=== PATIENT | male | born 1950 | race African-American/Black ===

== ENCOUNTER 2017-06-28 12:10 | Inpatient (IN) | payer OTHER, MEDICARE ==
[2017-06-28] MEDS: DEXTROSE 50% 50 ML SYRINGE IV (13:56)
[2017-06-28] MEDS: D5W 1,000 ML IV (13:56)
[2017-06-28 13:57] LABS: BEDSIDE GLUCOSE 36 MG/DL (80-115)
[2017-06-28 14:03] LABS: ABG PARTIAL PRESSURE CO2 34.6 mmHg (35.0-45.0); ABG pH (ARTERIAL) 7.497 UNITS (7.350-7.450)
[2017-06-28 14:04] LABS: ABG BASE EXCESS 3.2 (-2.0-2.0); ABG HCO3 26.2 MEQ/L (22.0-26.0); ABG O2 SATURATION 98.2 % (95.0-99.0); ABG STANDARD HCO3 27.3 MEQ/L (22.0-26.0); ABG TOTAL CO2 27.3 MEQ/L (23.0-31.0)
[2017-06-28 14:21] LABS: OSMOLALITY SERUM 315 MOSM/KG (280-301)
[2017-06-28 14:21] LABS: AMMONIA 75 uMOL/L (<32)
[2017-06-28 14:24] LABS: ALBUMIN/GLOBULIN RATIO 0.65 (1.00-1.93); ALT/SGPT 60 U/L (12-78); ANION GAP 31 MEQ/L (8-16); AST/SGOT 152 U/L (7-37); BILIRUBIN,DIRECT 0.2 MG/DL (0.0-0.2); BILIRUBIN,TOTAL 0.8 MG/DL (0.2-1.0); BLOOD UREA NITROGEN 5 MG/DL (7-18); C REACTIVE PROTEIN QUANTITATIV < 0.30 MG/DL (0.00-0.30); CARBON DIOXIDE LEVEL 4 MEQ/L (21-32); CHLORIDE LEVEL 109 MEQ/L (98-107); CPK CREATINE PHOSPHOKINASE 499 U/L (39-308); CREATININE FOR GFR 0.72 MG/DL (0.70-1.30); GLOMERULAR FILTRATION RATE > 60.0 (>49); POTASSIUM SERUM 3.4 MEQ/L (3.5-5.1); SALICYLATE LEVEL < 1.7 MG/DL (5.0-30.0); SODIUM LEVEL 144 MEQ/L (136-145); TOTAL PROTEIN 7.6 GM/DL (6.4-8.2); TROPONIN I 0.03 NG/ML (< 0.10)
[2017-06-28 14:30] LABS: BASO % 0.5 % (0.0-1.0); EOS % 0.2 % (0.0-3.0); HEMATOCRIT 32.5 % (42.0-52.0); HEMOGLOBIN 10.9 g/dl (14.0-18.0); IMMATURE GRANULOCYTE % 0.3 % (0-3.0); LYMPH # 0.7 10^3/uL (1.5-4.5); LYMPH % 10.5 % (24.0-44.0); MEAN CORPUSCULAR HEMOGLOBIN 30.6 pg (27.0-33.0); MEAN CORPUSCULAR HGB CONC 33.5 g/dl (32.0-36.5); MEAN CORPUSCULAR VOLUME 91.3 fl (80.0-96.0); MONO # 0.7 10^3/uL (0.0-0.8); MONO % 11.3 % (0.0-5.0); NEUTROPHILS # 4.9 10^3/uL (1.8-7.7); NEUTROPHILS % 77.2 % (36.0-66.0); PLATELET COUNT, AUTOMATED 146 10^3/uL (150-450); RED BLOOD COUNT 3.56 10^6/uL (4.30-6.10); RED CELL DISTRIBUTION WIDTH 13.6 % (11.5-14.5); WHITE BLOOD COUNT 6.3 10^3/uL (4.0-10.0)
[2017-06-28 14:34] LABS: ALKALINE PHOSPHATASE 153 U/L (45-117); CALCIUM LEVEL 8.2 MG/DL (8.8-10.2); CK-MB VALUE MASS 2.1 NG/ML (0.0-3.6); KETONE, URINE AUTO RFX NEGATIVE (NEGATIVE); LEUKOCYTE ESTERASE UR AUTO RFX NEGATIVE (NEGATIVE); MB/CK RELATIVE INDEX 0.42 (< OR =4); NITRITE, URINE AUTO RFX NEGATIVE (NEGATIVE); NT-PRO BNP 59 PG/ML (<125); RBC, URINE AUTO RFX 1 /HPF (0-3); SPECIFIC GRAVITY UR AUTO RFX 1.015 (1.002-1.035); SQUAM EPITHELIAL CELL UR AURFX 0 /HPF (0-6); WBC, URINE AUTO RFX 0 /HPF (0-3)
[2017-06-28 14:39] LABS: ACETAMINOPHEN LEVEL < 2.0 UG/ML (10.0-30.0); ETHYL ALCOHOL (ETHANOL) < 0.003 % (0.000-0.010); GLUCOSE, FASTING 38 MG/DL (70-100)
[2017-06-28 14:40] LABS: LACTIC ACID SEPSIS PROTOCOL 2.5 MMOL/L (0.4-2.0)
[2017-06-28] MEDS ORDERED: ISOVUE-370 76% 100ML VIAL (Q9967) As Ordered (14:43)
[2017-06-28 14:53] LABS: ESTIMATED AVERAGE GLUCOSE 120 MG/DL (60-110); HEMOGLOBIN A1c 5.8 %
[2017-06-28 14:54] LABS: AMPHETAMINES LEVEL URINE NEGATIVE (NEGATIVE); BARBITURATES URINE NEGATIVE (NEGATIVE); BENZODIAZEPINES URINE NEGATIVE (NEGATIVE); CANNABINOIDS URINE NEGATIVE (NEGATIVE); COCAINE METABOLITE URINE NEGATIVE (NEGATIVE); METHADONE URINE NEGATIVE (NEGATIVE); OPIATES URINE NEGATIVE (NEGATIVE); PHENCYCLIDINE URINE NEGATIVE (NEGATIVE)
[2017-06-28 14:57] LABS: BEDSIDE GLUCOSE 110 MG/DL (80-115)
[2017-06-28] MEDS ORDERED: GLUCOSE 4 GM CHEW TABLET PO (15:30)
[2017-06-28] MEDS ORDERED: DEXTROSE 50% 50 ML SYRINGE IV (15:30)
[2017-06-28] MEDS ORDERED: GLUCAGON FOR INJ 1 MG VIAL (J1610) SC (15:30)
[2017-06-28] MEDS: POTASSIUM CHLORIDE 10 MEQ SR TABLET PO (16:00)
[2017-06-28 16:19] LABS: BEDSIDE GLUCOSE 79 MG/DL (80-115)
[2017-06-28] MEDS: D5W/0.45% SODIUM CHLORIDE 1,000 ML IV (16:26)
[2017-06-28 17:23] LABS: BEDSIDE GLUCOSE 65 MG/DL (80-115)
[2017-06-28] MEDS: ONDANSETRON 4MG/2ML VIAL (J2405) IV (17:24)
[2017-06-28 18:19] LABS: BEDSIDE GLUCOSE 88 MG/DL (80-115)
[2017-06-28 19:09] LABS: MAGNESIUM LEVEL 1.7 MG/DL (1.8-2.4)
[2017-06-28 19:44] LABS: BEDSIDE GLUCOSE 84 MG/DL (80-115)
[2017-06-28] MEDS: MAG SULF 1GM/100ML (MAG RUN) 1 GM in APPROPRIATE DILUENT 1 EA IV ×2 (20:13→21:42)
[2017-06-28] MEDS: KCL 10MEQ/100ML SWI *ED/ICU* 10 MEQ in APPROPRIATE DILUENT 1 EA IV ×3 (20:13→22:48)
[2017-06-28] MEDS: ACETAMINOPHEN TAB 650MG DOSE (2X325MG) PO (21:51)
[2017-06-28 22:08] LABS: BEDSIDE GLUCOSE 92 MG/DL (80-115)
[2017-06-29] MEDS: D5W/0.45% SODIUM CHLORIDE 1,500 ML IV ×2 (00:14→08:13)
[2017-06-29] MEDS: KCL 10MEQ/100ML SWI *ED/ICU* 10 MEQ in APPROPRIATE DILUENT 1 EA IV (00:15)
[2017-06-29 00:17] LABS: BEDSIDE GLUCOSE 83 MG/DL (80-115)
[2017-06-29 01:57] LABS: BEDSIDE GLUCOSE 79 MG/DL (80-115)
[2017-06-29 01:57] LABS: BEDSIDE GLUCOSE 74 MG/DL (80-115)
[2017-06-29 03:47] LABS: BEDSIDE GLUCOSE 81 MG/DL (80-115)
[2017-06-29 04:40] LABS: BEDSIDE GLUCOSE 77 MG/DL (80-115)
[2017-06-29 05:38] LABS: HEMATOCRIT 31.6 % (42.0-52.0); HEMOGLOBIN 10.5 g/dl (14.0-18.0); MEAN CORPUSCULAR HEMOGLOBIN 30.7 pg (27.0-33.0); MEAN CORPUSCULAR HGB CONC 33.2 g/dl (32.0-36.5); MEAN CORPUSCULAR VOLUME 92.4 fl (80.0-96.0); RED BLOOD COUNT 3.42 10^6/uL (4.30-6.10); RED CELL DISTRIBUTION WIDTH 13.7 % (11.5-14.5); WHITE BLOOD COUNT 6.3 10^3/uL (4.0-10.0)
[2017-06-29 05:57] LABS: ALBUMIN 2.5 GM/DL (3.2-5.2); ALBUMIN/GLOBULIN RATIO 0.66 (1.00-1.93); ALKALINE PHOSPHATASE 115 U/L (45-117); ALT/SGPT 52 U/L (12-78); ANION GAP 9 MEQ/L (8-16); AST/SGOT 127 U/L (7-37); BILIRUBIN,TOTAL 1.1 MG/DL (0.2-1.0); BLOOD UREA NITROGEN 4 MG/DL (7-18); CALCIUM LEVEL 7.2 MG/DL (8.8-10.2); CARBON DIOXIDE LEVEL 25 MEQ/L (21-32); CHLORIDE LEVEL 111 MEQ/L (98-107); CREATININE FOR GFR 0.94 MG/DL (0.70-1.30); GLOMERULAR FILTRATION RATE > 60.0 (>49); GLUCOSE, FASTING 78 MG/DL (70-100); MAGNESIUM LEVEL 2.1 MG/DL (1.8-2.4); POTASSIUM SERUM 3.3 MEQ/L (3.5-5.1); SODIUM LEVEL 145 MEQ/L (136-145); TOTAL PROTEIN 6.3 GM/DL (6.4-8.2)
[2017-06-29 06:23] LABS: PLATELET COUNT, AUTOMATED 95 10^3/uL (150-450)
[2017-06-29 06:25] LABS: IMMATURE PLATELET FRACTION % 2.5 % (0.0-10.9); PLATELET F 95
[2017-06-29 07:22] LABS: CPK CREATINE PHOSPHOKINASE 353 U/L (39-308)
[2017-06-29] MEDS ORDERED: ENOXAPARIN 40 MG/0.4 ML SYRINGE (J1650) SC (09:00)
[2017-06-29 09:15] LABS: BEDSIDE GLUCOSE 91 MG/DL (80-115)
[2017-06-29 09:15] LABS: BEDSIDE GLUCOSE 83 MG/DL (80-115)
[2017-06-29 11:11] LABS: INR 1.57; PROTHROMBIN TIME 19.2 SECONDS (12.4-14.5)
[2017-06-29 11:16] LABS: BEDSIDE GLUCOSE 102 MG/DL (80-115)
[2017-06-29 11:22] LABS: LACTIC ACID SEPSIS PROTOCOL 2.1 MMOL/L (0.4-2.0)
[2017-06-29] MEDS: levETIRAcetam 250MG TABLET (KEPPRA) PO ×2 (12:39→21:18)
[2017-06-29] MEDS: POTASSIUM CHLORIDE 10 MEQ SR TABLET PO (12:39)
[2017-06-29] MEDS ORDERED: KCL 10MEQ IN D5/0.45NS 1000ML 1,000 ML IV (13:15)
[2017-06-29 13:57] LABS: GAMMA GLUTAMYLTRANSPEPTIDASE 972 U/L (15-85)
[2017-06-29 14:29] LABS: BEDSIDE GLUCOSE 167 MG/DL (80-115)
[2017-06-29] MEDS: CYANOCOBALAMIN 250 MCG TABLET PO (15:13)
[2017-06-29] MEDS: ATORVASTATIN 20 MG TAB PO (15:15)
[2017-06-29] MEDS: MULTIVITAMINS/MINERALS THERAP 1 TAB PO (15:15)
[2017-06-29] MEDS: FOLIC ACID 1 MG TAB PO (15:16)
[2017-06-29] MEDS: LISINOPRIL 20 MG TAB PO (15:16)
[2017-06-29] MEDS: THIAMINE 100 MG TAB PO (15:16)
[2017-06-29] MEDS: OMEPRAZOLE 20 MG CAP PO (15:17)
[2017-06-29] MEDS: LORATADINE 10 MG TAB PO (15:17)
[2017-06-29] MEDS: KCL 10MEQ IN D5/0.45NS 1000ML 1,000 ML IV ×2 (15:18→23:35)
[2017-06-29] MEDS ORDERED: SLF 3 ML SYR IV (16:45)
[2017-06-29 17:18] LABS: BEDSIDE GLUCOSE 178 MG/DL (80-115)
[2017-06-29] MEDS: HumaLOG INSULIN (NovoLOG) PER UNIT SC ×2 (17:56→20:25)
[2017-06-29 20:26] LABS: BEDSIDE GLUCOSE 139 MG/DL (80-115)
[2017-06-29] MEDS ORDERED: LEVEMIR (INSULIN DETEMIR) 1 UNITS/0.01ML SC (21:00)
[2017-06-29] MEDS: LATANOPROST 0.005% OPHTH SOLN 2.5 ML OU (21:25)
[2017-06-29] MEDS: COSOPT OCUMETER PLUS 10ML (DORZOLAMIDE/TIMOLOL) OU (21:25)
[2017-06-29] MEDS: SLF 3 ML SYR IV (21:54)
[2017-06-30] MEDS: SLF 3 ML SYR IV ×3 (05:03→21:14)
[2017-06-30 05:58] LABS: RETIC HEMOGLOBIN EQUIVALENT 37.4 pg (24-36); RETICULOCYTE # 47.3 10^9/L (17-77); RETICULOCYTE % 1.3 % (0.5-1.5)
[2017-06-30 06:01] LABS: HEMATOCRIT 33.4 % (42.0-52.0); HEMOGLOBIN 10.8 g/dl (14.0-18.0); MEAN CORPUSCULAR HEMOGLOBIN 30.3 pg (27.0-33.0); MEAN CORPUSCULAR HGB CONC 32.3 g/dl (32.0-36.5); MEAN CORPUSCULAR VOLUME 93.8 fl (80.0-96.0); RED BLOOD COUNT 3.56 10^6/uL (4.30-6.10); RED CELL DISTRIBUTION WIDTH 13.3 % (11.5-14.5)
[2017-06-30 06:08] LABS: REASON FOR REVIEW OTHER; SLIDE REVIEW Report; SOURCE PERIPHERAL SMEAR
[2017-06-30 06:23] LABS: AMMONIA 81 uMOL/L (<32)
[2017-06-30 06:24] LABS: PLATELET COUNT, AUTOMATED 91 10^3/uL (150-450)
[2017-06-30 06:27] LABS: IMMATURE PLATELET FRACTION % 3.2 % (0.0-10.9)
[2017-06-30 06:35] LABS: ALBUMIN 2.5 GM/DL (3.2-5.2); ALBUMIN/GLOBULIN RATIO 0.69 (1.00-1.93); ALKALINE PHOSPHATASE 117 U/L (45-117); ALT/SGPT 48 U/L (12-78); ANION GAP 8 MEQ/L (8-16); AST/SGOT 104 U/L (7-37); BILIRUBIN,TOTAL 1.4 MG/DL (0.2-1.0); BLOOD UREA NITROGEN 3 MG/DL (7-18); CALCIUM LEVEL 7.2 MG/DL (8.8-10.2); CARBON DIOXIDE LEVEL 24 MEQ/L (21-32); CHLORIDE LEVEL 114 MEQ/L (98-107); CREATININE FOR GFR 0.89 MG/DL (0.70-1.30); GLOMERULAR FILTRATION RATE > 60.0 (>49); GLUCOSE, FASTING 162 MG/DL (70-100); MAGNESIUM LEVEL 1.9 MG/DL (1.8-2.4); POTASSIUM SERUM 3.6 MEQ/L (3.5-5.1); SODIUM LEVEL 146 MEQ/L (136-145); TOTAL PROTEIN 6.1 GM/DL (6.4-8.2)
[2017-06-30 06:37] LABS: FERRITIN 913 NG/ML (26-388); IRON (FE) 90 UG/DL (65-175); PERCENT SATURATION 64.7 % (19.7-50.0); TOTAL IRON BINDING CAPACITY 139 UG/DL (250-450)
[2017-06-30 07:40] LABS: CPK CREATINE PHOSPHOKINASE 329 U/L (39-308); MAGNESIUM LEVEL 1.9 MG/DL (1.8-2.4)
[2017-06-30 07:40] LABS: PHOSPHORUS LEVEL 2.3 MG/DL (2.5-4.9)
[2017-06-30] MEDS ORDERED: COSOPT OCUMETER PLUS 10ML (DORZOLAMIDE/TIMOLOL) OU (09:00)
[2017-06-30 09:26] LABS: PLTBLUE- EDTA FREE CALC 69 K/mm3 (172-450)
[2017-06-30] MEDS: LORATADINE 10 MG TAB PO (09:29)
[2017-06-30] MEDS: levETIRAcetam 250MG TABLET (KEPPRA) PO ×2 (09:29→21:14)
[2017-06-30] MEDS: OMEPRAZOLE 20 MG CAP PO (09:29)
[2017-06-30] MEDS: MULTIVITAMINS/MINERALS THERAP 1 TAB PO (09:29)
[2017-06-30] MEDS: CYANOCOBALAMIN 250 MCG TABLET PO (09:29)
[2017-06-30] MEDS: THIAMINE 100 MG TAB PO (09:29)
[2017-06-30] MEDS: FOLIC ACID 1 MG TAB PO (09:29)
[2017-06-30] MEDS: LISINOPRIL 20 MG TAB PO (09:30)
[2017-06-30] MEDS: ATORVASTATIN 20 MG TAB PO (09:30)
[2017-06-30] MEDS: COSOPT OCUMETER PLUS 10ML (DORZOLAMIDE/TIMOLOL) OU ×2 (09:31→21:51)
[2017-06-30] MEDS: HumaLOG INSULIN (NovoLOG) PER UNIT SC ×4 (09:34→20:54)
[2017-06-30 09:48] LABS: LACTIC ACID SEPSIS PROTOCOL 1.1 MMOL/L (0.4-2.0)
[2017-06-30 10:01] LABS: PLTBLUE- EDTA FREE MACHINE 63 10^3/uL (172-450)
[2017-06-30 10:03] LABS: VITAMIN B12 LEVEL 702 PG/ML (247-911)
[2017-06-30 11:20] LABS: C REACTIVE PROTEIN QUANTITATIV < 0.30 MG/DL (0.00-0.30)
[2017-06-30 11:44] LABS: BEDSIDE GLUCOSE 151 MG/DL (80-115)
[2017-06-30] MEDS: POTASSIUM CHLORIDE 10 MEQ SR TABLET PO (12:01)
[2017-06-30 17:23] LABS: ANION GAP 7 MEQ/L (8-16); BLOOD UREA NITROGEN 4 MG/DL (7-18); CALCIUM LEVEL 7.3 MG/DL (8.8-10.2); CARBON DIOXIDE LEVEL 23 MEQ/L (21-32); CHLORIDE LEVEL 115 MEQ/L (98-107); CREATININE FOR GFR 0.87 MG/DL (0.70-1.30); GLOMERULAR FILTRATION RATE > 60.0 (>49); GLUCOSE, FASTING 167 MG/DL (70-100); MAGNESIUM LEVEL 1.9 MG/DL (1.8-2.4); PHOSPHORUS LEVEL 2.3 MG/DL (2.5-4.9); POTASSIUM SERUM 4.1 MEQ/L (3.5-5.1); SODIUM LEVEL 145 MEQ/L (136-145)
[2017-06-30 17:36] LABS: BEDSIDE GLUCOSE 207 MG/DL (80-115)
[2017-06-30 20:26] LABS: BEDSIDE GLUCOSE 152 MG/DL (80-115)
[2017-06-30] MEDS ORDERED: LATANOPROST 0.005% OPHTH SOLN 2.5 ML OU (21:00)
[2017-06-30] MEDS: LATANOPROST 0.005% OPHTH SOLN 2.5 ML OU (21:51)
[2017-07-01] MEDS: SLF 3 ML SYR IV ×3 (05:19→21:44)
[2017-07-01 05:36] LABS: BEDSIDE GLUCOSE 86 MG/DL (80-115)
[2017-07-01] MEDS: HumaLOG INSULIN (NovoLOG) PER UNIT SC ×4 (07:13→21:00)
[2017-07-01 08:20] LABS: HEMATOCRIT 36.8 % (42.0-52.0); MEAN CORPUSCULAR HEMOGLOBIN 30.4 pg (27.0-33.0); MEAN CORPUSCULAR HGB CONC 32.6 g/dl (32.0-36.5); MEAN CORPUSCULAR VOLUME 93.2 fl (80.0-96.0); RED BLOOD COUNT 3.95 10^6/uL (4.30-6.10); RED CELL DISTRIBUTION WIDTH 13.3 % (11.5-14.5)
[2017-07-01 08:29] LABS: PLATELET COUNT, AUTOMATED 94 10^3/uL (150-450)
[2017-07-01 08:31] LABS: IMMATURE PLATELET FRACTION % 2.5 % (0.0-10.9)
[2017-07-01 08:50] LABS: ALT/SGPT 44 U/L (12-78); ANION GAP 5 MEQ/L (8-16); AST/SGOT 85 U/L (7-37); BLOOD UREA NITROGEN 7 MG/DL (7-18); CALCIUM LEVEL 7.5 MG/DL (8.8-10.2); CARBON DIOXIDE LEVEL 24 MEQ/L (21-32); CHLORIDE LEVEL 115 MEQ/L (98-107); CREATININE FOR GFR 0.85 MG/DL (0.70-1.30); GLOMERULAR FILTRATION RATE > 60.0 (>49); GLUCOSE, FASTING 88 MG/DL (70-100); POTASSIUM SERUM 3.8 MEQ/L (3.5-5.1); SODIUM LEVEL 144 MEQ/L (136-145)
[2017-07-01 08:51] LABS: ALBUMIN 2.6 GM/DL (3.2-5.2); ALBUMIN/GLOBULIN RATIO 0.65 (1.00-1.93); ALKALINE PHOSPHATASE 136 U/L (45-117); BILIRUBIN,TOTAL 1.3 MG/DL (0.2-1.0); C REACTIVE PROTEIN QUANTITATIV 0.57 MG/DL (0.00-0.30); CPK CREATINE PHOSPHOKINASE 215 U/L (39-308); GAMMA GLUTAMYLTRANSPEPTIDASE 937 U/L (15-85); LDH LACTATE DEHYDROGENASE 372 U/L (87-241); MAGNESIUM LEVEL 1.8 MG/DL (1.8-2.4); TOTAL PROTEIN 6.6 GM/DL (6.4-8.2)
[2017-07-01 09:01] LABS: ERYTHROCYTE SEDIMENTATION RATE 23 mm/hr (0-20)
[2017-07-01] MEDS: ATORVASTATIN 20 MG TAB PO (09:12)
[2017-07-01] MEDS: LORATADINE 10 MG TAB PO (09:12)
[2017-07-01] MEDS: CYANOCOBALAMIN 250 MCG TABLET PO (09:12)
[2017-07-01] MEDS: levETIRAcetam 250MG TABLET (KEPPRA) PO ×2 (09:12→21:43)
[2017-07-01] MEDS: MULTIVITAMINS/MINERALS THERAP 1 TAB PO (09:12)
[2017-07-01] MEDS: FOLIC ACID 1 MG TAB PO (09:12)
[2017-07-01] MEDS: OMEPRAZOLE 20 MG CAP PO (09:12)
[2017-07-01] MEDS: THIAMINE 100 MG TAB PO (09:13)
[2017-07-01] MEDS: LISINOPRIL 20 MG TAB PO (09:13)
[2017-07-01] MEDS: COSOPT OCUMETER PLUS 10ML (DORZOLAMIDE/TIMOLOL) OU ×2 (09:20→21:43)
[2017-07-01 11:02] LABS: HEPATITIS B SURFACE ANTIGEN NEGATIVE (NEGATIVE)
[2017-07-01 11:26] LABS: HEPATITIS C VIRUS ABY INDEX 0.4 INDEX (<0.8)
[2017-07-01 11:27] LABS: HEPATITIS B CORE ANTIBODY IGM NEGATIVE (NEGATIVE)
[2017-07-01 11:29] LABS: HEPATITIS A ANTIBODY IGM NEGATIVE (NEGATIVE)
[2017-07-01 12:07] LABS: BEDSIDE GLUCOSE 130 MG/DL (80-115)
[2017-07-01 17:55] LABS: BEDSIDE GLUCOSE 144 MG/DL (80-115)
[2017-07-01 19:40] LABS: BEDSIDE GLUCOSE 172 MG/DL (80-115)
[2017-07-01] MEDS: LATANOPROST 0.005% OPHTH SOLN 2.5 ML OU (21:43)
[2017-07-02 04:48] LABS: BEDSIDE GLUCOSE 125 MG/DL (80-115)
[2017-07-02] MEDS: SLF 3 ML SYR IV (05:32)
[2017-07-02 06:58] LABS: HEMATOCRIT 34.2 % (42.0-52.0); HEMOGLOBIN 11.3 g/dl (14.0-18.0); RED BLOOD COUNT 3.64 10^6/uL (4.30-6.10); RED CELL DISTRIBUTION WIDTH 13.3 % (11.5-14.5); WHITE BLOOD COUNT 6.9 10^3/uL (4.0-10.0)
[2017-07-02 07:02] LABS: PLATELET COUNT, AUTOMATED 87 10^3/uL (150-450)
[2017-07-02 07:18] LABS: ALBUMIN 2.3 GM/DL (3.2-5.2); ALBUMIN/GLOBULIN RATIO 0.58 (1.00-1.93); ALKALINE PHOSPHATASE 113 U/L (45-117); ALT/SGPT 35 U/L (12-78); ANION GAP 9 MEQ/L (8-16); AST/SGOT 59 U/L (7-37); BILIRUBIN,TOTAL 1.2 MG/DL (0.2-1.0); BLOOD UREA NITROGEN 9 MG/DL (7-18); CALCIUM LEVEL 7.6 MG/DL (8.8-10.2); CARBON DIOXIDE LEVEL 23 MEQ/L (21-32); CHLORIDE LEVEL 112 MEQ/L (98-107); CREATININE FOR GFR 0.82 MG/DL (0.70-1.30); GLOMERULAR FILTRATION RATE > 60.0 (>49); GLUCOSE, FASTING 101 MG/DL (70-100); MAGNESIUM LEVEL 1.7 MG/DL (1.8-2.4); POTASSIUM SERUM 3.6 MEQ/L (3.5-5.1); SODIUM LEVEL 144 MEQ/L (136-145); TOTAL PROTEIN 6.3 GM/DL (6.4-8.2)
[2017-07-02] MEDS: HumaLOG INSULIN (NovoLOG) PER UNIT SC ×2 (07:30→12:00)
[2017-07-02] MEDS: OMEPRAZOLE 20 MG CAP PO (08:59)
[2017-07-02] MEDS: THIAMINE 100 MG TAB PO (08:59)
[2017-07-02] MEDS: FOLIC ACID 1 MG TAB PO (08:59)
[2017-07-02] MEDS: levETIRAcetam 250MG TABLET (KEPPRA) PO (08:59)
[2017-07-02] MEDS: CYANOCOBALAMIN 250 MCG TABLET PO (08:59)
[2017-07-02] MEDS: MULTIVITAMINS/MINERALS THERAP 1 TAB PO (08:59)
[2017-07-02] MEDS: LORATADINE 10 MG TAB PO (08:59)
[2017-07-02] MEDS: ATORVASTATIN 20 MG TAB PO (08:59)
[2017-07-02] MEDS: LISINOPRIL 20 MG TAB PO (08:59)
[2017-07-02] MEDS: COSOPT OCUMETER PLUS 10ML (DORZOLAMIDE/TIMOLOL) OU (09:00)
[2017-07-02] MEDS: MAG SULF 1GM/100ML (MAG RUN) 1 GM in APPROPRIATE DILUENT 1 EA IV ×2 (09:00→09:01)
[2017-07-02 09:30] LABS: PHOSPHORUS LEVEL 2.5 MG/DL (2.5-4.9)
[2017-07-02 10:02] LABS: BASO # 0.1 10^3/uL (0.0-0.2); BASO % 0.9 % (0.0-1.0); DIFF SLIDE NUMBER 28; EOS # 0.3 10^3/uL (0.0-0.50); EOS % 3.7 % (0.0-3.0); IMMATURE GRANULOCYTE % 0.4 % (0-3.0); LYMPH # 1.3 10^3/uL (1.5-4.5); LYMPH % 17.7 % (24.0-44.0); MONO # 0.8 10^3/uL (0.0-0.8); MONO % 11.9 % (0.0-5.0); NEUTROPHILS # 4.6 10^3/uL (1.8-7.7); NEUTROPHILS % 65.4 % (36.0-66.0)
[2017-07-02 10:03] LABS: PLATELET ESTIMATE DECREASED (NORMAL)
[2017-07-02 11:34] LABS: BEDSIDE GLUCOSE 141 MG/DL (80-115)
[2017-07-03 14:36] LABS: PHOSPHOLIPIDS LEVEL 131 mg/dL (150-250)
== END 2017-07-02 13:04 | disposition home or self-care (01) | DRG 638 ==
LOC: M MSPAV 06-30 14:10 → M MS4PR 06-30 20:00 → M ED 12:10 → M ED INP 15:20 → M PCU 17:00
DX: E11.649 Type 2 diabetes mellitus with hypoglycemia without coma (principal); E87.2 Acidosis; I47.2 Ventricular tachycardia; R50.9 Fever, unspecified; E87.6 Hypokalemia; F10.10 Alcohol abuse, uncomplicated; D63.8 Anemia in other chronic diseases classified elsewhere; G40.909 Epilepsy, unspecified, not intractable, without status epilepticus; D69.6 Thrombocytopenia, unspecified; E83.42 Hypomagnesemia; K70.9 Alcoholic liver disease, unspecified; Z86.73 Personal history of transient ischemic attack (TIA), and cerebral infarction without residual deficits; Z85.850 Personal history of malignant neoplasm of thyroid; Z85.819 Personal history of malignant neoplasm of unspecified site of lip, oral cavity, and pharynx; Z92.21 Personal history of antineoplastic chemotherapy; Z92.3 Personal history of irradiation; Z88.0 Allergy status to penicillin; Z79.4 Long term (current) use of insulin; Z87.891 Personal history of nicotine dependence; Z79.899 Other long term (current) drug therapy

== ENCOUNTER 2017-08-16 17:23 | Inpatient (IN) | payer OTHER, MEDICARE ==
[2017-08-16 18:12] LABS: BASO % 0.2 % (0.0-1.0); HEMOGLOBIN 12.2 g/dl (13.5-17.5); IMMATURE GRANULOCYTE % 0.6 % (0-3.0); LYMPH # 1.2 10^3/uL (1.5-4.5); LYMPH % 9.5 % (24.0-44.0); MEAN CORPUSCULAR HEMOGLOBIN 30.8 pg (27.0-33.0); MEAN CORPUSCULAR HGB CONC 33.9 g/dl (32.0-36.5); MEAN CORPUSCULAR VOLUME 90.9 fl (80.0-96.0); MONO # 1.2 10^3/uL (0.0-0.8); MONO % 9.8 % (0.0-5.0); NEUTROPHILS % 79.9 % (36.0-66.0); PLATELET COUNT, AUTOMATED 104 10^3/uL (150-450); RED BLOOD COUNT 3.96 10^6/uL (4.30-6.10); RED CELL DISTRIBUTION WIDTH 13.7 % (11.5-14.5); WHITE BLOOD COUNT 12.5 10^3/uL (4.0-10.0)
[2017-08-16] MEDS: ASPIRIN 81 MG CHEW TABLET PO (18:15)
[2017-08-16 18:23] LABS: INR 1.46; PROTHROMBIN TIME 18.1 SECONDS (12.4-14.5)
[2017-08-16] MEDS ORDERED: ISOVUE-370 76% 100ML VIAL (Q9967) As Ordered (18:27)
[2017-08-16 18:32] LABS: ALBUMIN 3.1 GM/DL (3.2-5.2); ALBUMIN/GLOBULIN RATIO 0.63 (1.00-1.93); ALKALINE PHOSPHATASE 121 U/L (45-117); ALT/SGPT 41 U/L (12-78); ANION GAP 9 MEQ/L (8-16); AST/SGOT 58 U/L (7-37); BILIRUBIN,DIRECT 0.3 MG/DL (0.0-0.2); BILIRUBIN,TOTAL 0.7 MG/DL (0.2-1.0); BLOOD UREA NITROGEN 6 MG/DL (7-18); CALCIUM LEVEL 7.7 MG/DL (8.8-10.2); CARBON DIOXIDE LEVEL 25 MEQ/L (21-32); CHLORIDE LEVEL 105 MEQ/L (98-107); CK-MB VALUE MASS 2.1 NG/ML (<3.6); CPK CREATINE PHOSPHOKINASE 321 U/L (39-308); CREATININE FOR GFR 1.36 MG/DL (0.70-1.30); GLOMERULAR FILTRATION RATE > 60.0 (>49); GLUCOSE, FASTING 199 MG/DL (70-100); LIPASE 325 U/L (73-393); MB/CK RELATIVE INDEX 0.65 (< OR =4); NT-PRO BNP 389 PG/ML (<125); POTASSIUM SERUM 3.4 MEQ/L (3.5-5.1); SODIUM LEVEL 139 MEQ/L (136-145); TROPONIN I 0.05 NG/ML (< 0.10)
[2017-08-16 18:34] LABS: LACTIC ACID SEPSIS PROTOCOL 4.1 MMOL/L (0.4-2.0)
[2017-08-16 18:53] LABS: INFLUENZA A AMPLIFICATION NEGATIVE (NEGATIVE); INFLUENZA B AMPLIFICATION NEGATIVE (NEGATIVE)
[2017-08-16 19:20] LABS: BEDSIDE GLUCOSE 173 MG/DL (80-115)
[2017-08-16] MEDS: NS 1,000 ML IV ×2 (19:27→23:15)
[2017-08-16] MEDS: LevoFLOXacin IV 750 MG in APPROPRIATE DILUENT 1 EA IV (19:27)
[2017-08-16] MEDS: KETOROLAC 30 MG/ML VIAL (J1885) IV (19:27)
[2017-08-16] MEDS: NS 2,730 ML in APPROPRIATE DILUENT 1 EA IV (20:15)
[2017-08-16] MEDS ORDERED: GLUCAGON FOR INJ 1 MG VIAL (J1610) SC (20:45)
[2017-08-16] MEDS ORDERED: DEXTROSE 50% 50 ML SYRINGE IV (20:45)
[2017-08-16] MEDS ORDERED: ONDANSETRON 4MG/2ML VIAL (J2405) IV (20:45)
[2017-08-16] MEDS ORDERED: GLUCOSE 4 GM CHEW TABLET PO (20:45)
[2017-08-16] MEDS: ACETAMINOPHEN TAB 650MG DOSE (2X325MG) PO (21:43)
[2017-08-16] MEDS: HEPARIN SOD (PORCINE) 5000 UNITS/ML VIAL SC (22:59)
[2017-08-16] MEDS: DOCUSATE SODIUM 100 MG CAP PO (22:59)
[2017-08-16] MEDS: HumaLOG INSULIN (NovoLOG) PER UNIT SC (22:59)
[2017-08-16] MEDS: LATANOPROST 0.005% OPHTH SOLN 2.5 ML OU (23:04)
[2017-08-16] MEDS: COSOPT OCUMETER PLUS 10ML (DORZOLAMIDE/TIMOLOL) OU (23:04)
[2017-08-16] MEDS: IPRATROPIUM 0.5MG/ALBUTEROL 2.5MG INH SOL UD 3ML (DUONEB)(J7620) NEB (23:50)
[2017-08-17] MEDS: ACETAMINOPHEN TAB 650MG DOSE (2X325MG) PO ×4 (01:58→18:34)
[2017-08-17] MEDS: IPRATROPIUM 0.5MG/ALBUTEROL 2.5MG INH SOL UD 3ML (DUONEB)(J7620) NEB ×3 (02:01→16:14)
[2017-08-17] MEDS: NS 1,000 ML IV ×2 (02:26→06:35)
[2017-08-17] MEDS: VERAPAMIL HCL 5 MG/2 ML VIAL IV (03:55)
[2017-08-17 04:05] LABS: HEMATOCRIT 34.8 % (42.0-52.0); HEMOGLOBIN 11.6 g/dl (13.5-17.5); MEAN CORPUSCULAR HEMOGLOBIN 30.2 pg (27.0-33.0); MEAN CORPUSCULAR HGB CONC 33.3 g/dl (32.0-36.5); MEAN CORPUSCULAR VOLUME 90.6 fl (80.0-96.0); RED BLOOD COUNT 3.84 10^6/uL (4.30-6.10); RED CELL DISTRIBUTION WIDTH 13.8 % (11.5-14.5); WHITE BLOOD COUNT 12.5 10^3/uL (4.0-10.0)
[2017-08-17 04:08] LABS: BEDSIDE GLUCOSE 190 MG/DL (80-115)
[2017-08-17 04:08] LABS: BEDSIDE GLUCOSE 149 MG/DL (80-115)
[2017-08-17 04:27] LABS: CK-MB VALUE MASS 1.8 NG/ML (<3.6); CPK CREATINE PHOSPHOKINASE 280 U/L (39-308); MB/CK RELATIVE INDEX 0.64 (< OR =4); TROPONIN I 0.05 NG/ML (< 0.10)
[2017-08-17 04:29] LABS: IMMATURE PLATELET FRACTION % 3.6 % (0.0-10.9); PLATELET COUNT, AUTOMATED 66 10^3/uL (150-450)
[2017-08-17 04:33] LABS: ANION GAP 11 MEQ/L (8-16); BLOOD UREA NITROGEN 6 MG/DL (7-18); CALCIUM LEVEL 6.9 MG/DL (8.8-10.2); CARBON DIOXIDE LEVEL 21 MEQ/L (21-32); CHLORIDE LEVEL 113 MEQ/L (98-107); CREATININE FOR GFR 1.19 MG/DL (0.70-1.30); GLOMERULAR FILTRATION RATE > 60.0 (>49); GLUCOSE, FASTING 160 MG/DL (70-100); POTASSIUM SERUM 3.5 MEQ/L (3.5-5.1); SODIUM LEVEL 145 MEQ/L (136-145)
[2017-08-17] MEDS: VERAPAMIL 40 MG TAB PO (05:11)
[2017-08-17] MEDS: METOPROLOL 5 MG/5 ML VIAL IV ×3 (05:40→05:50)
[2017-08-17] MEDS: HEPARIN SOD (PORCINE) 5000 UNITS/ML VIAL SC (06:00)
[2017-08-17 07:24] LABS: BEDSIDE GLUCOSE 171 MG/DL (80-115)
[2017-08-17] MEDS: HumaLOG INSULIN (NovoLOG) PER UNIT SC ×4 (08:14→19:58)
[2017-08-17] MEDS: DOCUSATE SODIUM 100 MG CAP PO ×2 (09:00→20:23)
[2017-08-17] MEDS: METOPROLOL TART 25 MG TABLET PO ×2 (09:00→20:23)
[2017-08-17] MEDS: MULTIVITAMINS/MINERALS THERAP 1 TAB PO (09:00)
[2017-08-17] MEDS: levETIRAcetam 250MG TABLET (KEPPRA) PO ×2 (10:19→20:23)
[2017-08-17] MEDS: FOLIC ACID 1 MG TAB PO (10:20)
[2017-08-17] MEDS: OMEPRAZOLE 20 MG CAP PO (10:20)
[2017-08-17] MEDS: THIAMINE 100 MG TAB PO (10:20)
[2017-08-17] MEDS: ATORVASTATIN 20 MG TAB PO (10:20)
[2017-08-17] MEDS: LORATADINE 10 MG TAB PO (10:20)
[2017-08-17] MEDS: COSOPT OCUMETER PLUS 10ML (DORZOLAMIDE/TIMOLOL) OU ×2 (10:21→20:23)
[2017-08-17] MEDS: AZITHROMYCIN INJ 500 MG, VIAL MATE ADAPTER 1 EACH in D5W 250 ML IV (11:39)
[2017-08-17 12:01] LABS: BEDSIDE GLUCOSE 138 MG/DL (80-115)
[2017-08-17] MEDS: MEROPENEM INJ 1 GM in APPROPRIATE DILUENT 1 EA IV ×2 (13:23→20:22)
[2017-08-17 13:53] LABS: HEMATOCRIT 34.6 % (42.0-52.0); HEMOGLOBIN 11.4 g/dl (13.5-17.5); MEAN CORPUSCULAR HEMOGLOBIN 30.7 pg (27.0-33.0); MEAN CORPUSCULAR HGB CONC 32.9 g/dl (32.0-36.5); MEAN CORPUSCULAR VOLUME 93.3 fl (80.0-96.0); RED BLOOD COUNT 3.71 10^6/uL (4.30-6.10); RED CELL DISTRIBUTION WIDTH 13.8 % (11.5-14.5); WHITE BLOOD COUNT 12.5 10^3/uL (4.0-10.0)
[2017-08-17 13:56] LABS: PLATELET COUNT, AUTOMATED 65 10^3/uL (150-450)
[2017-08-17 14:00] LABS: KETONE, URINE AUTO RFX NEGATIVE (NEGATIVE); LEUKOCYTE ESTERASE UR AUTO RFX NEGATIVE (NEGATIVE); NITRITE, URINE AUTO RFX NEGATIVE (NEGATIVE); RBC, URINE AUTO RFX 1 /HPF (0-3); SPECIFIC GRAVITY UR AUTO RFX 1.027 (1.002-1.035); SQUAM EPITHELIAL CELL UR AURFX 0 /HPF (0-6); WBC, URINE AUTO RFX 1 /HPF (0-3)
[2017-08-17 14:01] LABS: INR 1.76
[2017-08-17 14:02] LABS: PARTIAL THROMBOPLASTIN TIME 39.1 SECONDS (26.8-37.9)
[2017-08-17 14:35] LABS: LACTIC ACID SEPSIS PROTOCOL 3.2 MMOL/L (0.4-2.0)
[2017-08-17 14:57] LABS: ALBUMIN 2.3 GM/DL (3.2-5.2); ALBUMIN/GLOBULIN RATIO 0.56 (1.00-1.93); ALKALINE PHOSPHATASE 93 U/L (45-117); ALT/SGPT 31 U/L (12-78); ANION GAP 9 MEQ/L (8-16); AST/SGOT 47 U/L (7-37); BILIRUBIN,DIRECT 0.6 MG/DL (0.0-0.2); BLOOD UREA NITROGEN 7 MG/DL (7-18); CALCIUM LEVEL 6.6 MG/DL (8.8-10.2); CARBON DIOXIDE LEVEL 22 MEQ/L (21-32); CHLORIDE LEVEL 113 MEQ/L (98-107); CPK CREATINE PHOSPHOKINASE 244 U/L (39-308); CREATININE FOR GFR 1.13 MG/DL (0.70-1.30); GLOMERULAR FILTRATION RATE > 60.0 (>49); GLUCOSE, FASTING 165 MG/DL (70-100); POTASSIUM SERUM 3.5 MEQ/L (3.5-5.1); SODIUM LEVEL 144 MEQ/L (136-145); TOTAL PROTEIN 6.4 GM/DL (6.4-8.2); TROPONIN I 0.03 NG/ML (< 0.10)
[2017-08-17 14:59] LABS: CK-MB VALUE MASS 2.2 NG/ML (<3.6)
[2017-08-17 15:00] LABS: BILIRUBIN,TOTAL 1.1 MG/DL (0.2-1.0)
[2017-08-17 17:19] LABS: BEDSIDE GLUCOSE 100 MG/DL (80-115)
[2017-08-17] MEDS: VANCOMYCIN HCL 1,000 MG, VIAL MATE ADAPTER 1 EACH in D5W 250 ML IV (18:34)
[2017-08-17] MEDS ORDERED: LevoFLOXacin IV 500 MG in APPROPRIATE DILUENT 1 EA IV (20:00)
[2017-08-17] MEDS: LATANOPROST 0.005% OPHTH SOLN 2.5 ML OU (20:24)
[2017-08-18] MEDS: IPRATROPIUM 0.5MG/ALBUTEROL 2.5MG INH SOL UD 3ML (DUONEB)(J7620) NEB ×4 (00:11→23:30)
[2017-08-18 00:13] LABS: BEDSIDE GLUCOSE 143 MG/DL (80-115)
[2017-08-18] MEDS: VANCOMYCIN HCL 1,000 MG, VIAL MATE ADAPTER 1 EACH in D5W 250 ML IV ×3 (01:22→18:23)
[2017-08-18 05:07] LABS: HEMATOCRIT 37.6 % (42.0-52.0); HEMOGLOBIN 12.1 g/dl (13.5-17.5); MEAN CORPUSCULAR HGB CONC 32.2 g/dl (32.0-36.5); MEAN CORPUSCULAR VOLUME 93.3 fl (80.0-96.0); RED BLOOD COUNT 4.03 10^6/uL (4.30-6.10); RED CELL DISTRIBUTION WIDTH 13.9 % (11.5-14.5); WHITE BLOOD COUNT 10.2 10^3/uL (4.0-10.0)
[2017-08-18 05:09] LABS: PLATELET COUNT, AUTOMATED 67 10^3/uL (150-450)
[2017-08-18 05:10] LABS: IMMATURE PLATELET FRACTION % 3.6 % (0.0-10.9)
[2017-08-18 05:23] LABS: ANION GAP 7 MEQ/L (8-16); BLOOD UREA NITROGEN 10 MG/DL (7-18); CALCIUM LEVEL 6.7 MG/DL (8.8-10.2); CARBON DIOXIDE LEVEL 19 MEQ/L (21-32); CHLORIDE LEVEL 114 MEQ/L (98-107); CREATININE FOR GFR 0.93 MG/DL (0.70-1.30); GLOMERULAR FILTRATION RATE > 60.0 (>49); GLUCOSE, FASTING 111 MG/DL (70-100); POTASSIUM SERUM 3.3 MEQ/L (3.5-5.1); SODIUM LEVEL 140 MEQ/L (136-145)
[2017-08-18] MEDS: MEROPENEM INJ 1 GM in APPROPRIATE DILUENT 1 EA IV ×3 (05:26→20:49)
[2017-08-18 06:57] LABS: BEDSIDE GLUCOSE 138 MG/DL (80-115)
[2017-08-18] MEDS: HumaLOG INSULIN (NovoLOG) PER UNIT SC ×4 (07:24→20:59)
[2017-08-18] MEDS: DOCUSATE SODIUM 100 MG CAP PO ×2 (08:29→20:47)
[2017-08-18] MEDS: CALCIUM GLUCONATE 1,000 MG in D5W MINI-BAG PLUS 100 ML IV (08:42)
[2017-08-18] MEDS: COSOPT OCUMETER PLUS 10ML (DORZOLAMIDE/TIMOLOL) OU ×2 (08:42→20:49)
[2017-08-18] MEDS: levETIRAcetam 250MG TABLET (KEPPRA) PO ×2 (08:43→20:48)
[2017-08-18] MEDS: POTASSIUM CHLORIDE 10 MEQ SR TABLET PO (08:43)
[2017-08-18] MEDS: OMEPRAZOLE 20 MG CAP PO (08:43)
[2017-08-18] MEDS: LORATADINE 10 MG TAB PO (08:43)
[2017-08-18] MEDS: THIAMINE 100 MG TAB PO (08:43)
[2017-08-18] MEDS: MULTIVITAMINS/MINERALS THERAP 1 TAB PO (08:43)
[2017-08-18] MEDS: ATORVASTATIN 20 MG TAB PO (08:43)
[2017-08-18] MEDS: FOLIC ACID 1 MG TAB PO (08:43)
[2017-08-18] MEDS: METOPROLOL TART 25 MG TABLET PO ×2 (08:45→20:48)
[2017-08-18] MEDS: AZITHROMYCIN INJ 500 MG, VIAL MATE ADAPTER 1 EACH in D5W 250 ML IV (11:42)
[2017-08-18] MEDS: ACETAMINOPHEN TAB 650MG DOSE (2X325MG) PO ×2 (11:43→18:22)
[2017-08-18 11:55] LABS: BEDSIDE GLUCOSE 122 MG/DL (80-115)
[2017-08-18 12:27] LABS: MAGNESIUM LEVEL 1.4 MG/DL (1.8-2.4)
[2017-08-18] MEDS: MAG SULF 1GM/100ML (MAG RUN) 1 GM in APPROPRIATE DILUENT 1 EA IV ×2 (16:07→17:15)
[2017-08-18 16:44] LABS: BEDSIDE GLUCOSE 119 MG/DL (80-115)
[2017-08-18] MEDS: LATANOPROST 0.005% OPHTH SOLN 2.5 ML OU (20:49)
[2017-08-18 21:03] LABS: BEDSIDE GLUCOSE 160 MG/DL (80-115)
[2017-08-19 05:19] LABS: HEMATOCRIT 41.2 % (42.0-52.0); HEMOGLOBIN 13.7 g/dl (13.5-17.5); MEAN CORPUSCULAR HEMOGLOBIN 30.2 pg (27.0-33.0); MEAN CORPUSCULAR HGB CONC 33.3 g/dl (32.0-36.5); MEAN CORPUSCULAR VOLUME 90.9 fl (80.0-96.0); RED BLOOD COUNT 4.53 10^6/uL (4.30-6.10); RED CELL DISTRIBUTION WIDTH 13.2 % (11.5-14.5); WHITE BLOOD COUNT 9.9 10^3/uL (4.0-10.0)
[2017-08-19 05:21] LABS: PLATELET COUNT, AUTOMATED 85 10^3/uL (150-450)
[2017-08-19] MEDS: MEROPENEM INJ 1 GM in APPROPRIATE DILUENT 1 EA IV (05:21)
[2017-08-19 05:22] LABS: IMMATURE PLATELET FRACTION % 4.5 % (0.0-10.9)
[2017-08-19 05:44] LABS: ANION GAP 6 MEQ/L (8-16); BLOOD UREA NITROGEN 11 MG/DL (7-18); CALCIUM LEVEL 6.9 MG/DL (8.8-10.2); CARBON DIOXIDE LEVEL 24 MEQ/L (21-32); CHLORIDE LEVEL 110 MEQ/L (98-107); CREATININE FOR GFR 0.87 MG/DL (0.70-1.30); GLOMERULAR FILTRATION RATE > 60.0 (>49); GLUCOSE, FASTING 191 MG/DL (70-100); POTASSIUM SERUM 3.1 MEQ/L (3.5-5.1); SODIUM LEVEL 140 MEQ/L (136-145)
[2017-08-19] MEDS: VANCOMYCIN HCL 1,000 MG, VIAL MATE ADAPTER 1 EACH in D5W 250 ML IV (06:21)
[2017-08-19] MEDS: HumaLOG INSULIN (NovoLOG) PER UNIT SC ×4 (08:00→21:00)
[2017-08-19] MEDS: FOLIC ACID 1 MG TAB PO (08:01)
[2017-08-19] MEDS: ATORVASTATIN 20 MG TAB PO (08:01)
[2017-08-19] MEDS: ACETAMINOPHEN TAB 650MG DOSE (2X325MG) PO ×2 (08:01→15:05)
[2017-08-19] MEDS: levETIRAcetam 250MG TABLET (KEPPRA) PO ×2 (08:01→20:59)
[2017-08-19] MEDS: THIAMINE 100 MG TAB PO (08:02)
[2017-08-19] MEDS: OMEPRAZOLE 20 MG CAP PO (08:02)
[2017-08-19] MEDS: MULTIVITAMINS/MINERALS THERAP 1 TAB PO (08:03)
[2017-08-19] MEDS: DOCUSATE SODIUM 100 MG CAP PO ×2 (08:03→20:59)
[2017-08-19] MEDS: LORATADINE 10 MG TAB PO (08:03)
[2017-08-19] MEDS: METOPROLOL TART 25 MG TABLET PO ×2 (08:03→21:00)
[2017-08-19] MEDS: COSOPT OCUMETER PLUS 10ML (DORZOLAMIDE/TIMOLOL) OU ×2 (08:03→21:00)
[2017-08-19] MEDS: IPRATROPIUM 0.5MG/ALBUTEROL 2.5MG INH SOL UD 3ML (DUONEB)(J7620) NEB ×3 (08:25→23:27)
[2017-08-19 08:26] LABS: MAGNESIUM LEVEL 1.9 MG/DL (1.8-2.4)
[2017-08-19] MEDS: LevoFLOXacin IV 750 MG in APPROPRIATE DILUENT 1 EA IV (09:48)
[2017-08-19] MEDS: POTASSIUM CHLORIDE 10 MEQ SR TABLET PO ×2 (09:48→11:53)
[2017-08-19] MEDS: guaiFENesin ER 600 MG TAB PO ×2 (09:49→20:59)
[2017-08-19 11:51] LABS: BEDSIDE GLUCOSE 129 MG/DL (80-115)
[2017-08-19 17:30] LABS: BEDSIDE GLUCOSE 118 MG/DL (80-115)
[2017-08-19] MEDS ORDERED: PROHANCE 279.3MG/ML 15ML VIAL (A9576) As Ordered (20:21)
[2017-08-19] MEDS ORDERED: PROHANCE 279.3MG/ML 5ML VIAL (A9576) As Ordered (20:21)
[2017-08-19] MEDS: LATANOPROST 0.005% OPHTH SOLN 2.5 ML OU (21:00)
[2017-08-20] MEDS: ACETAMINOPHEN TAB 650MG DOSE (2X325MG) PO ×4 (00:05→15:45)
[2017-08-20 02:59] LABS: BEDSIDE GLUCOSE 109 MG/DL (80-115)
[2017-08-20 04:44] LABS: HEMATOCRIT 35.2 % (42.0-52.0); MEAN CORPUSCULAR HEMOGLOBIN 30.3 pg (27.0-33.0); MEAN CORPUSCULAR HGB CONC 33.2 g/dl (32.0-36.5); MEAN CORPUSCULAR VOLUME 91.2 fl (80.0-96.0); RED BLOOD COUNT 3.86 10^6/uL (4.30-6.10); RED CELL DISTRIBUTION WIDTH 13.2 % (11.5-14.5); WHITE BLOOD COUNT 9.3 10^3/uL (4.0-10.0)
[2017-08-20 04:46] LABS: HEMOGLOBIN 11.7 g/dl (13.5-17.5); PLATELET COUNT, AUTOMATED 91 10^3/uL (150-450)
[2017-08-20 04:59] LABS: ANION GAP 8 MEQ/L (8-16); BLOOD UREA NITROGEN 12 MG/DL (7-18); CALCIUM LEVEL 6.7 MG/DL (8.8-10.2); CARBON DIOXIDE LEVEL 22 MEQ/L (21-32); CHLORIDE LEVEL 112 MEQ/L (98-107); CREATININE FOR GFR 0.79 MG/DL (0.70-1.30); GLOMERULAR FILTRATION RATE > 60.0 (>49); GLUCOSE, FASTING 126 MG/DL (70-100); MAGNESIUM LEVEL 1.7 MG/DL (1.8-2.4); POTASSIUM SERUM 3.5 MEQ/L (3.5-5.1); SODIUM LEVEL 142 MEQ/L (136-145)
[2017-08-20] MEDS: IPRATROPIUM 0.5MG/ALBUTEROL 2.5MG INH SOL UD 3ML (DUONEB)(J7620) NEB ×3 (08:06→23:07)
[2017-08-20] MEDS: LevoFLOXacin IV 750 MG in APPROPRIATE DILUENT 1 EA IV (08:15)
[2017-08-20] MEDS: MAG SULF 1GM/100ML (MAG RUN) 1 GM in APPROPRIATE DILUENT 1 EA IV ×2 (08:16→11:01)
[2017-08-20] MEDS: POTASSIUM CHLORIDE 10 MEQ SR TABLET PO (08:16)
[2017-08-20 08:17] LABS: PARTIAL THROMBOPLASTIN TIME 30.7 SECONDS (26.8-37.9)
[2017-08-20] MEDS: FOLIC ACID 1 MG TAB PO (08:17)
[2017-08-20] MEDS: ATORVASTATIN 20 MG TAB PO (08:17)
[2017-08-20] MEDS: LORATADINE 10 MG TAB PO (08:17)
[2017-08-20] MEDS: THIAMINE 100 MG TAB PO (08:17)
[2017-08-20] MEDS: MULTIVITAMINS/MINERALS THERAP 1 TAB PO (08:17)
[2017-08-20] MEDS: OMEPRAZOLE 20 MG CAP PO (08:17)
[2017-08-20] MEDS: levETIRAcetam 250MG TABLET (KEPPRA) PO ×2 (08:17→20:04)
[2017-08-20] MEDS: guaiFENesin ER 600 MG TAB PO ×2 (08:18→20:03)
[2017-08-20] MEDS: HumaLOG INSULIN (NovoLOG) PER UNIT SC ×4 (08:18→20:04)
[2017-08-20] MEDS: METOPROLOL TART 25 MG TABLET PO ×2 (08:18→20:04)
[2017-08-20] MEDS: DOCUSATE SODIUM 100 MG CAP PO ×2 (08:18→20:03)
[2017-08-20] MEDS: COSOPT OCUMETER PLUS 10ML (DORZOLAMIDE/TIMOLOL) OU ×2 (08:19→20:03)
[2017-08-20] MEDS: traMADol 50 MG TAB PO ×2 (11:02→17:45)
[2017-08-20 12:17] LABS: BEDSIDE GLUCOSE 147 MG/DL (80-115)
[2017-08-20] MEDS: ENOXAPARIN 40 MG/0.4 ML SYRINGE (J1650) SC (14:54)
[2017-08-20 17:48] LABS: BEDSIDE GLUCOSE 138 MG/DL (80-115)
[2017-08-20] MEDS: LATANOPROST 0.005% OPHTH SOLN 2.5 ML OU (20:03)
[2017-08-20 20:06] LABS: BEDSIDE GLUCOSE 132 MG/DL (80-115)
[2017-08-21] MEDS: traMADol 50 MG TAB PO ×2 (01:15→09:00)
[2017-08-21] MEDS: ACETAMINOPHEN TAB 650MG DOSE (2X325MG) PO (01:15)
[2017-08-21 04:46] LABS: HEMATOCRIT 34.6 % (42.0-52.0); HEMOGLOBIN 11.4 g/dl (13.5-17.5); MEAN CORPUSCULAR HEMOGLOBIN 30.6 pg (27.0-33.0); MEAN CORPUSCULAR HGB CONC 32.9 g/dl (32.0-36.5); MEAN CORPUSCULAR VOLUME 92.8 fl (80.0-96.0); PLATELET COUNT, AUTOMATED 101 10^3/uL (150-450); RED BLOOD COUNT 3.73 10^6/uL (4.30-6.10); RED CELL DISTRIBUTION WIDTH 13.2 % (11.5-14.5); WHITE BLOOD COUNT 8.3 10^3/uL (4.0-10.0)
[2017-08-21 05:18] LABS: ANION GAP 6 MEQ/L (8-16); BLOOD UREA NITROGEN 15 MG/DL (7-18); CARBON DIOXIDE LEVEL 23 MEQ/L (21-32); CHLORIDE LEVEL 112 MEQ/L (98-107); CREATININE FOR GFR 0.78 MG/DL (0.70-1.30); GLOMERULAR FILTRATION RATE > 60.0 (>49); GLUCOSE, FASTING 111 MG/DL (70-100); POTASSIUM SERUM 3.8 MEQ/L (3.5-5.1); SODIUM LEVEL 141 MEQ/L (136-145)
[2017-08-21] MEDS: IPRATROPIUM 0.5MG/ALBUTEROL 2.5MG INH SOL UD 3ML (DUONEB)(J7620) NEB ×3 (07:58→23:21)
[2017-08-21] MEDS: HumaLOG INSULIN (NovoLOG) PER UNIT SC ×5 (08:57→20:51)
[2017-08-21] MEDS: guaiFENesin ER 600 MG TAB PO ×2 (08:58→20:48)
[2017-08-21] MEDS: POTASSIUM CHLORIDE 10 MEQ SR TABLET PO (08:58)
[2017-08-21] MEDS: levETIRAcetam 250MG TABLET (KEPPRA) PO ×2 (08:59→20:50)
[2017-08-21] MEDS: THIAMINE 100 MG TAB PO (08:59)
[2017-08-21] MEDS: LORATADINE 10 MG TAB PO (08:59)
[2017-08-21] MEDS: FOLIC ACID 1 MG TAB PO (08:59)
[2017-08-21] MEDS: ATORVASTATIN 20 MG TAB PO (08:59)
[2017-08-21] MEDS: MULTIVITAMINS/MINERALS THERAP 1 TAB PO (08:59)
[2017-08-21] MEDS: DOCUSATE SODIUM 100 MG CAP PO ×2 (09:00→20:48)
[2017-08-21] MEDS: LevoFLOXacin IV 750 MG in APPROPRIATE DILUENT 1 EA IV (09:01)
[2017-08-21] MEDS: OMEPRAZOLE 20 MG CAP PO (09:01)
[2017-08-21] MEDS: METOPROLOL TART 25 MG TABLET PO ×2 (09:01→20:49)
[2017-08-21] MEDS: ENOXAPARIN 40 MG/0.4 ML SYRINGE (J1650) SC (09:01)
[2017-08-21] MEDS: COSOPT OCUMETER PLUS 10ML (DORZOLAMIDE/TIMOLOL) OU ×2 (09:02→20:51)
[2017-08-21] MEDS: MORPHINE 4 MG/ML 1ML VIAL/SYRINGE (J2270) IV ×3 (10:40→23:28)
[2017-08-21 12:04] LABS: BEDSIDE GLUCOSE 121 MG/DL (80-115)
[2017-08-21] MEDS: PERCOCET 5MG/325MG TAB PO ×2 (14:00→20:50)
[2017-08-21 17:40] LABS: BEDSIDE GLUCOSE 119 MG/DL (80-115)
[2017-08-21] MEDS: LATANOPROST 0.005% OPHTH SOLN 2.5 ML OU (20:51)
[2017-08-21 21:22] LABS: BEDSIDE GLUCOSE 127 MG/DL (80-115)
[2017-08-22] MEDS: PERCOCET 5MG/325MG TAB PO ×2 (03:08→17:02)
[2017-08-22] MEDS: MORPHINE 4 MG/ML 1ML VIAL/SYRINGE (J2270) IV (05:45)
[2017-08-22 06:01] LABS: HEMATOCRIT 34.9 % (42.0-52.0); HEMOGLOBIN 11.5 g/dl (13.5-17.5); MEAN CORPUSCULAR HEMOGLOBIN 30.3 pg (27.0-33.0); MEAN CORPUSCULAR VOLUME 91.8 fl (80.0-96.0); PLATELET COUNT, AUTOMATED 149 10^3/uL (150-450); RED CELL DISTRIBUTION WIDTH 13.3 % (11.5-14.5); WHITE BLOOD COUNT 9.3 10^3/uL (4.0-10.0)
[2017-08-22 06:17] LABS: ANION GAP 5 MEQ/L (8-16); BLOOD UREA NITROGEN 16 MG/DL (7-18); CALCIUM LEVEL 7.6 MG/DL (8.8-10.2); CARBON DIOXIDE LEVEL 25 MEQ/L (21-32); CHLORIDE LEVEL 109 MEQ/L (98-107); GLOMERULAR FILTRATION RATE > 60.0 (>49); GLUCOSE, FASTING 113 MG/DL (70-100); SODIUM LEVEL 139 MEQ/L (136-145)
[2017-08-22] MEDS: IPRATROPIUM 0.5MG/ALBUTEROL 2.5MG INH SOL UD 3ML (DUONEB)(J7620) NEB ×3 (07:10→23:58)
[2017-08-22] MEDS: levETIRAcetam 250MG TABLET (KEPPRA) PO ×2 (09:04→21:59)
[2017-08-22] MEDS: LevoFLOXacin IV 750 MG in APPROPRIATE DILUENT 1 EA IV (09:04)
[2017-08-22] MEDS: LORATADINE 10 MG TAB PO (09:04)
[2017-08-22] MEDS: ENOXAPARIN 40 MG/0.4 ML SYRINGE (J1650) SC (09:04)
[2017-08-22] MEDS: OMEPRAZOLE 20 MG CAP PO (09:04)
[2017-08-22] MEDS: FOLIC ACID 1 MG TAB PO (09:04)
[2017-08-22] MEDS: MULTIVITAMINS/MINERALS THERAP 1 TAB PO (09:04)
[2017-08-22] MEDS: THIAMINE 100 MG TAB PO (09:05)
[2017-08-22] MEDS: ATORVASTATIN 20 MG TAB PO (09:05)
[2017-08-22] MEDS: METOPROLOL TART 25 MG TABLET PO ×2 (09:06→22:00)
[2017-08-22] MEDS: DOCUSATE SODIUM 100 MG CAP PO ×2 (09:06→21:59)
[2017-08-22] MEDS: guaiFENesin ER 600 MG TAB PO ×2 (09:06→21:59)
[2017-08-22] MEDS: COSOPT OCUMETER PLUS 10ML (DORZOLAMIDE/TIMOLOL) OU ×2 (09:06→22:00)
[2017-08-22] MEDS: oxyCODONE 10 MG CR TAB PO ×2 (11:11→22:00)
[2017-08-22] MEDS: HumaLOG INSULIN (NovoLOG) PER UNIT SC ×3 (13:00→21:00)
[2017-08-22 21:01] LABS: BEDSIDE GLUCOSE 121 MG/DL (80-115)
[2017-08-22] MEDS: LATANOPROST 0.005% OPHTH SOLN 2.5 ML OU (22:00)
[2017-08-23] MEDS: PERCOCET 5MG/325MG TAB PO ×3 (00:15→18:40)
[2017-08-23 06:21] LABS: HEMATOCRIT 34.1 % (42.0-52.0); HEMOGLOBIN 11.2 g/dl (13.5-17.5); MEAN CORPUSCULAR HEMOGLOBIN 30.4 pg (27.0-33.0); MEAN CORPUSCULAR HGB CONC 32.8 g/dl (32.0-36.5); MEAN CORPUSCULAR VOLUME 92.7 fl (80.0-96.0); PLATELET COUNT, AUTOMATED 140 10^3/uL (150-450); RED BLOOD COUNT 3.68 10^6/uL (4.30-6.10); WHITE BLOOD COUNT 7.3 10^3/uL (4.0-10.0)
[2017-08-23 06:49] LABS: ANION GAP 7 MEQ/L (8-16); BLOOD UREA NITROGEN 13 MG/DL (7-18); CALCIUM LEVEL 7.7 MG/DL (8.8-10.2); CARBON DIOXIDE LEVEL 23 MEQ/L (21-32); CHLORIDE LEVEL 110 MEQ/L (98-107); CREATININE FOR GFR 0.84 MG/DL (0.70-1.30); GLOMERULAR FILTRATION RATE > 60.0 (>49); GLUCOSE, FASTING 116 MG/DL (70-100); MAGNESIUM LEVEL 1.8 MG/DL (1.8-2.4); POTASSIUM SERUM 3.7 MEQ/L (3.5-5.1); SODIUM LEVEL 140 MEQ/L (136-145)
[2017-08-23] MEDS: IPRATROPIUM 0.5MG/ALBUTEROL 2.5MG INH SOL UD 3ML (DUONEB)(J7620) NEB ×3 (07:05→23:37)
[2017-08-23] MEDS: HumaLOG INSULIN (NovoLOG) PER UNIT SC ×4 (07:32→20:35)
[2017-08-23] MEDS: guaiFENesin ER 600 MG TAB PO ×2 (08:33→20:43)
[2017-08-23] MEDS: DOCUSATE SODIUM 100 MG CAP PO ×2 (08:33→20:43)
[2017-08-23] MEDS: OMEPRAZOLE 20 MG CAP PO (08:33)
[2017-08-23] MEDS: METOPROLOL TART 25 MG TABLET PO ×2 (08:33→20:45)
[2017-08-23] MEDS: levETIRAcetam 250MG TABLET (KEPPRA) PO ×2 (08:33→20:43)
[2017-08-23] MEDS: FOLIC ACID 1 MG TAB PO (08:33)
[2017-08-23] MEDS: THIAMINE 100 MG TAB PO (08:33)
[2017-08-23] MEDS: LORATADINE 10 MG TAB PO (08:33)
[2017-08-23] MEDS: MULTIVITAMINS/MINERALS THERAP 1 TAB PO (08:33)
[2017-08-23] MEDS: ATORVASTATIN 20 MG TAB PO (08:33)
[2017-08-23] MEDS: oxyCODONE 10 MG CR TAB PO ×3 (08:34→20:43)
[2017-08-23] MEDS: ENOXAPARIN 40 MG/0.4 ML SYRINGE (J1650) SC (08:34)
[2017-08-23] MEDS: COSOPT OCUMETER PLUS 10ML (DORZOLAMIDE/TIMOLOL) OU ×2 (08:34→20:43)
[2017-08-23 09:45] LABS: C REACTIVE PROTEIN QUANTITATIV 3.97 MG/DL (0.00-0.30)
[2017-08-23] MEDS: LevoFLOXacin IV 750 MG in APPROPRIATE DILUENT 1 EA IV (10:46)
[2017-08-23 11:57] LABS: BEDSIDE GLUCOSE 134 MG/DL (80-115)
[2017-08-23 16:36] LABS: BEDSIDE GLUCOSE 141 MG/DL (80-115)
[2017-08-23 20:39] LABS: BEDSIDE GLUCOSE 138 MG/DL (80-115)
[2017-08-23] MEDS: LATANOPROST 0.005% OPHTH SOLN 2.5 ML OU (20:43)
[2017-08-24] MEDS: ACETAMINOPHEN TAB 650MG DOSE (2X325MG) PO (01:16)
[2017-08-24] MEDS: LevoFLOXacin 750 MG TABLET PO (05:34)
[2017-08-24 06:09] LABS: MAGNESIUM LEVEL 1.9 MG/DL (1.8-2.4)
[2017-08-24 06:25] LABS: BEDSIDE GLUCOSE 141 MG/DL (80-115)
[2017-08-24] MEDS: IPRATROPIUM 0.5MG/ALBUTEROL 2.5MG INH SOL UD 3ML (DUONEB)(J7620) NEB ×3 (07:51→23:30)
[2017-08-24] MEDS: PERCOCET 5MG/325MG TAB PO ×3 (08:05→23:16)
[2017-08-24] MEDS: HumaLOG INSULIN (NovoLOG) PER UNIT SC ×4 (08:15→20:21)
[2017-08-24] MEDS: levETIRAcetam 250MG TABLET (KEPPRA) PO ×2 (08:16→21:01)
[2017-08-24] MEDS: DOCUSATE SODIUM 100 MG CAP PO ×2 (08:16→21:01)
[2017-08-24] MEDS: ENOXAPARIN 40 MG/0.4 ML SYRINGE (J1650) SC (08:16)
[2017-08-24] MEDS: guaiFENesin ER 600 MG TAB PO ×2 (08:16→21:01)
[2017-08-24] MEDS: FOLIC ACID 1 MG TAB PO (08:16)
[2017-08-24] MEDS: OMEPRAZOLE 20 MG CAP PO (08:16)
[2017-08-24] MEDS: METOPROLOL TART 25 MG TABLET PO ×2 (08:16→21:00)
[2017-08-24] MEDS: MULTIVITAMINS/MINERALS THERAP 1 TAB PO (08:16)
[2017-08-24] MEDS: ATORVASTATIN 20 MG TAB PO (08:16)
[2017-08-24] MEDS: LORATADINE 10 MG TAB PO (08:17)
[2017-08-24] MEDS: COSOPT OCUMETER PLUS 10ML (DORZOLAMIDE/TIMOLOL) OU ×2 (08:17→21:01)
[2017-08-24] MEDS: THIAMINE 100 MG TAB PO (08:17)
[2017-08-24] MEDS: oxyCODONE 10 MG CR TAB PO ×2 (09:18→21:01)
[2017-08-24 12:03] LABS: BEDSIDE GLUCOSE 119 MG/DL (80-115)
[2017-08-24 17:02] LABS: BEDSIDE GLUCOSE 131 MG/DL (80-115)
[2017-08-24 20:27] LABS: BEDSIDE GLUCOSE 113 MG/DL (80-115)
[2017-08-24] MEDS: LATANOPROST 0.005% OPHTH SOLN 2.5 ML OU (21:01)
[2017-08-25] MEDS: LevoFLOXacin 750 MG TABLET PO (05:18)
[2017-08-25] MEDS: PERCOCET 5MG/325MG TAB PO ×3 (05:18→22:36)
[2017-08-25 06:34] LABS: ANION GAP 5 MEQ/L (8-16); BLOOD UREA NITROGEN 11 MG/DL (7-18); CALCIUM LEVEL 8.1 MG/DL (8.8-10.2); CARBON DIOXIDE LEVEL 27 MEQ/L (21-32); CHLORIDE LEVEL 109 MEQ/L (98-107); CREATININE FOR GFR 0.84 MG/DL (0.70-1.30); GLOMERULAR FILTRATION RATE > 60.0 (>49); GLUCOSE, FASTING 106 MG/DL (70-100); MAGNESIUM LEVEL 1.8 MG/DL (1.8-2.4); POTASSIUM SERUM 3.9 MEQ/L (3.5-5.1); SODIUM LEVEL 141 MEQ/L (136-145)
[2017-08-25 06:59] LABS: HEMOGLOBIN 10.9 g/dl (13.5-17.5); MEAN CORPUSCULAR HEMOGLOBIN 29.9 pg (27.0-33.0); MEAN CORPUSCULAR VOLUME 90.7 fl (80.0-96.0); PLATELET COUNT, AUTOMATED 198 10^3/uL (150-450); RED BLOOD COUNT 3.64 10^6/uL (4.30-6.10); RED CELL DISTRIBUTION WIDTH 12.7 % (11.5-14.5); WHITE BLOOD COUNT 10.2 10^3/uL (4.0-10.0)
[2017-08-25] MEDS: HumaLOG INSULIN (NovoLOG) PER UNIT SC ×4 (07:06→20:10)
[2017-08-25] MEDS: LORATADINE 10 MG TAB PO (07:57)
[2017-08-25] MEDS: levETIRAcetam 250MG TABLET (KEPPRA) PO ×2 (07:57→20:28)
[2017-08-25] MEDS: FOLIC ACID 1 MG TAB PO (07:57)
[2017-08-25] MEDS: DOCUSATE SODIUM 100 MG CAP PO ×2 (07:57→20:27)
[2017-08-25] MEDS: oxyCODONE 10 MG CR TAB PO ×2 (07:58→20:28)
[2017-08-25] MEDS: METOPROLOL TART 25 MG TABLET PO ×2 (07:58→20:27)
[2017-08-25] MEDS: THIAMINE 100 MG TAB PO (07:58)
[2017-08-25] MEDS: OMEPRAZOLE 20 MG CAP PO (07:58)
[2017-08-25] MEDS: guaiFENesin ER 600 MG TAB PO ×2 (07:58→20:27)
[2017-08-25] MEDS: MULTIVITAMINS/MINERALS THERAP 1 TAB PO (07:59)
[2017-08-25] MEDS: ENOXAPARIN 40 MG/0.4 ML SYRINGE (J1650) SC (07:59)
[2017-08-25] MEDS: ATORVASTATIN 20 MG TAB PO (07:59)
[2017-08-25] MEDS: COSOPT OCUMETER PLUS 10ML (DORZOLAMIDE/TIMOLOL) OU ×2 (07:59→20:28)
[2017-08-25] MEDS: IPRATROPIUM 0.5MG/ALBUTEROL 2.5MG INH SOL UD 3ML (DUONEB)(J7620) NEB ×2 (08:19→15:31)
[2017-08-25 11:43] LABS: BEDSIDE GLUCOSE 109 MG/DL (80-115)
[2017-08-25 17:07] LABS: BEDSIDE GLUCOSE 174 MG/DL (80-115)
[2017-08-25] MEDS: LATANOPROST 0.005% OPHTH SOLN 2.5 ML OU (20:28)
[2017-08-25 21:13] LABS: BEDSIDE GLUCOSE 122 MG/DL (80-115)
[2017-08-26] MEDS: LevoFLOXacin 750 MG TABLET PO (05:05)
[2017-08-26] MEDS: PERCOCET 5MG/325MG TAB PO ×2 (05:06→18:26)
[2017-08-26] MEDS: IPRATROPIUM 0.5MG/ALBUTEROL 2.5MG INH SOL UD 3ML (DUONEB)(J7620) NEB ×3 (07:12→15:03)
[2017-08-26] MEDS: HumaLOG INSULIN (NovoLOG) PER UNIT SC ×4 (07:30→21:00)
[2017-08-26 07:33] LABS: HEMATOCRIT 32.4 % (42.0-52.0); HEMOGLOBIN 10.7 g/dl (13.5-17.5); MEAN CORPUSCULAR HEMOGLOBIN 30.3 pg (27.0-33.0); MEAN CORPUSCULAR VOLUME 91.8 fl (80.0-96.0); PLATELET COUNT, AUTOMATED 210 10^3/uL (150-450); RED BLOOD COUNT 3.53 10^6/uL (4.30-6.10); WHITE BLOOD COUNT 11.3 10^3/uL (4.0-10.0)
[2017-08-26 07:58] LABS: ANION GAP 7 MEQ/L (8-16); BLOOD UREA NITROGEN 11 MG/DL (7-18); C REACTIVE PROTEIN QUANTITATIV 3.41 MG/DL (0.00-0.30); CALCIUM LEVEL 8.3 MG/DL (8.8-10.2); CARBON DIOXIDE LEVEL 24 MEQ/L (21-32); CHLORIDE LEVEL 109 MEQ/L (98-107); CREATININE FOR GFR 0.79 MG/DL (0.70-1.30); GLOMERULAR FILTRATION RATE > 60.0 (>49); GLUCOSE, FASTING 106 MG/DL (70-100); MAGNESIUM LEVEL 1.5 MG/DL (1.8-2.4); POTASSIUM SERUM 3.4 MEQ/L (3.5-5.1); SODIUM LEVEL 140 MEQ/L (136-145)
[2017-08-26] MEDS: levETIRAcetam 250MG TABLET (KEPPRA) PO ×2 (08:43→22:23)
[2017-08-26] MEDS: oxyCODONE 10 MG CR TAB PO ×2 (08:44→22:23)
[2017-08-26] MEDS: guaiFENesin ER 600 MG TAB PO ×2 (08:44→22:24)
[2017-08-26] MEDS: ATORVASTATIN 20 MG TAB PO (08:44)
[2017-08-26] MEDS: METOPROLOL TART 25 MG TABLET PO ×2 (08:44→22:24)
[2017-08-26] MEDS: THIAMINE 100 MG TAB PO (08:45)
[2017-08-26] MEDS: MULTIVITAMINS/MINERALS THERAP 1 TAB PO (08:45)
[2017-08-26] MEDS: OMEPRAZOLE 20 MG CAP PO (08:46)
[2017-08-26] MEDS: FOLIC ACID 1 MG TAB PO (08:46)
[2017-08-26] MEDS: ENOXAPARIN 40 MG/0.4 ML SYRINGE (J1650) SC (08:46)
[2017-08-26] MEDS: COSOPT OCUMETER PLUS 10ML (DORZOLAMIDE/TIMOLOL) OU ×2 (08:46→22:25)
[2017-08-26] MEDS: DOCUSATE SODIUM 100 MG CAP PO ×2 (08:46→22:24)
[2017-08-26] MEDS: LORATADINE 10 MG TAB PO (08:46)
[2017-08-26 09:36] LABS: BEDSIDE GLUCOSE 119 MG/DL (80-115)
[2017-08-26 09:37] LABS: BEDSIDE GLUCOSE 145 MG/DL (80-115)
[2017-08-26 11:59] LABS: BEDSIDE GLUCOSE 114 MG/DL (80-115)
[2017-08-26] MEDS: MAGNESIUM OXIDE 400 MG TAB (MAG-OX) PO ×2 (14:05→22:23)
[2017-08-26] MEDS: POTASSIUM CHLORIDE 10 MEQ SR TABLET PO (14:05)
[2017-08-26 17:22] LABS: BEDSIDE GLUCOSE 122 MG/DL (80-115)
[2017-08-26 21:49] LABS: BEDSIDE GLUCOSE 132 MG/DL (80-115)
[2017-08-26] MEDS: LATANOPROST 0.005% OPHTH SOLN 2.5 ML OU (22:25)
[2017-08-27] MEDS: PERCOCET 5MG/325MG TAB PO ×3 (04:24→22:56)
[2017-08-27] MEDS: LevoFLOXacin 750 MG TABLET PO (05:33)
[2017-08-27 06:21] LABS: HEMATOCRIT 31.1 % (42.0-52.0); HEMOGLOBIN 10.3 g/dl (13.5-17.5); MEAN CORPUSCULAR HEMOGLOBIN 29.9 pg (27.0-33.0); MEAN CORPUSCULAR HGB CONC 33.1 g/dl (32.0-36.5); MEAN CORPUSCULAR VOLUME 90.1 fl (80.0-96.0); PLATELET COUNT, AUTOMATED 237 10^3/uL (150-450); RED BLOOD COUNT 3.45 10^6/uL (4.30-6.10); RED CELL DISTRIBUTION WIDTH 12.9 % (11.5-14.5); WHITE BLOOD COUNT 10.9 10^3/uL (4.0-10.0)
[2017-08-27 06:44] LABS: ANION GAP 5 MEQ/L (8-16); BLOOD UREA NITROGEN 10 MG/DL (7-18); CALCIUM LEVEL 8.1 MG/DL (8.8-10.2); CARBON DIOXIDE LEVEL 26 MEQ/L (21-32); CHLORIDE LEVEL 111 MEQ/L (98-107); CREATININE FOR GFR 0.75 MG/DL (0.70-1.30); GLOMERULAR FILTRATION RATE > 60.0 (>49); GLUCOSE, FASTING 107 MG/DL (70-100); POTASSIUM SERUM 3.4 MEQ/L (3.5-5.1); SODIUM LEVEL 142 MEQ/L (136-145)
[2017-08-27] MEDS: IPRATROPIUM 0.5MG/ALBUTEROL 2.5MG INH SOL UD 3ML (DUONEB)(J7620) NEB ×4 (07:17→23:00)
[2017-08-27] MEDS: HumaLOG INSULIN (NovoLOG) PER UNIT SC ×4 (07:30→20:54)
[2017-08-27] MEDS: METOPROLOL TART 25 MG TABLET PO ×2 (07:44→20:53)
[2017-08-27 07:58] LABS: MAGNESIUM LEVEL 1.8 MG/DL (1.8-2.4)
[2017-08-27] MEDS: MULTIVITAMINS/MINERALS THERAP 1 TAB PO (08:04)
[2017-08-27] MEDS: ATORVASTATIN 20 MG TAB PO (08:04)
[2017-08-27] MEDS: DOCUSATE SODIUM 100 MG CAP PO ×2 (08:04→20:53)
[2017-08-27] MEDS: guaiFENesin ER 600 MG TAB PO ×2 (08:04→20:53)
[2017-08-27] MEDS: levETIRAcetam 250MG TABLET (KEPPRA) PO ×2 (08:05→20:52)
[2017-08-27] MEDS: FOLIC ACID 1 MG TAB PO (08:05)
[2017-08-27] MEDS: MAGNESIUM OXIDE 400 MG TAB (MAG-OX) PO ×2 (08:05→20:53)
[2017-08-27] MEDS: POTASSIUM CHLORIDE 10 MEQ SR TABLET PO (08:05)
[2017-08-27] MEDS: LORATADINE 10 MG TAB PO (08:05)
[2017-08-27] MEDS: ENOXAPARIN 40 MG/0.4 ML SYRINGE (J1650) SC (08:06)
[2017-08-27] MEDS: oxyCODONE 10 MG CR TAB PO ×2 (08:06→20:54)
[2017-08-27] MEDS: THIAMINE 100 MG TAB PO (08:06)
[2017-08-27] MEDS: OMEPRAZOLE 20 MG CAP PO (08:06)
[2017-08-27] MEDS: COSOPT OCUMETER PLUS 10ML (DORZOLAMIDE/TIMOLOL) OU ×2 (08:08→20:54)
[2017-08-27] MEDS ORDERED: POTASSIUM CHLORIDE 10 MEQ SR TABLET PO (09:00)
[2017-08-27 11:54] LABS: BEDSIDE GLUCOSE 130 MG/DL (80-115)
[2017-08-27 16:52] LABS: BEDSIDE GLUCOSE 132 MG/DL (80-115)
[2017-08-27] MEDS: LATANOPROST 0.005% OPHTH SOLN 2.5 ML OU (20:54)
[2017-08-28] MEDS: LevoFLOXacin 750 MG TABLET PO (05:49)
[2017-08-28 06:39] LABS: HEMATOCRIT 30.5 % (42.0-52.0); MEAN CORPUSCULAR HEMOGLOBIN 30.1 pg (27.0-33.0); MEAN CORPUSCULAR HGB CONC 32.8 g/dl (32.0-36.5); MEAN CORPUSCULAR VOLUME 91.9 fl (80.0-96.0); PLATELET COUNT, AUTOMATED 231 10^3/uL (150-450); RED BLOOD COUNT 3.32 10^6/uL (4.30-6.10); WHITE BLOOD COUNT 10.4 10^3/uL (4.0-10.0)
[2017-08-28 06:58] LABS: ANION GAP 6 MEQ/L (8-16); BLOOD UREA NITROGEN 8 MG/DL (7-18); CARBON DIOXIDE LEVEL 25 MEQ/L (21-32); CHLORIDE LEVEL 111 MEQ/L (98-107); CREATININE FOR GFR 0.74 MG/DL (0.70-1.30); GLOMERULAR FILTRATION RATE > 60.0 (>49); GLUCOSE, FASTING 117 MG/DL (70-100); MAGNESIUM LEVEL 1.9 MG/DL (1.8-2.4); POTASSIUM SERUM 3.2 MEQ/L (3.5-5.1); SODIUM LEVEL 142 MEQ/L (136-145)
[2017-08-28] MEDS: IPRATROPIUM 0.5MG/ALBUTEROL 2.5MG INH SOL UD 3ML (DUONEB)(J7620) NEB ×3 (07:16→23:53)
[2017-08-28] MEDS: ENOXAPARIN 40 MG/0.4 ML SYRINGE (J1650) SC (07:40)
[2017-08-28] MEDS: ATORVASTATIN 20 MG TAB PO (07:41)
[2017-08-28] MEDS: POTASSIUM CHLORIDE 10 MEQ SR TABLET PO ×2 (07:41→17:34)
[2017-08-28] MEDS: DOCUSATE SODIUM 100 MG CAP PO ×2 (07:41→20:15)
[2017-08-28] MEDS: levETIRAcetam 250MG TABLET (KEPPRA) PO ×2 (07:41→20:15)
[2017-08-28] MEDS: OMEPRAZOLE 20 MG CAP PO (07:41)
[2017-08-28] MEDS: guaiFENesin ER 600 MG TAB PO ×2 (07:41→20:14)
[2017-08-28] MEDS: MAGNESIUM OXIDE 400 MG TAB (MAG-OX) PO ×2 (07:42→20:16)
[2017-08-28] MEDS: FOLIC ACID 1 MG TAB PO (07:42)
[2017-08-28] MEDS: METOPROLOL TART 25 MG TABLET PO ×2 (07:42→20:15)
[2017-08-28] MEDS: LORATADINE 10 MG TAB PO (07:42)
[2017-08-28] MEDS: MULTIVITAMINS/MINERALS THERAP 1 TAB PO (07:42)
[2017-08-28] MEDS: THIAMINE 100 MG TAB PO (07:42)
[2017-08-28] MEDS: COSOPT OCUMETER PLUS 10ML (DORZOLAMIDE/TIMOLOL) OU ×2 (07:43→20:16)
[2017-08-28] MEDS: HumaLOG INSULIN (NovoLOG) PER UNIT SC ×4 (07:44→21:00)
[2017-08-28] MEDS: oxyCODONE 10 MG CR TAB PO (08:04)
[2017-08-28] MEDS ORDERED: KCL 10MEQ/100ML SWI (KRUN) 10 MEQ in APPROPRIATE DILUENT 1 EA IV (09:00)
[2017-08-28 11:45] LABS: BEDSIDE GLUCOSE 114 MG/DL (80-115)
[2017-08-28 11:53] LABS: C REACTIVE PROTEIN QUANTITATIV 2.71 MG/DL (0.00-0.30)
[2017-08-28] MEDS: ACETAMINOPH W/CODEINE #3 TAB UD PO ×2 (12:20→20:16)
[2017-08-28 15:02] LABS: BEDSIDE GLUCOSE 134 MG/DL (80-115)
[2017-08-28 15:19] LABS: BEDSIDE GLUCOSE 165 MG/DL (80-115)
[2017-08-28 16:45] LABS: BEDSIDE GLUCOSE 116 MG/DL (80-115)
[2017-08-28] MEDS: LATANOPROST 0.005% OPHTH SOLN 2.5 ML OU (20:16)
[2017-08-29] MEDS: LevoFLOXacin 750 MG TABLET PO (05:09)
[2017-08-29] MEDS: ACETAMINOPH W/CODEINE #3 TAB UD PO (05:10)
[2017-08-29 05:52] LABS: HEMATOCRIT 32.8 % (42.0-52.0); HEMOGLOBIN 10.8 g/dl (13.5-17.5); MEAN CORPUSCULAR HEMOGLOBIN 30.2 pg (27.0-33.0); MEAN CORPUSCULAR HGB CONC 32.9 g/dl (32.0-36.5); MEAN CORPUSCULAR VOLUME 91.6 fl (80.0-96.0); PLATELET COUNT, AUTOMATED 247 10^3/uL (150-450); RED BLOOD COUNT 3.58 10^6/uL (4.30-6.10); RED CELL DISTRIBUTION WIDTH 12.9 % (11.5-14.5); WHITE BLOOD COUNT 9.7 10^3/uL (4.0-10.0)
[2017-08-29 06:11] LABS: ANION GAP 6 MEQ/L (8-16); BLOOD UREA NITROGEN 7 MG/DL (7-18); CALCIUM LEVEL 8.1 MG/DL (8.8-10.2); CARBON DIOXIDE LEVEL 25 MEQ/L (21-32); CHLORIDE LEVEL 111 MEQ/L (98-107); CREATININE FOR GFR 0.72 MG/DL (0.70-1.30); GLOMERULAR FILTRATION RATE > 60.0 (>49); GLUCOSE, FASTING 105 MG/DL (70-100); MAGNESIUM LEVEL 1.8 MG/DL (1.8-2.4); POTASSIUM SERUM 3.5 MEQ/L (3.5-5.1); SODIUM LEVEL 142 MEQ/L (136-145)
[2017-08-29] MEDS: HumaLOG INSULIN (NovoLOG) PER UNIT SC ×2 (06:56→12:00)
[2017-08-29] MEDS: LORATADINE 10 MG TAB PO (08:03)
[2017-08-29] MEDS: DOCUSATE SODIUM 100 MG CAP PO (08:03)
[2017-08-29] MEDS: OMEPRAZOLE 20 MG CAP PO (08:04)
[2017-08-29] MEDS: MAGNESIUM OXIDE 400 MG TAB (MAG-OX) PO (08:04)
[2017-08-29] MEDS: POTASSIUM CHLORIDE 10 MEQ SR TABLET PO (08:04)
[2017-08-29] MEDS: METOPROLOL TART 25 MG TABLET PO (08:04)
[2017-08-29] MEDS: guaiFENesin ER 600 MG TAB PO (08:04)
[2017-08-29] MEDS: FOLIC ACID 1 MG TAB PO (08:04)
[2017-08-29] MEDS: MULTIVITAMINS/MINERALS THERAP 1 TAB PO (08:04)
[2017-08-29] MEDS: THIAMINE 100 MG TAB PO (08:04)
[2017-08-29] MEDS: ATORVASTATIN 20 MG TAB PO (08:05)
[2017-08-29] MEDS: ENOXAPARIN 40 MG/0.4 ML SYRINGE (J1650) SC (08:05)
[2017-08-29] MEDS: levETIRAcetam 250MG TABLET (KEPPRA) PO (08:05)
[2017-08-29] MEDS: COSOPT OCUMETER PLUS 10ML (DORZOLAMIDE/TIMOLOL) OU (08:05)
[2017-08-29] MEDS: IPRATROPIUM 0.5MG/ALBUTEROL 2.5MG INH SOL UD 3ML (DUONEB)(J7620) NEB (08:10)
[2017-08-29 11:58] LABS: BEDSIDE GLUCOSE 140 MG/DL (80-115)
[2017-09-01 08:26] LABS: BEDSIDE GLUCOSE 140 MG/DL (80-115)
== END 2017-08-29 12:34 | disposition home health service (06) | DRG 872 ==
LOC: M ICU 08-17 05:45 → M MSPAV 08-21 14:25 → M ED 17:23 → M ED INP 20:36 → M PCU 21:49
DX: A40.1 Sepsis due to streptococcus, group B (principal); E87.2 Acidosis; N17.9 Acute kidney failure, unspecified; I50.32 Chronic diastolic (congestive) heart failure; I47.2 Ventricular tachycardia; I82.611 Acute embolism and thrombosis of superficial veins of right upper extremity; I82.C21 Chronic embolism and thrombosis of right internal jugular vein; B97.4 Respiratory syncytial virus as the cause of diseases classified elsewhere; E11.9 Type 2 diabetes mellitus without complications; D69.6 Thrombocytopenia, unspecified; S46.011A Strain of muscle(s) and tendon(s) of the rotator cuff of right shoulder, initial encounter; W18.09XA Striking against other object with subsequent fall, initial encounter; Y92.9 Unspecified place or not applicable; E87.6 Hypokalemia; E83.42 Hypomagnesemia; G47.33 Obstructive sleep apnea (adult) (pediatric); Z85.850 Personal history of malignant neoplasm of thyroid; Z85.819 Personal history of malignant neoplasm of unspecified site of lip, oral cavity, and pharynx; Z87.891 Personal history of nicotine dependence; Z92.21 Personal history of antineoplastic chemotherapy; Z92.3 Personal history of irradiation; Z79.4 Long term (current) use of insulin; Z88.0 Allergy status to penicillin; Z79.899 Other long term (current) drug therapy

== ENCOUNTER 2017-09-07 13:20 | Observation (INO) | payer OTHER, MEDICARE ==
[2017-09-07 15:32] LABS: BASO % 0.5 % (0.0-1.0); EOS # 0.5 10^3/uL (0.0-0.50); EOS % 5.7 % (0.0-3.0); HEMATOCRIT 35.9 % (42.0-52.0); HEMOGLOBIN 11.4 g/dl (13.5-17.5); IMMATURE GRANULOCYTE % 0.2 % (0-3.0); LYMPH # 1.4 10^3/uL (1.5-4.5); LYMPH % 16.9 % (24.0-44.0); MEAN CORPUSCULAR HEMOGLOBIN 29.4 pg (27.0-33.0); MEAN CORPUSCULAR HGB CONC 31.8 g/dl (32.0-36.5); MEAN CORPUSCULAR VOLUME 92.5 fl (80.0-96.0); MONO # 0.9 10^3/uL (0.0-0.8); MONO % 10.8 % (0.0-5.0); NEUTROPHILS # 5.4 10^3/uL (1.8-7.7); NEUTROPHILS % 65.9 % (36.0-66.0); PLATELET COUNT, AUTOMATED 232 10^3/uL (150-450); RED BLOOD COUNT 3.88 10^6/uL (4.30-6.10); RED CELL DISTRIBUTION WIDTH 12.8 % (11.5-14.5); WHITE BLOOD COUNT 8.2 10^3/uL (4.0-10.0)
[2017-09-07 15:43] LABS: ALBUMIN 2.4 GM/DL (3.2-5.2); ALBUMIN/GLOBULIN RATIO 0.44 (1.00-1.93); ALKALINE PHOSPHATASE 145 U/L (45-117); ALT/SGPT 50 U/L (12-78); ANION GAP 5 MEQ/L (8-16); AST/SGOT 75 U/L (7-37); BILIRUBIN,DIRECT 0.1 MG/DL (0.0-0.2); BILIRUBIN,TOTAL 0.4 MG/DL (0.2-1.0); BLOOD UREA NITROGEN 10 MG/DL (7-18); CALCIUM LEVEL 8.2 MG/DL (8.8-10.2); CARBON DIOXIDE LEVEL 28 MEQ/L (21-32); CHLORIDE LEVEL 109 MEQ/L (98-107); CREATININE FOR GFR 0.82 MG/DL (0.70-1.30); GLOMERULAR FILTRATION RATE > 60.0 (>49); GLUCOSE, FASTING 165 MG/DL (70-100); POTASSIUM SERUM 3.9 MEQ/L (3.5-5.1); SODIUM LEVEL 142 MEQ/L (136-145); TOTAL PROTEIN 7.8 GM/DL (6.4-8.2)
[2017-09-07] MEDS ORDERED: ISOVUE-370 76% 100ML VIAL (Q9967) As Ordered (15:44)
[2017-09-07 15:48] LABS: LACTIC ACID SEPSIS PROTOCOL 1.7 MMOL/L (0.4-2.0)
[2017-09-07 18:33] LABS: NT-PRO BNP 204 PG/ML (<125)
[2017-09-07] MEDS ORDERED: ONDANSETRON 4MG/2ML VIAL (J2405) IV (20:15)
[2017-09-07] MEDS ORDERED: DEXTROSE 50% 50 ML SYRINGE IV (20:45)
[2017-09-07] MEDS ORDERED: GLUCAGON FOR INJ 1 MG VIAL (J1610) SC (20:45)
[2017-09-07] MEDS ORDERED: GLUCOSE 4 GM CHEW TABLET PO (20:45)
[2017-09-07] MEDS: HumaLOG INSULIN (NovoLOG) PER UNIT SC (21:00)
[2017-09-07 22:07] LABS: BEDSIDE GLUCOSE 141 MG/DL (80-115)
[2017-09-07] MEDS: BRIMONIDINE 0.15% OPHTH SOLN 5 ML OU (22:32)
[2017-09-07] MEDS: LATANOPROST 0.005% OPHTH SOLN 2.5 ML OU (22:33)
[2017-09-07] MEDS: COSOPT OCUMETER PLUS 10ML (DORZOLAMIDE/TIMOLOL) OU (22:33)
[2017-09-07] MEDS: levETIRAcetam 250MG TABLET (KEPPRA) PO (22:34)
[2017-09-07] MEDS: ACETAMINOPHEN TAB 650MG DOSE (2X325MG) PO (22:35)
[2017-09-07] MEDS: METOPROLOL TART 25 MG TABLET PO (22:35)
[2017-09-08 06:15] LABS: HEMOGLOBIN 11.1 g/dl (13.5-17.5); MEAN CORPUSCULAR HEMOGLOBIN 29.6 pg (27.0-33.0); MEAN CORPUSCULAR HGB CONC 32.6 g/dl (32.0-36.5); MEAN CORPUSCULAR VOLUME 90.7 fl (80.0-96.0); PLATELET COUNT, AUTOMATED 168 10^3/uL (150-450); RED BLOOD COUNT 3.75 10^6/uL (4.30-6.10); RED CELL DISTRIBUTION WIDTH 12.5 % (11.5-14.5)
[2017-09-08 06:41] LABS: ANION GAP 4 MEQ/L (8-16); BLOOD UREA NITROGEN 8 MG/DL (7-18); CALCIUM LEVEL 8.1 MG/DL (8.8-10.2); CARBON DIOXIDE LEVEL 28 MEQ/L (21-32); CHLORIDE LEVEL 110 MEQ/L (98-107); CREATININE FOR GFR 0.65 MG/DL (0.70-1.30); GLOMERULAR FILTRATION RATE > 60.0 (>49); GLUCOSE, FASTING 121 MG/DL (70-100); POTASSIUM SERUM 3.9 MEQ/L (3.5-5.1); SODIUM LEVEL 142 MEQ/L (136-145)
[2017-09-08 08:42] LABS: BEDSIDE GLUCOSE 119 MG/DL (80-115)
[2017-09-08] MEDS: HumaLOG INSULIN (NovoLOG) PER UNIT SC ×4 (09:16→21:00)
[2017-09-08] MEDS: MULTIVITAMINS/MINERALS THERAP 1 TAB PO (09:16)
[2017-09-08] MEDS: OMEPRAZOLE 20 MG CAP PO (09:17)
[2017-09-08] MEDS: levETIRAcetam 250MG TABLET (KEPPRA) PO ×2 (09:17→22:04)
[2017-09-08] MEDS: METOPROLOL TART 25 MG TABLET PO ×2 (09:17→22:04)
[2017-09-08] MEDS: FOLIC ACID 1 MG TAB PO (09:17)
[2017-09-08] MEDS: LORATADINE 10 MG TAB PO (09:17)
[2017-09-08] MEDS: ATORVASTATIN 20 MG TAB PO (09:17)
[2017-09-08] MEDS: THIAMINE 100 MG TAB PO (09:17)
[2017-09-08] MEDS: MAGNESIUM OXIDE 400 MG TAB (MAG-OX) PO (09:18)
[2017-09-08] MEDS: ENOXAPARIN 40 MG/0.4 ML SYRINGE (J1650) SC (10:50)
[2017-09-08] MEDS ORDERED: ACETAMINOPH W/CODEINE #3 TAB UD PO (11:15)
[2017-09-08 11:49] LABS: BEDSIDE GLUCOSE 126 MG/DL (80-115)
[2017-09-08] MEDS: BRIMONIDINE 0.15% OPHTH SOLN 5 ML OU ×3 (13:00→22:04)
[2017-09-08] MEDS: COSOPT OCUMETER PLUS 10ML (DORZOLAMIDE/TIMOLOL) OU ×2 (13:00→22:04)
[2017-09-08 16:34] LABS: BEDSIDE GLUCOSE 120 MG/DL (80-115)
[2017-09-08 21:02] LABS: BEDSIDE GLUCOSE 154 MG/DL (80-115)
[2017-09-08] MEDS: APIXABAN 2.5 MG TAB (ELIQUIS) PO (22:03)
[2017-09-08] MEDS: LATANOPROST 0.005% OPHTH SOLN 2.5 ML OU (22:04)
[2017-09-09 07:07] LABS: CHLORIDE LEVEL 110 MEQ/L (98-107); POTASSIUM SERUM 3.7 MEQ/L (3.5-5.1); SODIUM LEVEL 141 MEQ/L (136-145)
[2017-09-09 07:20] LABS: ANION GAP 6 MEQ/L (8-16); BLOOD UREA NITROGEN 8 MG/DL (7-18); CALCIUM LEVEL 8.3 MG/DL (8.8-10.2); CARBON DIOXIDE LEVEL 25 MEQ/L (21-32); CREATININE FOR GFR 0.69 MG/DL (0.70-1.30); GLOMERULAR FILTRATION RATE > 60.0 (>49); GLUCOSE, FASTING 104 MG/DL (70-100)
[2017-09-09] MEDS: HumaLOG INSULIN (NovoLOG) PER UNIT SC ×2 (07:22→12:00)
[2017-09-09 08:01] LABS: HEMOGLOBIN 11.3 g/dl (13.5-17.5); MEAN CORPUSCULAR HEMOGLOBIN 28.9 pg (27.0-33.0); MEAN CORPUSCULAR HGB CONC 32.3 g/dl (32.0-36.5); MEAN CORPUSCULAR VOLUME 89.5 fl (80.0-96.0); PLATELET COUNT, AUTOMATED 225 10^3/uL (150-450); RED BLOOD COUNT 3.91 10^6/uL (4.30-6.10); RED CELL DISTRIBUTION WIDTH 12.7 % (11.5-14.5); WHITE BLOOD COUNT 8.7 10^3/uL (4.0-10.0)
[2017-09-09] MEDS: ATORVASTATIN 20 MG TAB PO (08:17)
[2017-09-09] MEDS: OMEPRAZOLE 20 MG CAP PO (08:17)
[2017-09-09] MEDS: FOLIC ACID 1 MG TAB PO (08:17)
[2017-09-09] MEDS: MAGNESIUM OXIDE 400 MG TAB (MAG-OX) PO (08:17)
[2017-09-09] MEDS: METOPROLOL TART 25 MG TABLET PO (08:17)
[2017-09-09] MEDS: LORATADINE 10 MG TAB PO (08:18)
[2017-09-09] MEDS: APIXABAN 2.5 MG TAB (ELIQUIS) PO (08:18)
[2017-09-09] MEDS: levETIRAcetam 250MG TABLET (KEPPRA) PO (08:18)
[2017-09-09] MEDS: MULTIVITAMINS/MINERALS THERAP 1 TAB PO (08:18)
[2017-09-09] MEDS: THIAMINE 100 MG TAB PO (08:18)
[2017-09-09] MEDS: BRIMONIDINE 0.15% OPHTH SOLN 5 ML OU (08:21)
[2017-09-09] MEDS: COSOPT OCUMETER PLUS 10ML (DORZOLAMIDE/TIMOLOL) OU (08:22)
[2017-09-09 11:53] LABS: BEDSIDE GLUCOSE 129 MG/DL (80-115)
== END 2017-09-09 15:14 | disposition home health service (06) ==
LOC: M ED 13:20 → M MSPAV 21:37 → M ED 21:50 → M MSPAV 21:51
DX: M79.89 Other specified soft tissue disorders (principal); R22.1 Localized swelling, mass and lump, neck; Z86.718 Personal history of other venous thrombosis and embolism; S46.011D Strain of muscle(s) and tendon(s) of the rotator cuff of right shoulder, subsequent encounter; W19.XXXD Unspecified fall, subsequent encounter; Y92.89 Other specified places as the place of occurrence of the external cause; E11.9 Type 2 diabetes mellitus without complications; Z86.73 Personal history of transient ischemic attack (TIA), and cerebral infarction without residual deficits; I50.32 Chronic diastolic (congestive) heart failure; G47.33 Obstructive sleep apnea (adult) (pediatric); M79.601 Pain in right arm; G89.29 Other chronic pain; R26.81 Unsteadiness on feet; I11.0 Hypertensive heart disease with heart failure; Z86.2 Personal history of diseases of the blood and blood-forming organs and certain disorders involving the immune mechanism; Z79.899 Other long term (current) drug therapy; Z79.01 Long term (current) use of anticoagulants; Z79.4 Long term (current) use of insulin; Z85.850 Personal history of malignant neoplasm of thyroid; Z87.891 Personal history of nicotine dependence; Z92.3 Personal history of irradiation; Z92.21 Personal history of antineoplastic chemotherapy; Z88.0 Allergy status to penicillin
CPT/HCPCS: Q9967

== ENCOUNTER → 2018-01-13 | Outpatient (CLI) | payer OTHER, MEDICARE | LOC: M RAD 13:27 | DX: M79.662 Pain in left lower leg (principal); R60.0 Localized edema | CPT/HCPCS: 93971 ==

== ENCOUNTER 2018-03-05 21:31 | Inpatient (IN) | payer OTHER, MEDICARE ==
[2018-03-05] MEDS: ACETAMINOPHEN TAB 650MG DOSE (2X325MG) PO (22:15)
[2018-03-05 22:28] LABS: BASO # 0.1 10^3/uL (0.0-0.2); BASO % 0.7 % (0.0-1.0); EOS # 0.1 10^3/uL (0.0-0.50); HEMOGLOBIN 10.3 g/dl (13.5-17.5); IMMATURE GRANULOCYTE % 0.2 % (0-3.0); LYMPH # 2.3 10^3/uL (1.5-4.5); LYMPH % 21.6 % (24.0-44.0); MEAN CORPUSCULAR HEMOGLOBIN 29.9 pg (27.0-33.0); MEAN CORPUSCULAR HGB CONC 34.3 g/dl (32.0-36.5); MEAN CORPUSCULAR VOLUME 87.2 fl (80.0-96.0); MONO # 1.3 10^3/uL (0.0-0.8); MONO % 11.7 % (0.0-5.0); NEUTROPHILS % 64.8 % (36.0-66.0); PLATELET COUNT, AUTOMATED 188 10^3/uL (150-450); RED BLOOD COUNT 3.44 10^6/uL (4.30-6.10); RED CELL DISTRIBUTION WIDTH 21.5 % (11.5-14.5); WHITE BLOOD COUNT 10.7 10^3/uL (4.0-10.0)
[2018-03-05 22:56] LABS: ALBUMIN 2.3 GM/DL (3.2-5.2); ALBUMIN/GLOBULIN RATIO 0.51 (1.00-1.93); ALKALINE PHOSPHATASE 189 U/L (45-117); ALT/SGPT 240 U/L (12-78); ANION GAP 11 MEQ/L (8-16); AST/SGOT 276 U/L (7-37); BILIRUBIN,DIRECT 1.6 MG/DL (0.0-0.2); BILIRUBIN,TOTAL 1.8 MG/DL (0.2-1.0); BLOOD UREA NITROGEN 21 MG/DL (7-18); CALCIUM LEVEL 7.2 MG/DL (8.8-10.2); CARBON DIOXIDE LEVEL 21 MEQ/L (21-32); CHLORIDE LEVEL 103 MEQ/L (98-107); GLUCOSE, FASTING 109 MG/DL (70-100); MAGNESIUM LEVEL 1.9 MG/DL (1.8-2.4); PHOSPHORUS LEVEL 2.5 MG/DL (2.5-4.9); POTASSIUM SERUM 4.9 MEQ/L (3.5-5.1); SODIUM LEVEL 135 MEQ/L (136-145); TOTAL PROTEIN 6.8 GM/DL (6.4-8.2)
[2018-03-05] MEDS: NS 1,000 ML IV ×2 (23:08→23:24)
[2018-03-05] MEDS: CALCIUM GLUCONATE 1,000 MG in D5W MINI-BAG PLUS 100 ML IV (23:15)
[2018-03-05] MEDS ORDERED: ONDANSETRON 4MG/2ML VIAL (J2405) IV (23:30)
[2018-03-06 00:42] LABS: BEDSIDE GLUCOSE 60 MG/DL (80-115)
[2018-03-06 00:59] LABS: BEDSIDE GLUCOSE 92 MG/DL (80-115)
[2018-03-06] MEDS: CALCIUM CARBONATE 500 MG CHEW U/D PO (01:34)
[2018-03-06] MEDS: levETIRAcetam 250MG TABLET (KEPPRA) PO ×3 (01:34→20:01)
[2018-03-06] MEDS ORDERED: GLUCOSE 4 GM CHEW TABLET PO (03:15)
[2018-03-06] MEDS ORDERED: GLUCAGON FOR INJ 1 MG VIAL (J1610) SC (03:15)
[2018-03-06] MEDS ORDERED: DEXTROSE 50% 50 ML SYRINGE IV (03:15)
[2018-03-06 04:09] LABS: BEDSIDE GLUCOSE 134 MG/DL (80-115)
[2018-03-06 05:49] LABS: HEMATOCRIT 28.1 % (42.0-52.0); HEMOGLOBIN 9.8 g/dl (13.5-17.5); MEAN CORPUSCULAR HEMOGLOBIN 30.3 pg (27.0-33.0); MEAN CORPUSCULAR HGB CONC 34.9 g/dl (32.0-36.5); PLATELET COUNT, AUTOMATED 147 10^3/uL (150-450); RED BLOOD COUNT 3.23 10^6/uL (4.30-6.10); WHITE BLOOD COUNT 7.8 10^3/uL (4.0-10.0)
[2018-03-06] MEDS: HEPARIN SOD (PORCINE) 5000 UNITS/ML VIAL SC ×3 (05:49→21:45)
[2018-03-06 06:25] LABS: ANION GAP 8 MEQ/L (8-16); BLOOD UREA NITROGEN 19 MG/DL (7-18); CALCIUM LEVEL 7.3 MG/DL (8.8-10.2); CARBON DIOXIDE LEVEL 23 MEQ/L (21-32); CHLORIDE LEVEL 105 MEQ/L (98-107); CREATININE FOR GFR 1.41 MG/DL (0.70-1.30); GLOMERULAR FILTRATION RATE > 60.0 (>49); GLUCOSE, FASTING 110 MG/DL (70-100); MAGNESIUM LEVEL 1.8 MG/DL (1.8-2.4); POTASSIUM SERUM 4.1 MEQ/L (3.5-5.1); SODIUM LEVEL 136 MEQ/L (136-145)
[2018-03-06 08:35] LABS: ALBUMIN/GLOBULIN RATIO 0.51 (1.00-1.93); ALKALINE PHOSPHATASE 169 U/L (45-117); ALT/SGPT 191 U/L (12-78); AST/SGOT 211 U/L (7-37); BILIRUBIN,DIRECT 1.2 MG/DL (0.0-0.2); BILIRUBIN,TOTAL 1.5 MG/DL (0.2-1.0); TOTAL PROTEIN 5.9 GM/DL (6.4-8.2)
[2018-03-06 08:52] LABS: IONIZED CALCIUM 4.1 MG/DL (4.5-5.3)
[2018-03-06] MEDS: NS 1,000 ML IV (08:52)
[2018-03-06] MEDS: HumaLOG INSULIN (NovoLOG) PER UNIT SC ×4 (09:00→20:08)
[2018-03-06] MEDS: FOLIC ACID 1 MG TAB PO (09:01)
[2018-03-06] MEDS: ATORVASTATIN 20 MG TAB PO (09:01)
[2018-03-06] MEDS: MULTIVITAMINS/MINERALS THERAP 1 TAB PO (09:01)
[2018-03-06] MEDS: OMEPRAZOLE 20 MG CAP PO (09:01)
[2018-03-06] MEDS: CALCIUM CARB SUSP 1250MG/5ML UNIT DOSE CUP PO ×2 (10:57→20:01)
[2018-03-06] MEDS: FLUBLOK(EGG FREE)(QUAD)INFLUENZA VACC 0.5ML SYRINGE (90682)18YRS&OLDER IM (10:59)
[2018-03-06] MEDS: PREVNAR 13 VACCINE SYRINGE (CPT CODE:90670) IM (11:00)
[2018-03-06] MEDS ORDERED: SLF 3 ML SYR IV (11:15)
[2018-03-06 12:11] LABS: BEDSIDE GLUCOSE 209 MG/DL (80-115)
[2018-03-06] MEDS: ACETAMINOPHEN 325 MG TAB PO ×2 (13:02→20:02)
[2018-03-06] MEDS: SLF 3 ML SYR IV ×2 (14:40→21:45)
[2018-03-06 17:55] LABS: BEDSIDE GLUCOSE 127 MG/DL (80-115)
[2018-03-06] MEDS: TETRAHYDROZOLINE OPHTH 0.05% 15 ML BTL OU (20:02)
[2018-03-06 21:20] LABS: BEDSIDE GLUCOSE 217 MG/DL (80-115)
[2018-03-07] MEDS: SLF 3 ML SYR IV ×3 (05:39→21:01)
[2018-03-07] MEDS: HEPARIN SOD (PORCINE) 5000 UNITS/ML VIAL SC ×3 (05:39→21:00)
[2018-03-07 05:40] LABS: HEMOGLOBIN 10.2 g/dl (13.5-17.5); MEAN CORPUSCULAR HEMOGLOBIN 29.7 pg (27.0-33.0); MEAN CORPUSCULAR VOLUME 87.5 fl (80.0-96.0); PLATELET COUNT, AUTOMATED 121 10^3/uL (150-450); RED BLOOD COUNT 3.43 10^6/uL (4.30-6.10); RED CELL DISTRIBUTION WIDTH 21.2 % (11.5-14.5); WHITE BLOOD COUNT 6.5 10^3/uL (4.0-10.0)
[2018-03-07 06:10] LABS: ALBUMIN 1.9 GM/DL (3.2-5.2); ALBUMIN/GLOBULIN RATIO 0.45 (1.00-1.93); ALKALINE PHOSPHATASE 187 U/L (45-117); ALT/SGPT 156 U/L (12-78); ANION GAP 9 MEQ/L (8-16); AST/SGOT 150 U/L (7-37); BILIRUBIN,TOTAL 1.7 MG/DL (0.2-1.0); BLOOD UREA NITROGEN 15 MG/DL (7-18); CALCIUM LEVEL 7.3 MG/DL (8.8-10.2); CARBON DIOXIDE LEVEL 23 MEQ/L (21-32); CHLORIDE LEVEL 108 MEQ/L (98-107); CREATININE FOR GFR 1.33 MG/DL (0.70-1.30); GLOMERULAR FILTRATION RATE > 60.0 (>49); GLUCOSE, FASTING 160 MG/DL (70-100); MAGNESIUM LEVEL 1.8 MG/DL (1.8-2.4); POTASSIUM SERUM 3.8 MEQ/L (3.5-5.1); SODIUM LEVEL 140 MEQ/L (136-145); TOTAL PROTEIN 6.1 GM/DL (6.4-8.2)
[2018-03-07] MEDS: OMEPRAZOLE 20 MG CAP PO (09:51)
[2018-03-07] MEDS: ATORVASTATIN 20 MG TAB PO (09:51)
[2018-03-07] MEDS: MULTIVITAMINS/MINERALS THERAP 1 TAB PO (09:51)
[2018-03-07] MEDS: HumaLOG INSULIN (NovoLOG) PER UNIT SC ×4 (09:51→20:59)
[2018-03-07] MEDS: levETIRAcetam 250MG TABLET (KEPPRA) PO ×2 (09:51→21:00)
[2018-03-07] MEDS: FOLIC ACID 1 MG TAB PO (09:51)
[2018-03-07] MEDS: CALCIUM CARB SUSP 1250MG/5ML UNIT DOSE CUP PO (12:35)
[2018-03-07 17:18] LABS: BEDSIDE GLUCOSE 159 MG/DL (80-115)
[2018-03-07 17:18] LABS: BEDSIDE GLUCOSE 178 MG/DL (80-115)
[2018-03-07 17:18] LABS: BEDSIDE GLUCOSE 168 MG/DL (80-115)
[2018-03-07] MEDS: TETRAHYDROZOLINE OPHTH 0.05% 15 ML BTL OU (17:47)
[2018-03-07 20:43] LABS: BEDSIDE GLUCOSE 165 MG/DL (80-115)
[2018-03-07] MEDS: ACETAMINOPHEN 325 MG TAB PO (21:02)
[2018-03-08 05:43] LABS: HEMATOCRIT 31.9 % (42.0-52.0); HEMOGLOBIN 10.7 g/dl (13.5-17.5); MEAN CORPUSCULAR HEMOGLOBIN 29.6 pg (27.0-33.0); MEAN CORPUSCULAR HGB CONC 33.5 g/dl (32.0-36.5); MEAN CORPUSCULAR VOLUME 88.4 fl (80.0-96.0); PLATELET COUNT, AUTOMATED 104 10^3/uL (150-450); RED BLOOD COUNT 3.61 10^6/uL (4.30-6.10); RED CELL DISTRIBUTION WIDTH 21.4 % (11.5-14.5); WHITE BLOOD COUNT 7.3 10^3/uL (4.0-10.0)
[2018-03-08] MEDS: SLF 3 ML SYR IV (06:09)
[2018-03-08] MEDS: HEPARIN SOD (PORCINE) 5000 UNITS/ML VIAL SC (06:09)
[2018-03-08 06:24] LABS: ALBUMIN 1.7 GM/DL (3.2-5.2); ALBUMIN/GLOBULIN RATIO 0.37 (1.00-1.93); ALKALINE PHOSPHATASE 201 U/L (45-117); ALT/SGPT 124 U/L (12-78); ANION GAP 7 MEQ/L (8-16); AST/SGOT 98 U/L (7-37); BILIRUBIN,TOTAL 1.7 MG/DL (0.2-1.0); BLOOD UREA NITROGEN 12 MG/DL (7-18); CALCIUM LEVEL 7.6 MG/DL (8.8-10.2); CARBON DIOXIDE LEVEL 23 MEQ/L (21-32); CHLORIDE LEVEL 110 MEQ/L (98-107); CREATININE FOR GFR 1.14 MG/DL (0.70-1.30); GLOMERULAR FILTRATION RATE > 60.0 (>49); GLUCOSE, FASTING 113 MG/DL (70-100); MAGNESIUM LEVEL 1.8 MG/DL (1.8-2.4); POTASSIUM SERUM 3.7 MEQ/L (3.5-5.1); SODIUM LEVEL 140 MEQ/L (136-145); TOTAL PROTEIN 6.3 GM/DL (6.4-8.2)
[2018-03-08] MEDS: OMEPRAZOLE 20 MG CAP PO (09:55)
[2018-03-08] MEDS: MULTIVITAMINS/MINERALS THERAP 1 TAB PO (09:55)
[2018-03-08] MEDS: levETIRAcetam 250MG TABLET (KEPPRA) PO (09:55)
[2018-03-08] MEDS: ATORVASTATIN 20 MG TAB PO (09:55)
[2018-03-08] MEDS: HumaLOG INSULIN (NovoLOG) PER UNIT SC ×2 (09:55→12:00)
[2018-03-08] MEDS: FOLIC ACID 1 MG TAB PO (09:56)
[2018-03-08] MEDS: ACETAMINOPHEN 325 MG TAB PO (10:07)
[2018-03-08 11:16] LABS: HEPATITIS A ANTIBODY IGM NEGATIVE (NEGATIVE); HEPATITIS B CORE ANTIBODY IGM NEGATIVE (NEGATIVE); HEPATITIS B SURFACE ANTIGEN NEGATIVE (NEGATIVE); HEPATITIS C VIRUS ABY INDEX 0.5 INDEX (<0.8); PTH INTACT 71.1 PG/ML (18.5-88.0)
[2018-03-08 12:03] LABS: BEDSIDE GLUCOSE 162 MG/DL (80-115)
[2018-03-09 14:09] LABS: BEDSIDE GLUCOSE 116 MG/DL (80-115)
== END 2018-03-08 12:35 | disposition home or self-care (01) | DRG 683 ==
LOC: M MSPAV 03-07 08:25 → M PCU 03-06 01:20 → M MSPAV 03-07 15:38 → M ED 21:31 → M ED INP 23:24
PROVIDERS: Internal Medicine
DX: N17.9 Acute kidney failure, unspecified (principal); I50.30 Unspecified diastolic (congestive) heart failure; R19.7 Diarrhea, unspecified; G47.33 Obstructive sleep apnea (adult) (pediatric); E83.51 Hypocalcemia; M62.838 Other muscle spasm; E89.0 Postprocedural hypothyroidism; T46.4X5A Adverse effect of angiotensin-converting-enzyme inhibitors, initial encounter; R74.0 Nonspecific elevation of levels of transaminase and lactic acid dehydrogenase [LDH]; E11.9 Type 2 diabetes mellitus without complications; Z92.21 Personal history of antineoplastic chemotherapy; Z92.3 Personal history of irradiation; Z85.01 Personal history of malignant neoplasm of esophagus; Z86.73 Personal history of transient ischemic attack (TIA), and cerebral infarction without residual deficits; Z86.718 Personal history of other venous thrombosis and embolism; Z85.850 Personal history of malignant neoplasm of thyroid; Z87.891 Personal history of nicotine dependence; Z79.4 Long term (current) use of insulin; Z79.899 Other long term (current) drug therapy; Z88.0 Allergy status to penicillin; T50.2X5A Adverse effect of carbonic-anhydrase inhibitors, benzothiadiazides and other diuretics, initial encounter

== ENCOUNTER → 2018-05-18 | Outpatient (REF) ==
[~2018-05-18] MED LIST: ACET30TAB PO; ATOR80TA59 PO; BRIM0.2S13 OU; DENTCRE3; DORZ2SOL5 OU; DRIS50003 PO; ELIQ2.5T PO; FOLI1TAB11 PO; GLUC1KIT IM; GLUC4CHW19 PO; HYDR25TAB PO; INSUH10VL SC; INSULADS SC; K-TA10TA PO; KLOR10TA76 PO; LATA5OPD OU; LEVE750T5 PO; LISI40TA PO; LORA-243 PO; MAG400TA PO; MAGN400C3 PO; METO1TAB87 PO; METO25TA4 PO; OMEP20CA3 PO; PATIENT COMMENT; THIA100TA PO; VITMTA PO; XALA0.007 OU; XARE10TA PO
--- NOTE | 2018-05-19 02:21 | REP ---
Clinical: Left lower extremity pain. Technique: AP and lateral views of the left tibia / fibula. Findings: Osseous structures, joint spaces, and surrounding soft tissues appear relatively normal. Evidence for peripheral vascular disease noted. No acute fracture dislocation. No significant soft tissue swelling. No subcutaneous emphysema. Impression: No significant abnormality by radiographic evaluation. Electronically Signed by Ronen Morales MD 05/19/2018 02:12 A
== END ==
LOC: M RAD 11:05
PROVIDERS: ATTEND Family Medicine
DX: Z00.00 Encounter for general adult medical examination without abnormal findings (principal)

== ENCOUNTER 2018-06-14 12:36 | Emergency (ER) | payer MEDICARE, OTHER ==
[~2018-06-14] VITALS: Ht 177.8 cm; Wt 90.9 kg
--- NOTE | 2018-06-14 15:42 | REP ---
Left lower extremity Duplex Doppler venous ultrasound: Real time compression and duplex Doppler interrogation of the left lower extremity deep venous system is performed. The left common femoral, superficial femoral and popliteal veins are fully compressible with transducer pressure and demonstrate normal spontaneous and phasic flow, without evidence of deep venous thrombosis. Impression: No evidence of deep venous thrombosis of the left lower extremity femoral popliteal venous system. Note is made of a superficial venous thrombus in the calf. There is a large prepatellar fluid collection. Electronically Signed by Kraig Kidd MD 06/14/2018 03:34 P
--- NOTE | 2018-06-14 16:32 | REP ---
Left knee five views: There is a suprapatellar effusion. There is no fracture or dislocation. Mineralization is normal. There are no calcifications or foreign bodies except for atheromatous calcification in the popliteal artery. Impression: Suprapatellar effusion, otherwise negative left knee. Electronically Signed by Kraig Talbert MD 06/14/2018 04:24 P
[2018-06-14 16:53] LABS: BASO # 0.1 10^3/uL (0.0-0.2); BASO % 0.7 % (0.0-1.0); EOS # 0.5 10^3/uL (0.0-0.50); EOS % 6.1 % (0.0-3.0); HEMATOCRIT 40.4 % (42.0-52.0); HEMOGLOBIN 13.1 g/dl (13.5-17.5); LYMPH # 2.2 10^3/uL (1.5-4.5); LYMPH % 24.9 % (24.0-44.0); MEAN CORPUSCULAR HEMOGLOBIN 28.4 pg (27.0-33.0); MEAN CORPUSCULAR HGB CONC 32.4 g/dl (32.0-36.5); MEAN CORPUSCULAR VOLUME 87.6 fl (80.0-96.0); MONO # 1.1 10^3/uL (0.0-0.8); MONO % 12.1 % (0.0-5.0); NEUTROPHILS # 4.9 10^3/uL (1.8-7.7); NEUTROPHILS % 55.9 % (36.0-66.0); PLATELET COUNT, AUTOMATED 153 10^3/uL (150-450); RED BLOOD COUNT 4.61 10^6/uL (4.30-6.10); WHITE BLOOD COUNT 8.8 10^3/uL (4.0-10.0)
[2018-06-14 17:18] LABS: ERYTHROCYTE SEDIMENTATION RATE 27 mm/hr (0-20)
[2018-06-14 17:28] LABS: ALBUMIN 3.1 GM/DL (3.2-5.2); ALT/SGPT 21 U/L (12-78); BILIRUBIN,DIRECT 0.2 MG/DL (0.0-0.2); BILIRUBIN,TOTAL 0.8 MG/DL (0.2-1.0); BLOOD UREA NITROGEN 15 MG/DL (7-18); C REACTIVE PROTEIN QUANTITATIV 0.53 MG/DL (0.00-0.30); CALCIUM LEVEL 8.3 MG/DL (8.8-10.2); CARBON DIOXIDE LEVEL 28 MEQ/L (21-32); CHLORIDE LEVEL 104 MEQ/L (98-107); CREATININE FOR GFR 1.01 MG/DL (0.70-1.30); GLOMERULAR FILTRATION RATE > 60.0 (>49); GLUCOSE, FASTING 153 MG/DL (70-100); POTASSIUM SERUM 4.9 MEQ/L (3.5-5.1); SODIUM LEVEL 139 MEQ/L (136-145); TOTAL PROTEIN 7.5 GM/DL (6.4-8.2)
[2018-06-14 17:53] VITALS: BP 159/75
[2018-06-14] MEDS ORDERED: NAPR-50 PO (18:08)
--- NOTE | 2018-06-15 11:39 | ED PDOC ---
Post-Departure Follow-Up dr healy faxed formal report of us leg and left knee film for fu Aaron Rawls MD Jun 15, 2018 11:39
== END 2018-06-14 18:32 | disposition home or self-care (01) ==
LOC: M ED 12:36
DX: I82.812 Embolism and thrombosis of superficial veins of left lower extremity (principal); M25.462 Effusion, left knee; E11.9 Type 2 diabetes mellitus without complications; I10 Essential (primary) hypertension; E78.5 Hyperlipidemia, unspecified; R56.9 Unspecified convulsions; G47.33 Obstructive sleep apnea (adult) (pediatric); K74.60 Unspecified cirrhosis of liver; Z85.818 Personal history of malignant neoplasm of other sites of lip, oral cavity, and pharynx; Z86.79 Personal history of other diseases of the circulatory system; Z87.891 Personal history of nicotine dependence; Z88.0 Allergy status to penicillin; Z79.899 Other long term (current) drug therapy; Z79.4 Long term (current) use of insulin

== ENCOUNTER 2018-10-14 07:37 | Day surgery (SDC) | payer MEDICARE, OTHER ==
[~2018-10-14] VITALS: Ht 175.3 cm; Wt 91.1 kg
[~2018-10-14 07:37] MED LIST changes: +ACET-716 PO; -ACET30TAB PO; +LATA0.0013 OU; -LATA5OPD OU; +NAPR-837 PO; +NS 1,000 ML IV ONE; +POTA10TA67 PO
[2018-10-14] MEDS ORDERED: PROPOFOL 200 MG/20 ML VIAL As Ordered ONE (08:27)
[2018-10-14] MEDS ORDERED: LIDOCAINE 2% INJ 100 MG/5 ML SDV (FOR ANES.) As Ordered ONE (08:27)
--- NOTE | 2018-10-14 09:05 | ROOR ---
Patient Name: Jarad Bill Procedure Date: 10/14/2018 8:50 AM Date of : 1950 Age: 68 Room: [facility] Gender: Male Note Status: Finalized Procedure: Colonoscopy Indications: High risk colon cancer surveillance: Personal history of colonic polyps Providers: Patrice Briseno Jr, MD Referring MD: Yuniel Kuo Requesting Provider: Medicines: Propofol per Anesthesia Complications: No immediate complications. Procedure: Pre-Anesthesia Assessment: - Prior to the procedure, a History and Physical was performed, and patient medications and allergies were reviewed. The patient is competent. The risks and benefits of the procedure and the sedation options and risks were discussed with the patient. All questions were answered and informed consent was obtained. Patient identification and proposed procedure were verified by the physician and the nurse in the pre-procedure area and in the procedure room. Mental Status Examination: alert and oriented. Airway Examination: normal oropharyngeal airway and neck mobility. Respiratory Examination: clear to auscultation. CV Examination: normal. ASA Grade Assessment: II - A patient with mild systemic disease. After reviewing the risks and benefits, the patient was deemed in satisfactory condition to undergo the procedure. The anesthesia plan was to use moderate sedation / analgesia (conscious sedation). Immediately prior to administration of medications, the patient was re-assessed for adequacy to receive sedatives. The heart rate, respiratory rate, oxygen saturations, blood pressure, adequacy of pulmonary ventilation, and response to care were monitored throughout the procedure. The physical status of the patient was re-assessed after the procedure. The Colonoscope was introduced through the anus and advanced to the cecum, identified by appendiceal orifice and ileocecal valve. The colonoscopy was performed without difficulty. The patient tolerated the procedure well. The quality of the bowel preparation was adequate. Findings: The rectum, recto-sigmoid colon, sigmoid colon, descending colon, transverse colon, ascending colon, cecum, appendiceal orifice and ileocecal valve appeared normal. Impression: - The rectum, recto-sigmoid colon, sigmoid colon, descending colon, transverse colon, ascending colon, cecum, appendiceal orifice and ileocecal valve are normal. - No specimens collected. Recommendation: - Discharge patient to home (ambulatory). - Repeat colonoscopy in 10 years for screening purposes. Patrice Briseno MD Patrice Briseno Jr, MD 10/14/2018 9:05:17 AM Electronically signed by Patrice Briseno Jr, MD Number of Addenda: 0 Note Initiated On: 10/14/2018 8:50 AM Estimated Blood Loss: Estimated blood loss: none.
[2018-10-14 09:31] VITALS: BP 132/60
== END 2018-10-14 09:33 | disposition home or self-care (01) ==
LOC: M OPP 07:37
PROVIDERS: ATTEND Surgery
DX: Z86.010 Personal history of colon polyps (principal)

== ENCOUNTER 2019-03-21 14:08 | Inpatient (IN) | payer OTHER, MEDICARE ==
[~2019-03-21] VITALS: Ht 175.3 cm; Wt 85.9 kg
[~2019-03-21 14:08] MED LIST changes: -NS 1,000 ML IV ONE; -OMEP20CA3 PO; +OMEP20CA4 PO
[2019-03-21] MEDS ORDERED: ALBUTEROL SULFATE 2.5 MG/0.5 ML INH NEB SOLN INH ONE (15:15)
[2019-03-21] MEDS ORDERED: IPRATROPIUM 0.5MG/ALBUTEROL 2.5MG INH SOL UD 3ML (DUONEB)(J7620) NEB ONE (15:15)
[2019-03-21] MEDS ORDERED: methylPREDNISolone INJ 125 MG/2 ML VIAL (J2930) IV ONE (15:15)
[2019-03-21] MEDS ORDERED: NS 500 ML IV ONE (15:15)
--- NOTE | 2019-03-21 15:25 | REP ---
Two-view chest: 03/21/2019. Indication: Dyspnea. Cough. Comparison: 09/07/2017. Findings: Right lower lobe air space consolidation is noted. There is no pleural effusion or pneumothorax. The cardiac silhouette is borderline enlarged. Impression: Right lower lobe air space consolidation concerning for pneumonia. Please correlate. Electronically Signed by Valdez Gardner DO 03/21/2019 03:16 P
[2019-03-21] MEDS ORDERED: DRIS50003 PO (15:32)
[2019-03-21] MEDS ORDERED: GLUC4CHW PO (15:32)
[2019-03-21] MEDS ORDERED: MELO15TA28 PO (15:32)
[2019-03-21] MEDS ORDERED: HYDR-3713 PO (15:32)
[2019-03-21] MEDS ORDERED: GABA-843 PO (15:32)
[2019-03-21] MEDS ORDERED: LISI40TA PO (15:32)
[2019-03-21] MEDS ORDERED: GLUCLIQ37 PO (15:32)
[2019-03-21] MEDS ORDERED: LevoFLOXacin 750 MG TABLET PO ONE (15:45)
[2019-03-21] MEDS ORDERED: TOBRAMYCIN SULF 160 MG in D5W 50 ML IV ONE ×5 (15:45→16:30)
[2019-03-21] MEDS ORDERED: TOBRAMYCIN SULF 100 MG in D5W 50 ML IV ONE (15:45)
[2019-03-21 16:54] LABS: BASO # 0.1 10^3/uL (0.0-0.2); BASO % 0.8 % (0.0-1.0); EOS # 0.3 10^3/uL (0.0-0.5); EOS % 4.2 % (0.0-3.0); HEMATOCRIT 40.8 % (42.0-52.0); HEMOGLOBIN 12.9 g/dl (13.5-17.5); LYMPH # 2.5 10^3/uL (1.5-5.0); MEAN CORPUSCULAR HEMOGLOBIN 30.6 pg (27.0-33.0); MEAN CORPUSCULAR HGB CONC 31.6 g/dl (32.0-36.5); MEAN CORPUSCULAR VOLUME 96.7 fl (80.0-96.0); MONO # 0.8 10^3/uL (0.0-0.8); MONO % 10.7 % (0.0-5.0); NEUTROPHILS # 4.1 10^3/uL (1.5-8.5); PLATELET COUNT, AUTOMATED 121 10^3/uL (150-450); RED BLOOD COUNT 4.22 10^6/uL (4.30-6.10); WHITE BLOOD COUNT 7.9 10^3/uL (4.0-10.0)
[2019-03-21 17:22] LABS: ALBUMIN 2.3 GM/DL (3.2-5.2); ALT/SGPT 41 U/L (12-78); BILIRUBIN,DIRECT 0.5 MG/DL (0.0-0.2); BILIRUBIN,TOTAL 0.9 MG/DL (0.2-1.0); BLOOD UREA NITROGEN 18 MG/DL (7-18); CALCIUM LEVEL 8.4 MG/DL (8.8-10.2); CARBON DIOXIDE LEVEL 23 MEQ/L (21-32); CHLORIDE LEVEL 111 MEQ/L (98-107); CREATININE FOR GFR 1.07 MG/DL (0.70-1.30); GLOMERULAR FILTRATION RATE > 60.0 (>49); GLUCOSE, FASTING 134 MG/DL (70-100); POTASSIUM SERUM 4.2 MEQ/L (3.5-5.1); SODIUM LEVEL 141 MEQ/L (136-145); TOTAL PROTEIN 7.3 GM/DL (6.4-8.2)
[2019-03-21] MEDS ORDERED: MAALOX 30 ML SUSP *UDC PO PRN (17:45)
[2019-03-21] MEDS ORDERED: DEXTROSE 50% 50 ML SYRINGE IV PRN (17:45)
[2019-03-21] MEDS ORDERED: GLUCAGON FOR INJ 1 MG VIAL (J1610) SC PRN (17:45)
[2019-03-21] MEDS ORDERED: GLUCOSE 4 GM CHEW TABLET PO PRN (17:45)
[2019-03-21] MEDS ORDERED: MOM 30ML SUSPENSION UDC PO PRN (17:45)
--- NOTE | 2019-03-21 17:45 | HPEPDOC ---
[facility] Medical History & Physical Date of Admission Mar 21, 2019 Date of Service: Mar 21, 2019 History and Physical Chief complaints: Progressive shortness of breath with sputum production HPI: 68yo male presents to ED with progressive shortness of breath with cough. The patient states that he has been having progressively decline in her functional status and has been coughing a lot. In the ER, he was found to be in low 80s of saturation and after duonebs the patient got better and currently saturating 98 on 4 L. The patient also is found to have a pneumonia and was given Levaquin and tobramycin in the ER as he is allergic to penicillins. Also complains of yellow-green productive sputum. Denies, n/v/d, CP, PND, edema, change in appetite or significant weight loss. Work up showed elevated WBC, and chest x-ray showed right lower lobe pneumonia. PAST MEDICAL HISTORY: DM h/o Hemorrhagic CVA requiring craniotomy h/o Thyroid cancer status post thyroidectomy in 2004 h/o Throat cancer status post chemotherapy and radiation in 2014 PAST SURGICAL HISTORY: Thyroidectomy SOCIAL HISTORY: Quit smoking several years ago Denies EtOH use or illicit drug use Denies recent travel or sick contacts. FAMILY HISTORY: Noncontributory REVIEW OF SYSTEMS: Pertinent positive findings as per HPI. Rest negative ALLERGIES: see list below HOME MEDICATIONS: see list below PHYSICAL EXAMINATION: VITAL SIGNS: Please see below. GENERAL: NAD, A&OX3, Pleasant HEENT: PERRLA, throat clear, neck supple, no JVD CARDIOVASCULAR: RRR RESPIRATORY: prolonged expiratory wheeze in bilateral lower lung zarate, few bibasilar. Rales heard ABDOMINAL: soft, NT/ND normoactive bowel sounds EXTREMITIES: no edema/no calf tenderness NEUROLOGICAL: CN'S II-XII grossly intact PSYCHOLOGICAL: negative LABORATORY DATA: see below Radiology reviewed Assessment and plan: 66 yo with elevated wbc, with a right lower lobe pneumonia and shortness of breath, hypoxic respiratory failure. 1 . Hypoxic respiratory failure likely 2/2 pneumonia: The patient was saturating in low 80s on room air and currently on 4 L has been saturating around 98. We will continue dual nebs as well as IV Levaquin. Atypical workup initiated. Sputum cultures ordered. Procal has been ordered. Continue supplemental oxygen Maintain saturation above 92. 40 IV Solu-Medrol daily. Blood cultures, sputum culture to be followed 2. Leukocytosis: Management as per 1 3. Rt lower lobe pneumonia: Diminished and as per 1 4. DM 2: Will continue sliding scale insulin as well as local checks before meals and at bedtime. A1c ordered 5. h/o Hemorrhagic CVA requiring craniotomy: Continue to monitor 6: h/o Thyroid cancer status post thyroidectomy in 2004: Will continue to monitor and order TSH 7: h/o Throat cancer status post chemotherapy and radiation in 2014 : Continue to monitor IV fluids with 75 mL of normal saline. DVT PROPHYLAXIS: SQ Heparin DISPOSITION: Likely greater than two midnights. CODE STATUS: Full Code Vital Signs Vital Signs Date Time Temp Pulse Resp B/P (MAP) Pulse Ox O2 Delivery O2 Flow Rate FiO2 03/21/19 15:00 80 18 104/57 (73) 100 Nasal Cannula 2.0 03/21/19 14:09 98.8 Laboratory Data Labs 24H Laboratory Tests 2 03/21/19 16:01: Anion Gap 7L, Glomerular Filtration Rate > 60.0, Calcium Level 8.4L, Total Bilirubin 0.9, Direct Bilirubin 0.5H, Aspartate Amino Transf (AST/SGOT) 60H, Alanine Aminotransferase (ALT/SGPT) 41, Alkaline Phosphatase 153H, Total Protein 7.3, Albumin 2.3L, Albumin/Globulin Ratio 0.46L 03/21/19 16:37: Immature Granulocyte % (Auto) 0.3, Neutrophils (%) (Auto) 52.0, Lymphocytes (%) (Auto) 32.0, Monocytes (%) (Auto) 10.7H, Eosinophils (%) (Auto) 4.2H, Basophils (%) (Auto) 0.8, Neutrophils # (Auto) 4.1, Lymphocytes # (Auto) 2.5, Monocytes # (Auto) 0.8, Eosinophils # (Auto) 0.3, Basophils # (Auto) 0.1, Nucleated Red Blood Cells % (auto) 0.0, Lactic Acid Level 1.8 03/21/19 17:00: Bedside Glucose (Misc Panel) 127H CBC/BMP Laboratory Tests 03/21/19 16:01 03/21/19 16:37 Microbiology Microbiology 03/21/19 Blood Culture, Received Pending Home Medications Scheduled Atorvastatin Calcium (Atorvastatin Calcium) 80 Mg Tab, 40 MG PO DAILY Brimonidine Tartrate (Brimonidine Tartrate) 0.2 % Margarita, 1 DROP OU TID Dorzolamide HCl/Timolol Maleat (Dorzolamide-Timolol Eye Drops) 1 Margarita Margarita, 1 DROP OU BID USES MORNING AND NOON Ergocalciferol (Vitamin D2) (Drisdol) 50,000 Unit Capsule, 50,000 UNIT PO Q2WK 1ST AND 15TH OF EACH MONTH Folic Acid (Folic Acid) 1 Mg Tab, 1 MG PO DAILY Gabapentin (Gabapentin) 300 Mg Capsule, 300 MG PO QHS Hydrochlorothiazide (Hydrochlorothiazide) 25 Mg Tab, 25 MG PO DAILY Insulin Human Lispro (Novolog) 100 U/Ml Inj, 1 DOSE SC AC PER SLIDING SCALE Latanoprost (Xalatan) 0.005 % Margarita, 1 DROP OU QHS Levetiracetam (Levetiracetam) 750 Mg Tab, 750 MG PO BID Lisinopril (Lisinopril) 40 Mg Tablet, 20 MG PO DAILY Loratadine (Loratadine) 10 Mg Tab, 10 MG PO DAILY Meloxicam (Meloxicam) 15 Mg Tablet, 15 MG PO DAILY Multivitamins (Thera M Plus Tablet) 1 Tab Tab, 1 TAB PO DAILY Nut.tx.gluc.intoler,Lac-Fr,Soy (Glucerna) 237 Ml Liquid, 237 ML PO BID Omeprazole (Omeprazole) 20 Mg Cap, 20 MG PO DAILY Potassium Chloride (Potassium Chloride) 10 Meq Tab.er.prt, 20 MEQ PO BID Scheduled PRN Dextrose (Glucose) 4 Gm Tab.chew, 4 GM PO for LOW BLOOD SUGAR Hydrocodone/Acetaminophen (Hydrocodone-Acetamin 5-325 mg) 1 Each Tablet, 1 TAB PO Q4H PRN for PAIN MDD 4 Allergies Coded Allergies: Penicillins (Verified Allergy, Severe, anaphyaxsis, 10/06/18) A-FIB/CHADSVASC A-FIB History Current/History of A-Fib/PAF?: No GME ATTESTATION GME ATTESTATION My faculty preceptor for this patient encounter was physically present during the encounter and was fully available. All aspects of the patient interview, examination, medical decision making process, and medical care plan development were reviewed and approved by the faculty preceptor. The faculty preceptor is aware and concurs with the plan as stated in the body of this note and will attest to such by his/her cosignature. ATTENDING NOTE Patient was seen and examined by me this morning with the residents. Agree with the above assessment and plan NAVID BRYANT MD Mar 21, 2019 17:30
--- NOTE | 2019-03-21 18:46 | ECGEPIP ---
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
--- NOTE | 2019-03-21 19:26 | REP ---
REASON: Assess recent central line placement. COMPARISON: 03/21/2019. Since the last examination left sided internal jugular central venous catheter has been placed. The tip is in the left brachial cephalic vein. Cardiomediastinal silhouette is unchanged. The heart is magnified by technique. The technique utilized in obtaining the radiograph has magnified the cardiac silhouette and accentuated the interstitial markings. There is no significant change in the appearance of the lung zarate. The pleural angles remain sharp. The osseous structures are stable and intact. IMPRESSION: Status post left sided central venous catheter placement as described above. Electronically Signed by Terrance Lopez DO 03/21/2019 07:30 P
[2019-03-21 19:30] LABS: CPK CREATINE PHOSPHOKINASE 72 U/L (39-308); MB/CK RELATIVE INDEX 1.39 (< OR =4); NT-PRO BNP 135 PG/ML (<125); TROPONIN I < 0.02 NG/ML (< 0.10)
[2019-03-21] MEDS: NS 1,000 ML IV SCH (19:30)
[2019-03-21 20:23] LABS: HEMOGLOBIN A1c 7.3 %
[2019-03-21] MEDS: IPRATROPIUM 0.5MG/ALBUTEROL 2.5MG INH SOL UD 3ML (DUONEB)(J7620) NEB SCH (21:13)
[2019-03-21 21:58] VITALS: BP 138/89
[2019-03-21] MEDS: GABAPENTIN 300 MG CAP PO SCH (22:18)
[2019-03-21] MEDS: levETIRAcetam 250MG TABLET (KEPPRA) PO SCH (22:18)
[2019-03-21] MEDS: HEPARIN SOD (PORCINE) 5000 UNITS/ML VIAL SC SCH (22:19)
[2019-03-21] MEDS: DOCUSATE SODIUM 100 MG CAP PO SCH (22:19)
--- NOTE | 2019-03-22 00:35 | REPVR ---
PROCEDURE INFORMATION: Exam: CT Chest Without Contrast Exam date and time: 03/21/2019 8:23 PM Clinical history: 68 years old, male; Chest pain; Additional info: Pneumonia TECHNIQUE: Imaging protocol: Computed tomography of the chest without contrast. 3D rendering: MIP reconstructed images were created and reviewed. Radiation optimization: All CT scans at this facility use at least one of these dose optimization techniques: automated exposure control; mA and/or kV adjustment per patient size (includes targeted exams where dose is matched to clinical indication); or iterative reconstruction. COMPARISON: CR - PORTABLE CHEST X-RAY 03/21/2019 6:42:[address] ANGIO CHEST 09/07/2017 3:55 PM FINDINGS: Limitations: Respiratory motion artifact degrades the image quality. Tubes, catheters and devices: There is a left internal jugular central venous line terminating in the distal portion of the left brachiocephalic vein. The convention that distal is closest to the heart and proximal is furthest away from the heart is used for this study in describing proximal and distal in the venous system. Thyroid: Unremarkable. Lungs: There is subpleural reticulation in both lungs, which has progressed compared to the prior CTA on 09/07/2017, and may indicate a nonspecific interstitial pneumonia or usual interstitial pneumonia pattern. No honeycombing is noted. No lung consolidation is noted. There are mild secretions in the trachea. Pleural space: Unremarkable. No pneumothorax. No pleural effusion. Heart: No cardiomegaly. No pericardial effusion. There are coronary artery calcifications. Mediastinum: No mediastinal mass, fluid collection, or pneumomediastinum. Aorta: There is no thoracic aortic aneurysm or intramural hematoma. There are moderate atherosclerotic calcifications. Lymph nodes: Normal. No enlarged lymph nodes. Bones/joints: The imaged bony structures are intact. There is no suspicious osteolytic or osteoblastic lesion. Soft tissues: There is moderate bilateral gynecomastia, which is similar in appearance compared to the prior CTA on 09/07/2017. There is a 17 mm oval shaped water density lesion in the subcutaneous tissues in the left axilla, which is stable compared to the prior CTA on 09/07/2017 and may represent a sebaceous cyst. IMPRESSION: Subpleural reticulation in both lungs, which has progressed compared to the prior CTA on 09/07/2017, and may indicate a nonspecific interstitial pneumonia or usual interstitial pneumonia pattern. Electronically signed by: Theron Wagner On 03/22/2019 00:34:33 AM
[2019-03-22] MEDS: LATANOPROST 0.005% OPHTH SOLN 2.5 ML OU SCH ×2 (00:37→21:16)
[2019-03-22] MEDS: COSOPT OCUMETER PLUS 10ML (DORZOLAMIDE/TIMOLOL) OU SCH ×3 (00:37→21:15)
[2019-03-22] MEDS: IPRATROPIUM 0.5MG/ALBUTEROL 2.5MG INH SOL UD 3ML (DUONEB)(J7620) NEB SCH ×5 (01:47→23:54)
[2019-03-22] MEDS: HEPARIN SOD (PORCINE) 5000 UNITS/ML VIAL SC SCH ×3 (05:58→21:15)
[2019-03-22] MEDS: SODIUM CHLORIDE 0.9% INJ 10 ML SYR IV SCH ×3 (05:59→21:15)
[2019-03-22 06:00] VITALS: BP 121/67
[2019-03-22 06:59] LABS: HEMATOCRIT 40.6 % (42.0-52.0); HEMOGLOBIN 12.8 g/dl (13.5-17.5); MEAN CORPUSCULAR HEMOGLOBIN 30.4 pg (27.0-33.0); MEAN CORPUSCULAR HGB CONC 31.5 g/dl (32.0-36.5); MEAN CORPUSCULAR VOLUME 96.4 fl (80.0-96.0); PLATELET COUNT, AUTOMATED 103 10^3/uL (150-450); RED BLOOD COUNT 4.21 10^6/uL (4.30-6.10); WHITE BLOOD COUNT 5.9 10^3/uL (4.0-10.0)
[2019-03-22] MEDS ORDERED: SODIUM CHLORIDE 0.9% INJ 10 ML SYR IV PRN (07:15)
[2019-03-22 07:18] LABS: ALBUMIN 1.9 GM/DL (3.2-5.2); ALT/SGPT 37 U/L (12-78); BILIRUBIN,TOTAL 0.8 MG/DL (0.2-1.0); BLOOD UREA NITROGEN 17 MG/DL (7-18); CALCIUM LEVEL 8.4 MG/DL (8.8-10.2); CARBON DIOXIDE LEVEL 21 MEQ/L (21-32); CHLORIDE LEVEL 112 MEQ/L (98-107); CREATININE FOR GFR 1.06 MG/DL (0.70-1.30); GLOMERULAR FILTRATION RATE > 60.0 (>49); GLUCOSE, FASTING 259 MG/DL (70-100); POTASSIUM SERUM 4.7 MEQ/L (3.5-5.1); SODIUM LEVEL 138 MEQ/L (136-145); TOTAL PROTEIN 7.6 GM/DL (6.4-8.2)
[2019-03-22] MEDS: HumaLOG INSULIN (NovoLOG) PER UNIT SC SCH ×3 (08:06→17:38)
[2019-03-22] MEDS: NS 1,000 ML IV SCH ×2 (08:07→21:14)
[2019-03-22 09:32] VITALS: BP 124/71
[2019-03-22] MEDS: levETIRAcetam 250MG TABLET (KEPPRA) PO SCH ×2 (09:43→21:14)
[2019-03-22] MEDS: FOLIC ACID 1 MG TAB PO SCH (09:43)
[2019-03-22] MEDS: ATORVASTATIN 20 MG TAB PO SCH (09:43)
[2019-03-22] MEDS: LISINOPRIL 20 MG TAB PO SCH (09:44)
[2019-03-22] MEDS: DOCUSATE SODIUM 100 MG CAP PO SCH ×2 (09:44→21:14)
[2019-03-22] MEDS: OMEPRAZOLE 20 MG CAP PO SCH (09:44)
[2019-03-22] MEDS: LORATADINE 10 MG TAB PO SCH (09:44)
[2019-03-22] MEDS: hydroCHLOROthiazide 25 MG TAB PO SCH (09:45)
[2019-03-22] MEDS: MULTIVITAMINS/MINERALS THERAP 1 TAB PO SCH (09:45)
--- NOTE | 2019-03-22 10:21 | RO ---
DATE OF PROCEDURE: 03/21/2019 PREPROCEDURE DIAGNOSIS: Pneumonia with lack of IV access. POSTPROCEDURE DIAGNOSIS: Pneumonia with lack of IV access. PROCEDURE: Left internal jugular vein central venous catheter placement. SURGEON: Dr. Fransisco Chao, PGY-2. ATTENDING PHYSICIAN: Dr. Dawood Slater Procedure was performed under the direct supervision of Dr. Dawood Slater with involvement in all arguello portions of the procedure ANESTHESIA: 1% lidocaine. CONSENT: Consent was obtained from the patient and his prior to the procedure. Indications, risks, and benefits all were explained in length. DESCRIPTION OF PROCEDURE: The patient was placed into supine position. Sterile procedure was used including a surgical cap, mask, eyewear, full gown, sterile gloves were used throughout the procedure. The site was prepped with Chlorhexidine scrub and a sterile drap was placed over the patient. The medial and lateral heads of the sternocleidomastoid muscle were identified as well as the carotid pulse. Internal jugular vein was identified using ultrasound with sterile ultrasound probe. Anesthesia was achieved using 1% lidocaine over the left internal jugular vein. The introducer needle was inserted into the left internal jugular vein (IJV) under direct ultrasound visualization. Venous blood was withdrawn. The syringe was removed and the guidewire was advanced over the introducer needle. The guidewire was visualized in the internal jugular vein by ultrasound. A small incision was made at the skin surface with a scalpel. Skin was tough from recent radiation. Introducer needle was exchanged for a dilator over the guidewire. After appropriate dilation was obtained, the dilator was exchanged over the wire with a central venous catheter. The wire was removed and the catheter was sutured at 15 cm. A sterile sheath was placed over the catheter site. The catheter was flushed appropriately. The patient tolerated the procedure well without any hemodynamic compromise. At the time of the procedure completion, all ports aspirated and flushed properly. A postprocedure x-ray was obtained which demonstrated central venous catheter placement in the internal jugular vein and with the tip at the atriocaval junction. Dawood Erickson, was present and performed critical portions of th e procedure. KAI
--- NOTE | 2019-03-22 13:35 | IPNPDOC ---
Text Note Date of Service The patient was seen on 03/22/19. NOTE Pt was seen and examined , Family at the bed side , on 2 l NC, no overnight events PHYSICAL EXAMINATION: VITAL SIGNS: Please see below. GENERAL: NAD, A&OX3, Pleasant HEENT: PERRLA, throat clear, neck supple, no JVD CARDIOVASCULAR: RRR RESPIRATORY: prolonged expiratory wheeze in bilateral lower lung zarate, few bibasilar. Rales heard ABDOMINAL: soft, NT/ND normoactive bowel sounds EXTREMITIES: no edema/no calf tenderness NEUROLOGICAL: CN'S II-XII grossly intact PSYCHOLOGICAL: negative LABORATORY DATA: see below Radiology reviewed Assessment and plan: 66 yo with elevated wbc, with a right lower lobe pneumonia and shortness of breath, hypoxic respiratory failure. 1 . Hypoxic respiratory failure likely 2/2 pneumonia: The patient was saturating in low 80s on room air and currently on 2 L has been saturating around 98. We will continue dual nebs as well as IV Levaquin. Atypical workup initiated. Sputum cultures ordered. Procal is pending . Continue supplemental oxygen . Maintain saturation above 92. 40 IV Solu-Medrol daily. Blood cultures, sputum culture to be followed Speech eval for possible aspiration pna. 2. Leukocytosis: Management as per 1 3. Rt lower lobe pneumonia: Diminished and as per 1. CT chest revieved. 4. DM 2: Will continue sliding scale insulin as well as local checks before meals and at bedtime. A1c 7.6 5. h/o Hemorrhagic CVA requiring craniotomy: Continue to monitor 6: h/o Thyroid cancer status post thyroidectomy in 2004: Will continue to monitor and order TSH 7: h/o Throat cancer status post chemotherapy and radiation in 2014 : Continue to monitor IV fluids with 75 mL of normal saline. DVT PROPHYLAXIS: SQ Heparin DISPOSITION: Likely home in 24 to 48 hours CODE STATUS: Full Code VS,Fishbone, I+O VS, Fishbone, I+O Laboratory Tests 03/21/19 16:01 03/21/19 16:37 03/22/19 06:45 Vital Signs Date Time Temp Pulse Resp B/P (MAP) Pulse Ox O2 Delivery O2 Flow Rate FiO2 03/22/19 09:44 124/71 03/22/19 09:32 97.7 84 96 Nasal Cannula 1.5 03/22/19 06:00 20 I&O- Last 24 Hours up to 6 AM 03/22/19 06:00 Intake Total 715 ml Output Total 1075 ml Balance -360 ml NAVID BRYANT MD Mar 22, 2019 13:35
[2019-03-22 14:00] VITALS: BP 123/63
[2019-03-22] MEDS ORDERED: SODIUM CHLORIDE 0.9% INJ 10 ML SYR IV SCH (14:00)
[2019-03-22] MEDS: LevoFLOXacin IV 750 MG in IV 1 EA IV SCH (18:57)
[2019-03-22 19:51] VITALS: O2SAT 97
[2019-03-22] MEDS: GABAPENTIN 300 MG CAP PO SCH (21:14)
[2019-03-22 22:00] VITALS: BP 115/64
[2019-03-23] MEDS: HEPARIN SOD (PORCINE) 5000 UNITS/ML VIAL SC SCH ×3 (05:46→22:37)
[2019-03-23] MEDS: SODIUM CHLORIDE 0.9% INJ 10 ML SYR IV SCH ×3 (05:47→22:37)
[2019-03-23 06:00] VITALS: BP 119/68
[2019-03-23] MEDS: IPRATROPIUM 0.5MG/ALBUTEROL 2.5MG INH SOL UD 3ML (DUONEB)(J7620) NEB SCH ×3 (08:20→20:57)
[2019-03-23] MEDS: HumaLOG INSULIN (NovoLOG) PER UNIT SC SCH ×3 (08:34→17:59)
--- NOTE | 2019-03-23 08:46 | IPNPDOC ---
Text Note Date of Service The patient was seen on 03/23/19. NOTE Pt was seen and examined , on 2 l NC, no overnight events PHYSICAL EXAMINATION: VITAL SIGNS: Please see below. GENERAL: NAD, A&OX3, Pleasant HEENT: PERRLA, throat clear, neck supple, no JVD CARDIOVASCULAR: RRR RESPIRATORY: prolonged expiratory wheeze in bilateral lower lung zarate, few bibasilar. Rales heard ABDOMINAL: soft, NT/ND normoactive bowel sounds EXTREMITIES: no edema/no calf tenderness NEUROLOGICAL: CN'S II-XII grossly intact PSYCHOLOGICAL: negative LABORATORY DATA: see below Radiology reviewed Assessment and plan: 66 yo with elevated wbc, with a right lower lobe pneumonia and shortness of breath, hypoxic respiratory failure. 1 . Hypoxic respiratory failure likely 2/2 pneumonia: The patient was saturating in low 80s on room air and currently on 2 L has been saturating around 98. We will continue dual nebs as well as IV Levaquin. Atypical workup initiated. Sputum cultures ordered. Procal normal . Continue supplemental oxygen . Maintain saturation above 92. 40 IV Solu-Medrol daily. Blood cultures 1 + likely contamination repeat sent , sputum culture to be followed so far negative Speech eval to r/o aspiration pna. 2. Leukocytosis: Management as per 1 3. Rt lower lobe pneumonia: Diminished and as per 1. CT chest revieved. 4. DM 2: Will continue sliding scale insulin as well as local checks before meals and at bedtime. A1c 7.6 5. h/o Hemorrhagic CVA requiring craniotomy: Continue to monitor 6: h/o Thyroid cancer status post thyroidectomy in 2004: Will continue to monitor and order TSH 7: h/o Throat cancer status post chemotherapy and radiation in 2015 : Continue to monitor IV fluids with 75 mL of normal saline. DVT PROPHYLAXIS: SQ Heparin DISPOSITION: Likely home in 24 to 48 hours CODE STATUS: Full Code VS,Fishbone, I+O VS, Fishbone, I+O Vital Signs Date Time Temp Pulse Resp B/P (MAP) Pulse Ox O2 Delivery O2 Flow Rate FiO2 03/23/19 06:00 98.5 73 18 119/68 (85) 97 Nasal Cannula 1.5 I&O- Last 24 Hours up to 6 AM 03/23/19 06:00 Intake Total 2290 ml Output Total 825 ml Balance 1465 ml GME ATTESTATION GME ATTESTATION My faculty preceptor for this patient encounter was physically present during the encounter and was fully available. All aspects of the patient interview, examination, medical decision making process, and medical care plan development were reviewed and approved by the faculty preceptor. The faculty preceptor is aware and concurs with the plan as stated in the body of this note and will attest to such by his/her cosignature. ATTENDING NOTE Patient was seen and examined by me this morning with the residents. Agree with the above assessment and plan NAVID BRYANT MD Mar 23, 2019 08:46
[2019-03-23 08:53] VITALS: BP 128/68
[2019-03-23] MEDS: levETIRAcetam 250MG TABLET (KEPPRA) PO SCH ×2 (09:47→22:37)
[2019-03-23] MEDS: LORATADINE 10 MG TAB PO SCH (09:48)
[2019-03-23] MEDS: ATORVASTATIN 20 MG TAB PO SCH (09:49)
[2019-03-23] MEDS: FOLIC ACID 1 MG TAB PO SCH (09:49)
[2019-03-23] MEDS: MULTIVITAMINS/MINERALS THERAP 1 TAB PO SCH (09:49)
[2019-03-23] MEDS: LISINOPRIL 20 MG TAB PO SCH (09:51)
[2019-03-23] MEDS: DOCUSATE SODIUM 100 MG CAP PO SCH ×2 (09:52→22:36)
[2019-03-23] MEDS: hydroCHLOROthiazide 25 MG TAB PO SCH (09:53)
[2019-03-23] MEDS: COSOPT OCUMETER PLUS 10ML (DORZOLAMIDE/TIMOLOL) OU SCH ×2 (09:53→22:38)
[2019-03-23] MEDS: OMEPRAZOLE 20 MG CAP PO SCH (09:53)
--- NOTE | 2019-03-23 15:44 | ECHO ---
DATE OF PROCEDURE: 03/22/2019 DATE OF : 1950 AGE: 68 GENDER: Male HEIGHT: 69 inches WEIGHT: 189 pounds BODY SURFACE AREA: 2.0 m2 INPATIENT: [facility], room 5143 REFERRING PHYSICIAN: Dr. Bj Perez INDICATION: Dyspnea. MEASUREMENTS: 2-D Measurements: RV: 3.9 cm LV: 4.3 cm Septum: 1.2 cm Posterior wall: 1.2 cm Aortic root: 3.6 cm LA: 3.7 cm LVEF: 65% Doppler Measurements: AV: 1.66 m/s LVOT: 0.99 m/s LVOT diameter: 2.0 cm MV: E: 67, A: 81, EA ratio: 0.8 Early mitral deceleration time: 182 ms E prime medial: 9, A prime medial: 11.9, E prime lateral: 9.8 Average E/E prime ratio: 7.1 PCWP: 10.7 mmHg PV: 0.75 m/s Pulmonary artery acceleration time: 103 ms PASP: 34 mmHg IVC: 1.5 cm COMMENTS: Normal sinus rhythm with first-degree AV block but no intraventricular conduction disturbance. Technically challenging study in light of the patient's body habitus but diagnostically useful information was still obtained. M-mode and two-dimensional echocardiography was performed with pulsed, continuous wave, color flow and tissue Doppler studies. Borderline concentric left ventricle hypertrophy with normal wall motion. Left atrial size upper limits of normal with grade 1 LV diastolic dysfunction and currently normal estimated mean left atrial pressure. Normal right heart chamber sizes and motion with single Doppler sign of borderline pulmonary hypertension. Normal IVC size and collapse against an elevated central venous pressure. Mild aortic valvular sclerosis without functional abnormality. Normal aortic root size. Normal appearing and functioning mitral valvular apparatus. Normal appearing tricuspid valve with trace insufficiency. No apparent intracardiac mass or pericardial effusion.
[2019-03-23] MEDS: LevoFLOXacin IV 750 MG in IV 1 EA IV SCH (17:58)
[2019-03-23] MEDS: GABAPENTIN 300 MG CAP PO SCH (22:36)
[2019-03-23] MEDS: LATANOPROST 0.005% OPHTH SOLN 2.5 ML OU SCH (22:37)
[2019-03-23] MEDS: SODIUM CHLORIDE 0.9% INJ 10 ML SYR IV PRN (22:45)
[2019-03-23 23:23] VITALS: BP 142/79
[2019-03-24] MEDS: IPRATROPIUM 0.5MG/ALBUTEROL 2.5MG INH SOL UD 3ML (DUONEB)(J7620) NEB SCH ×4 (02:00→20:28)
[2019-03-24] MEDS: HEPARIN SOD (PORCINE) 5000 UNITS/ML VIAL SC SCH ×3 (06:22→21:33)
[2019-03-24] MEDS: SODIUM CHLORIDE 0.9% INJ 10 ML SYR IV PRN ×3 (06:23→21:36)
[2019-03-24] MEDS: SODIUM CHLORIDE 0.9% INJ 10 ML SYR IV SCH ×3 (06:24→21:36)
[2019-03-24 06:50] VITALS: BP 138/76
[2019-03-24 06:55] LABS: BASO % 0.4 % (0.0-1.0); EOS # 0.4 10^3/uL (0.0-0.5); EOS % 3.9 % (0.0-3.0); HEMATOCRIT 36.9 % (42.0-52.0); HEMOGLOBIN 12.1 g/dl (13.5-17.5); LYMPH # 1.6 10^3/uL (1.5-5.0); LYMPH % 15.7 % (24.0-44.0); MEAN CORPUSCULAR HEMOGLOBIN 30.7 pg (27.0-33.0); MEAN CORPUSCULAR HGB CONC 32.8 g/dl (32.0-36.5); MEAN CORPUSCULAR VOLUME 93.7 fl (80.0-96.0); MONO # 1.3 10^3/uL (0.0-0.8); MONO % 13.4 % (0.0-5.0); NEUTROPHILS # 6.5 10^3/uL (1.5-8.5); NEUTROPHILS % 66.2 % (36.0-66.0); PLATELET COUNT, AUTOMATED 111 10^3/uL (150-450); RED BLOOD COUNT 3.94 10^6/uL (4.30-6.10); WHITE BLOOD COUNT 9.9 10^3/uL (4.0-10.0)
[2019-03-24 07:21] LABS: BLOOD UREA NITROGEN 13 MG/DL (7-18); CALCIUM LEVEL 7.7 MG/DL (8.8-10.2); CARBON DIOXIDE LEVEL 26 MEQ/L (21-32); CHLORIDE LEVEL 109 MEQ/L (98-107); CREATININE FOR GFR 0.99 MG/DL (0.70-1.30); GLOMERULAR FILTRATION RATE > 60.0 (>49); GLUCOSE, FASTING 147 MG/DL (70-100); POTASSIUM SERUM 3.5 MEQ/L (3.5-5.1); SODIUM LEVEL 141 MEQ/L (136-145)
[2019-03-24] MEDS: levETIRAcetam 250MG TABLET (KEPPRA) PO SCH ×2 (07:56→21:35)
[2019-03-24] MEDS: FOLIC ACID 1 MG TAB PO SCH (07:56)
[2019-03-24] MEDS: MULTIVITAMINS/MINERALS THERAP 1 TAB PO SCH (07:56)
[2019-03-24] MEDS: LISINOPRIL 20 MG TAB PO SCH (07:57)
[2019-03-24] MEDS: hydroCHLOROthiazide 25 MG TAB PO SCH (07:57)
[2019-03-24] MEDS: ATORVASTATIN 20 MG TAB PO SCH (07:57)
[2019-03-24] MEDS: LORATADINE 10 MG TAB PO SCH (07:57)
[2019-03-24] MEDS: OMEPRAZOLE 20 MG CAP PO SCH (07:57)
[2019-03-24] MEDS: DOCUSATE SODIUM 100 MG CAP PO SCH ×2 (07:57→21:34)
[2019-03-24] MEDS: COSOPT OCUMETER PLUS 10ML (DORZOLAMIDE/TIMOLOL) OU SCH ×2 (07:58→21:34)
[2019-03-24] MEDS: HumaLOG INSULIN (NovoLOG) PER UNIT SC SCH ×3 (07:58→17:46)
--- NOTE | 2019-03-24 11:36 | IPNPDOC ---
Text Note Date of Service The patient was seen on 03/24/19. NOTE Pt was seen and examined , on 2 l NC, no overnight events PHYSICAL EXAMINATION: VITAL SIGNS: Please see below. GENERAL: NAD, A&OX3, Pleasant HEENT: PERRLA, throat clear, neck supple, no JVD CARDIOVASCULAR: RRR RESPIRATORY: prolonged expiratory wheeze in bilateral lower lung zarate, few bibasilar. Rales heard ABDOMINAL: soft, NT/ND normoactive bowel sounds EXTREMITIES: no edema/no calf tenderness NEUROLOGICAL: CN'S II-XII grossly intact PSYCHOLOGICAL: negative LABORATORY DATA: see below Radiology reviewed Assessment and plan: 66 yo with elevated wbc, with a right lower lobe pneumonia and shortness of breath, hypoxic respiratory failure. 1 . Hypoxic respiratory failure likely 2/2 pneumonia: Resolved. The patient was saturating in low 80s on room air and currently on 2 L has been saturating around 98. We will continue dual nebs as well as IV Levaquin day 3 . Atypical workup initiated. Sputum cultures ordered negative so far. Procal normal . Continue supplemental oxygen . Maintain saturation above 92. 40 IV Solu-Medrol daily will deesclate soon. Blood cultures 1 + likely contamination repeat sent which is negative , sputum culture to be followed so far negative Speech eval to r/o aspiration pna specially MBS today . 2. Leukocytosis: Management as per 1 3. Rt lower lobe pneumonia: Diminished and as per 1. CT chest revieved. 4. DM 2: Will continue sliding scale insulin as well as local checks before meals and at bedtime. A1c 7.6 5. h/o Hemorrhagic CVA requiring craniotomy: Continue to monitor 6: h/o Thyroid cancer status post thyroidectomy in 2004: Will continue to monitor and order TSH 7: h/o Throat cancer status post chemotherapy and radiation in 2014 : Continue to monitor IV fluids with 75 mL of normal saline. DVT PROPHYLAXIS: SQ Heparin DISPOSITION: Likely home in 24 to 48 hours CODE STATUS: Full Code VS,Fishbone, I+O VS, Fishbone, I+O Laboratory Tests 03/24/19 06:00 Vital Signs Date Time Temp Pulse Resp B/P (MAP) Pulse Ox O2 Delivery O2 Flow Rate FiO2 03/24/19 09:20 2.0 03/24/19 07:57 138/76 03/24/19 06:50 98.6 82 18 94 Nasal Cannula I&O- Last 24 Hours up to 6 AM 03/24/19 06:00 Intake Total 820 ml Output Total 910 ml Balance -90 ml NAVID BRYANT MD Mar 24, 2019 11:36
[2019-03-24] MEDS ORDERED: VARIBAR NECTAR 40% w/v 240ML SUSP BTL As Ordered ONE (11:50)
[2019-03-24] MEDS ORDERED: VARIBAR PUDDING 40% w/v 230ML TUBE As Ordered ONE (11:50)
[2019-03-24] MEDS ORDERED: E-Z-PAQUE 96% w/w SUSP 176GM BTL As Ordered ONE (11:51)
[2019-03-24 13:29] VITALS: BP 134/73
[2019-03-24] MEDS: LevoFLOXacin IV 750 MG in IV 1 EA IV SCH (17:45)
--- NOTE | 2019-03-24 18:50 | REP ---
Examination Requested: Cookie Swallow Reason For Exam: Question aspiration The procedure was performed by SKIP Varma, under the direct supervision of Dr. Zhu. The procedure was performed with Venita Cannon from speech pathology present. 5 ml aliquots of thin, pudding, nectar, and pudding consistency barium was administered. Aspiration was visualized with thin consistency barium, laryngeal penetration was visualized with nectar thick consistency barium. The detailed report of this examination will be provided by speech pathology. 2.7 minutes of fluoroscopy time was utilized for this procedure. Reviewed by SKIP Herrera 03/24/2019 05:32 P Electronically Signed by Himanshu Zhu MD 03/24/2019 06:42 P
[2019-03-24] MEDS: LATANOPROST 0.005% OPHTH SOLN 2.5 ML OU SCH (21:33)
[2019-03-24] MEDS: ACETAMINOPHEN TAB 650MG DOSE (2X325MG) PO PRN (21:34)
[2019-03-24] MEDS: GABAPENTIN 300 MG CAP PO SCH (21:35)
[2019-03-24 22:00] VITALS: BP 131/73
[2019-03-25 00:07] LABS: BODY FLUID CULTURE Not Indicated (.); LEGIONELLA ANTIGEN URINE Negative (Negative); ORGANISM ID Not indicated. (.); SPECIMEN SOURCE Urine (.); URINE STREP PNEUMONIAE ANTIGEN Negative (Negative)
[2019-03-25] MEDS: IPRATROPIUM 0.5MG/ALBUTEROL 2.5MG INH SOL UD 3ML (DUONEB)(J7620) NEB SCH ×4 (01:41→21:14)
[2019-03-25] MEDS: HEPARIN SOD (PORCINE) 5000 UNITS/ML VIAL SC SCH ×3 (05:56→22:00)
[2019-03-25] MEDS: SODIUM CHLORIDE 0.9% INJ 10 ML SYR IV PRN (05:57)
[2019-03-25] MEDS: SODIUM CHLORIDE 0.9% INJ 10 ML SYR IV SCH ×2 (05:57→14:00)
[2019-03-25 06:26] LABS: BASO % 0.5 % (0.0-1.0); EOS # 0.5 10^3/uL (0.0-0.5); EOS % 5.7 % (0.0-3.0); HEMATOCRIT 36.9 % (42.0-52.0); HEMOGLOBIN 11.9 g/dl (13.5-17.5); LYMPH % 22.5 % (24.0-44.0); MEAN CORPUSCULAR HEMOGLOBIN 30.8 pg (27.0-33.0); MEAN CORPUSCULAR HGB CONC 32.2 g/dl (32.0-36.5); MEAN CORPUSCULAR VOLUME 95.6 fl (80.0-96.0); MONO # 1.1 10^3/uL (0.0-0.8); MONO % 12.1 % (0.0-5.0); NEUTROPHILS # 5.1 10^3/uL (1.5-8.5); NEUTROPHILS % 58.6 % (36.0-66.0); PLATELET COUNT, AUTOMATED 105 10^3/uL (150-450); RED BLOOD COUNT 3.86 10^6/uL (4.30-6.10); WHITE BLOOD COUNT 8.8 10^3/uL (4.0-10.0)
[2019-03-25 06:57] LABS: BLOOD UREA NITROGEN 16 MG/DL (7-18); CALCIUM LEVEL 7.7 MG/DL (8.8-10.2); CARBON DIOXIDE LEVEL 27 MEQ/L (21-32); CHLORIDE LEVEL 106 MEQ/L (98-107); CREATININE FOR GFR 1.18 MG/DL (0.70-1.30); GLOMERULAR FILTRATION RATE > 60.0 (>49); GLUCOSE, FASTING 140 MG/DL (70-100); POTASSIUM SERUM 3.7 MEQ/L (3.5-5.1); SODIUM LEVEL 139 MEQ/L (136-145)
[2019-03-25 06:58] VITALS: BP 119/64
[2019-03-25] MEDS: ATORVASTATIN 20 MG TAB PO SCH (08:11)
[2019-03-25] MEDS: levETIRAcetam 250MG TABLET (KEPPRA) PO SCH ×2 (08:11→22:20)
[2019-03-25] MEDS: OMEPRAZOLE 20 MG CAP PO SCH (08:11)
[2019-03-25] MEDS: FOLIC ACID 1 MG TAB PO SCH (08:11)
[2019-03-25] MEDS: DOCUSATE SODIUM 100 MG CAP PO SCH ×2 (08:11→22:21)
[2019-03-25] MEDS: LORATADINE 10 MG TAB PO SCH (08:12)
[2019-03-25] MEDS: MULTIVITAMINS/MINERALS THERAP 1 TAB PO SCH (08:12)
[2019-03-25] MEDS: LISINOPRIL 20 MG TAB PO SCH (08:13)
[2019-03-25] MEDS: COSOPT OCUMETER PLUS 10ML (DORZOLAMIDE/TIMOLOL) OU SCH ×2 (08:13→22:22)
[2019-03-25] MEDS: HumaLOG INSULIN (NovoLOG) PER UNIT SC SCH ×3 (08:13→17:13)
[2019-03-25] MEDS: hydroCHLOROthiazide 25 MG TAB PO SCH (08:13)
[2019-03-25] MEDS ORDERED: NS 1,000 ML IV SCH (10:00)
--- NOTE | 2019-03-25 13:38 | IPNPDOC ---
Text Note Date of Service The patient was seen on 03/25/19. NOTE Pt was seen and examined , on 2 l NC, no overnight events. MBS done PHYSICAL EXAMINATION: VITAL SIGNS: Please see below. GENERAL: NAD, A&OX3, Pleasant HEENT: PERRLA, throat clear, neck supple, no JVD CARDIOVASCULAR: RRR RESPIRATORY: prolonged expiratory phase in bilateral lower lung zarate, few bibasilar. Rales heard ABDOMINAL: soft, NT/ND normoactive bowel sounds EXTREMITIES: no edema/no calf tenderness NEUROLOGICAL: CN'S II-XII grossly intact PSYCHOLOGICAL: negative LABORATORY DATA: see below Radiology reviewed Assessment and plan: 66 yo with elevated wbc, with a right lower lobe pneumonia and shortness of breath, hypoxic respiratory failure. 1 . Hypoxic respiratory failure likely 2/2 pneumonia: Resolved. The patient was saturating in low 80s on room air and currently on 2 L has been saturating around 98. We will continue dual nebs as well as IV Levaquin day 4 . Atypical workup initiated. Sputum cultures ordered negative so far. Procal normal . Continue supplemental oxygen . Maintain saturation above 92. Blood cultures 1 + likely contamination repeat sent which is negative , sputum culture to be followed so far negative Speech eval to r/o aspiration pna specially MBS was done which showed penetration into the larynx, even with the neck to thick liquid. I had a detailed discussion with the regarding the aspiration issues and as per her , she also states that he has been coughing more after eating. The patient has had a PEG tube in the past which was taken out because of infection related to the PEG tube. Currently, as the patient is possibly having aspiration issues. Family wants him to undergo PEG tube placement and for that reason. IR has been consulted. The patient has been kept nothing by mouth at this time. 2. Leukocytosis: Management as per 1 3. Rt lower lobe pneumonia, acute aspiration: Diminished and as per 1. CT chest revieved. 4. DM 2: Will continue sliding scale insulin as well as local checks before meals and at bedtime. A1c 7.6 5. h/o Hemorrhagic CVA requiring craniotomy: Continue to monitor 6: h/o Thyroid cancer status post thyroidectomy in 2004: Will continue to monitor and order TSH 7: h/o Throat cancer status post chemotherapy and radiation in 2014 : Continue to monitor IV fluids with 75 mL of normal saline. DVT PROPHYLAXIS: SQ Heparin DISPOSITION: Likely home in 24 to 48 hours after PEG tube was placed CODE STATUS: Full Code VS,Fishbone, I+O VS, Fishbone, I+O Laboratory Tests 03/25/19 05:59 Vital Signs Date Time Temp Pulse Resp B/P (MAP) Pulse Ox O2 Delivery O2 Flow Rate FiO2 03/25/19 09:00 2.0 03/25/19 08:13 120/71 03/25/19 06:58 99.3 86 16 92 Nasal Cannula I&O- Last 24 Hours up to 6 AM0 03/25/19 06:00 Intake Total 840 ml Output Total 1585 ml Balance -745 ml NAVID BRYANT MD Mar 25, 2019 13:38
[2019-03-25 14:13] LABS: INR 1.65; PROTHROMBIN TIME 19.3 SECONDS (11.8-14.0)
[2019-03-25 15:02] VITALS: BP 109/60
[2019-03-25] MEDS ORDERED: LIDOCAINE 1% MDV 20ML VIAL As Ordered ONE (15:09)
--- NOTE | 2019-03-25 15:21 | IRINPTCON ---
[facility] IR Inpatient Consultation IR Inpatient Consultation DATE: Mar 25, 2019 REASON FOR CONSULTATION/CHIEF COMPLAINT: Gastrostomy placement. Aspiration risk. HISTORY OF PRESENT ILLNESS: 68-year-old male presented to the hospital short of breath with low oxygen saturations. Diagnosed with pneumonia and on therapy. Had a modified barium swallow which demonstrated aspiration. Team request G-tube placement. Patient has had prior G-tube 2 years ago at the time of throat cancer treatment. ALLERGIES: Please see below. HOME MEDICATIONS: Please see below. PAST MEDICAL HISTORY: Diabetes Hemorrhagic stroke Thyroid cancer status post thyroidectomy in 2004 Throat cancer status post chemoradiation in 2014 PAST SURGICAL HISTORY: Thyroidectomy Prior percutaneous G-tube FAMILY HISTORY: Noncontributory. SOCIAL HISTORY: Ex-smoker. Denies alcohol or drugs REVIEW OF SYSTEMS: Otherwise negative. PHYSICAL EXAMINATION: VITAL SIGNS: Please see below. GENERAL APPEARANCE: Mild respiratory distress at rest. Difficulty completing sentences. HEENT: No scleral icterus. RESPIRATORY: Crackles bilaterally. CARDIOVASCULAR: Normal rate. ABDOMEN: Soft nontender. Nondistended. Prior G-tube scar. EXTREMITIES: Mild pedal edema. NEUROLOGICAL: Alert and oriented. PSYCHIATRIC: Appropriate to circumstance. LABORATORY DATA: 03/25/2019 hemoglobin 11.9 WBC 8.8 hematocrit 36.9 platelets 105 sodium 139 potassium 3.7 BUN 16 creatinine 1.18 INR 1.65 Imaging: I personally reviewed the CT chest from 03/21/2019. Normal gastroesophageal junction location. Anatomy is favorable for percutaneous gastrostomy placement. ASSESSMENT/PLAN: 68-year-old male with aspiration pneumonias requires long-term gastrostomy feeds. We will schedule the patient to have the procedure on Thursday. Recommend NG tube placement and feeds over the weekend. Stop feeds at midnight Thursday night. Hold Thursday 10 PM Lovenox. Keep NG tube in place as this will be required for the procedure. I spent 30 minutes in consultation with the patient. Thank you for this referral. Allergies Coded Allergies: Penicillins (Verified Allergy, Severe, anaphyaxsis, 10/06/18) Home Medications Scheduled Atorvastatin Calcium (Atorvastatin Calcium), 40 MG PO DAILY, (Reported) Brimonidine Tartrate (Brimonidine Tartrate), 1 DROP OU TID, (Reported) Dorzolamide HCl/Timolol Maleat (Dorzolamide-Timolol Eye Drops), 1 DROP OU BID, (Reported) Ergocalciferol (Vitamin D2) (Drisdol), 50,000 UNIT PO Q2WK, (Reported) Folic Acid (Folic Acid), 1 MG PO DAILY, (Reported) Gabapentin (Gabapentin), 300 MG PO QHS, (Reported) Hydrochlorothiazide (Hydrochlorothiazide), 25 MG PO DAILY, (Reported) Insulin Human Lispro (Novolog), 1 DOSE SC AC, (Reported) Latanoprost (Xalatan), 1 DROP OU QHS, (Reported) Levetiracetam (Levetiracetam), 750 MG PO BID, (Reported) Lisinopril (Lisinopril), 20 MG PO DAILY, (Reported) Loratadine (Loratadine), 10 MG PO DAILY, (Reported) Meloxicam (Meloxicam), 15 MG PO DAILY, (Reported) Multivitamins (Thera M Plus Tablet), 1 TAB PO DAILY, (Reported) Nut.tx.gluc.intoler,Lac-Fr,Soy (Glucerna), 237 ML PO BID, (Reported) Omeprazole (Omeprazole), 20 MG PO DAILY, (Reported) Potassium Chloride (Potassium Chloride), 20 MEQ PO BID, (Reported) Scheduled PRN Dextrose (Glucose), 4 GM PO for LOW BLOOD SUGAR, (Reported) Hydrocodone/Acetaminophen (Hydrocodone-Acetamin 5-325 mg), 1 TAB PO Q4H PRN for PAIN, (Reported) VS, I&O, 24H, Jose J Vital Signs/I&O Vital Signs Date Time Temp Pulse Resp B/P (MAP) Pulse Ox O2 Delivery O2 Flow Rate FiO2 03/25/19 09:00 2.0 03/25/19 08:13 120/71 03/25/19 06:58 99.3 86 16 92 Nasal Cannula I&O- Last 24 Hours up to 6 AM 03/25/19 05:59 Intake Total 840 ml Output Total 1810 ml Balance -970 ml Laboratory Data 24H LABS Laboratory Tests 2 03/25/19 05:59: Immature Granulocyte % (Auto) 0.6, Neutrophils (%) (Auto) 58.6, Lymphocytes (%) (Auto) 22.5L, Monocytes (%) (Auto) 12.1H, Eosinophils (%) (Auto) 5.7H, Basophils (%) (Auto) 0.5, Neutrophils # (Auto) 5.1, Lymphocytes # (Auto) 2.0, Monocytes # (Auto) 1.1H, Eosinophils # (Auto) 0.5, Basophils # (Auto) 0.0, Nucleated Red Blood Cells % (auto) 0.2H, Anion Gap 6L, Glomerular Filtration Rate > 60.0, Calcium Level 7.7L 03/25/19 12:09: Bedside Glucose (Misc Panel) 173H 03/25/19 13:51: Prothrombin Time 19.3H, Prothromb Time International Ratio 1.65 CBC/BMP Laboratory Tests 03/25/19 05:59 Microbiology Microbiology 03/22/19 Blood Culture - Preliminary, Resulted No Growth after 48 hours. All Specime... 03/22/19 Blood Culture - Preliminary, Resulted No Growth after 48 hours. All Specime... 03/22/19 Respiratory Virus Panel (PCR) ([facility]) - Final, Complete 03/21/19 Blood Culture - Final, Complete Staphylococcus Hominis Ssp Diane 03/21/19 Blood Culture - Preliminary, Resulted No Growth after 72 hours. All specime... UNIQUE ANDRADE MD Mar 25, 2019 15:21
[2019-03-25] MEDS: LevoFLOXacin IV 750 MG in IV 1 EA IV SCH (17:14)
[2019-03-25] MEDS ORDERED: SODIUM CHLORIDE NASAL 0.65% SPRAY BTL (OCEAN) PRN (20:30)
[2019-03-25 22:00] VITALS: BP 118/67
[2019-03-25] MEDS: GABAPENTIN 300 MG CAP PO SCH (22:21)
[2019-03-25] MEDS: LATANOPROST 0.005% OPHTH SOLN 2.5 ML OU SCH (22:22)
[2019-03-26] MEDS: IPRATROPIUM 0.5MG/ALBUTEROL 2.5MG INH SOL UD 3ML (DUONEB)(J7620) NEB SCH ×5 (02:00→23:23)
[2019-03-26 05:41] LABS: BASO # 0.1 10^3/uL (0.0-0.2); BASO % 0.6 % (0.0-1.0); EOS # 0.5 10^3/uL (0.0-0.5); EOS % 5.6 % (0.0-3.0); HEMATOCRIT 36.4 % (42.0-52.0); LYMPH # 1.7 10^3/uL (1.5-5.0); LYMPH % 20.3 % (24.0-44.0); MEAN CORPUSCULAR HEMOGLOBIN 30.8 pg (27.0-33.0); MEAN CORPUSCULAR VOLUME 93.6 fl (80.0-96.0); MONO # 1.1 10^3/uL (0.0-0.8); MONO % 12.9 % (0.0-5.0); NEUTROPHILS % 60.2 % (36.0-66.0); PLATELET COUNT, AUTOMATED 100 10^3/uL (150-450); RED BLOOD COUNT 3.89 10^6/uL (4.30-6.10); WHITE BLOOD COUNT 8.3 10^3/uL (4.0-10.0)
[2019-03-26 06:00] VITALS: BP 128/53
[2019-03-26] MEDS: HEPARIN SOD (PORCINE) 5000 UNITS/ML VIAL SC SCH ×3 (06:00→20:41)
[2019-03-26 06:03] LABS: BLOOD UREA NITROGEN 15 MG/DL (7-18); CALCIUM LEVEL 7.9 MG/DL (8.8-10.2); CARBON DIOXIDE LEVEL 27 MEQ/L (21-32); CHLORIDE LEVEL 106 MEQ/L (98-107); CREATININE FOR GFR 1.06 MG/DL (0.70-1.30); GLOMERULAR FILTRATION RATE > 60.0 (>49); GLUCOSE, FASTING 135 MG/DL (70-100); POTASSIUM SERUM 3.4 MEQ/L (3.5-5.1); SODIUM LEVEL 139 MEQ/L (136-145)
[2019-03-26] MEDS ORDERED: SODIUM CHLORIDE 0.9% INJ 10 ML SYR IV PRN (06:45)
[2019-03-26] MEDS: HumaLOG INSULIN (NovoLOG) PER UNIT SC SCH ×3 (07:30→18:01)
[2019-03-26] MEDS: MULTIVITAMINS/MINERALS THERAP 1 TAB PO SCH (08:24)
[2019-03-26] MEDS: OMEPRAZOLE 20 MG CAP PO SCH (08:24)
[2019-03-26] MEDS: ATORVASTATIN 20 MG TAB PO SCH (08:24)
[2019-03-26] MEDS: DOCUSATE SODIUM 100 MG CAP PO SCH ×2 (08:24→20:48)
[2019-03-26] MEDS: FOLIC ACID 1 MG TAB PO SCH (08:24)
[2019-03-26] MEDS: hydroCHLOROthiazide 25 MG TAB PO SCH (08:24)
[2019-03-26] MEDS: LORATADINE 10 MG TAB PO SCH (08:24)
[2019-03-26] MEDS: levETIRAcetam 250MG TABLET (KEPPRA) PO SCH ×2 (08:24→20:49)
[2019-03-26 08:26] VITALS: BP 127/55
[2019-03-26] MEDS: LISINOPRIL 20 MG TAB PO SCH (08:26)
[2019-03-26] MEDS: COSOPT OCUMETER PLUS 10ML (DORZOLAMIDE/TIMOLOL) OU SCH ×2 (08:30→20:49)
--- NOTE | 2019-03-26 09:21 | IPNPDOC ---
Text Note Date of Service The patient was seen on 03/26/19. NOTE Pt was seen and examined , on 2 l NC, no overnight events. MBS done PHYSICAL EXAMINATION: VITAL SIGNS: Please see below. GENERAL: NAD, A&OX3, Pleasant HEENT: PERRLA, throat clear, neck supple, no JVD CARDIOVASCULAR: RRR RESPIRATORY: prolonged expiratory phase in bilateral lower lung zarate, few bibasilar. Rales heard ABDOMINAL: soft, NT/ND normoactive bowel sounds EXTREMITIES: no edema/no calf tenderness NEUROLOGICAL: CN'S II-XII grossly intact PSYCHOLOGICAL: negative LABORATORY DATA: see below Radiology reviewed Assessment and plan: 66 yo male with past medical history of hemorrhagic CVA requiring craniotomy with a residential weakness, history of thyroid cancer status post thyroidectomy, history of dysphagia status post PEG in the remote past, which was removed because of a PEG tube infection came to the hospital because of elevated wbc, with a right lower lobe pneumonia and shortness of breath, hypoxic respiratory failure. The patient has had multiple episodes of pneumonia in the past and it was thought that the patient probably might be having light, and of aspiration. Speech and swallow was done and then MBS was done which showed penetration into the larynx, even with the nectar thick liquid. I had a detailed discussion with the family and as per them, they would want to do the PEG tube. Currently the patient is undergoing positional and speech therapy and has been kept on aspiration precautions with nectar thick liquid. He will be kept nothing by mouth on Thursday evening for possible PEG tube placement on Thursday morning. I have explained the risks of aspiration within the next couple of days with the family and had given them the opportunity of an NG tube, which they are not interested in. He has been on Levaquin for 5 days now responded very well. All the cultures have been negative including pro-Nino. His disposition is likely home once PEG tube is up and running. 1 . Hypoxic respiratory failure likely 2/2 pneumonia: Resolved. The patient was saturating in low 80s on room air and currently on 2 L has been saturating around 98. We will continue dual nebs as well as IV Levaquin day 5 of 7 . Atypical workup initiated. Sputum cultures ordered negative so far. Procal normal . Continue supplemental oxygen . Maintain saturation above 92. Blood cultures 1 + likely contamination repeat sent which is negative , sputum culture to be followed so far negative Speech eval to r/o aspiration pna specially MBS was done which showed penetration into the larynx, even with the neck to thick liquid. I had a detailed discussion with the regarding the aspiration issues and as per her, she also states that he has been coughing more after eating. The patient has had a PEG tube in the past which was taken out because of infection related to the PEG tube. Currently, as the patient is possibly having aspiration issues. Family wants him to undergo PEG tube placement and for that reason. IR has been consulted. 2. Leukocytosis: Management as per 1 3. Rt lower lobe pneumonia, acute aspiration: Diminished and as per 1. CT chest revieved. 4. DM 2: Will continue sliding scale insulin as well as local checks before meals and at bedtime. A1c 7.6 5. h/o Hemorrhagic CVA requiring craniotomy: Continue to monitor 6: h/o Thyroid cancer status post thyroidectomy in 2004: Will continue to monitor and order TSH 7: h/o Throat cancer status post chemotherapy and radiation in 2014 : Continue to monitor DVT PROPHYLAXIS: SQ Heparin DISPOSITION: Likely home in 24 to 48 hours after PEG tube was placed CODE STATUS: Full Code VS,Fishbone, I+O VS, Fishbone, I+O Laboratory Tests 03/26/19 05:12 Vital Signs Date Time Temp Pulse Resp B/P (MAP) Pulse Ox O2 Delivery O2 Flow Rate FiO2 03/26/19 08:32 2.0 03/26/19 08:26 127/55 03/26/19 06:00 99.3 89 20 92 Nasal Cannula I&O- Last 24 Hours up to 6 AM 03/26/19 06:00 Intake Total 1250 ml Output Total 1335 ml Balance -85 ml NAVID BRYANT MD Mar 26, 2019 09:21
[2019-03-26 09:45] LABS: MAGNESIUM LEVEL 1.7 MG/DL (1.8-2.4)
[2019-03-26] MEDS ORDERED: POTASSIUM CHLORIDE 10 MEQ SR TABLET PO ONE (10:00)
[2019-03-26] MEDS ORDERED: MAG SULF 1GM/100ML (MAG RUN) 1 GM in IV 1 EA IV ONE (10:00)
[2019-03-26] MEDS: SODIUM CHLORIDE 0.9% INJ 10 ML SYR IV SCH ×2 (13:21→20:49)
[2019-03-26 14:42] VITALS: BP 131/74
[2019-03-26] MEDS: LevoFLOXacin IV 750 MG in IV 1 EA IV SCH (18:00)
[2019-03-26] MEDS: GABAPENTIN 300 MG CAP PO SCH (20:49)
[2019-03-26] MEDS: LATANOPROST 0.005% OPHTH SOLN 2.5 ML OU SCH (20:50)
[2019-03-26 22:00] VITALS: BP 112/58
[2019-03-27] MEDS: IPRATROPIUM 0.5MG/ALBUTEROL 2.5MG INH SOL UD 3ML (DUONEB)(J7620) NEB PRN ×2 (04:09→09:43)
[2019-03-27] MEDS: HEPARIN SOD (PORCINE) 5000 UNITS/ML VIAL SC SCH ×2 (05:43→14:00)
[2019-03-27] MEDS: SODIUM CHLORIDE 0.9% INJ 10 ML SYR IV SCH ×3 (05:46→21:18)
[2019-03-27 06:00] VITALS: BP 114/58
[2019-03-27 06:06] LABS: BASO % 0.3 % (0.0-1.0); EOS # 0.6 10^3/uL (0.0-0.5); EOS % 6.5 % (0.0-3.0); HEMATOCRIT 35.5 % (42.0-52.0); HEMOGLOBIN 11.6 g/dl (13.5-17.5); LYMPH # 1.9 10^3/uL (1.5-5.0); LYMPH % 21.7 % (24.0-44.0); MEAN CORPUSCULAR HEMOGLOBIN 30.6 pg (27.0-33.0); MEAN CORPUSCULAR HGB CONC 32.7 g/dl (32.0-36.5); MEAN CORPUSCULAR VOLUME 93.7 fl (80.0-96.0); MONO # 1.2 10^3/uL (0.0-0.8); MONO % 13.4 % (0.0-5.0); NEUTROPHILS # 5.1 10^3/uL (1.5-8.5); NEUTROPHILS % 57.5 % (36.0-66.0); PLATELET COUNT, AUTOMATED 104 10^3/uL (150-450); RED BLOOD COUNT 3.79 10^6/uL (4.30-6.10); WHITE BLOOD COUNT 8.9 10^3/uL (4.0-10.0)
[2019-03-27 06:36] LABS: BLOOD UREA NITROGEN 13 MG/DL (7-18); CALCIUM LEVEL 8.2 MG/DL (8.8-10.2); CARBON DIOXIDE LEVEL 27 MEQ/L (21-32); CHLORIDE LEVEL 107 MEQ/L (98-107); CREATININE FOR GFR 1.16 MG/DL (0.70-1.30); GLOMERULAR FILTRATION RATE > 60.0 (>49); GLUCOSE, FASTING 143 MG/DL (70-100); SODIUM LEVEL 141 MEQ/L (136-145)
[2019-03-27] MEDS: IPRATROPIUM 0.5MG/ALBUTEROL 2.5MG INH SOL UD 3ML (DUONEB)(J7620) NEB SCH ×3 (08:00→20:51)
[2019-03-27] MEDS: LORATADINE 10 MG TAB PO SCH (08:24)
[2019-03-27] MEDS: OMEPRAZOLE 20 MG CAP PO SCH (08:24)
[2019-03-27] MEDS: levETIRAcetam 250MG TABLET (KEPPRA) PO SCH ×2 (08:24→21:17)
[2019-03-27] MEDS: MULTIVITAMINS/MINERALS THERAP 1 TAB PO SCH (08:24)
[2019-03-27] MEDS: FOLIC ACID 1 MG TAB PO SCH (08:24)
[2019-03-27] MEDS: ATORVASTATIN 20 MG TAB PO SCH (08:24)
[2019-03-27] MEDS: DOCUSATE SODIUM 100 MG CAP PO SCH ×2 (08:24→21:17)
[2019-03-27] MEDS: hydroCHLOROthiazide 25 MG TAB PO SCH (08:31)
[2019-03-27] MEDS: HumaLOG INSULIN (NovoLOG) PER UNIT SC SCH ×3 (08:42→17:21)
[2019-03-27] MEDS: COSOPT OCUMETER PLUS 10ML (DORZOLAMIDE/TIMOLOL) OU SCH ×2 (08:43→21:18)
[2019-03-27 14:48] VITALS: BP 115/62
--- NOTE | 2019-03-27 16:00 | IPN ---
DATE: 03/27/2019 At this time, the patient still has occasional cough that is nonproductive. No fever or chills. He has not been ambulating outside of the room. He walks from bed to the bathroom without any difficulty but still 92% on 2 liters nasal cannula. PHYSICAL EXAMINATION: GENERAL: The patient appears lethargic but answering questions appropriately. Afebrile. Moist mucous membranes. Left internal jugular central venous catheter noted with no tenderness or erythema around the site. 2 liters nasal cannula. No use of respiratory accessory muscles. No jugular venous distention (JVD). No thyromegaly or cervical lymphadenopathy. LUNGS: Diminished with bibasilar crackles at the bases. HEART: S1, S2. Sinus rhythm. No murmurs, rubs or gallops. ABDOMEN: Soft, nontender, nondistended. EXTREMITIES: No cyanosis, clubbing or pitting edema. LABORATORY DATA: White count 8.9, hemoglobin 11, hematocrit 35, platelet count 104. Sodium 141, potassium 4.0, chloride 107, bicarbonate 27, BUN 13, creatinine 1.16, glucose of 143. Blood cultures showed Staphylococcus hominis, most likely contaminant. Two sets of blood cultures from 03/22/2019 are negative. ASSESSMENT AND PLAN: This is a 68-year-old male with a history of CVA, status post craniotomy due to hemorrhage, thyroid cancer, status post thyroidectomy in 2004, throat cancer, status post chemotherapy and radiation in 2014, type 2 diabetes who presented with shortness of breath and cough with allergy to PENICILLIN. He was given Levaquin. The patient's blood cultures were negative. Chest x-ray showed right lower lobe pneumonia, he was found to be aspirating. 1. Aspiration pneumonia. The patient is receiving a feeding tube on 03/28/2019. hold heparin sq for dvt prophylaxis to decrease risk of bleeidng. Strategic Debriefing Officer consultation. Physical therapy (PT) and occupational therapy (OT) to be consulted to teach patient and the family how to take care of the feeding tube and how to use it. 2. Acute hypoxic respiratory failure secondary to aspiration pneumonia. Currently on modified diet. Feeding tube to be placed on Thursday. May need supplemental oxygen to be sent home. 3. History of CVA with craniotomy and current debility. Physical therapy (PT) and occupational therapy (OT) have been consulted. Acute rehabilitation unit screening. No acute neurological changes. 4. Type 2 diabetes. On sliding scale. A1/c was 7.6. 5. History of thyroid cancer, status post thyroidectomy in 2004, stable. 6. History of throat cancer status post chemotherapy and radiation in 2014, stable. DISPOSITION: Feeding tube placement and discharge once PT clears the patient, potentially Thursday or Thursday. MTDD
[2019-03-27] MEDS: LevoFLOXacin IV 750 MG in IV 1 EA IV SCH (17:21)
[2019-03-27] MEDS: GABAPENTIN 300 MG CAP PO SCH (21:17)
[2019-03-27] MEDS: LATANOPROST 0.005% OPHTH SOLN 2.5 ML OU SCH (21:18)
[2019-03-27 22:00] VITALS: BP 129/78
[2019-03-28] MEDS: IPRATROPIUM 0.5MG/ALBUTEROL 2.5MG INH SOL UD 3ML (DUONEB)(J7620) NEB SCH ×4 (02:00→20:12)
[2019-03-28] MEDS: SODIUM CHLORIDE 0.9% INJ 10 ML SYR IV SCH ×3 (05:36→20:21)
[2019-03-28 06:00] VITALS: BP 116/95
[2019-03-28] MEDS ORDERED: ISOVUE-300 61% 50ML VIAL (Q9967) As Ordered ONE (07:09)
[2019-03-28] MEDS ORDERED: LIDOCAINE 1% MDV 20ML VIAL As Ordered ONE ×2 (07:10→08:31)
[2019-03-28] MEDS ORDERED: CLINDAMYCIN 600 MG/50 ML PREMIX BAG As Ordered ONE (07:15)
[2019-03-28] MEDS ORDERED: GLUCAGON FOR INJ 1 MG VIAL (J1610) As Ordered ONE (07:16)
[2019-03-28] MEDS ORDERED: LIDOCAINE 2% JELLY 30 ML As Ordered ONE (07:17)
[2019-03-28] MEDS: HumaLOG INSULIN (NovoLOG) PER UNIT SC SCH ×3 (07:30→17:14)
[2019-03-28] MEDS ORDERED: diphenhydrAMINE INJ 50MG/ML VIAL (J1200) As Ordered ONE (07:45)
[2019-03-28] MEDS ORDERED: fentaNYL 100 MCG/2 ML INJECTION (J3010) As Ordered ONE (07:46)
[2019-03-28] MEDS ORDERED: MIDAZOLAM INJ 2 MG/2 ML VIAL (J2250) As Ordered ONE (07:46)
[2019-03-28 08:07] LABS: BLOOD UREA NITROGEN 17 MG/DL (7-18); CALCIUM LEVEL 7.7 MG/DL (8.8-10.2); CARBON DIOXIDE LEVEL 26 MEQ/L (21-32); CHLORIDE LEVEL 106 MEQ/L (98-107); GLOMERULAR FILTRATION RATE > 60.0 (>49); GLUCOSE, FASTING 145 MG/DL (70-100); POTASSIUM SERUM 3.9 MEQ/L (3.5-5.1); SODIUM LEVEL 139 MEQ/L (136-145)
[2019-03-28 09:06] LABS: BASO % 0.4 % (0.0-1.0); EOS # 0.4 10^3/uL (0.0-0.5); EOS % 5.4 % (0.0-3.0); HEMATOCRIT 29.7 % (42.0-52.0); LYMPH # 1.3 10^3/uL (1.5-5.0); LYMPH % 17.8 % (24.0-44.0); MEAN CORPUSCULAR HEMOGLOBIN 30.1 pg (27.0-33.0); MEAN CORPUSCULAR HGB CONC 31.6 g/dl (32.0-36.5); MEAN CORPUSCULAR VOLUME 95.2 fl (80.0-96.0); MONO # 1.2 10^3/uL (0.0-0.8); MONO % 16.6 % (0.0-5.0); NEUTROPHILS # 4.4 10^3/uL (1.5-8.5); NEUTROPHILS % 59.5 % (36.0-66.0); RED BLOOD COUNT 3.12 10^6/uL (4.30-6.10); WHITE BLOOD COUNT 7.4 10^3/uL (4.0-10.0)
[2019-03-28 09:13] LABS: PLATELET COUNT, AUTOMATED 83 10^3/uL (150-450)
[2019-03-28 09:14] LABS: HEMOGLOBIN 9.4 g/dl (13.5-17.5)
--- NOTE | 2019-03-28 09:14 | REP ---
MIDLINE INSERTION WITH ULTRASOUND GUIDANCE: REASON FOR EXAM: IV antibiotics needed PROCEDURE: Midline catheter insertion under ultrasound guidance. This procedure was performed by SKIP Vrama, under the direct supervision of Dr. Kidd. The risks and benefits of the procedure were explained to the patient and informed consent was obtained prior to the procedure both verbally and written. Directly prior to the start of the procedure, a formal timeout was completed in the procedure room. The right brachial vein was localized using ultrasound guidance. The skin was prepped and draped in a sterile fashion. 1% lidocaine was used as a local anesthetic. Using ultrasound guidance the right brachial vein was cannulated, and immediately infiltrated. The right brachial vein was again localized more proximally in the arm, it was again cannulated and again infiltrated. It was then decided to abort the procedure. The patient tolerated the procedure well and there were no immediate complications. Reviewed by SKIP Herrera 03/28/2019 08:14 A Electronically Signed by Kraig Kidd MD 03/28/2019 09:04 A
--- NOTE | 2019-03-28 09:29 | IRMSE ---
[facility] IR Moderate Sedation Eval. Date and Time Date: Mar 28, 2019 Time: 07:54 ASA Classification ASA Classification: III-Severe systemic dis. Mallampati Score: II NPO: Yes Obstructive Sleep Apnea: Yes Interval Plan: moderate sedation UNIQUE ANDRADE MD Mar 28, 2019 09:29
[2019-03-28] MEDS ORDERED: SENOKOT S TAB PO PRN (09:30)
[2019-03-28] MEDS ORDERED: MOM 30ML SUSPENSION UDC PO PRN (09:30)
--- NOTE | 2019-03-28 09:31 | POST-OPPD ---
Postoperative Procedure Note Date Of Procedure: Mar 28, 2019 Time Of Procedure: 09:29 PREOPERATIVE DIAGNOSIS: aspiration pneumonia. needs G tube for terminologist feeds POSTOPERATIVE DIAGNOSIS: same FINDINGS: normal stomach PROCEDURE: 18 F G tube placed. tube to drainage for 24 hours. start feeds Thursday 0900 hours. Thank you SURGEON: yohan ANESTHESIA: mod sed ESTIMATED BLOOD LOSS: < 5 ml COMPLICATIONS: none POSTOPERATIVE CONDITION: stable UNIQUE ANDRADE MD Mar 28, 2019 09:31
[2019-03-28 09:33] VITALS: BP 124/91
[2019-03-28] MEDS: DOCUSATE SODIUM 100 MG CAP PO SCH ×2 (09:55→20:20)
[2019-03-28] MEDS: ACETAMINOPHEN TAB 650MG DOSE (2X325MG) PO PRN (09:55)
[2019-03-28] MEDS: FOLIC ACID 1 MG TAB PO SCH (09:55)
[2019-03-28] MEDS: MULTIVITAMINS/MINERALS THERAP 1 TAB PO SCH (09:55)
[2019-03-28] MEDS: levETIRAcetam 250MG TABLET (KEPPRA) PO SCH ×2 (09:55→20:20)
[2019-03-28] MEDS: LORATADINE 10 MG TAB PO SCH (09:55)
[2019-03-28] MEDS: OMEPRAZOLE 20 MG CAP PO SCH (09:56)
[2019-03-28] MEDS: ATORVASTATIN 20 MG TAB PO SCH (09:56)
[2019-03-28] MEDS: COSOPT OCUMETER PLUS 10ML (DORZOLAMIDE/TIMOLOL) OU SCH ×2 (10:03→20:21)
[2019-03-28 10:53] VITALS: BP 128/72
[2019-03-28] MEDS ORDERED: KETOROLAC 30 MG/ML VIAL (J1885) IV ONE (11:45)
[2019-03-28] MEDS: HEPARIN SOD (PORCINE) 5000 UNITS/ML VIAL SC SCH ×2 (14:00→20:22)
[2019-03-28] MEDS: LevoFLOXacin IV 750 MG in IV 1 EA IV SCH (17:52)
--- NOTE | 2019-03-28 19:33 | REPVR ---
PROCEDURE INFORMATION: Exam: US Duplex Left Upper Extremity Veins, Limited Exam date and time: 03/28/2019 7:10 PM Age: 68 years old Clinical history: Edema, localized; Upper extremity, left; Additional info: Left arm swelling R/O dvt TECHNIQUE: Imaging protocol: Real-time Duplex ultrasound of the Left Upper Extremity with 2-D whitt scale, color Doppler flow and spectral waveform analysis with image documentation. Limited exam focused on the left upper extremity veins. COMPARISON: US DUPLEX EXT UPPER VEINS UNILATE 09/07/2017 9:04 PM FINDINGS: Left deep veins: Suboptimal visualization of the internal jugular vein due to overlying bandages. Subclavian, axillary and brachial veins patent without thrombus. Normal compressibility, augmentation response and/or Doppler waveforms. Left superficial veins: Visualized cephalic and basilic veins patent without thrombus. Soft tissues: Soft tissue swelling and subcutaneous edema about the elbow. IMPRESSION: No sonographic evidence of deep vein thrombosis. Electronically signed by: Delmer Grider On 03/28/2019 19:33:02 PM
[2019-03-28] MEDS: KETOROLAC TROMETHAMINE 10 MG TAB PO SCH (20:20)
[2019-03-28] MEDS: GABAPENTIN 300 MG CAP PO SCH (20:20)
[2019-03-28] MEDS: LATANOPROST 0.005% OPHTH SOLN 2.5 ML OU SCH (20:21)
[2019-03-29] MEDS: HEPARIN SOD (PORCINE) 5000 UNITS/ML VIAL SC SCH (05:04)
[2019-03-29] MEDS: SODIUM CHLORIDE 0.9% INJ 10 ML SYR IV SCH (05:22)
[2019-03-29] MEDS: KETOROLAC TROMETHAMINE 10 MG TAB PO SCH (05:22)
[2019-03-29 05:32] LABS: BASO % 0.4 % (0.0-1.0); EOS # 0.3 10^3/uL (0.0-0.5); EOS % 3.6 % (0.0-3.0); HEMATOCRIT 38.2 % (42.0-52.0); LYMPH # 1.6 10^3/uL (1.5-5.0); LYMPH % 17.5 % (24.0-44.0); MEAN CORPUSCULAR HEMOGLOBIN 30.2 pg (27.0-33.0); MEAN CORPUSCULAR HGB CONC 31.4 g/dl (32.0-36.5); MONO # 1.5 10^3/uL (0.0-0.8); MONO % 16.8 % (0.0-5.0); NEUTROPHILS # 5.6 10^3/uL (1.5-8.5); NEUTROPHILS % 61.4 % (36.0-66.0); RED BLOOD COUNT 3.98 10^6/uL (4.30-6.10); WHITE BLOOD COUNT 9.1 10^3/uL (4.0-10.0)
[2019-03-29 05:33] LABS: PLATELET COUNT, AUTOMATED 88 10^3/uL (150-450)
[2019-03-29 05:53] LABS: BLOOD UREA NITROGEN 20 MG/DL (7-18); CALCIUM LEVEL 8.1 MG/DL (8.8-10.2); CARBON DIOXIDE LEVEL 28 MEQ/L (21-32); CHLORIDE LEVEL 108 MEQ/L (98-107); GLOMERULAR FILTRATION RATE > 60.0 (>49); GLUCOSE, FASTING 116 MG/DL (70-100); POTASSIUM SERUM 4.2 MEQ/L (3.5-5.1); SODIUM LEVEL 140 MEQ/L (136-145)
[2019-03-29 06:18] VITALS: BP 133/68
[2019-03-29] MEDS: IPRATROPIUM 0.5MG/ALBUTEROL 2.5MG INH SOL UD 3ML (DUONEB)(J7620) NEB SCH (07:10)
[2019-03-29] MEDS: HumaLOG INSULIN (NovoLOG) PER UNIT SC SCH ×2 (07:30→12:00)
[2019-03-29] MEDS: ATORVASTATIN 20 MG TAB PO SCH (08:12)
[2019-03-29] MEDS: OMEPRAZOLE 20 MG CAP PO SCH (08:13)
[2019-03-29] MEDS: MULTIVITAMINS/MINERALS THERAP 1 TAB PO SCH (08:13)
[2019-03-29] MEDS: FOLIC ACID 1 MG TAB PO SCH (08:14)
[2019-03-29] MEDS: LORATADINE 10 MG TAB PO SCH (08:14)
--- NOTE | 2019-03-29 08:32 | REP ---
IR gastrostomy catheter placement with fluoroscopy guidance. IR moderate sedation. Clinical information: Aspiration pneumonia. Aspiration risk. History of prior head and neck cancer and stroke. Needs long-term feeding catheter. Physician: Dr. Sandoval. Procedure: The patient was advised of the benefits, risks and alternatives of the procedure and informed consent was obtained. The time-out was performed with verification of the patient's name, MRN, site of procedure and type of procedure to be performed. The patient was positioned in the supine position on the angiographic table. The site was prepped and draped in the usual sterile fashion. A 5-Polish Kumpe catheter in conjunction with a Glidewire was inserted through the nostril under fluoroscopy guidance, down the esophagus into the stomach. The wire was removed. The catheter was taped to the nose. Moderate sedation was performed by the physician including the presence of an independent trained observer who assisted in monitoring the patient's level of consciousness and physiologic status. Following the administration of Versed and Fentanyl, the physician spent 60 minutes of continuous face to face time with the patient. A cash posting representative radiograph reveals kumpe catheter tip in the expected location of the stomach. There is contrast in the colon. 1 mg of glucagon was administered intravenously. The stomach was insufflated and distended with air through the nasogastric tube. The soft tissues overlying the anticipated puncture site were anesthetized with lidocaine. A gastropexy needle was advanced into the stomach and positioning was confirmed with contrast injection. The gastropexy suture was deployed and secured in the usual fashion. A total of three gastropexy sutures were deployed under fluoroscopy guidance. An 18 gauge needle was advanced into the body of the stomach under fluoroscopy guidance. Contrast was injected through the needle documenting intragastric position. An Amplatz wire was advanced into the stomach. After serial dilation under fluoroscopy guidance, a 22-Polish peel-away sheath was advanced over the wire into the stomach under fluoroscopy guidance. An 18-Polish [employer] gastrostomy catheter was then advanced through the peel-away sheath under fluoroscopy guidance. Contrast was injected through the gastrostomy catheter confirming position within the stomach. The balloon was insufflated and retracted to the anterior stomach wall. The catheter bumper was positioned to sandwich the anterior abdominal wall. The catheter was placed gravity drainage. The nasogastric catheter was removed. The patient tolerated the procedure well and was returned to the inpatient unit in stable condition. EBL: Less than 5 ml. Complications: None. Impression: 1. Successful percutaneous placement of 18-Polish gastrostomy catheter. Catheter to remain to gravity drainage for 24 hours. 2. Catheter may be used 24 hours past placement; thursday 09:00 a.m. The gastropexy sutures will dissolve within 6 weeks and the buttons will fall-off. 3. Patient to follow up in IR clinic in 2 weeks. Thank you this referral. Electronically Signed by Ginger Sandoval MD 03/29/2019 08:32 A
[2019-03-29 09:00] VITALS: BP 130/78
[2019-03-29] MEDS: DOCUSATE SODIUM 100 MG CAP PO SCH (10:00)
[2019-03-29] MEDS: levETIRAcetam 250MG TABLET (KEPPRA) PO SCH (10:11)
--- NOTE | 2019-03-29 10:31 | IPN ---
DATE OF SERVICE: 03/28/2019 The patient did not get much sleep last night as he was worried and anxious about the feeding tube placement today. He has been off anticoagulation for PEG tube placement due to recurrent aspiration pneumonia. He continues to have a cough but not coughing fits, unable to sleep. Shortness of breath is unchanged, saturating 95-98% on 2 liter nasal cannula. RN has noted increasing swelling in the left upper extremity more so than the right. Venous ultrasound is pending for possible deep vein thrombosis (DVT). The patient otherwise has not complained of any pain. Temperature 98.8, pulse 93, respiratory rate 18, blood pressure 128/72, 98% on 2 liters nasal cannula. Generally, patient is awake, alert and oriented to person and place, answering questions appropriately. No respiratory distress. No jugular venous distention (JVD). No thyromegaly. No cervical lymphadenopathy. Moist mucous membranes. Lungs diminished bilaterally. Heart S1, S2 sinus rhythm. Abdomen is soft, nontender, nondistended. Extremities no cyanosis or clubbing. No pitting edema. Left upper extremity larger than the right. 03/28 white count 7.4, hemoglobin 9.4, hematocrit 29, platelet count 83. Previous platelet count on admission was 121. Sodium 139, potassium 3.9, chloride 106, bicarb 26, BUN 17, creatinine 1.2, glucose of 145. ASSESSMENT/PLAN: This is a 68-year-old -Spanish male with history of hemorrhagic CVA status post craniotomy, thyroid CA with thyroidectomy in 2004, thyroid cancer status post chemoradiation 2014, type 2 diabetes, who presented with shortness of breath and cough. Allergic to penicillin and given IV Levaquin for right lower lobe pneumonia and was found to have aspiration. IMPRESSION: 1. Aspiration pneumonia. Patient underwent feeding tube placement by Dr. Sandoval, interventional radiologist, today. Analyst Programmer consultation has been obtained and to start with recommended tube feedings. Heparin had been held to decrease risk of bleeding for the feeding tube placement. The patient's family and patient are to be taught how to use the feeding tube. 2. Acute hypoxic respiratory failure due to aspiration pneumonia. Feeding tube placed today. Patient may need supplemental oxygen at hospital discharge. Will check pulse ox on room air. 3. History of hemorrhagic CVA with craniotomy. 4. Current debility. Physical therapy/occupational therapy (PT/OT) have been consulted. ARU screening. No new neurological changes. 5. Left upper extremity swelling, rule out DVT. Check Doppler ultrasound left upper extremity. 6. Type 2 diabetes. A1c was 7.6. Fingersticks have been controlled, 130-167 currently. 7. Deep vein thrombosis (DVT) prophylaxis. May be resumed on previous Lovenox. MTDD
[2019-03-29] MEDS: COSOPT OCUMETER PLUS 10ML (DORZOLAMIDE/TIMOLOL) OU SCH (11:29)
[2019-03-29 13:15] VITALS: BP 130/70
--- NOTE | 2019-03-29 15:59 | DS.PDOC ---
Discharge Summary General Date of Admission Mar 21, 2019 at 17:33 Date of Discharge 03/29/19 Discharge Summary PROCEDURES PERFORMED DURING STAY: 01/26- PEG Tube Placement ADMITTING DIAGNOSES: 1. Hypoxic respiratory failure 2/2 Pneumonia 2. RLL Pneumonia 3. DM 2 4. Hx hemorrhagic CVA s/p craniotomy 5. hx thyroid cancer s/p thyroidectomy 2004 6. 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 Hypoxic respiratory failure 2/2 Pneumonia 2. RLL Pneumonia 3. DM 2 4. Hx hemorrhagic CVA s/p craniotomy 5. hx thyroid cancer s/p thyroidectomy 2004 6. 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 Aspiration Pneumonia COMPLICATIONS/CHIEF COMPLAINT: Bilateral Pneumonia. HISTORY OF PRESENT ILLNESS: "68yo male presents to ED with progressive shortness of breath with cough. The patient states that he has been having progressively decline in her functional status and has been coughing a lot. In the ER, he was found to be in low 80s of saturation and after duonebs the patient got better and currently saturating 98 on 4 L. The patient also is found to have a pneumonia and was given Levaquin and tobramycin in the ER as he is allergic to penicillins. Also complains of yellow- green productive sputum. Denies, n/v/d, CP, PND, edema, change in appetite or significant weight loss. Work up showed elevated WBC, and chest x-ray showed right lower lobe pneumonia." HOSPITAL COURSE: Patient was treated for pneumonia and noted to have aspiration on swallow evaluation despite nectar thick liquid. He subsequently had a PEG tube placed for feeding on 03/28. Of note, he has had G tube 2 years prior at the time of throat cancer treatment. He was treated with IV Levaquin for pneumonia given penicillin allergy with improvement. Patient has significant weakness/debility and had been screened with acceptance to ARU for continued rehab/PT with assault amphibious vehicle officer consultation for PEG tube feedings. DISCHARGE MEDICATIONS: Please see below. ALLERGIES: Please see below. PHYSICAL EXAMINATION ON DISCHARGE: VITAL SIGNS: Please see below General: No acute distress, Alert Eyes: Normal sclera, EOMI, AURA HENT: Atraumatic Cardiovascular: Normal rate, normal rhythm. Pulmonary: Clear to auscultation b/l, no wheezing GI: Soft, tender around PEG tube insertion site Skin: Warm and dry Neuro: CN grossly intact. No focal deficits. Strengths equal b/l. Psych: oriented x 3 LABORATORY DATA: Please see below. IMAGING: Chest CT- IMPRESSION: Subpleural reticulation in both lungs, which has progressed compared to the prior CTA on 09/07/2017, and may indicate a nonspecific interstitial pneumonia or usual interstitial pneumonia pattern. ACTIVITY: [As tolerated]. DIET: NPO. Initiating PEG tube. DISCHARGE PLAN: Continue with PT in Rehab Initiate PEG tube feeds DISPOSITION: 62 D/T Rehab Facility. DISCHARGE INSTRUCTIONS: Continue with Rehab ITEMS TO FOLLOWUP ON ON OUTPATIENT: None DISCHARGE CONDITION: [Stable]. TIME SPENT ON DISCHARGE: 32 minutes. Vital Signs/I&Os Vital Signs Date Time Temp Pulse Resp B/P (MAP) Pulse Ox O2 Delivery O2 Flow Rate FiO2 03/29/19 13:15 98.6 82 18 130/70 (90) Nasal Cannula 3.0 03/29/19 09:00 96 I&O- Last 24 Hours up to 6 AM 03/29/19 06:00 Intake Total 0 ml Output Total 275 ml Balance -275 ml Laboratory Data Labs 24H Laboratory Tests 2 03/28/19 16:54: Bedside Glucose (Misc Panel) 132H 03/29/19 05:19: Immature Granulocyte % (Auto) 0.3, Neutrophils (%) (Auto) 61.4, Lymphocytes (%) (Auto) 17.5L, Monocytes (%) (Auto) 16.8H, Eosinophils (%) (Auto) 3.6H, Basophils (%) (Auto) 0.4, Neutrophils # (Auto) 5.6, Lymphocytes # (Auto) 1.6, Monocytes # (Auto) 1.5H, Eosinophils # (Auto) 0.3, Basophils # (Auto) 0.0, Nucleated Red Blood Cells % (auto) 0.0, Anion Gap 4L, Glomerular Filtration Rate > 60.0, Calcium Level 8.1L 03/29/19 11:56: Bedside Glucose (Misc Panel) 119H CBC/BMP Laboratory Tests 03/29/19 05:19 FSBS Laboratory Tests Test 03/28/19 16:54 03/29/19 11:56 Range/Units Bedside Glucose (Misc Panel) 132 119 80-115 MG/DL Microbiology Microbiology 03/22/19 Blood Culture - Final, Complete NO GROWTH AFTER 5 DAYS 03/22/19 Blood Culture - Final, Complete NO GROWTH AFTER 5 DAYS 03/22/19 Respiratory Virus Panel (PCR) ([facility]) - Final, Complete 03/21/19 Blood Culture - Final, Complete Staphylococcus Hominis Ssp Diane 03/21/19 Blood Culture - Final, Complete NO GROWTH AFTER 5 DAYS Discharge Medications Scheduled Atorvastatin Calcium (Atorvastatin Calcium) 80 Mg Tab, 40 MG PO DAILY, (Reported) Brimonidine Tartrate (Brimonidine Tartrate) 0.2 % Margarita, 1 DROP OU TID, (Reported) Dorzolamide HCl/Timolol Maleat (Dorzolamide-Timolol Eye Drops) 1 Margarita Margarita, 1 DROP OU BID, (Reported) USES MORNING AND NOON Ergocalciferol (Vitamin D2) (Drisdol) 50,000 Unit Capsule, 50,000 UNIT PO Q2WK, (Reported) 1ST AND 15 OF EACH MONTH Folic Acid (Folic Acid) 1 Mg Tab, 1 MG PO DAILY, (Reported) Gabapentin (Gabapentin) 300 Mg Capsule, 300 MG PO QHS, (Reported) Hydrochlorothiazide (Hydrochlorothiazide) 25 Mg Tab, 25 MG PO DAILY, (Reported) Insulin Human Lispro (Novolog) 100 U/Ml Inj, 1 DOSE SC AC, (Reported) PER SLIDING SCALE Latanoprost (Xalatan) 0.005 % Margarita, 1 DROP OU QHS, (Reported) Levetiracetam (Levetiracetam) 750 Mg Tab, 750 MG PO BID, (Reported) Lisinopril (Lisinopril) 40 Mg Tablet, 20 MG PO DAILY, (Reported) Loratadine (Loratadine) 10 Mg Tab, 10 MG PO DAILY, (Reported) Meloxicam (Meloxicam) 15 Mg Tablet, 15 MG PO DAILY, (Reported) Multivitamins (Thera M Plus Tablet) 1 Tab Tab, 1 TAB PO DAILY, (Reported) Nut.tx.gluc.intoler,Lac-Fr,Soy (Glucerna) 237 Ml Liquid, 237 ML PO BID, (Reported) Omeprazole (Omeprazole) 20 Mg Cap, 20 MG PO DAILY, (Reported) Potassium Chloride (Potassium Chloride) 10 Meq Tab.er.prt, 20 MEQ PO BID, (Repor betty) Scheduled PRN Dextrose (Glucose) 4 Gm Tab.chew, 4 GM PO for LOW BLOOD SUGAR, (Reported) Hydrocodone/Acetaminophen (Hydrocodone-Acetamin 5-325 mg) 1 Each Tablet, 1 TAB PO Q4H PRN for PAIN, (Reported) MDD 4 Allergies Coded Allergies: Penicillins (Verified Allergy, Severe, anaphyaxsis, 10/06/18) ESTRELLITA BORRERO MD Mar 29, 2019 15:59
== END 2019-03-29 14:20 | DRG 177 ==
LOC: M ED 14:08 → M ED INP 17:33 → M MS5PR 21:58
PROVIDERS: ADMIT Internal Medicine; ATTEND Student in an Organized Health Care Education/Training Program
PROC: 05HF33Z Insertion of Infusion Device into Left Cephalic Vein, Percutaneous Approach (ICD-10-PCS; principal; 2019-03-21)
PROC: 0DH63UZ Insertion of Feeding Device into Stomach, Percutaneous Approach (ICD-10-PCS; 2019-03-28)
DX: J69.0 Pneumonitis due to inhalation of food and vomit (principal); J96.01 Acute respiratory failure with hypoxia; E11.9 Type 2 diabetes mellitus without complications; R53.81 Other malaise; E89.0 Postprocedural hypothyroidism; Z87.891 Personal history of nicotine dependence; Z85.850 Personal history of malignant neoplasm of thyroid; Z85.819 Personal history of malignant neoplasm of unspecified site of lip, oral cavity, and pharynx; Z92.21 Personal history of antineoplastic chemotherapy; Z92.3 Personal history of irradiation; Z79.4 Long term (current) use of insulin; Z86.73 Personal history of transient ischemic attack (TIA), and cerebral infarction without residual deficits; Z88.0 Allergy status to penicillin

== ENCOUNTER 2019-03-29 13:23 | Inpatient (IN) | payer OTHER, MEDICARE ==
[~2019-03-29] VITALS: Ht 170.2 cm; Wt 88.3 kg
[~2019-03-29 13:23] MED LIST changes: +GABA-843 PO; +GLUC4CHW PO; +GLUCLIQ37 PO; +HYDR-3713 PO; +MELO15TA28 PO
[2019-03-29 14:20] VITALS: BP 153/74
[2019-03-29] MEDS ORDERED: DEXTROSE 50% 50 ML SYRINGE IV PRN (16:15)
[2019-03-29] MEDS ORDERED: MOM 30ML SUSPENSION UDC PO PRN (16:15)
[2019-03-29] MEDS ORDERED: D5W/0.9% SODIUM CHLORIDE 1,000 ML IV SCH ×2 (16:15→17:28)
[2019-03-29] MEDS ORDERED: GLUCAGON FOR INJ 1 MG VIAL (J1610) SC PRN (16:15)
[2019-03-29] MEDS ORDERED: GLUCOSE 4 GM CHEW TABLET PO PRN (16:15)
--- NOTE | 2019-03-29 17:08 | HPEPDOC ---
Procurement Cost Coordinator Note DATE OF ADMISSION: 03-29-19 SOURCE OF ADMISSION INFORMATION: [facility] records and patient CHIEF COMPLAINT: aspiration PNA with dysphagia HISTORY OF PRESENT ILLNESS: 68M pmh hemorrhagic stroke s/p craniotomy in 2006 with seizures, throat cancer s/p radiation and chemo with PEG tube placement and removal, presented to [facility] ED on 03-21-19 with shortness of breath and cough. CXR showed, Right lower lobe air space consolidation concerning for pneumonia and CT chest showed, Subpleural reticulation in both lungs may indicate a nonspecific interstitial pneumonia or usual interstitial pneumonia pattern. One blood culture grew staph hominis and he was started on a 7 day course of IV Levaquin. He underwent MBS which showed aspiration of thin liquids and laryngeal penetration of nectar thickened liquids. he was cleared by EVENTS TRAFFIC CONTROLLER for nectar liquids and puree, but given concern for poor po intake and suspicion for aspiration PNA, PEG was placed on 03-28-19 without complication. Patient was still able to tolerate nectar thickened liquids and swallow pills. He had thrombocytopenia with anemia and reported feel ing generally quite weak. He was noted to be below his prior level of function and deemed medically appropriate for discharge to ARU on 03-29-19. On initial eval patient reports his abdomen feels very sore where the PEG was placed. He denies fevers or chills. REVIEW OF SYSTEMS: The following is a completed review of systems and has been reviewed. Review of systems otherwise unremarkable. PAIN: Patient self reports abdominal pain EYES: No recent vision changes EARS, NOSE, & THROAT: +hoarse voice, +dysphagia CARDIOVASCULAR: Denies chest pain or palpitations PULMONARY: Denies shortness of breath GASTROINTESTINAL: Denies constipation/diarrhea GENITOURINARY: denies dysuria MUSCULOSKELETAL: generalized weakness NEUROLOGICAL: hx of stroke, no tremor/seizure activity HEMATOLOGICAL: low platelets, denies easy bruising SKIN: PEG site incision PSYCHIATRIC: Unremarkable All other review of systems found to be negative. PAST MEDICAL HISTORY: as per HPI PAST SURGICAL HISTORY: thyroidectomy ALLERGIES: Please see below. MEDICATIONS: Please see below. SOCIAL HISTORY: denies smoking, etoh, or illicit drugs DIET: NPO except meds PHYSICAL EXAMINATION: VITAL SIGNS: Please see below. GENERAL: Pleasant and cooperative. No acute distress. HEENT: PERRL. Extraocular movements intact. Clear conjunctiva, no facial droop, masked faces CARDIOVASCULAR: Regular rate and rhythm. No murmurs, rubs, or gallops LUNGS: Scattered wheezes +NC ABDOMEN: Soft, tender to palpation, mildly distended, no rebound tenderness Positive bowel sounds. PEG in place NEUROLOGICAL: Alert and oriented to self and place, Cranial nerves II through XII grossly intact. Sensation grossly intact in all 4 extremities EXTREMITIES: 5-\5 strength bilateral upper extremities. 5-\5 strength right lower extremity. 5-/5 strength in left lower extremity. LUE swelling (-) No edema bila LE (-) Manuel's SKIN: left Central line, frontal-sagittal plane cranial incision healed LABORATORY DATA: Please see below. IMAGING:Imaging documentation personally reviewed by record FUNCTIONAL STATUS: Premorbid: Modified Independent with all activities of daily life as well as mobility On Admission: Standby-assist to CGA ambulating 10 feet, Max asssit for lower body dressing, standby assist for toileting and bed mobility GOALS: Modified independent ambulating community distances with RW, functional transfers, stairs, toileting, bathing, medical optimization, caregiver training, assess for DME needs ASSESSMENT:68 M year-old with past medical history of stroke who presents status post bilateral pneumonia with dysphagia and PEG placement PLAN: 1. Rehab: PT/OT advance gait training and ADL management, strenghten/stretch/maintain ROM bilat LE and UE 2. Neuro: [facility] hemorrhagic CVA s/p craniotomy- c/u Keppra for seizure hx, will obtain keppra levels -will observe for bradykinesia in therapy as patient with worsening gait and rigidity per his with dysphagia, in addition to masked faces suspicious for parkinsonian features -c/u statin for secondary prevention 3. Cardiac: ECHO on 03-22-19 showing grade 1 diastolic dysfunction, c/u hydrochlorothiazide, will consider fluid restriction depending on oral intake, awaiting EVENTS TRAFFIC CONTROLLER eval -HTN c/u lisinopril -HLD- statin -medicine consulted to assist in management 4. Resp: s/p 7 day course of Levofloxacin for bilateral PNA, wheeze on today's exam, will start Duonebs standing, Guaifenesin, and supplemental 02 -monitor for infection 5. GI: s/p PEG placement 03-28-19, abdomen soft on exam, monitor for peritonitis -ok to use starting tomorrow -will give 500cc D5 NS overnight 60cc/hr -dysphagia, will trial po with EVENTS TRAFFIC CONTROLLER tomorrow and likely c/u original recs on inpatient for nectar thickened liquids and puree, will bolus feeds per PEG if he eats <50% 6. Heme: thrombocytopenia, possibly due to recent Levofloxacin treatment, will hold heparin and Meloxicam, and monitor- no signs of active bleed now 7.Pain: [place], tylenol, gabapentin 8. DVT px: TEDs, Dopplers ordered to r/o DVTs, patient with thrombocytopenia, holding heparin -recent LUE doppler negative for DVT 9. Dispo: TBD POST ADMISSION PHYSICIAN EVALUATION: Medical and functional status: Description of medical status, medical assessment: As above. Rehabilitation diagnosis and current and prior cold morbid medical conditions as above. Risk of complications and plans to mitigate them as above. Description of functional status current status is as above. Prior status as above. Status compared to preadmission: There are no clinically significant differences between the patient's current status and the information described on the preadmission screening document. Treatment plan anticipated: Treatment plan is as described above. Required disciplines including physical therapy, occupational therapy, others as noted above Intensity of services: 3 hours a day, 6 days a week. Special considerations: There are no specific special or safety considerations that would likely preclude immediate implementation of an intensive rehabilitation program or subsequently influence the plan of care ATTESTATION: Considering all the information above, it is my best judgment that this patient requires intensive rehabilitation therapy as described above and an inpatient hospital environment due to the complexity of nursing, medical, and rehabilitation needs required by the patient. Furthermore, this patient can reasonably be expected to participate in an benefit from an inpatient rehabilitation stay with an interdisciplinary team approach to the delivery of rehabilitation care under the direction and supervision of rehabilitation physician PROGNOSIS: Good ESTIMATED LENGTH OF STAY:14-18 days. PROJECTED DISCHARGE DESTINATION: Home with family support and any durable medical equipment required to increase functional safety and mobility TIME SPENT COUNSELING AND COORDINATING INITIAL CARE: Greater than 70 minutes. Vital Signs Vital Sign - Last 24 Hours 03/29/19 14:20 Temp 99.0 Pulse 84 Resp 20 B/P (MAP) 153/74 (100) Pulse Ox 97 O2 Delivery Nasal Cannula O2 Flow Rate 2.0 Laboratory Data Labs 24H Laboratory Tests 2 03/29/19 16:50: Bedside Glucose (Misc Panel) 129H FSBS Laboratory Tests Test 11/26/19 16:50 Range/Units Bedside Glucose (Misc Panel) 129 80-115 MG/DL Home Medications Scheduled Atorvastatin Calcium (Atorvastatin Calcium) 80 Mg Tab, 40 MG PO DAILY, (Reported) Brimonidine Tartrate (Brimonidine Tartrate) 0.2 % Margarita, 1 DROP OU TID, (Reported) Dorzolamide HCl/Timolol Maleat (Dorzolamide-Timolol Eye Drops) 1 Margarita Margarita, 1 DROP OU BID, (Reported) USES MORNING AND NOON Ergocalciferol (Vitamin D2) (Drisdol) 50,000 Unit Capsule, 50,000 UNIT PO Q2WK, (Reported) 1ST AND 15TH OF EACH MONTH Folic Acid (Folic Acid) 1 Mg Tab, 1 MG PO DAILY, (Reported) Gabapentin (Gabapentin) 300 Mg Capsule, 300 MG PO QHS, (Reported) Hydrochlorothiazide (Hydrochlorothiazide) 25 Mg Tab, 25 MG PO DAILY, (Reported) Insulin Human Lispro (Novolog) 100 U/Ml Inj, 1 DOSE SC AC, (Reported) PER SLIDING SCALE Latanoprost (Xalatan) 0.005 % Margarita, 1 DROP OU QHS, (Reported) Levetiracetam (Levetiracetam) 750 Mg Tab, 750 MG PO BID, (Reported) Lisinopril (Lisinopril) 40 Mg Tablet, 20 MG PO DAILY, (Reported) Loratadine (Loratadine) 10 Mg Tab, 10 MG PO DAILY, (Reported) Meloxicam (Meloxicam) 15 Mg Tablet, 15 MG PO DAILY, (Reported) Multivitamins (Thera M Plus Tablet) 1 Tab Tab, 1 TAB PO DAILY, (Reported) Nut.tx.gluc.intoler,Lac-Fr,Soy (Glucerna) 237 Ml Liquid, 237 ML PO BID, (Reported) Omeprazole (Omeprazole) 20 Mg Cap, 20 MG PO DAILY, (Reported) Potassium Chloride (Potassium Chloride) 10 Meq Tab.er.prt, 20 MEQ PO BID, (Reported) Scheduled PRN Dextrose (Glucose) 4 Gm Tab.chew, 4 GM PO for LOW BLOOD SUGAR, (Reported) Hydrocodone/Acetaminophen (Hydrocodone-Acetamin 5-325 mg) 1 Each Tablet, 1 TAB PO Q4H PRN for PAIN, (Reported) MDD 4 Allergies Coded Allergies: Penicillins (Verified Allergy, Severe, anaphyaxsis, 6/5/19) A-FIB/CHADSVASC A-FIB History Current/History of A-Fib/PAF?: No CHACORTA WRIGHT MD Mar 29, 2019 17:08
[2019-03-29] MEDS: HumaLOG INSULIN (NovoLOG) PER UNIT SC SCH ×2 (17:30→21:00)
[2019-03-29] MEDS: LISINOPRIL 20 MG TAB PO SCH (19:02)
--- NOTE | 2019-03-29 19:07 | REPVR ---
PROCEDURE INFORMATION: Exam: US Duplex Bilateral Lower Extremity Veins Exam date and time: 03/29/2019 6:15 PM Age: 68 years old Clinical history: Pain; Leg, lower; Bilateral; Additional info: Immobility bilat TECHNIQUE: Imaging protocol: Real-time duplex ultrasound of the Bilateral Lower Extremities with 2-D whitt scale, color Doppler flow and spectral waveform analysis with image documentation. Complete exam focused on the bilateral lower extremity veins. COMPARISON: US Duplex, Ext,LOWER veins,unilat 06/14/2018 3:05 PM FINDINGS: Right deep veins: Unremarkable. The common femoral, femoral, proximal profunda femoral and popliteal veins are patent without thrombus. Normal Doppler waveforms. Normal compressibility and/or augmentation response. Right superficial veins: Saphenofemoral junction is patent without thrombus. Left deep veins: Unremarkable. The common femoral, femoral, proximal profunda femoral and popliteal veins are patent without thrombus. Normal Doppler waveforms. Normal compressibility and/or augmentation response. Left superficial veins: Saphenofemoral junction is patent without thrombus. Soft tissues: Unremarkable. IMPRESSION: No acute findings. No evidence of deep vein thrombosis. Electronically signed by: Jeremy Peres On 03/29/2019 19:07:06 PM
[2019-03-29 20:00] VITALS: BP 158/75
[2019-03-29] MEDS: LATANOPROST 0.005% OPHTH SOLN 2.5 ML OU SCH (20:07)
[2019-03-29] MEDS: COSOPT OCUMETER PLUS 10ML (DORZOLAMIDE/TIMOLOL) OU SCH (20:07)
[2019-03-29] MEDS: BRIMONIDINE 0.15% OPHTH SOLN 5 ML OU SCH (20:07)
[2019-03-29] MEDS: OMEPRAZOLE 20 MG CAP PO SCH (20:08)
[2019-03-29] MEDS: NORCO, ANEXSIA 5/325MG TABLET (HYDROcodone/ACETAMINOPHEN) PO PRN (20:08)
[2019-03-29] MEDS: levETIRAcetam 250MG TABLET (KEPPRA) PO SCH (20:08)
[2019-03-29] MEDS: POTASSIUM CHLORIDE 10 MEQ SR TABLET PO SCH (20:09)
[2019-03-29] MEDS: GABAPENTIN 300 MG CAP PO SCH (20:09)
[2019-03-29] MEDS: MAGIC MOUTHWASH SUSPENSION BTL SSP SCH (20:15)
[2019-03-29] MEDS: DOCUSATE SODIUM 100 MG CAP PO SCH (20:20)
[2019-03-29] MEDS: ACETAMINOPHEN TAB 650MG DOSE (2X325MG) PO SCH (20:20)
[2019-03-29] MEDS: IPRATROPIUM 0.5MG/ALBUTEROL 2.5MG INH SOL UD 3ML (DUONEB)(J7620) NEB SCH (20:44)
[2019-03-29] MEDS ORDERED: SENNA 8.6 MG TAB (SENOKOT) PO SCH (21:00)
[2019-03-30] MEDS: NORCO, ANEXSIA 5/325MG TABLET (HYDROcodone/ACETAMINOPHEN) PO PRN (00:30)
[2019-03-30] MEDS ORDERED: SODIUM CHLORIDE 0.9% INJ 10 ML SYR IV PRN (01:30)
[2019-03-30] MEDS: SODIUM CHLORIDE 0.9% INJ 10 ML SYR IV SCH ×3 (05:25→22:00)
[2019-03-30 06:00] VITALS: BP 135/72
[2019-03-30] MEDS: HumaLOG INSULIN (NovoLOG) PER UNIT SC SCH ×4 (07:30→20:31)
[2019-03-30] MEDS: IPRATROPIUM 0.5MG/ALBUTEROL 2.5MG INH SOL UD 3ML (DUONEB)(J7620) NEB SCH ×4 (07:52→20:21)
[2019-03-30] MEDS ORDERED: OXYMETAZOLINE NASAL SPRAY (AFRIN) PRN (09:00)
[2019-03-30] MEDS: LORATADINE 10 MG TAB PO SCH (09:13)
[2019-03-30] MEDS: DOCUSATE SODIUM 100 MG CAP PO SCH (09:13)
[2019-03-30] MEDS: MULTIVITAMINS/MINERALS THERAP 1 TAB PO SCH (09:13)
[2019-03-30] MEDS: OMEPRAZOLE 20 MG CAP PO SCH (09:13)
[2019-03-30] MEDS: hydroCHLOROthiazide 25 MG TAB PO SCH (09:13)
[2019-03-30] MEDS: FOLIC ACID 1 MG TAB PO SCH (09:14)
[2019-03-30] MEDS: levETIRAcetam 250MG TABLET (KEPPRA) PO SCH ×2 (09:14→20:30)
[2019-03-30] MEDS: ATORVASTATIN 20 MG TAB PO SCH (09:14)
[2019-03-30] MEDS: VITAMIN D 1,000 INTERNATIONAL UNITS TABLET PO SCH (09:14)
[2019-03-30] MEDS: POTASSIUM CHLORIDE 10 MEQ SR TABLET PO SCH (09:14)
[2019-03-30] MEDS: ACETAMINOPHEN TAB 650MG DOSE (2X325MG) PO SCH ×3 (09:14→20:30)
[2019-03-30] MEDS: LISINOPRIL 20 MG TAB PO SCH (09:14)
[2019-03-30] MEDS: COSOPT OCUMETER PLUS 10ML (DORZOLAMIDE/TIMOLOL) OU SCH ×2 (09:15→20:31)
[2019-03-30] MEDS: BRIMONIDINE 0.15% OPHTH SOLN 5 ML OU SCH ×3 (09:17→20:31)
[2019-03-30] MEDS: MAGIC MOUTHWASH SUSPENSION BTL SSP SCH ×4 (09:17→20:31)
[2019-03-30 10:35] LABS: BASO # 0.1 10^3/uL (0.0-0.2); BASO % 0.6 % (0.0-1.0); EOS # 0.4 10^3/uL (0.0-0.5); EOS % 4.1 % (0.0-3.0); HEMATOCRIT 39.7 % (42.0-52.0); HEMOGLOBIN 12.6 g/dl (13.5-17.5); LYMPH # 1.2 10^3/uL (1.5-5.0); LYMPH % 14.4 % (24.0-44.0); MEAN CORPUSCULAR HGB CONC 31.7 g/dl (32.0-36.5); MEAN CORPUSCULAR VOLUME 97.5 fl (80.0-96.0); MONO # 1.3 10^3/uL (0.0-0.8); MONO % 15.5 % (0.0-5.0); NEUTROPHILS # 5.5 10^3/uL (1.5-8.5); NEUTROPHILS % 64.9 % (36.0-66.0); RED BLOOD COUNT 4.07 10^6/uL (4.30-6.10); WHITE BLOOD COUNT 8.5 10^3/uL (4.0-10.0)
[2019-03-30 10:37] LABS: PLATELET COUNT, AUTOMATED 91 10^3/uL (150-450)
--- NOTE | 2019-03-30 10:45 | IPNPDOC ---
Date Seen The patient was seen on 03/30/19. Progress Note SUBJECTIVE: Patient appears more comfortable today. Stated that his abdomen is still sore from PEG placement but had improved from yesterday. Has not started on feeds yet. OBJECTIVE PHYSICAL EXAMINATION: VITAL SIGNS: Please see below General: No acute distress, Alert Eyes: Normal sclera, EOMI, AURA HENT: Atraumatic Cardiovascular: Normal rate, normal rhythm. Pulmonary: Clear to auscultation b/l, no wheezing GI: Soft, tender around PEG tube insertion site Skin: Warm and dry Neuro: CN grossly intact. No focal deficits. Strengths equal b/l. Psych: oriented x 3 DVT ppx: TEDs Plan: 1. Aspiration Pneumonia - Completed 7 day course of Levaquin. - s/p PEG tube placement, dietary consulted for feeding recommendations. - O2 support as needed. Wean to maintain sat >90%. 2. Current debility - c/w PT/OT in ARU. 3. LUE swelling - DVT ruled out with doppler. 4. DM Type 2 - A1c 7.6. - ACHS sliding scale. VS, I&O, [facility]H, [facility] Vital Signs/I&O Vital Signs Date Time Temp Pulse Resp B/P (MAP) Pulse Ox O2 Delivery O2 Flow Rate FiO2 03/30/19 09:14 135/72 03/30/19 09:00 2.0 03/30/19 06:00 98.5 72 17 97 Nasal Cannula I&O- Last 24 Hours up to 6 AM 03/30/19 06:00 Intake Total 500 ml Output Total 510 ml Balance -10 ml Laboratory Data 24H LABS Laboratory Tests 2 03/29/19 16:50: Bedside Glucose (Misc Panel) 129H 03/29/19 19:50: Bedside Glucose (Misc Panel) 124H 03/30/19 08:03: Bedside Glucose (Misc Panel) 117H 03/30/19 10:24: Immature Granulocyte % (Auto) 0.5, Neutrophils (%) (Auto) 64.9, Lymphocytes (%) (Auto) 14.4L, Monocytes (%) (Auto) 15.5H, Eosinophils (%) (Auto) 4.1H, Basophils (%) (Auto) 0.6, Neutrophils # (Auto) 5.5, Lymphocytes # (Auto) 1.2L, Monocytes # (Auto) 1.3H, Eosinophils # (Auto) 0.4, Basophils # (Auto) 0.1, Nucleated Red Blood Cells % (auto) 0.0, Immature Platelet Fraction 2.1 CBC/BMP Laboratory Tests 03/30/19 10:24 ESTRELLITA BORRERO MD Mar 30, 2019 10:45
[2019-03-30 11:04] LABS: ALBUMIN 2.2 GM/DL (3.2-5.2); ALT/SGPT 29 U/L (12-78); BILIRUBIN,TOTAL 1.4 MG/DL (0.2-1.0); BLOOD UREA NITROGEN 17 MG/DL (7-18); CALCIUM LEVEL 8.1 MG/DL (8.8-10.2); CARBON DIOXIDE LEVEL 25 MEQ/L (21-32); CHLORIDE LEVEL 110 MEQ/L (98-107); CREATININE FOR GFR 1.01 MG/DL (0.70-1.30); GLOMERULAR FILTRATION RATE > 60.0 (>49); GLUCOSE, FASTING 151 MG/DL (70-100); POTASSIUM SERUM 4.1 MEQ/L (3.5-5.1); SODIUM LEVEL 140 MEQ/L (136-145); TOTAL PROTEIN 6.7 GM/DL (6.4-8.2)
[2019-03-30 14:00] VITALS: BP 137/67
--- NOTE | 2019-03-30 16:01 | IPNPDOC ---
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 He reports no coughing, but had one episode of chills overnight. REVIEW OF SYSTEMS: The following is a completed review of systems and has been reviewed. Review of systems otherwise unremarkable. PAIN: Patient self reports abdominal pain EYES: No recent vision changes EARS, NOSE, & THROAT: +hoarse voice, +dysphagia CARDIOVASCULAR: Denies chest pain or palpitations PULMONARY: Denies shortness of breath GASTROINTESTINAL: Denies constipation/diarrhea GENITOURINARY: denies dysuria MUSCULOSKELETAL: generalized weakness NEUROLOGICAL: hx of stroke, no tremor/seizure activity HEMATOLOGICAL: low platelets, denies easy bruising SKIN: PEG site incision PSYCHIATRIC: Unremarkable All other review of systems found to be negative. PHYSICAL EXAMINATION: VITAL SIGNS: Please see below. GENERAL: Pleasant and cooperative. No acute distress. HEENT: PERRL. Extraocular movements intact. Clear conjunctiva, no facial droop, masked faces CARDIOVASCULAR: Regular rate and rhythm. No murmurs, rubs, or gallops LUNGS: Scattered wheezes +NC ABDOMEN: Soft, tender to palpation, mildly distended, no rebound tenderness Positive bowel sounds. PEG in place NEUROLOGICAL: Alert and oriented to self and place, Cranial nerves II through XII grossly intact. Sensation grossly intact in all 4 extremities EXTREMITIES: 5-\5 strength bilateral upper extremities. 5-\5 strength right lower extremity. 5-/5 strength in left lower extremity. LUE swelling (-) No edema bila LE (-) Manuel's SKIN: left Central line, frontal-sagittal plane cranial incision healed ASSESSMENT:68 M year-old with past medical history of stroke who presents status post bilateral pneumonia with dysphagia and PEG placement PLAN: 1. Rehab: PT/OT advance gait training and ADL management, strenghten/stretch/maintain ROM bilat LE and UE 2. Neuro: pmh hemorrhagic CVA s/p craniotomy- c/u Keppra for seizure hx, will o btain keppra levels -will observe for bradykinesia in therapy as patient with worsening gait and rig idity per his with dysphagia, in addition to masked faces suspicious for parkinsonian features -c/u statin for secondary prevention 3. Cardiac: ECHO on 03-22-19 showing grade 1 diastolic dysfunction, c/u hydrochlorothiazide with fluid restriction 1800cc/day -HTN c/u lisinopril -HLD- statin -medicine consulted to assist in management 4. Resp: s/p 7 day course of Levofloxacin for bilateral PNA, wheeze resolved on today's exam -c/u Duonebs standing, Guaifenesin, and supplemental 02 -monitor for infection 5. GI: s/p PEG placement 03-28-19, abdomen soft on exam, monitor for peritonitis -dysphagia- c/u nectar thickened liquids and puree, with bolus feeds per PEG if he eats <50% 6. Heme: thrombocytopenia, possibly due to recent Levofloxacin treatment, will hold heparin and Meloxicam, and monitor- no signs of active bleed now 7.Pain: Corbin, tylenol, gabapentin 8. DVT px: TEDs -Dopplers negative for proximal DVTs bilat LE, patient with thrombocytopenia, holding heparin -recent LUE doppler negative for DVT 9. Dispo: TBD Allergies Coded Allergies: Penicillins (Verified Allergy, Severe, anaphyaxsis, 10/06/18) Vital Signs Vital Signs Date Time Temp Pulse Resp B/P (MAP) Pulse Ox O2 Delivery O2 Flow Rate FiO2 03/30/19 14:00 98.2 69 18 137/67 (90) 97 Nasal Cannula 2.0 Laboratory Data CBC/BMP Laboratory Tests 03/30/19 10:24 Labs 24H Laboratory Tests 2 03/29/19 16:50: Bedside Glucose (Misc Panel) 129H 03/29/19 19:50: Bedside Glucose (Misc Panel) 124H 03/30/19 08:03: Bedside Glucose (Misc Panel) 117H 03/30/19 10:24: Immature Granulocyte % (Auto) 0.5, Neutrophils (%) (Auto) 64.9, Lymphocytes (%) (Auto) 14.4L, Monocytes (%) (Auto) 15.5H, Eosinophils (%) (Auto) 4.1H, Basophils (%) (Auto) 0.6, Neutrophils # (Auto) 5.5, Lymphocytes # (Auto) 1.2L, Monocytes # (Auto) 1.3H, Eosinophils # (Auto) 0.4, Basophils # (Auto) 0.1, Nucleated Red Blood Cells % (auto) 0.0, Immature Platelet Fraction 2.1, Anion Gap 5L, Glomerular Filtration Rate > 60.0, Calcium Level 8.1L, Total Bilirubin 1.4H, Aspartate Amino Transf (AST/SGOT) 39H, Alanine Aminotransferase (ALT/SGPT) 29, Alkaline Phosphatase 92, Total Protein 6.7, Albumin 2.2L, Albumin/Globulin Ratio 0.49L, Thyroid Stimulating Hormone (TSH) 4.770H 03/30/19 11:42: Bedside Glucose (Misc Panel) 162H Current Medications Current Medications Current Medications Medications (Trade) Dose Ordered Sig/Odin Route PRN Reason Start Time Stop Time Status Last Admin Dose Admin Acetaminophen (Tylenol Tab) 650 mg TID PO 03/29/19 21:00 03/30/19 14:07 Acetaminophen/ Hydrocodone Bitart (Corbin, Anexsia 5/325) 1 tab Q4HP PRN PO MILD/MODERATE PAIN (PS 1-7) 03/29/19 16:15 03/30/19 00:30 Albuterol/ Ipratropium (Duoneb (Ipr 0.5mg/Alb 2.5mg)) 3 ml RQID NEB 03/29/19 20:00 03/30/19 11:33 Atorvastatin Calcium (Lipitor) 40 mg DAILY PO 03/30/19 09:00 03/30/19 09:14 Brimonidine Tartrate (Alphagan P 0.15%) 1 drop TID OU 03/29/19 21:00 03/30/19 14:08 Dextrose (Dextrose 50%) 25 ml ASDIRECTED PRN IV SEE LABEL COMMENTS 03/29/19 16:15 Dextrose/Sodium Chloride 500 ml @ 60 mls/hr [id number] IV 03/29/19 17:28 03/30/19 00:34 DC 03/29/19 17:28 Dextrose/Sodium Chloride 1,000 ml @ 60 mls/hr [id number] IV 03/29/19 16:15 03/29/19 17:28 DC Docusate Sodium (Colace) 100 mg BID PO 03/29/19 21:00 03/30/19 09:13 Dorzolamide/ Timolol (Cosopt Ocumeter Plus) 1 drop BID OU 03/29/19 21:00 03/30/19 09:15 Folic Acid (Folic Acid) 1 mg DAILY PO 03/30/19 09:00 03/30/19 09:14 Gabapentin (Neurontin) 300 mg QHS PO 03/29/19 21:00 03/29/19 20:09 Glucagon (Glucagon) 1 mg ASDIRECTED PRN SC SEE LABEL COMMENTS 03/29/19 16:15 Glucose (Glucose) 16 GM ASDIRECTED PRN PO SEE LABEL COMMENTS 03/29/19 16:15 Heparin Sodium (Heparin Lock Flush 10units/ml) 10 units ASDIRECTED PRN IV SEE LABEL COMMENTS 03/30/19 01:30 03/30/19 01:56 DC Heparin Sodium (Heparin Lock Flush 10units/ml) 10 units HLF IV 03/30/19 06:00 03/30/19 01:56 DC Hydrochlorothiazide (Hydrodiuril) 25 mg DAILY PO 03/30/19 09:00 03/30/19 09:13 Insulin Human Lispro (HumaLOG INSULIN) SEE PROTOCOL TABLE AC SC 03/29/19 17:30 03/30/19 14:06 Insulin Human Lispro (HumaLOG INSULIN) SEE PROTOCOL TABLE QHS SC 03/29/19 21:00 Latanoprost (Xalatan 0.005% Op Soln) 1 drop QHS OU 03/29/19 21:00 03/29/19 20:07 Levetiracetam (Keppra) 750 mg BID PO 03/29/19 21:00 03/30/19 09:14 Lidocaine/ Diphenhydr/Alum/ Mg/Simeth (Magic Mouthwash) 5ml QID SSP 03/29/19 21:00 03/30/19 14:07 Lisinopril (Prinivil) 20 mg DAILY PO 03/29/19 09:00 03/30/19 09:14 Loratadine (Claritin) 10 mg DAILY PO 03/30/19 09:00 03/30/19 09:13 Magnesium Hydroxide (Milk Of Magnesia) 30 ml DAILYPRN PRN PO CONSTIPATION 03/29/19 16:15 Multivitamins (Theragram-M) 1 tab DAILY PO 03/30/19 09:00 03/30/19 09:13 Omeprazole (PriLOSEC) 20 mg BID PO 03/29/19 21:00 03/30/19 09:13 Oxymetazoline HCl (Afrin) 2 spray ASDIRECTED PRN NA SEE LABEL COMMENTS 03/30/19 09:00 Potassium Chloride (Micro-K Extencaps) 20 meq BID PO 03/29/19 21:00 03/30/19 09:14 Senna (Senokot) 1 tab QHS PO 03/29/19 21:00 Sodium Chloride (Saline Lock Flush) 10 ml ASDIRECTED PRN IV SEE LABEL COMMENTS 03/30/19 01:30 03/30/19 03:19 Sodium Chloride (Saline Lock Flush) 10 ml SLF IV 03/30/19 06:00 03/30/19 14:08 Vitamin D (Vitamin D) 1,000 units DAILY PO 03/30/19 09:00 03/30/19 09:14 CHACORTA WRIGHT MD Mar 30, 2019 16:01
[2019-03-30 20:00] VITALS: BP 142/82
[2019-03-30] MEDS: DOCUSATE SOD LIQ 100MG/10ML UDC PO SCH (20:30)
[2019-03-30] MEDS: GABAPENTIN 300 MG CAP PO SCH (20:30)
[2019-03-30] MEDS: POTASSIUM CHL PWD 20 MEQ PACKET PO SCH (20:30)
[2019-03-30] MEDS: LATANOPROST 0.005% OPHTH SOLN 2.5 ML OU SCH (20:31)
[2019-03-31] MEDS: SODIUM CHLORIDE 0.9% INJ 10 ML SYR IV SCH ×3 (05:22→21:05)
[2019-03-31 06:00] VITALS: BP 109/58
[2019-03-31] MEDS: IPRATROPIUM 0.5MG/ALBUTEROL 2.5MG INH SOL UD 3ML (DUONEB)(J7620) NEB SCH ×4 (07:53→20:00)
[2019-03-31] MEDS: NORCO, ANEXSIA 5/325MG TABLET (HYDROcodone/ACETAMINOPHEN) PO PRN (08:34)
[2019-03-31] MEDS: MULTIVITAMINS/MINERALS THERAP 1 TAB PO SCH (08:34)
[2019-03-31] MEDS: ACETAMINOPHEN TAB 650MG DOSE (2X325MG) PO SCH ×3 (08:34→21:04)
[2019-03-31] MEDS: LISINOPRIL 20 MG TAB PO SCH (08:35)
[2019-03-31] MEDS: levETIRAcetam 250MG TABLET (KEPPRA) PO SCH ×2 (08:35→21:04)
[2019-03-31] MEDS: LORATADINE 10 MG TAB PO SCH (08:35)
[2019-03-31] MEDS: VITAMIN D 1,000 INTERNATIONAL UNITS TABLET PO SCH (08:35)
[2019-03-31] MEDS: POTASSIUM CHL PWD 20 MEQ PACKET PO SCH ×2 (08:35→21:04)
[2019-03-31] MEDS: ATORVASTATIN 20 MG TAB PO SCH (08:35)
[2019-03-31] MEDS: FOLIC ACID 1 MG TAB PO SCH (08:35)
[2019-03-31] MEDS: hydroCHLOROthiazide 25 MG TAB PO SCH (08:36)
[2019-03-31] MEDS: DOCUSATE SOD LIQ 100MG/10ML UDC PO SCH ×2 (08:36→21:03)
[2019-03-31] MEDS: HumaLOG INSULIN (NovoLOG) PER UNIT SC SCH ×4 (08:37→20:53)
[2019-03-31] MEDS: OMEPRAZOLE 20 MG CAP PO SCH (08:37)
[2019-03-31] MEDS: COSOPT OCUMETER PLUS 10ML (DORZOLAMIDE/TIMOLOL) OU SCH ×2 (08:38→21:04)
[2019-03-31] MEDS: MAGIC MOUTHWASH SUSPENSION BTL SSP SCH ×4 (08:39→21:04)
[2019-03-31] MEDS: BRIMONIDINE 0.15% OPHTH SOLN 5 ML OU SCH ×3 (08:39→21:05)
--- NOTE | 2019-03-31 09:37 | IPNPDOC ---
Date Seen The patient was seen on 03/31/19. Progress Note SUBJECTIVE: Patient seen walking the halls. Appear to be quite a bit stronger today. Has been tolerate PO intake. Abdomen less tender. OBJECTIVE PHYSICAL EXAMINATION: VITAL SIGNS: Please see below General: No acute distress, Alert Eyes: Normal sclera, EOMI, AURA HENT: Atraumatic Cardiovascular: Normal rate, normal rhythm. Pulmonary: Clear to auscultation b/l, no wheezing GI: Soft, tender around PEG tube insertion site Skin: Warm and dry Neuro: CN grossly intact. No focal deficits. Strengths equal b/l. Psych: oriented x 3 DVT ppx: TEDs in setting of thrombocytopenia Plan: 1. Aspiration Pneumonia - Completed 7 day course of Levaquin. - s/p PEG tube placement. On feeds PRN if patient consumes less than <50% PO. - O2 support as needed. Wean to maintain sat >90%. 2. Current debility - c/w PT/OT in ARU. 3. LUE swelling - DVT ruled out with doppler. 4. DM Type 2 - A1c 7.6. - ACHS sliding scale. 5. hx Hemorrhagic stroke s/p craniotomy - c/w seizure ppx with Keppra. 6. 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 VS, I&O, 24H, Fishbone Vital Signs/I&O Vital Signs Date Time Temp Pulse Resp B/P (MAP) Pulse Ox O2 Delivery O2 Flow Rate FiO2 03/31/19 08:35 118/58 03/31/19 08:34 18 Room Air 03/31/19 06:00 99.7 93 95 2.0 I&O- Last 24 Hours up to 6 AM 03/31/19 06:00 Intake Total 680 ml Output Total 300 ml Balance 380 ml Laboratory Data 24H LABS Laboratory Tests 2 03/30/19 10:24: Immature Granulocyte % (Auto) 0.5, Neutrophils (%) (Auto) 64.9, Lymphocytes (%) (Auto) 14.4L, Monocytes (%) (Auto) 15.5H, Eosinophils (%) (Auto) 4.1H, Basophils (%) (Auto) 0.6, Neutrophils # (Auto) 5.5, Lymphocytes # (Auto) 1.2L, Monocytes # (Auto) 1.3H, Eosinophils # (Auto) 0.4, Basophils # (Auto) 0.1, Nucleated Red Blood Cells % (auto) 0.0, Immature Platelet Fraction 2.1, Anion Gap 5L, Glomerular Filtration Rate > 60.0, Calcium Level 8.1L, Total Bilirubin 1.4H, Aspartate Amino Transf (AST/SGOT) 39H, Alanine Aminotransferase (ALT/SGPT) 29, Alkaline Phosphatase 92, Total Protein 6.7, Albumin 2.2L, Albumin/Globulin Ratio 0.49L, Thyroid Stimulating Hormone (TSH) 4.770H 03/30/19 11:42: Bedside Glucose (Misc Panel) 162H 03/30/19 16:38: Bedside Glucose (Misc Panel) 174H 03/30/19 19:51: Bedside Glucose (Misc Panel) 182H 03/30/19 20:37: 03/31/19 05:38: Bedside Glucose (Misc Panel) 113 CBC/BMP Laboratory Tests 03/30/19 10:24 ESTRELLITA BORRERO MD Mar 31, 2019 09:37
[2019-03-31 20:00] VITALS: BP 125/62
[2019-03-31] MEDS: GABAPENTIN 300 MG CAP PO SCH (21:04)
[2019-03-31] MEDS: LATANOPROST 0.005% OPHTH SOLN 2.5 ML OU SCH (21:05)
[2019-04-01] MEDS: SODIUM CHLORIDE 0.9% INJ 10 ML SYR IV SCH ×3 (05:39→22:01)
[2019-04-01 06:00] VITALS: BP 102/54
[2019-04-01] MEDS: HumaLOG INSULIN (NovoLOG) PER UNIT SC SCH ×4 (07:35→21:00)
[2019-04-01] MEDS: levETIRAcetam 250MG TABLET (KEPPRA) PO SCH ×2 (07:35→21:59)
[2019-04-01] MEDS: DOCUSATE SOD LIQ 100MG/10ML UDC PO SCH ×2 (07:35→21:58)
[2019-04-01] MEDS: hydroCHLOROthiazide 25 MG TAB PO SCH (07:36)
[2019-04-01] MEDS: ATORVASTATIN 20 MG TAB PO SCH (07:36)
[2019-04-01] MEDS: POTASSIUM CHL PWD 20 MEQ PACKET PO SCH ×2 (07:36→21:58)
[2019-04-01] MEDS: FOLIC ACID 1 MG TAB PO SCH (07:36)
[2019-04-01] MEDS: VITAMIN D 1,000 INTERNATIONAL UNITS TABLET PO SCH (07:36)
[2019-04-01] MEDS: OMEPRAZOLE 20 MG CAP PO SCH (07:36)
[2019-04-01] MEDS: MULTIVITAMINS/MINERALS THERAP 1 TAB PO SCH (07:37)
[2019-04-01] MEDS: LISINOPRIL 20 MG TAB PO SCH (07:38)
[2019-04-01] MEDS: ACETAMINOPHEN TAB 650MG DOSE (2X325MG) PO SCH ×3 (07:40→21:59)
[2019-04-01] MEDS: LORATADINE 10 MG TAB PO SCH (07:40)
[2019-04-01] MEDS: MAGIC MOUTHWASH SUSPENSION BTL SSP SCH ×4 (07:41→22:00)
[2019-04-01] MEDS: BRIMONIDINE 0.15% OPHTH SOLN 5 ML OU SCH ×3 (07:42→22:00)
[2019-04-01] MEDS: COSOPT OCUMETER PLUS 10ML (DORZOLAMIDE/TIMOLOL) OU SCH ×2 (07:42→22:00)
[2019-04-01] MEDS: IPRATROPIUM 0.5MG/ALBUTEROL 2.5MG INH SOL UD 3ML (DUONEB)(J7620) NEB SCH ×4 (07:57→19:36)
--- NOTE | 2019-04-01 10:05 | IPNPDOC ---
Date Seen The patient was seen on 04/01/19. Progress Note SUBJECTIVE: Patient still complains of abdominal discomfort but reports that it feels slightly better each day. Has been able to eat well without reported problems. OBJECTIVE PHYSICAL EXAMINATION: VITAL SIGNS: Please see below General: No acute distress, Alert Eyes: Normal sclera, EOMI, AURA HENT: Atraumatic Cardiovascular: Normal rate, normal rhythm. Pulmonary: Clear to auscultation b/l, no wheezing GI: Soft, tender around PEG tube insertion site Skin: Warm and dry Neuro: CN grossly intact. No focal deficits. Strengths equal b/l. Psych: oriented x 3 DVT ppx: TEDs in setting of thrombocytopenia Plan: 1. Aspiration Pneumonia - Completed 7 day course of Levaquin. - s/p PEG tube placement. On feeds PRN if patient consumes less than <50% PO. Has been tolerating food by mouth well. - O2 support as needed. 2. Current debility - c/w PT/OT in ARU. 3. LUE swelling - DVT ruled out with doppler. 4. DM Type 2 - A1c 7.6. - ACHS sliding scale. 5. hx Hemorrhagic stroke s/p craniotomy - c/w seizure ppx with Keppra. 6. 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
[2019-04-01 14:00] VITALS: BP 132/77
[2019-04-01 20:45] VITALS: BP 101/50
[2019-04-01] MEDS: GABAPENTIN 300 MG CAP PO SCH (21:59)
[2019-04-01 22:00] VITALS: BP 122/54
[2019-04-01] MEDS: LATANOPROST 0.005% OPHTH SOLN 2.5 ML OU SCH (22:00)
[2019-04-02 05:40] VITALS: BP 109/55
[2019-04-02] MEDS: SODIUM CHLORIDE 0.9% INJ 10 ML SYR IV SCH ×3 (06:12→21:55)
[2019-04-02 06:57] LABS: HEMATOCRIT 34.2 % (42.0-52.0); HEMOGLOBIN 11.1 g/dl (13.5-17.5); MEAN CORPUSCULAR HEMOGLOBIN 31.1 pg (27.0-33.0); MEAN CORPUSCULAR HGB CONC 32.5 g/dl (32.0-36.5); MEAN CORPUSCULAR VOLUME 95.8 fl (80.0-96.0); PLATELET COUNT, AUTOMATED 106 10^3/uL (150-450); RED BLOOD COUNT 3.57 10^6/uL (4.30-6.10); WHITE BLOOD COUNT 7.2 10^3/uL (4.0-10.0)
--- NOTE | 2019-04-02 07:19 | IPNPDOC ---
Date Seen The patient was seen on 04/02/19. Progress Note SUBJECTIVE: Patient still reports abdominal pain over PEG site, slightly better today. Ambulating with PT and still tolerating PO intake. Reportedly desaturate with ambulation down to 88% but comes up with oxygen. OBJECTIVE PHYSICAL EXAMINATION: VITAL SIGNS: Please see below General: No acute distress, Alert Eyes: Normal sclera, EOMI, AURA HENT: Atraumatic Cardiovascular: Normal rate, normal rhythm. Pulmonary: Clear to auscultation b/l, no wheezing GI: Soft, tender around PEG tube insertion site Skin: Warm and dry Neuro: CN grossly intact. No focal deficits. Strengths equal b/l. Psych: oriented x 3 DVT ppx: TEDs in setting of thrombocytopenia Plan: 1. Aspiration Pneumonia - Completed 7 day course of Levaquin. - s/p PEG tube placement. On feeds PRN if patient consumes less than <50% PO. Has been tolerating food by mouth well. - O2 support as needed. Desaturate with oxygen in setting of recent PNA and likely atelectasis. Encourage mobilization and incentive spirometer use. 2. Current debility - c/w PT/OT in ARU. 3. LUE swelling - DVT ruled out with doppler. 4. DM Type 2 - A1c 7.6. - ACHS sliding scale. 5. hx Hemorrhagic stroke s/p craniotomy - c/w seizure ppx with Keppra. 6. 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 Thrombocytopenia - Chronic in setting of recent infection. Has not been getting heparin products or lovenox. - Stable around 90-100 at this time. Continue to monitor. 8. Difficult venous access - Currently has central line. - Will try to get midline placed on Thursday and remove current line as soon as possible. VS, I&O, 24H, Jose J Vital Signs/I&O Vital Signs Date Time Temp Pulse Resp B/P (MAP) Pulse Ox O2 Delivery O2 Flow Rate FiO2 04/02/19 05:40 99.9 84 18 109/55 (73) 96 Nasal Cannula 2.0 I&O- Last 24 Hours up to 6 AM0 04/02/19 06:00 Intake Total 610 ml Output Total 1248 ml Balance -638 ml Laboratory Data 24H LABS Laboratory Tests 2 04/01/19 11:52: Bedside Glucose (Misc Panel) 174H 04/01/19 16:49: Bedside Glucose (Misc Panel) 173H 04/01/19 21:05: Bedside Glucose (Misc Panel) 154H 04/02/19 06:24: Nucleated Red Blood Cells % (auto) 0.0 04/02/19 06:31: Bedside Glucose (Misc Panel) 113 CBC/BMP Laboratory Tests 04/02/19 06:24 ESTRELLITA BORRERO MD Apr 02, 2019 07:19
[2019-04-02] MEDS: IPRATROPIUM 0.5MG/ALBUTEROL 2.5MG INH SOL UD 3ML (DUONEB)(J7620) NEB SCH ×4 (07:47→19:44)
[2019-04-02] MEDS: HumaLOG INSULIN (NovoLOG) PER UNIT SC SCH ×4 (07:53→21:00)
[2019-04-02] MEDS: DOCUSATE SOD LIQ 100MG/10ML UDC PO SCH ×3 (09:00→21:00)
[2019-04-02] MEDS: MULTIVITAMINS/MINERALS THERAP 1 TAB PO SCH (09:17)
[2019-04-02] MEDS: LORATADINE 10 MG TAB PO SCH (09:18)
[2019-04-02] MEDS: levETIRAcetam 250MG TABLET (KEPPRA) PO SCH ×2 (09:18→21:53)
[2019-04-02] MEDS: VITAMIN D 1,000 INTERNATIONAL UNITS TABLET PO SCH (09:18)
[2019-04-02] MEDS: OMEPRAZOLE 20 MG CAP PO SCH (09:18)
[2019-04-02] MEDS: POTASSIUM CHL PWD 20 MEQ PACKET PO SCH ×2 (09:18→21:53)
[2019-04-02] MEDS: hydroCHLOROthiazide 25 MG TAB PO SCH (09:18)
[2019-04-02] MEDS: FOLIC ACID 1 MG TAB PO SCH (09:18)
[2019-04-02] MEDS: ATORVASTATIN 20 MG TAB PO SCH (09:19)
[2019-04-02] MEDS: ACETAMINOPHEN TAB 650MG DOSE (2X325MG) PO SCH ×3 (09:19→21:53)
[2019-04-02] MEDS: LISINOPRIL 20 MG TAB PO SCH (09:19)
[2019-04-02] MEDS: BRIMONIDINE 0.15% OPHTH SOLN 5 ML OU SCH ×3 (09:19→21:54)
[2019-04-02] MEDS: COSOPT OCUMETER PLUS 10ML (DORZOLAMIDE/TIMOLOL) OU SCH ×2 (09:20→21:54)
[2019-04-02] MEDS: MAGIC MOUTHWASH SUSPENSION BTL SSP SCH ×4 (09:20→21:54)
[2019-04-02 19:40] VITALS: BP 120/67
[2019-04-02] MEDS: GABAPENTIN 300 MG CAP PO SCH (21:53)
[2019-04-02] MEDS: LATANOPROST 0.005% OPHTH SOLN 2.5 ML OU SCH (21:54)
[2019-04-03 05:20] VITALS: BP 116/61
[2019-04-03] MEDS: SODIUM CHLORIDE 0.9% INJ 10 ML SYR IV SCH ×3 (05:44→20:47)
[2019-04-03] MEDS: IPRATROPIUM 0.5MG/ALBUTEROL 2.5MG INH SOL UD 3ML (DUONEB)(J7620) NEB SCH ×4 (07:14→19:06)
[2019-04-03] MEDS: HumaLOG INSULIN (NovoLOG) PER UNIT SC SCH ×4 (07:15→20:44)
[2019-04-03] MEDS: ATORVASTATIN 20 MG TAB PO SCH (08:16)
[2019-04-03] MEDS: OMEPRAZOLE 20 MG CAP PO SCH (08:16)
[2019-04-03] MEDS: MULTIVITAMINS/MINERALS THERAP 1 TAB PO SCH (08:16)
[2019-04-03] MEDS: VITAMIN D 1,000 INTERNATIONAL UNITS TABLET PO SCH (08:17)
[2019-04-03] MEDS: LORATADINE 10 MG TAB PO SCH (08:17)
[2019-04-03] MEDS: FOLIC ACID 1 MG TAB PO SCH (08:17)
[2019-04-03] MEDS: hydroCHLOROthiazide 25 MG TAB PO SCH (08:17)
[2019-04-03] MEDS: POTASSIUM CHL PWD 20 MEQ PACKET PO SCH ×2 (08:17→20:53)
[2019-04-03] MEDS: ACETAMINOPHEN TAB 650MG DOSE (2X325MG) PO SCH ×3 (08:17→20:53)
[2019-04-03] MEDS: levETIRAcetam 250MG TABLET (KEPPRA) PO SCH ×2 (08:17→20:53)
[2019-04-03] MEDS: LISINOPRIL 20 MG TAB PO SCH (08:17)
[2019-04-03] MEDS: BRIMONIDINE 0.15% OPHTH SOLN 5 ML OU SCH ×3 (08:18→20:52)
[2019-04-03] MEDS: MAGIC MOUTHWASH SUSPENSION BTL SSP SCH ×4 (08:18→20:53)
[2019-04-03] MEDS: DOCUSATE SOD LIQ 100MG/10ML UDC PO SCH ×2 (08:18→20:47)
[2019-04-03] MEDS: COSOPT OCUMETER PLUS 10ML (DORZOLAMIDE/TIMOLOL) OU SCH ×2 (08:18→20:52)
--- NOTE | 2019-04-03 09:35 | IPNPDOC ---
Date Seen The patient was seen on 04/03/19. Progress Note SUBJECTIVE: Patient has been tolerating PO intake well, has not have to use PEG tube. Reports continue improvement in abdominal discomfort. Central line no longer able to draw blood, to remove today. OBJECTIVE PHYSICAL EXAMINATION: VITAL SIGNS: Please see below General: No acute distress, Alert Eyes: Normal sclera, EOMI, AURA HENT: Atraumatic Cardiovascular: Normal rate, normal rhythm. Pulmonary: Clear to auscultation b/l, no wheezing GI: Soft, tender around PEG tube insertion site Skin: Warm and dry Neuro: CN grossly intact. No focal deficits. Strengths equal b/l. Psych: oriented x 3 DVT ppx: TEDs in setting of thrombocytopenia Plan: 1. Aspiration Pneumonia - Completed 7 day course of Levaquin. - s/p PEG tube placement. On feeds PRN if patient consumes less than <50% PO. Has been tolerating food by mouth well. - O2 support as needed. Desaturate with oxygen in setting of recent PNA and likely atelectasis. Encourage mobilization and incentive spirometer use. 2. Current debility - c/w PT/OT in ARU. 3. LUE swelling - DVT ruled out with doppler. 4. DM Type 2 - A1c 7.6. - ACHS sliding scale. 5. hx Hemorrhagic stroke s/p craniotomy - c/w seizure ppx with Keppra. 6. 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 Thrombocytopenia - Chronic in setting of recent infection. Has not been getting heparin products or lovenox. - Stable around 90-100 at this time. Continue to monitor. 8. Difficult venous access - Will get midline tomorrow for access. - Remove central line. No longer able to draw blood. VS, I&O, 24H, Fishbone Vital Signs/I&O Vital Signs Date Time Temp Pulse Resp B/P (MAP) Pulse Ox O2 Delivery O2 Flow Rate FiO2 04/03/19 08:17 114/62 04/03/19 08:00 3.0 04/03/19 05:20 99.8 85 18 97 Nasal Cannula I&O- Last 24 Hours up to 6 AM 04/03/19 06:00 Intake Total 1160 ml Output Total 1000 ml Balance 160 ml Laboratory Data 24H LABS Laboratory Tests 2 04/02/19 11:57: Bedside Glucose (Misc Panel) 207H 04/02/19 13:33: Bedside Glucose (Misc Panel) 199H 04/02/19 16:49: Bedside Glucose (Misc Panel) 138H 04/02/19 19:39: Bedside Glucose (Misc Panel) 151H 04/03/19 05:26: Bedside Glucose (Misc Panel) 111 ESTRELLITA BORRERO MD Apr 03, 2019 09:35
[2019-04-03 14:00] VITALS: BP 96/51
[2019-04-03 20:00] VITALS: BP 107/56
[2019-04-03] MEDS: LATANOPROST 0.005% OPHTH SOLN 2.5 ML OU SCH (20:52)
[2019-04-03] MEDS: GABAPENTIN 300 MG CAP PO SCH (20:54)
[2019-04-04] MEDS ORDERED: NEOSPORIN TOP OINT 15GM TOP ONE (05:00)
[2019-04-04 06:00] VITALS: BP 100/55
[2019-04-04] MEDS: IPRATROPIUM 0.5MG/ALBUTEROL 2.5MG INH SOL UD 3ML (DUONEB)(J7620) NEB SCH ×4 (07:31→20:18)
[2019-04-04 08:44] LABS: HEMATOCRIT 39.6 % (42.0-52.0); HEMOGLOBIN 12.5 g/dl (13.5-17.5); MEAN CORPUSCULAR HEMOGLOBIN 30.3 pg (27.0-33.0); MEAN CORPUSCULAR HGB CONC 31.6 g/dl (32.0-36.5); MEAN CORPUSCULAR VOLUME 95.9 fl (80.0-96.0); PLATELET COUNT, AUTOMATED 111 10^3/uL (150-450); RED BLOOD COUNT 4.13 10^6/uL (4.30-6.10); WHITE BLOOD COUNT 8.3 10^3/uL (4.0-10.0)
[2019-04-04] MEDS: ACETAMINOPHEN TAB 650MG DOSE (2X325MG) PO SCH ×3 (09:00→21:35)
[2019-04-04] MEDS: MAGIC MOUTHWASH SUSPENSION BTL SSP SCH ×4 (09:00→21:35)
[2019-04-04 09:04] LABS: BLOOD UREA NITROGEN 8 MG/DL (7-18); CALCIUM LEVEL 8.3 MG/DL (8.8-10.2); CARBON DIOXIDE LEVEL 23 MEQ/L (21-32); CHLORIDE LEVEL 108 MEQ/L (98-107); CREATININE FOR GFR 0.92 MG/DL (0.70-1.30); GLOMERULAR FILTRATION RATE > 60.0 (>49); GLUCOSE, FASTING 159 MG/DL (70-100); POTASSIUM SERUM 3.9 MEQ/L (3.5-5.1); SODIUM LEVEL 138 MEQ/L (136-145)
[2019-04-04] MEDS: HumaLOG INSULIN (NovoLOG) PER UNIT SC SCH ×4 (09:11→21:00)
[2019-04-04] MEDS: VITAMIN D 1,000 INTERNATIONAL UNITS TABLET PO SCH (09:11)
[2019-04-04] MEDS: ATORVASTATIN 20 MG TAB PO SCH (09:11)
[2019-04-04] MEDS: levETIRAcetam 250MG TABLET (KEPPRA) PO SCH ×2 (09:11→21:35)
[2019-04-04] MEDS: MULTIVITAMINS/MINERALS THERAP 1 TAB PO SCH (09:11)
[2019-04-04] MEDS: LORATADINE 10 MG TAB PO SCH (09:12)
[2019-04-04] MEDS: OMEPRAZOLE 20 MG CAP PO SCH (09:12)
[2019-04-04] MEDS: DOCUSATE SOD LIQ 100MG/10ML UDC PO SCH (09:12)
[2019-04-04] MEDS: hydroCHLOROthiazide 25 MG TAB PO SCH (09:12)
[2019-04-04] MEDS: LISINOPRIL 20 MG TAB PO SCH (09:13)
[2019-04-04] MEDS: POTASSIUM CHL PWD 20 MEQ PACKET PO SCH ×2 (09:13→21:35)
[2019-04-04] MEDS: COSOPT OCUMETER PLUS 10ML (DORZOLAMIDE/TIMOLOL) OU SCH ×2 (09:14→21:34)
[2019-04-04] MEDS: BRIMONIDINE 0.15% OPHTH SOLN 5 ML OU SCH ×3 (09:14→21:34)
[2019-04-04] MEDS: FOLIC ACID 1 MG TAB PO SCH (09:14)
--- NOTE | 2019-04-04 11:48 | REP ---
The two-view chest: 04/04/2019. Indication: Dyspnea. Comparison: CT and plain film chest dated March 2019. Findings: Hyperinflation and prominent interstitial markings are redemonstrated. There is no focal airspace consolidation. Cardiac silhouette is within normal limits. Impression: No acute cardiopulmonary process. Electronically Signed by Valdez Gardner DO 04/04/2019 11:40 A
--- NOTE | 2019-04-04 12:12 | IPNPDOC ---
PM&R Progress Note DATE OF SERVICE: Apr 04, 2019 [employer] Progress Note Subjective: Patient reporting his abdominal pain is better and he is feeling stronger. He denies feeling short of breath, but still requiring 02. He denies coughing and reports no trouble swallowing his food. He is hoping to go home soon. REVIEW OF SYSTEMS: The following is a completed review of systems and has been reviewed. Review of systems otherwise unremarkable. PAIN: Patient self reports abdominal pain EYES: No recent vision changes EARS, NOSE, & THROAT: +hoarse voice, +dysphagia CARDIOVASCULAR: Denies chest pain or palpitations PULMONARY: Denies shortness of breath GASTROINTESTINAL: Denies constipation/diarrhea GENITOURINARY: denies dysuria MUSCULOSKELETAL: generalized weakness NEUROLOGICAL: hx of stroke, no tremor/seizure activity HEMATOLOGICAL: low platelets, denies easy bruising SKIN: PEG site incision PSYCHIATRIC: Unremarkable All other review of systems found to be negative. PHYSICAL EXAMINATION: VITAL SIGNS: Please see below. GENERAL: Pleasant and cooperative. No acute distress. HEENT: PERRL. Extraocular movements intact. Clear conjunctiva, no facial droop, masked faces CARDIOVASCULAR: Regular rate and rhythm. No murmurs, rubs, or gallops LUNGS: Poor inspiratory effort, mostly CTA ABDOMEN: Soft, tender to palpation, mildly distended, no rebound tenderness Positive bowel sounds. PEG in place NEUROLOGICAL: Alert and oriented to self and place, Cranial nerves II through XII grossly intact. Sensation grossly intact in all 4 extremities EXTREMITIES: 5-\5 strength bilateral upper extremities. 5-\5 strength right lower extremity. 5-/5 strength in left lower extremity. LUE swelling (improving) (-) No edema bila LE (-) Manuel's SKIN: left Central line removed, frontal-sagittal plane cranial incision healed, bilat stage 2 ulcers on tania of his ears ASSESSMENT:68 M year-old with past medical history of stroke who presents status post bilateral pneumonia with dysphagia and PEG placement PLAN: 1. Rehab: PT/OT advance gait training and ADL management, strengthen/stretch/maintain ROM bilat LE and UE,ambulating with RW 2. Neuro: [facility] hemorrhagic CVA s/p craniotomy- c/u Keppra for seizure hx, Keppra levels WNL -patient with notable bradykinesia in therapy as patient with worsening gait and rigidity per his with dysphagia, in addition to masked faces suspicious for parkinsonian features, will trial Sinemet while inhouse and monitor for clinical response -c/u statin for secondary prevention 3. Cardiac: ECHO on 03-22-19 showing grade 1 diastolic dysfunction, c/u hydrochlorothiazide with fluid restriction 1800cc/day (1600c by mouth and 200cc per G-tube) -HTN c/u lisinopril -HLD- statin -medicine consulted to assist in management 4. Resp: s/p 7 day course of Levofloxacin for bilateral PNA -c/u Duonebs standing, Guaifenesin, and supplemental 02 -monitor for infection, CXR ordered today with no new infiltrate -will need home 02 5. GI: s/p PEG placement 03-28-19, abdomen soft on exam, monitor for peritonitis, stable -dysphagia- c/u nectar thickened liquids and puree, with bolus feeds per PEG if he eats <50%, so far eating well 6. Heme: thrombocytopenia, possibly due to recent Levofloxacin treatment, c/u ho ld heparin and Meloxicam, and monitor- no signs of active bleed now 7.Pain: [place], tylenol, gabapentin 8. DVT px: TEDs -Dopplers negative for proximal DVTs bilat LE, patient with thrombocytopenia, holding heparin -recent LUE doppler negative for DVT 9. Dispo: TBD Allergies Coded Allergies: Penicillins (Verified Allergy, Severe, anaphyaxsis, 10/06/18) Vital Signs Vital Signs Date Time Temp Pulse Resp B/P (MAP) Pulse Ox O2 Delivery O2 Flow Rate FiO2 04/04/19 09:13 120/60 04/04/19 09:00 2.0 04/04/19 06:00 100.4 76 17 96 Nasal Cannula Laboratory Data CBC/BMP Laboratory Tests 04/04/19 08:08 Labs 24H Laboratory Tests 2 04/03/19 16:35: Bedside Glucose (Misc Panel) 167H 04/03/19 19:49: Bedside Glucose (Misc Panel) 230H 04/04/19 06:27: Bedside Glucose (Misc Panel) 107 04/04/19 08:08: Nucleated Red Blood Cells % (auto) 0.0, Anion Gap 7L, Glomerular Filtration Rate > 60.0, Calcium Level 8.3L 04/04/19 11:41: Bedside Glucose (Misc Panel) 166H Current Medications Current Medications Current Medications Medications (Trade) Dose Ordered Sig/Odin Route PRN Reason Start Time Stop Time Status Last Admin Dose Admin Acetaminophen (Tylenol Tab) 650 mg TID PO 03/29/19 21:00 04/03/19 20:53 Acetaminophen/ Hydrocodone Bitart ([place], Anexsia 5/325) 1 tab Q4HP PRN PO MILD/MODERATE PAIN (PS 1-7) 03/29/19 16:15 03/31/19 08:34 Albuterol/ Ipratropium (Duoneb (Ipr 0.5mg/Alb 2.5mg)) 3 ml RQID NEB 03/29/19 20:00 04/04/19 07:31 Atorvastatin Calcium (Lipitor) 40 mg DAILY PO 03/30/19 09:00 04/04/19 09:11 Brimonidine Tartrate (Alphagan P 0.15%) 1 drop TID OU 03/29/19 21:00 04/04/19 09:14 Dextrose (Dextrose 50%) 25 ml ASDIRECTED PRN IV SEE LABEL COMMENTS 03/29/19 16:15 Dextrose/Sodium Chloride 500 ml @ 60 mls/hr Q8H20M IV 03/29/19 17:28 03/30/19 00:34 DC 03/29/19 17:28 Dextrose/Sodium Chloride 1,000 ml @ 60 mls/hr [id number] IV 03/29/19 16:15 03/29/19 17:28 DC Docusate Sodium (Colace Liquid) 100 mg BID PO 03/30/19 21:00 04/04/19 09:12 Docusate Sodium (Colace) 100 mg BID PO 03/29/19 21:00 03/30/19 18:50 DC 03/30/19 09:13 Dorzolamide/ Timolol (Cosopt Ocumeter Plus) 1 drop BID OU 03/29/19 21:00 04/04/19 09:14 Folic Acid (Folic Acid) 1 mg DAILY PO 03/30/19 09:00 04/04/19 09:14 Gabapentin (Neurontin) 300 mg QHS PO 03/29/19 21:00 04/03/19 20:54 Glucagon (Glucagon) 1 mg ASDIRECTED PRN SC SEE LABEL COMMENTS 03/29/19 16:15 Glucose (Glucose) 16 GM ASDIRECTED PRN PO SEE LABEL COMMENTS 03/29/19 16:15 Heparin Sodium (Heparin Lock Flush 10units/ml) 10 units ASDIRECTED PRN IV SEE LABEL COMMENTS 03/30/19 01:30 03/30/19 01:56 DC Heparin Sodium (Heparin Lock Flush 10units/ml) 10 units HLF IV 03/30/19 06:00 03/30/19 01:56 DC Hydrochlorothiazide (Hydrodiuril) 25 mg DAILY PO 03/30/19 09:00 04/04/19 09:12 Insulin Human Lispro (HumaLOG INSULIN) SEE PROTOCOL TABLE AC SC 03/29/19 17:30 04/04/19 09:11 Insulin Human Lispro (HumaLOG INSULIN) SEE PROTOCOL TABLE QHS SC 03/29/19 21:00 Latanoprost (Xalatan 0.005% Op Soln) 1 drop QHS OU 03/29/19 21:00 04/03/19 20:52 Levetiracetam (Keppra) 750 mg BID PO 03/29/19 21:00 04/04/19 09:11 Lidocaine/ Diphenhydr/Alum/ Mg/Simeth (Magic Mouthwash) 5ml QID SSP 03/29/19 21:00 04/03/19 20:53 Lisinopril (Prinivil) 20 mg DAILY PO 03/29/19 09:00 04/04/19 09:13 Loratadine (Claritin) 10 mg DAILY PO 03/30/19 09:00 04/04/19 09:12 Magnesium Hydroxide (Milk Of Magnesia) 30 ml DAILYPRN PRN PO CONSTIPATION 03/29/19 16:15 Multivitamins (Theragram-M) 1 tab DAILY PO 03/30/19 09:00 04/04/19 09:11 Omeprazole (PriLOSEC) 20 mg BID PO 03/29/19 21:00 03/30/19 15:58 DC 03/30/19 09:13 Omeprazole (PriLOSEC) 20 mg DAILY PO 03/31/19 09:00 04/04/19 09:12 Oxymetazoline HCl (Afrin) 2 spray ASDIRECTED PRN NA SEE LABEL COMMENTS 03/30/19 09:00 Potassium Chloride (K-Kayla 20 Meq Powder Packet) 20 meq BID PO 03/30/19 21:00 04/04/19 09:13 Potassium Chloride (Micro-K Extencaps) 20 meq BID PO 03/29/19 21:00 03/30/19 18:50 DC 03/30/19 09:14 Senna (Senokot) 1 tab QHS PO 03/29/19 21:00 03/30/19 18:50 DC Sodium Chloride (Saline Lock Flush) 10 ml ASDIRECTED PRN IV SEE LABEL COMMENTS 03/30/19 01:30 04/04/19 02:39 DC 03/30/19 03:19 Sodium Chloride (Saline Lock Flush) 10 ml SLF IV 03/30/19 06:00 04/04/19 02:39 DC 04/03/19 05:44 Vitamin D (Vitamin D) 1,000 units DAILY PO 03/30/19 09:00 04/04/19 09:11 CHACORTA WRIGHT MD Apr 04, 2019 12:12
[2019-04-04 12:40] LABS: FREE T4 1.29 NG/DL (0.76-1.46)
[2019-04-04] MEDS: SINEMET 25-100 MG TAB PO SCH ×2 (12:46→17:42)
[2019-04-04 14:00] VITALS: BP 136/63
--- NOTE | 2019-04-04 19:12 | IPNPDOC ---
Date Seen The patient was seen on 04/04/19. Progress Note SUBJECTIVE: Patient reports improvement in abdominal discomfort. Has still been eating well. Tmax 100.4 overnight, fever now resolved. WBC 8.3 today. OBJECTIVE PHYSICAL EXAMINATION: VITAL SIGNS: Please see below General: No acute distress, Alert Eyes: Normal sclera, EOMI, AURA HENT: Atraumatic Cardiovascular: Normal rate, normal rhythm. Pulmonary: Clear to auscultation b/l, no wheezing GI: Soft, tender around PEG tube insertion site Skin: Warm and dry Neuro: CN grossly intact. No focal deficits. Strengths equal b/l. Psych: oriented x 3 DVT ppx: TEDs in setting of thrombocytopenia Plan: 1. Aspiration Pneumonia - Completed 7 day course of Levaquin. - s/p PEG tube placement. On feeds PRN if patient consumes less than <50% PO. Has been tolerating food by mouth well. - O2 support as needed. Desaturate with oxygen in setting of recent PNA and likely atelectasis. Encourage mobilization and incentive spirometer use. 2. Current debility - c/w PT/OT in ARU. 3. LUE swelling - DVT ruled out with doppler. 4. DM Type 2 - A1c 7.6. - ACHS sliding scale. 5. hx Hemorrhagic stroke s/p craniotomy - c/w seizure ppx with Keppra. 6. hx Throat cancer s/p [employer] 7. Thrombocytopenia - Chronic in setting of recent infection. Has not been getting heparin products or lovenox. - Stable around 90-100 at this time. Continue to monitor. 8. Fever - Resolved. No leukocytosis. Has already completed abx recently for PNA. - Will just watch for now. CXR shows no acute changes. VS, I&O, 24H, Fishbone Vital Signs/I&O Vital Signs Date Time Temp Pulse Resp B/P (MAP) Pulse Ox O2 Delivery O2 Flow Rate FiO2 04/04/19 14:00 99.0 86 18 136/63 (87) 99 Nasal Cannula 2.0 I&O- Last 24 Hours up to 6 AM 04/04/19 06:00 Intake Total 1160 ml Output Total 1250 ml Balance -90 ml Laboratory Data 24H LABS Laboratory Tests 2 04/03/19 19:49: Bedside Glucose (Misc Panel) 230H 04/04/19 06:27: Bedside Glucose (Misc Panel) 107 04/04/19 08:08: Nucleated Red Blood Cells % (auto) 0.0, Anion Gap 7L, Glomerular Filtration Rate > 60.0, Calcium Level 8.3L, Free Thyroxine 1.29, Free Triiodothyronine 2.0L 04/04/19 11:41: Bedside Glucose (Misc Panel) 166H 04/04/19 16:47: Bedside Glucose (Misc Panel) 156H CBC/BMP Laboratory Tests 04/04/19 08:08 ESTRELLITA BORRERO MD Apr 04, 2019 19:12
[2019-04-04 20:00] VITALS: BP 150/71
[2019-04-04] MEDS: LATANOPROST 0.005% OPHTH SOLN 2.5 ML OU SCH (21:34)
[2019-04-04] MEDS: GABAPENTIN 300 MG CAP PO SCH (21:35)
[2019-04-05 06:00] VITALS: BP 154/66
[2019-04-05 06:51] LABS: HEMATOCRIT 37.8 % (42.0-52.0); HEMOGLOBIN 12.1 g/dl (13.5-17.5); MEAN CORPUSCULAR HEMOGLOBIN 30.4 pg (27.0-33.0); PLATELET COUNT, AUTOMATED 100 10^3/uL (150-450); RED BLOOD COUNT 3.98 10^6/uL (4.30-6.10); WHITE BLOOD COUNT 7.5 10^3/uL (4.0-10.0)
[2019-04-05] MEDS: IPRATROPIUM 0.5MG/ALBUTEROL 2.5MG INH SOL UD 3ML (DUONEB)(J7620) NEB SCH ×4 (07:27→19:40)
[2019-04-05] MEDS: POTASSIUM CHL PWD 20 MEQ PACKET PO SCH ×2 (09:23→20:17)
[2019-04-05] MEDS: ATORVASTATIN 20 MG TAB PO SCH (09:24)
[2019-04-05] MEDS: MULTIVITAMINS/MINERALS THERAP 1 TAB PO SCH (09:24)
[2019-04-05] MEDS: levETIRAcetam 250MG TABLET (KEPPRA) PO SCH ×2 (09:24→20:17)
[2019-04-05] MEDS: OMEPRAZOLE 20 MG CAP PO SCH (09:24)
[2019-04-05] MEDS: SINEMET 25-100 MG TAB PO SCH ×3 (09:24→16:07)
[2019-04-05] MEDS: VITAMIN D 1,000 INTERNATIONAL UNITS TABLET PO SCH (09:24)
[2019-04-05] MEDS: FOLIC ACID 1 MG TAB PO SCH (09:24)
[2019-04-05] MEDS: HumaLOG INSULIN (NovoLOG) PER UNIT SC SCH ×4 (09:24→20:11)
[2019-04-05] MEDS: BRIMONIDINE 0.15% OPHTH SOLN 5 ML OU SCH ×3 (09:25→20:27)
[2019-04-05] MEDS: COSOPT OCUMETER PLUS 10ML (DORZOLAMIDE/TIMOLOL) OU SCH ×2 (09:25→20:23)
[2019-04-05] MEDS: MAGIC MOUTHWASH SUSPENSION BTL SSP SCH ×4 (09:25→20:23)
[2019-04-05] MEDS: LISINOPRIL 20 MG TAB PO SCH (09:25)
[2019-04-05] MEDS: hydroCHLOROthiazide 25 MG TAB PO SCH (09:25)
[2019-04-05] MEDS: ACETAMINOPHEN TAB 650MG DOSE (2X325MG) PO SCH ×3 (09:25→20:18)
[2019-04-05] MEDS: LORATADINE 10 MG TAB PO SCH (09:25)
[2019-04-05] MEDS: metFORMIN (GLUCOPHAGE) 500 MG TAB PO SCH (11:57)
--- NOTE | 2019-04-05 12:43 | IPNPDOC ---
PM&R Progress Note DATE OF SERVICE: Apr 05, 2019 [employer] Progress Note Subjective: Patient seen in therapy and says he feels steadier on his feet and is able to lift his feet off the ground each time he advances his leg. He notices a differ ence in his movement since starting Sinemet. Details were discussed again with him and his . REVIEW OF SYSTEMS: The following is a completed review of systems and has been reviewed. Review of systems otherwise unremarkable. PAIN: Patient self reports abdominal pain EYES: No recent vision changes EARS, NOSE, & THROAT: +hoarse voice, +dysphagia CARDIOVASCULAR: Denies chest pain or palpitations PULMONARY: Denies shortness of breath GASTROINTESTINAL: Denies constipation/diarrhea GENITOURINARY: denies dysuria MUSCULOSKELETAL: generalized weakness NEUROLOGICAL: hx of stroke, no tremor/seizure activity HEMATOLOGICAL: low platelets, denies easy bruising SKIN: PEG site incision PSYCHIATRIC: Unremarkable All other review of systems found to be negative. PHYSICAL EXAMINATION: VITAL SIGNS: Please see below. GENERAL: Pleasant and cooperative. No acute distress. HEENT: PERRL. Extraocular movements intact. Clear conjunctiva, no facial droop, masked faces CARDIOVASCULAR: Regular rate and rhythm. No murmurs, rubs, or gallops LUNGS: Poor inspiratory effort, mostly CTA ABDOMEN: Soft, tender to palpation, mildly distended, no rebound tenderness Positive bowel sounds. PEG in place NEUROLOGICAL: Alert and oriented to self and place, Cranial nerves II through XII grossly intact. Sensation grossly intact in all 4 extremities EXTREMITIES: 5-\5 strength bilateral upper extremities. 5-\5 strength right lower extremity. 5-/5 strength in left lower extremity. LUE swelling (improving) (-) No edema bila LE (-) Manuel's SKIN: left Central line removed, frontal-sagittal plane cranial incision healed, bilat stage 2 ulcers on tania of his ears ASSESSMENT:68 M year-old with past medical history of stroke who presents status post bilateral pneumonia with dysphagia and PEG placement PLAN: 1. Rehab: PT/OT advance gait training and ADL management, strengthen/stretch/maintain ROM bilat LE and UE,ambulating with RW 2. Neuro: h hemorrhagic CVA s/p craniotomy- c/u Keppra for seizure hx, Keppra levels WNL -patient with notable bradykinesia in therapy as patient with worsening gait and rigidity per his with dysphagia, in addition to masked faces suspicious for parkinson's disease, discussed with patient yesterday and started Sinemet with notable improvement in today's gait pattern, less shuffling/bradykinetic -discussed with his MD primary care physician's nurse setting up referral for neurology through [facility], paperwork faxed today -c/u Sinemet 25-100mg (0.5 tab at 8am, 12noon, and 4pm) -c/u statin for secondary prevention 3. Cardiac: ECHO on 03-22-19 showing grade 1 diastolic dysfunction, c/u hydrochlorothiazide with fluid restriction 1800cc/day (1600c by mouth and 200cc per G-tube) -HTN c/u lisinopril -HLD- statin -medicine consulted to assist in management 4. Resp: s/p 7 day course of Levofloxacin for bilateral PNA -c/u Duonebs standing, Guaifenesin, and supplemental 02 -monitor for infection, repeat CXR with no new infiltrate -will need home 02 5. GI: s/p PEG placement 03-28-19, abdomen soft on exam, monitor for peritonitis, stable -dysphagia- c/u nectar thickened liquids and puree, with bolus feeds per PEG if he eats <50%, so far eating well 6. Heme: thrombocytopenia, possibly due to recent Levofloxacin treatment, c/u hold heparin and Meloxicam, and monitor- no signs of active bleed now-platelets stable around 100 7.Pain: [place], tylenol, gabapentin 8. Endo: patient with DM A1C 7.3% doing well on ISS alone, will trial low dose metformin and monitor -hx of thyroid resection, TSH elevated with nL T4 and slightly low T3, will defer treatment of subclinical hypothyroidism to his PMD to follow-up on 8. DVT px: TEDs -Dopplers negative for proximal DVTs bilat LE, patient with thrombocytopenia, holding heparin -recent LUE doppler negative for DVT 9. Dispo: TBD Allergies Coded Allergies: Penicillins (Verified Allergy, Severe, anaphyaxsis, 10/06/18) Vital Signs Vital Signs Date Time Temp Pulse Resp B/P (MAP) Pulse Ox O2 Delivery O2 Flow Rate FiO2 04/05/19 09:25 154/66 04/05/19 09:00 2.0 04/05/19 06:00 98.3 66 18 94 Nasal Cannula Laboratory Data CBC/BMP Laboratory Tests 04/05/19 06:25 Labs 24H Laboratory Tests 2 04/04/19 16:47: Bedside Glucose (Misc Panel) 156H 04/04/19 20:13: Bedside Glucose (Misc Panel) 160H 04/05/19 06:25: Nucleated Red Blood Cells % (auto) 0.0 04/05/19 06:42: Bedside Glucose (Misc Panel) 106 04/05/19 11:45: Bedside Glucose (Misc Panel) 207H Current Medications Current Medications Current Medications Medications (Trade) Dose Ordered Sig/Odin Route PRN Reason Start Time Stop Time Status Last Admin Dose Admin Acetaminophen (Tylenol Tab) 650 mg TID PO 03/29/19 21:00 04/05/19 09:25 Acetaminophen/ Hydrocodone Bitart ([place], Anexsia 5/325) 1 tab Q4HP PRN PO MILD/MODERATE PAIN (PS 1-7) 03/29/19 16:15 03/31/19 08:34 Albuterol/ Ipratropium (Duoneb (Ipr 0.5mg/Alb 2.5mg)) 3 ml RQID NEB 03/29/19 20:00 04/05/19 11:46 Atorvastatin Calcium (Lipitor) 40 mg DAILY PO 03/30/19 09:00 04/05/19 09:24 Brimonidine Tartrate (Alphagan P 0.15%) 1 drop TID OU 03/29/19 21:00 04/05/19 09:25 Carbidopa/Levodopa (Sinemet 25/100) 0.5 tab TID@0800,1200,1600 PO 04/04/19 12:00 04/05/19 11:57 Dextrose (Dextrose 50%) 25 ml ASDIRECTED PRN IV SEE LABEL COMMENTS 03/29/19 16:15 Dextrose/Sodium Chloride 500 ml @ 60 mls/hr Q8H20M IV 03/29/19 17:28 03/30/19 00:34 DC 03/29/19 17:28 Dextrose/Sodium Chloride 1,000 ml @ 60 mls/hr [id number] IV 03/29/19 16:15 03/29/19 17:28 DC Docusate Sodium (Colace Liquid) 100 mg BID PO 03/30/19 21:00 04/04/19 14:07 DC 04/04/19 09:12 Docusate Sodium (Colace) 100 mg BID PO 03/29/19 21:00 03/30/19 18:50 DC 03/30/19 09:13 Dorzolamide/ Timolol (Cosopt Ocumeter Plus) 1 drop BID OU 03/29/19 21:00 04/05/19 09:25 Folic Acid (Folic Acid) 1 mg DAILY PO 03/30/19 09:00 04/05/19 09:24 Gabapentin (Neurontin) 300 mg QHS PO 03/29/19 21:00 04/04/19 21:35 Glucagon (Glucagon) 1 mg ASDIRECTED PRN SC SEE LABEL COMMENTS 03/29/19 16:15 Glucose (Glucose) 16 GM ASDIRECTED PRN PO SEE LABEL COMMENTS 03/29/19 16:15 Heparin Sodium (Heparin Lock Flush 10units/ml) 10 units ASDIRECTED PRN IV SEE LABEL COMMENTS 03/30/19 01:30 03/30/19 01:56 DC Heparin Sodium (Heparin Lock Flush 10units/ml) 10 units HLF IV 03/30/19 06:00 03/30/19 01:56 DC Hydrochlorothiazide (Hydrodiuril) 25 mg DAILY PO 03/30/19 09:00 04/05/19 09:25 Insulin Human Lispro (HumaLOG INSULIN) SEE PROTOCOL TABLE AC SC 03/29/19 17:30 04/05/19 11:58 Insulin Human Lispro (HumaLOG INSULIN) SEE PROTOCOL TABLE QHS SC 03/29/19 21:00 Latanoprost (Xalatan 0.005% Op Soln) 1 drop QHS OU 03/29/19 21:00 04/04/19 21:34 Levetiracetam (Keppra) 750 mg BID PO 03/29/19 21:00 04/05/19 09:24 Lidocaine/ Diphenhydr/Alum/ Mg/Simeth (Magic Mouthwash) 5ml QID SSP 03/29/19 21:00 04/05/19 09:25 Lisinopril (Prinivil) 20 mg DAILY PO 03/29/19 09:00 04/05/19 09:25 Loratadine (Claritin) 10 mg DAILY PO 03/30/19 09:00 04/05/19 09:25 Magnesium Hydroxide (Milk Of Magnesia) 30 ml DAILYPRN PRN PO CONSTIPATION 03/29/19 16:15 Metformin HCl (Glucophage) 500 mg DAILY@08 PO 04/05/19 08:00 04/05/19 11:57 Miscellaneous (Unresolved Clarification Entry) SEE LABEL COMMENTS DAILY XX 04/04/19 09:00 04/05/19 07:08 DC Miscellaneous (Unresolved Clarification Entry) SEE LABEL COMMENTS DAILY XX 04/05/19 09:00 Multivitamins (Theragram-M) 1 tab DAILY PO 03/30/19 09:00 04/05/19 09:24 Omeprazole (PriLOSEC) 20 mg BID PO 03/29/19 21:00 03/30/19 15:58 DC 03/30/19 09:13 Omeprazole (PriLOSEC) 20 mg DAILY PO 03/31/19 09:00 04/05/19 09:24 Oxymetazoline HCl (Afrin) 2 spray ASDIRECTED PRN NA SEE LABEL COMMENTS 03/30/19 09:00 Potassium Chloride (K-Kayla 20 Meq Powder Packet) 20 meq BID PO 03/30/19 21:00 04/05/19 09:23 Potassium Chloride (Micro-K Extencaps) 20 meq BID PO 03/29/19 21:00 03/30/19 18:50 DC 03/30/19 09:14 Senna (Senokot) 1 tab QHS PO 03/29/19 21:00 03/30/19 18:50 DC Sodium Chloride (Saline Lock Flush) 10 ml ASDIRECTED PRN IV SEE LABEL COMMENTS 03/30/19 01:30 04/04/19 02:39 DC 03/30/19 03:19 Sodium Chloride (Saline Lock Flush) 10 ml SLF IV 03/30/19 06:00 04/04/19 02:39 DC 04/03/19 05:44 Vitamin D (Vitamin D) 1,000 units DAILY PO 03/30/19 09:00 04/05/19 09:24 CHACORTA WRIGHT MD Apr 05, 2019 12:43
[2019-04-05 20:00] VITALS: BP 125/67
[2019-04-05] MEDS: GABAPENTIN 300 MG CAP PO SCH (20:17)
[2019-04-05] MEDS: LATANOPROST 0.005% OPHTH SOLN 2.5 ML OU SCH (20:22)
[2019-04-06 06:00] VITALS: BP 131/64
[2019-04-06] MEDS: IPRATROPIUM 0.5MG/ALBUTEROL 2.5MG INH SOL UD 3ML (DUONEB)(J7620) NEB SCH ×4 (07:30→20:23)
[2019-04-06] MEDS: FOLIC ACID 1 MG TAB PO SCH (09:48)
[2019-04-06] MEDS: POTASSIUM CHL PWD 20 MEQ PACKET PO SCH ×2 (09:48→20:33)
[2019-04-06] MEDS: SINEMET 25-100 MG TAB PO SCH ×3 (09:48→17:24)
[2019-04-06] MEDS: levETIRAcetam 250MG TABLET (KEPPRA) PO SCH ×2 (09:48→20:33)
[2019-04-06] MEDS: ATORVASTATIN 20 MG TAB PO SCH (09:49)
[2019-04-06] MEDS: MULTIVITAMINS/MINERALS THERAP 1 TAB PO SCH (09:49)
[2019-04-06] MEDS: HumaLOG INSULIN (NovoLOG) PER UNIT SC SCH ×4 (09:49→20:18)
[2019-04-06] MEDS: ACETAMINOPHEN TAB 650MG DOSE (2X325MG) PO SCH ×3 (09:49→20:34)
[2019-04-06] MEDS: VITAMIN D 1,000 INTERNATIONAL UNITS TABLET PO SCH (09:49)
[2019-04-06] MEDS: MAGIC MOUTHWASH SUSPENSION BTL SSP SCH ×4 (09:50→20:37)
[2019-04-06] MEDS: COSOPT OCUMETER PLUS 10ML (DORZOLAMIDE/TIMOLOL) OU SCH ×2 (09:50→20:37)
[2019-04-06] MEDS: metFORMIN (GLUCOPHAGE) 500 MG TAB PO SCH (09:50)
[2019-04-06] MEDS: BRIMONIDINE 0.15% OPHTH SOLN 5 ML OU SCH ×3 (09:50→20:40)
[2019-04-06] MEDS: LORATADINE 10 MG TAB PO SCH (09:50)
[2019-04-06] MEDS: hydroCHLOROthiazide 25 MG TAB PO SCH (09:50)
[2019-04-06] MEDS: OMEPRAZOLE 20 MG CAP PO SCH (09:50)
[2019-04-06] MEDS: LISINOPRIL 20 MG TAB PO SCH (09:50)
[2019-04-06 14:00] VITALS: BP 163/82
--- NOTE | 2019-04-06 18:58 | IPNPDOC ---
PM&R Progress Note DATE OF SERVICE: Apr 06, 2019 Water Systems Engineer Progress Note Subjective: Patient seen in the gym stating he is feeling well, has no pain, and is agreeable to starting the free water protocol. REVIEW OF SYSTEMS: The following is a completed review of systems and has been reviewed. Review of systems otherwise unremarkable. PAIN: Patient self reports abdominal pain EYES: No recent vision changes EARS, NOSE, & THROAT: +hoarse voice, +dysphagia CARDIOVASCULAR: Denies chest pain or palpitations PULMONARY: Denies shortness of breath GASTROINTESTINAL: Denies constipation/diarrhea GENITOURINARY: denies dysuria MUSCULOSKELETAL: generalized weakness NEUROLOGICAL: hx of stroke, no tremor/seizure activity HEMATOLOGICAL: low platelets, denies easy bruising SKIN: PEG site incision PSYCHIATRIC: Unremarkable All other review of systems found to be negative. PHYSICAL EXAMINATION: VITAL SIGNS: Please see below. GENERAL: Pleasant and cooperative. No acute distress. HEENT: PERRL. Extraocular movements intact. Clear conjunctiva, no facial droop, masked faces CARDIOVASCULAR: Regular rate and rhythm. No murmurs, rubs, or gallops LUNGS: Poor inspiratory effort, mostly CTA ABDOMEN: Soft, tender to palpation, mildly distended, no rebound tenderness Positive bowel sounds. PEG in place NEUROLOGICAL: Alert and oriented to self and place, Cranial nerves II through XII grossly intact. Sensation grossly intact in all 4 extremities EXTREMITIES: 5-\5 strength bilateral upper extremities. 5-\5 strength right lower extremity. 5-/5 strength in left lower extremity. LUE swelling (improving) (-) No edema bila LE (-) Manuel's SKIN: left Central line removed, frontal-sagittal plane cranial incision healed, bilat stage 2 ulcers on tania of his ears ASSESSMENT:68 M year-old with past medical history of stroke who presents status post bilateral pneumonia with dysphagia and PEG placement PLAN: 1. Rehab: PT/OT advance gait training and ADL management, strengthen/stretch/maintain ROM bilat LE and UE,ambulating with RW -STREET SUPERVISOR recs appreciated, c/u puree/nectar diet, anthony free water protocol intiated and taught to his -c/u oral rinse 2. Neuro: pmh hemorrhagic CVA s/p craniotomy- c/u Keppra for seizure hx, Keppra levels WNL -patient with notable bradykinesia in therapy as patient with worsening gait and rigidity per his with dysphagia, in addition to masked faces suspicious for parkinson's disease-started Sinemet with notable improvement in gait pattern, less shuffling/bradykinetic -discussed with his [facility] nurse setting up referral for neurology through [facility] program in the community, paperwork faxed -c/u Sinemet 25-100mg (0.5 tab at 8am, 12noon, and 4pm) -c/u statin for secondary prevention 3. Cardiac: ECHO on 03-22-19 showing grade 1 diastolic dysfunction, c/u hydrochlorothiazide with fluid restriction 1800 cc/day (1600c by mouth and 200cc per G-tube) -HTN c/u lisinopril -HLD- statin -medicine consulted to assist in management 4. Resp: s/p 7 day course of Levofloxacin for bilateral PNA -c/u Duonebs standing, Guaifenesin, and supplemental 02 -monitor for infection, repeat CXR with no new infiltrate -will need home 02 5. GI: s/p PEG placement 03-28-19, abdomen soft on exam, monitor for perit onitis, stable -dysphagia- c/u nectar thickened liquids and puree, with bolus feeds per PEG if he eats <50%, so far eating well 6. Heme: thrombocytopenia, possibly due to recent Levofloxacin treatment, c/u hold heparin and Meloxicam, and monitor- no signs of active bleed now-platelets stable around 100 7.Pain: [place], tylenol, gabapentin 8. Endo: patient with DM A1C 7.3% doing well on ISS alone, will trial low dose metformin and monitor -hx of thyroid resection, TSH elevated with nL T4 and slightly low T3, will defer treatment of subclinical hypothyroidism to his PMD to follow-up on 8. DVT px: TEDs -Dopplers negative for proximal DVTs bilat LE, patient with thrombocytopenia, holding heparin -recent LUE doppler negative for DVT 9. Dispo: TBD Allergies Coded Allergies: Penicillins (Verified Allergy, Severe, anaphyaxsis, 10/06/18) Vital Signs Vital Signs Date Time Temp Pulse Resp B/P (MAP) Pulse Ox O2 Delivery O2 Flow Rate FiO2 04/06/19 14:00 98.0 103 18 163/82 (109) 93 Nasal Cannula 2.0 Laboratory Data Labs 24H Laboratory Tests 2 04/05/19 19:46: Bedside Glucose (Misc Panel) 160H 04/06/19 06:06: Bedside Glucose (Misc Panel) 114 04/06/19 11:33: Bedside Glucose (Misc Panel) 140H 04/06/19 16:54: Bedside Glucose (Misc Panel) 106 Current Medications Current Medications Current Medications Medications (Trade) Dose Ordered Sig/Odin Route PRN Reason Start Time Stop Time Status Last Admin Dose Admin Acetaminophen (Tylenol Tab) 650 mg TID PO 03/29/19 21:00 04/06/19 17:24 Acetaminophen/ Hydrocodone Bitart ([place], Anexsia 5/325) 1 tab Q4HP PRN PO MILD/MODERATE PAIN (PS 1-7) 03/29/19 16:15 03/31/19 08:34 Albuterol/ Ipratropium (Duoneb (Ipr 0.5mg/Alb 2.5mg)) 3 ml RQID NEB 03/29/19 20:00 04/06/19 15:41 Atorvastatin Calcium (Lipitor) 40 mg DAILY PO 03/30/19 09:00 04/06/19 09:49 Brimonidine Tartrate (Alphagan P 0.15%) 1 drop TID OU 03/29/19 21:00 04/06/19 16:00 Carbidopa/Levodopa (Sinemet 25/100) 0.5 tab TID@0800,1200,1600 PO 04/04/19 12:00 04/06/19 17:24 Dextrose (Dextrose 50%) 25 ml ASDIRECTED PRN IV SEE LABEL COMMENTS 03/29/19 16:15 Dextrose/Sodium Chloride 500 ml @ 60 mls/hr Q8H20M IV 03/29/19 17:28 03/30/19 00:34 DC 03/29/19 17:28 Dextrose/Sodium Chloride 1,000 ml @ 60 mls/hr [id number] IV 03/29/19 16:15 03/29/19 17:28 DC Docusate Sodium (Colace Liquid) 100 mg BID PO 03/30/19 21:00 04/04/19 14:07 DC 04/04/19 09:12 Docusate Sodium (Colace) 100 mg BID PO 03/29/19 21:00 03/30/19 18:50 DC 03/30/19 09:13 Dorzolamide/ Timolol (Cosopt Ocumeter Plus) 1 drop BID OU 03/29/19 21:00 04/06/19 09:50 Folic Acid (Folic Acid) 1 mg DAILY PO 03/30/19 09:00 04/06/19 09:48 Gabapentin (Neurontin) 300 mg QHS PO 03/29/19 21:00 04/05/19 20:17 Glucagon (Glucagon) 1 mg ASDIRECTED PRN SC SEE LABEL COMMENTS 03/29/19 16:15 Glucose (Glucose) 16 GM ASDIRECTED PRN PO SEE LABEL COMMENTS 03/29/19 16:15 Heparin Sodium (Heparin Lock Flush 10units/ml) 10 units ASDIRECTED PRN IV SEE LABEL COMMENTS 03/30/19 01:30 03/30/19 01:56 DC Heparin Sodium (Heparin Lock Flush 10units/ml) 10 units HLF IV 03/30/19 06:00 03/30/19 01:56 DC Hydrochlorothiazide (Hydrodiuril) 25 mg DAILY PO 03/30/19 09:00 04/06/19 09:50 Insulin Human Lispro (HumaLOG INSULIN) SEE PROTOCOL TABLE AC SC 03/29/19 17:30 04/06/19 17:25 Insulin Human Lispro (HumaLOG INSULIN) SEE PROTOCOL TABLE QHS SC 03/29/19 21:00 Latanoprost (Xalatan 0.005% Op Soln) 1 drop QHS OU 03/29/19 21:00 04/05/19 20:22 Levetiracetam (Keppra) 750 mg BID PO 03/29/19 21:00 04/06/19 09:48 Lidocaine/ Diphenhydr/Alum/ Mg/Simeth (Magic Mouthwash) 5ml QID SSP 03/29/19 21:00 04/06/19 17:25 Lisinopril (Prinivil) 20 mg DAILY PO 03/29/19 09:00 04/06/19 09:50 Loratadine (Claritin) 10 mg DAILY PO 03/30/19 09:00 04/06/19 09:50 Magnesium Hydroxide (Milk Of Magnesia) 30 ml DAILYPRN PRN PO CONSTIPATION 03/29/19 16:15 Metformin HCl (Glucophage) 500 mg DAILY@08 PO 04/05/19 08:00 04/06/19 09:50 Miscellaneous (Unresolved Clarification Entry) SEE LABEL COMMENTS DAILY XX 04/04/19 09:00 04/05/19 07:08 DC Miscellaneous (Unresolved Clarification Entry) SEE LABEL COMMENTS DAILY XX 04/05/19 09:00 04/05/19 14:49 DC Multivitamins (Theragram-M) 1 tab DAILY PO 03/30/19 09:00 04/06/19 09:49 Omeprazole (PriLOSEC) 20 mg BID PO 03/29/19 21:00 03/30/19 15:58 DC 03/30/19 09:13 Omeprazole (PriLOSEC) 20 mg DAILY PO 03/31/19 09:00 04/06/19 09:50 Oxymetazoline HCl (Afrin) 2 spray ASDIRECTED PRN NA SEE LABEL COMMENTS 03/30/19 09:00 Potassium Chloride (K-Kayla 20 Meq Powder Packet) 20 meq BID PO 03/30/19 21:00 04/06/19 09:48 Potassium Chloride (Micro-K Extencaps) 20 meq BID PO 03/29/19 21:00 03/30/19 18:50 DC 03/30/19 09:14 Senna (Senokot) 1 tab QHS PO 03/29/19 21:00 03/30/19 18:50 DC Sodium Chloride (Saline Lock Flush) 10 ml ASDIRECTED PRN IV SEE LABEL COMMENTS 03/30/19 01:30 04/04/19 02:39 DC 03/30/19 03:19 Sodium Chloride (Saline Lock Flush) 10 ml SLF IV 03/30/19 06:00 04/04/19 02:39 DC 04/03/19 05:44 Vitamin D (Vitamin D) 1,000 units DAILY PO 03/30/19 09:00 04/06/19 09:49 CHACORTA WRIGHT MD Apr 06, 2019 18:58
[2019-04-06 20:00] VITALS: BP 136/88
[2019-04-06] MEDS: LATANOPROST 0.005% OPHTH SOLN 2.5 ML OU SCH (20:33)
[2019-04-06] MEDS: GABAPENTIN 300 MG CAP PO SCH (20:33)
[2019-04-07 05:40] VITALS: BP 133/65
[2019-04-07] MEDS: IPRATROPIUM 0.5MG/ALBUTEROL 2.5MG INH SOL UD 3ML (DUONEB)(J7620) NEB SCH ×4 (07:24→20:00)
[2019-04-07] MEDS: HumaLOG INSULIN (NovoLOG) PER UNIT SC SCH ×4 (09:33→21:00)
[2019-04-07] MEDS: MULTIVITAMINS/MINERALS THERAP 1 TAB PO SCH (09:33)
[2019-04-07] MEDS: levETIRAcetam 250MG TABLET (KEPPRA) PO SCH ×2 (09:34→22:48)
[2019-04-07] MEDS: SINEMET 25-100 MG TAB PO SCH ×3 (09:34→17:37)
[2019-04-07] MEDS: LORATADINE 10 MG TAB PO SCH (09:34)
[2019-04-07] MEDS: OMEPRAZOLE 20 MG CAP PO SCH (09:34)
[2019-04-07] MEDS: VITAMIN D 1,000 INTERNATIONAL UNITS TABLET PO SCH (09:34)
[2019-04-07] MEDS: hydroCHLOROthiazide 25 MG TAB PO SCH (09:35)
[2019-04-07] MEDS: ATORVASTATIN 20 MG TAB PO SCH (09:35)
[2019-04-07] MEDS: LISINOPRIL 20 MG TAB PO SCH (09:35)
[2019-04-07] MEDS: metFORMIN (GLUCOPHAGE) 500 MG TAB PO SCH ×2 (09:35→17:37)
[2019-04-07] MEDS: FOLIC ACID 1 MG TAB PO SCH (09:35)
[2019-04-07] MEDS: POTASSIUM CHL PWD 20 MEQ PACKET PO SCH ×2 (09:36→22:48)
[2019-04-07] MEDS: MAGIC MOUTHWASH SUSPENSION BTL SSP SCH ×4 (09:37→22:49)
[2019-04-07] MEDS: ACETAMINOPHEN TAB 650MG DOSE (2X325MG) PO SCH ×3 (09:37→22:48)
[2019-04-07] MEDS: COSOPT OCUMETER PLUS 10ML (DORZOLAMIDE/TIMOLOL) OU SCH ×2 (09:37→22:49)
[2019-04-07] MEDS: BRIMONIDINE 0.15% OPHTH SOLN 5 ML OU SCH ×3 (09:37→22:49)
[2019-04-07 10:22] LABS: BASO # 0.1 10^3/uL (0.0-0.2); EOS # 0.4 10^3/uL (0.0-0.5); EOS % 5.3 % (0.0-3.0); HEMATOCRIT 42.6 % (42.0-52.0); HEMOGLOBIN 13.7 g/dl (13.5-17.5); LYMPH # 1.3 10^3/uL (1.5-5.0); LYMPH % 18.6 % (24.0-44.0); MEAN CORPUSCULAR HEMOGLOBIN 30.4 pg (27.0-33.0); MEAN CORPUSCULAR HGB CONC 32.2 g/dl (32.0-36.5); MEAN CORPUSCULAR VOLUME 94.5 fl (80.0-96.0); MONO # 0.7 10^3/uL (0.0-0.8); MONO % 9.5 % (0.0-5.0); NEUTROPHILS # 4.7 10^3/uL (1.5-8.5); NEUTROPHILS % 65.2 % (36.0-66.0); PLATELET COUNT, AUTOMATED 120 10^3/uL (150-450); RED BLOOD COUNT 4.51 10^6/uL (4.30-6.10); WHITE BLOOD COUNT 7.1 10^3/uL (4.0-10.0)
[2019-04-07 10:39] LABS: BLOOD UREA NITROGEN 5 MG/DL (7-18); CALCIUM LEVEL 8.6 MG/DL (8.8-10.2); CARBON DIOXIDE LEVEL 22 MEQ/L (21-32); CHLORIDE LEVEL 105 MEQ/L (98-107); CREATININE FOR GFR 0.86 MG/DL (0.70-1.30); GLOMERULAR FILTRATION RATE > 60.0 (>49); GLUCOSE, FASTING 214 MG/DL (70-100); POTASSIUM SERUM 3.6 MEQ/L (3.5-5.1); SODIUM LEVEL 136 MEQ/L (136-145)
[2019-04-07] MEDS ORDERED: GABA-843 PO (11:05)
[2019-04-07] MEDS ORDERED: Latanoprost 0.005% Op Soln OU (11:05)
[2019-04-07] MEDS ORDERED: FOLI1TAB11 PO (11:05)
[2019-04-07] MEDS ORDERED: POTA20PW PO (11:05)
[2019-04-07] MEDS ORDERED: HYDR25TAB PO (11:05)
[2019-04-07] MEDS ORDERED: MAGICMW SSP (11:05)
[2019-04-07] MEDS ORDERED: KEPP250T5 PO (11:05)
[2019-04-07] MEDS ORDERED: CLAR10TA7 PO (11:05)
[2019-04-07] MEDS ORDERED: DORZ2SOL5 OU (11:05)
[2019-04-07] MEDS ORDERED: BRIM2OPD OU (11:05)
[2019-04-07] MEDS ORDERED: ATOR1TAB21 PO (11:05)
[2019-04-07] MEDS ORDERED: GLUC500T PO (11:05)
[2019-04-07] MEDS ORDERED: LISI-538 PO (11:05)
[2019-04-07] MEDS ORDERED: CARB25TA9 PO (11:05)
--- NOTE | 2019-04-07 12:26 | IPNPDOC ---
PM&R Progress Note DATE OF SERVICE: Apr 07, 2019 Precision Assembly Inspector Progress Note Subjective: Patient reports he is eager to go home, he feels stronger and is ready for room privileges. REVIEW OF SYSTEMS: The following is a completed review of systems and has been reviewed. Review of systems otherwise unremarkable. PAIN: Patient self reports abdominal pain EYES: No recent vision changes EARS, NOSE, & THROAT: +hoarse voice, +dysphagia CARDIOVASCULAR: Denies chest pain or palpitations PULMONARY: Denies shortness of breath GASTROINTESTINAL: Denies constipation/diarrhea GENITOURINARY: denies dysuria MUSCULOSKELETAL: generalized weakness NEUROLOGICAL: hx of stroke, no tremor/seizure activity HEMATOLOGICAL: low platelets, denies easy bruising SKIN: PEG site incision PSYCHIATRIC: Unremarkable All other review of systems found to be negative. PHYSICAL EXAMINATION: VITAL SIGNS: Please see below. GENERAL: Pleasant and cooperative. No acute distress. HEENT: PERRL. Extraocular movements intact. Clear conjunctiva, no facial droop, masked faces CARDIOVASCULAR: Regular rate and rhythm. No murmurs, rubs, or gallops LUNGS: Poor inspiratory effort, mostly CTA ABDOMEN: Soft, tender to palpation, mildly distended, no rebound tenderness Positive bowel sounds. PEG in place- incision site c/d/i NEUROLOGICAL: Alert and oriented to self and place, Cranial nerves II through XII grossly intact. Sensation grossly intact in all 4 extremities EXTREMITIES: 5-\5 strength bilateral upper extremities. 5-\5 strength right lower extremity. 5-/5 strength in left lower extremity. LUE swelling (improving) (-) No edema bila LE (-) Manuel's SKIN: left Central line removed, frontal-sagittal plane cranial incision healed, bilat stage 2 ulcers on tania of his ears ASSESSMENT:68 M year-old with past medical history of stroke who presents status post bilateral pneumonia with dysphagia and PEG placement PLAN: 1. Rehab: PT/OT advance gait training and ADL management, strengthen/stretch/maintain ROM bilat LE and UE,ambulating with RW -CAR WASH ATTENDANT recs appreciated, c/u puree/nectar diet, anthony free water protocol intiated and taught to his -c/u oral rinse 2. Neuro: pmh hemorrhagic CVA s/p craniotomy- c/u Keppra for seizure hx, Keppra levels WNL -patient with notable bradykinesia in therapy as patient with worsening gait and rigidity per his with dysphagia, in addition to masked faces suspicious for parkinson's disease-started Sinemet with notable improvement in gait pattern, less shuffling/bradykinetic -discussed with his [facility] primary care [facility]'s nurse setting up referral for neurology through [facility] choice program in the community, paperwork faxed -c/u Sinemet 25-100mg (0.5 tab at 8am, 12noon, and 4pm) -c/u statin for secondary prevention 3. Cardiac: ECHO on 03-22-19 showing grade 1 diastolic dysfunction, c/u hydrochlorothiazide with fluid restriction 1800 cc/day (1600c by mouth and 200cc per G-tube) -HTN c/u lisinopril -HLD- statin -medicine consulted to assist in management 4. Resp: s/p 7 day course of Levofloxacin for bilateral PNA -c/u Duonebs standing, Guaifenesin, and supplemental 02 -monitor for infection, repeat CXR with no new infiltrate -will need home 02 5. GI: s/p PEG placement 03-28-19, abdomen soft on exam, monitor for peritonitis, stable -dysphagia- c/u nectar thickened liquids and puree, with bolus feeds per PEG if he eats <50%, so far eating well 6. Heme: thrombocytopenia, possibly due to recent Levofloxacin treatment, c/u hold heparin and Meloxicam, and monitor- no signs of active bleed now-platelets stable around 100 7.Pain: [place] prn, tylenol, gabapentin 8. Endo: patient with DM A1C 7.3% doing well on ISS alone, doing well on metformin and monitor -hx of thyroid resection, TSH elevated with nL T4 and slightly low T3, will defer treatment of subclinical hypothyroidism to his PMD to follow-up on 8. DVT px: TEDs -Dopplers negative for proximal DVTs bilat LE, patient with thrombocytopenia, holding heparin -recent LUE doppler negative for DVT 9. Dispo: 04-08-19 to home Allergies Coded Allergies: Penicillins (Verified Allergy, Severe, anaphyaxsis, 10/06/18) Vital Signs Vital Signs Date Time Temp Pulse Resp B/P (MAP) Pulse Ox O2 Delivery O2 Flow Rate FiO2 04/07/19 10:28 2.0 04/07/19 09:35 133/65 04/07/19 05:40 99.6 87 18 96 Room Air Laboratory Data CBC/BMP Laboratory Tests 04/07/19 10:00 Labs 24H Laboratory Tests 2 04/06/19 16:54: Bedside Glucose (Misc Panel) 106 04/06/19 20:02: Bedside Glucose (Misc Panel) 132H 04/07/19 06:40: Bedside Glucose (Misc Panel) 114 04/07/19 10:00: Immature Granulocyte % (Auto) 0.4, Neutrophils (%) (Auto) 65.2, Lymphocytes (%) (Auto) 18.6L, Monocytes (%) (Auto) 9.5H, Eosinophils (%) (Auto) 5.3H, Basophils (%) (Auto) 1.0, Neutrophils # (Auto) 4.7, Lymphocytes # (Auto) 1.3L, Monocytes # (Auto) 0.7, Eosinophils # (Auto) 0.4, Basophils # (Auto) 0.1, Nucleated Red Blood Cells % (auto) 0.0, Anion Gap 9, Glomerular Filtration Rate > 60.0, Calcium Level 8.6L 04/07/19 11:29: Bedside Glucose (Misc Panel) 232H Current Medications Current Medications Current Medications Medications (Trade) Dose Ordered Sig/Odin Route PRN Reason Start Time Stop Time Status Last Admin Dose Admin Acetaminophen (Tylenol Tab) 650 mg TID PO 03/29/19 21:00 04/07/19 09:37 Acetaminophen/ Hydrocodone Bitart ([place], Anexsia 5/325) 1 tab Q4HP PRN PO MILD/MODERATE PAIN (PS 1-7) 03/29/19 16:15 03/31/19 08:34 Albuterol/ Ipratropium (Duoneb (Ipr 0.5mg/Alb 2.5mg)) 3 ml RQID NEB 03/29/19 20:00 04/07/19 07:24 Atorvastatin Calcium (Lipitor) 40 mg DAILY PO 03/30/19 09:00 04/07/19 09:35 Brimonidine Tartrate (Alphagan P 0.15%) 1 drop TID OU 03/29/19 21:00 04/07/19 09:37 Carbidopa/Levodopa (Sinemet 25/100) 0.5 tab TID@0800,1200,1600 PO 04/04/19 12:00 12/5/19 09:34 Dextrose (Dextrose 50%) 25 ml ASDIRECTED PRN IV SEE LABEL COMMENTS 03/29/19 16:15 Dextrose/Sodium Chloride 500 ml @ 60 mls/hr Q8H20M IV 03/29/19 17:28 03/30/19 00:34 DC 03/29/19 17:28 Dextrose/Sodium Chloride 1,000 ml @ 60 mls/hr [id number] IV 03/29/19 16:15 03/29/19 17:28 DC Docusate Sodium (Colace Liquid) 100 mg BID PO 03/30/19 21:00 04/04/19 14:07 DC 04/04/19 09:12 Docusate Sodium (Colace) 100 mg BID PO 03/29/19 21:00 03/30/19 18:50 DC 03/30/19 09:13 Dorzolamide/ Timolol (Cosopt Ocumeter Plus) 1 drop BID OU 03/29/19 21:00 04/07/19 09:37 Folic Acid (Folic Acid) 1 mg DAILY PO 03/30/19 09:00 04/07/19 09:35 Gabapentin (Neurontin) 300 mg QHS PO 03/29/19 21:00 04/06/19 20:33 Glucagon (Glucagon) 1 mg ASDIRECTED PRN SC SEE LABEL COMMENTS 03/29/19 16:15 Glucose (Glucose) 16 GM ASDIRECTED PRN PO SEE LABEL COMMENTS 03/29/19 16:15 Heparin Sodium (Heparin Lock Flush 10units/ml) 10 units ASDIRECTED PRN IV SEE LABEL COMMENTS 03/30/19 01:30 03/30/19 01:56 DC Heparin Sodium (Heparin Lock Flush 10units/ml) 10 units HLF IV 03/30/19 06:00 03/30/19 01:56 DC Hydrochlorothiazide (Hydrodiuril) 25 mg DAILY PO 03/30/19 09:00 04/07/19 09:35 Insulin Human Lispro (HumaLOG INSULIN) SEE PROTOCOL TABLE AC SC 03/29/19 17:30 04/07/19 09:33 Insulin Human Lispro (HumaLOG INSULIN) SEE PROTOCOL TABLE QHS SC 03/29/19 21:00 Latanoprost (Xalatan 0.005% Op Soln) 1 drop QHS OU 03/29/19 21:00 04/06/19 20:33 Levetiracetam (Keppra) 750 mg BID PO 03/29/19 21:00 04/07/19 09:34 Lidocaine/ Diphenhydr/Alum/ Mg/Simeth (Magic Mouthwash) 5ml QID SSP 03/29/19 21:00 04/07/19 09:37 Lisinopril (Prinivil) 20 mg DAILY PO 03/29/19 09:00 04/07/19 09:35 Loratadine (Claritin) 10 mg DAILY PO 03/30/19 09:00 04/07/19 09:34 Magnesium Hydroxide (Milk Of Magnesia) 30 ml DAILYPRN PRN PO CONSTIPATION 03/29/19 16:15 Metformin HCl (Glucophage) 500 mg DAILY@08 PO 04/05/19 08:00 04/07/19 09:35 Miscellaneous (Unresolved Clarification Entry) SEE LABEL COMMENTS DAILY XX 04/04/19 09:00 04/05/19 07:08 DC Miscellaneous (Unresolved Clarification Entry) SEE LABEL COMMENTS DAILY XX 04/05/19 09:00 04/05/19 14:49 DC Multivitamins (Theragram-M) 1 tab DAILY PO 03/30/19 09:00 04/07/19 09:33 Omeprazole (PriLOSEC) 20 mg BID PO 03/29/19 21:00 03/30/19 15:58 DC 03/30/19 09:13 Omeprazole (PriLOSEC) 20 mg DAILY PO 03/31/19 09:00 04/07/19 09:34 Oxymetazoline HCl (Afrin) 2 spray ASDIRECTED PRN NA SEE LABEL COMMENTS 03/30/19 09:00 Potassium Chloride (K-Kayla 20 Meq Powder Packet) 20 meq BID PO 03/30/19 21:00 04/07/19 09:36 Potassium Chloride (Micro-K Extencaps) 20 meq BID PO 03/29/19 21:00 03/30/19 18:50 DC 03/30/19 09:14 Senna (Senokot) 1 tab QHS PO 03/29/19 21:00 03/30/19 18:50 DC Sodium Chloride (Saline Lock Flush) 10 ml ASDIRECTED PRN IV SEE LABEL COMMENTS 03/30/19 01:30 04/04/19 02:39 DC 03/30/19 03:19 Sodium Chloride (Saline Lock Flush) 10 ml SLF IV 03/30/19 06:00 04/04/19 02:39 DC 04/03/19 05:44 Vitamin D (Vitamin D) 1,000 units DAILY PO 03/30/19 09:00 04/07/19 09:34 CHACORTA WRIGHT MD Apr 07, 2019 12:26
[2019-04-07 14:00] VITALS: BP 133/67
--- NOTE | 2019-04-07 15:50 | IPNPDOC ---
Subjective Date Seen The patient was seen on 04/07/19. Subjective Chief Complaint/HPI Patient admitted to ARU due to aspiration pneumonia with dysphagia since 03/29/2016. Medically Mr. Bill is doing well. He has reported he feels ready to be discharged hoem at this time. Patient has denied any medical issues at this time. He is scheduled to be discharged 04/08/2019. Constitutional: Denies: Chills, Fever Eyes: Denies: Pain ENT: Reports: Dysphagia; Denies: Head Aches Skin: Reports: Rash, Other (skin around PEG appears normal ) Pulmonary: Denies: Dyspnea, Cough Cardiovascular: Denies: Chest Pain, Palpitations Gastrointestinal: Denies: Abdominal Pain Genitourinary: Denies: Dysuria Hematologic: Denies: Bruising, Bleeding Excessively Musculoskeletal: Reports: Other Symptoms (some generalized weakness ); Denies: Neck Pain, Back Pain, Shoulder Pain, Arm Pain, Hand Pain, Leg Pain, Foot Pain, Joint Pain, Muscle Pain, Spasms Psych: Reports: Mood Normal Objective Physical Examination General Exam: Positive: Alert, Cooperative, No Acute Distress Eye Exam: Positive: Conjunctiva & lids normal, EOMI ENT Exam: Positive: Atraumatic, Mucous membr. moist/pink Chest Exam: Positive: Clear to auscultation Heart Exam: Positive: Rate Normal; Negative: Rubs Abdomen Exam: Positive: Normal bowel sounds, Soft, Hepatospenomegaly; Negative: Tenderness Extremity Exam: Negative: Edema Skin Exam: Positive: Nl turgor and temperature (PEG in place. ) Psych Exam: Positive: Mental status NL, Mood NL Assessment /Plan Plan/VTE VTE Prophylaxis Ordered?: No Plan Activity: Continue Current Therapy: PT Patient will be managed per ARU. Scheduled for discharge 04/08/19. VS, I&O, 24H, Fishbone Vital Signs/I&O Vital Signs Date Time Temp Pulse Resp B/P (MAP) Pulse Ox O2 Delivery O2 Flow Rate FiO2 04/07/19 14:00 99.0 87 22 133/67 (89) 92 Room Air 04/07/19 10:28 2.0 I&O- Last 24 Hours up to 6 AM 04/07/19 06:00 Intake Total 680 ml Output Total 1300 ml Balance -620 ml Laboratory Data 24H LABS Laboratory Tests 2 04/06/19 16:54: Bedside Glucose (Misc Panel) 106 04/06/19 20:02: Bedside Glucose (Misc Panel) 132H 04/07/19 06:40: Bedside Glucose (Misc Panel) 114 04/07/19 10:00: Immature Granulocyte % (Auto) 0.4, Neutrophils (%) (Auto) 65.2, Lymphocytes (%) (Auto) 18.6L, Monocytes (%) (Auto) 9.5H, Eosinophils (%) (Auto) 5.3H, Basophils (%) (Auto) 1.0, Neutrophils # (Auto) 4.7, Lymphocytes # (Auto) 1.3L, Monocytes # (Auto) 0.7, Eosinophils # (Auto) 0.4, Basophils # (Auto) 0.1, Nucleated Red Blood Cells % (auto) 0.0, Anion Gap 9, Glomerular Filtration Rate > 60.0, Calcium Level 8.6L 04/07/19 11:29: Bedside Glucose (Misc Panel) 232H CBC/BMP Laboratory Tests 04/07/19 10:00 HEBER AYALA PA-C Apr 07, 2019 15:49
[2019-04-07 20:00] VITALS: BP 116/67
[2019-04-07] MEDS: GABAPENTIN 300 MG CAP PO SCH (22:48)
[2019-04-07] MEDS: LATANOPROST 0.005% OPHTH SOLN 2.5 ML OU SCH (22:49)
[2019-04-08 06:00] VITALS: BP 114/56
[2019-04-08 07:04] LABS: HEMATOCRIT 37.5 % (42.0-52.0); HEMOGLOBIN 11.9 g/dl (13.5-17.5); MEAN CORPUSCULAR HEMOGLOBIN 30.1 pg (27.0-33.0); MEAN CORPUSCULAR HGB CONC 31.7 g/dl (32.0-36.5); MEAN CORPUSCULAR VOLUME 94.7 fl (80.0-96.0); PLATELET COUNT, AUTOMATED 110 10^3/uL (150-450); RED BLOOD COUNT 3.96 10^6/uL (4.30-6.10); WHITE BLOOD COUNT 6.7 10^3/uL (4.0-10.0)
[2019-04-08] MEDS: IPRATROPIUM 0.5MG/ALBUTEROL 2.5MG INH SOL UD 3ML (DUONEB)(J7620) NEB SCH ×2 (07:28→11:12)
[2019-04-08] MEDS: POTASSIUM CHL PWD 20 MEQ PACKET PO SCH (08:59)
[2019-04-08] MEDS: HumaLOG INSULIN (NovoLOG) PER UNIT SC SCH ×2 (08:59→12:49)
[2019-04-08] MEDS: VITAMIN D 1,000 INTERNATIONAL UNITS TABLET PO SCH (09:00)
[2019-04-08] MEDS: levETIRAcetam 250MG TABLET (KEPPRA) PO SCH (09:00)
[2019-04-08] MEDS: MULTIVITAMINS/MINERALS THERAP 1 TAB PO SCH (09:00)
[2019-04-08] MEDS: ACETAMINOPHEN TAB 650MG DOSE (2X325MG) PO SCH (09:00)
[2019-04-08] MEDS: ATORVASTATIN 20 MG TAB PO SCH (09:04)
[2019-04-08 09:06] VITALS: BP 114/56
[2019-04-08] MEDS: metFORMIN (GLUCOPHAGE) 500 MG TAB PO SCH (09:06)
[2019-04-08] MEDS: OMEPRAZOLE 20 MG CAP PO SCH (09:06)
[2019-04-08] MEDS: LISINOPRIL 20 MG TAB PO SCH (09:06)
[2019-04-08] MEDS: FOLIC ACID 1 MG TAB PO SCH (09:06)
[2019-04-08] MEDS: LORATADINE 10 MG TAB PO SCH (09:06)
[2019-04-08] MEDS: SINEMET 25-100 MG TAB PO SCH ×2 (09:06→12:48)
[2019-04-08] MEDS: hydroCHLOROthiazide 25 MG TAB PO SCH (09:06)
[2019-04-08] MEDS: BRIMONIDINE 0.15% OPHTH SOLN 5 ML OU SCH (09:07)
[2019-04-08] MEDS: MAGIC MOUTHWASH SUSPENSION BTL SSP SCH ×2 (09:07→12:49)
[2019-04-08] MEDS: COSOPT OCUMETER PLUS 10ML (DORZOLAMIDE/TIMOLOL) OU SCH (09:07)
--- NOTE | 2019-04-08 19:40 | IPNPDOC ---
Text Note Date of Service The patient was seen on 04/08/19. NOTE S: Pt examined at bedside. Hasn't complaints today. Is eager to go home. Mild tenderness around site of PEG tube, otherwise doing well. No fever, chills, nausea, vomiting, bowel issues. PE: Vitals: see below General: NAD, A&Ox3, resting comfortably HEENT: NCAT, EOMI, anicteric sclera, MMM CV: RRR, no murmurs or clicks or rub. No edema RESP: CTAB, no w/r/r/ ABD: soft, NT, ND. Benign. PEG tube in place without any signs of infection EXTREMITIES: 2+ radial pulses b/l, able to move all extremities NEURO: no focal deficits or acute changes A/P: 1. Aspiration pneumonia: Resolved S/P Levaquin 7 day course. PEG tube in place, the patient is taking in mostly by mouth intake. To follow-up outpatient with surgeon 2. Weakness and debility: Worked with PT and OT and rehabilitation 3. 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 On insulin sliding scale and long-acting insulin in patient. Continue gabapentin Transition to by mouth on discharge 4. Thrombocytopenia: Stable without any active bleeding. Monitor 5. History of hemorrhagic stroke: S/P craniotomy. Continue Keppra for seizure prophylaxis 6. Hyperlipidemia: Continue statin 7. Hypertension: Continue current regimen. Controlled DVT ppx: Mechanical given thrombus cytopenia DISPO: From medical standpoint. Discharge plan as per PM&R VS,Fishbone, I+O VS, Fishbone, I+O Laboratory Tests 04/08/19 06:44 Vital Signs Date Time Temp Pulse Resp B/P (MAP) Pulse Ox O2 Delivery O2 Flow Rate FiO2 04/08/19 09:06 114/56 04/08/19 09:00 2.0 04/08/19 06:00 99.9 84 20 94 Nasal Cannula I&O- Last 24 Hours up to 6 AM 04/08/19 06:00 Intake Total 620 ml Output Total 750 ml Balance -130 ml GME ATTESTATION GME ATTESTATION My faculty preceptor for this patient encounter was physically present during the encounter and was fully available. All aspects of the patient interview, ex amination, medical decision making process, and medical care plan development were reviewed and approved by the faculty preceptor. The faculty preceptor is aware and concurs with the plan as stated in the body of this note and will attest to such by his/her cosignature. ATTENDING NOTE I, Thomas Houston, have independently examined this patient and performed my own p hysical exam, as well as reviewed the documentation and edited where necessary. I have discussed in detail with the resident / student the findings and plan of treatment as documented by the resident / student and edited their note. I agree with their findings and treatment plan and have edited their documentation. I will continue to follow the patient during this hospital stay. MARCO MENDEZ DO Apr 08, 2019 19:40 THOMAS HOUSTON MD Apr 09, 2019 15:17
== END 2019-04-08 13:07 | disposition home or self-care (01) | DRG 948 ==
LOC: M PM&R 14:20 → M MSPAV 16:24 → M PM&R 16:32
PROVIDERS: ADMIT Physical Medicine & Rehabilitation; ATTEND Physical Medicine & Rehabilitation
DX: R53.1 Weakness (principal); R13.10 Dysphagia, unspecified; D69.6 Thrombocytopenia, unspecified; D64.9 Anemia, unspecified; R26.89 Other abnormalities of gait and mobility; E78.5 Hyperlipidemia, unspecified; E11.40 Type 2 diabetes mellitus with diabetic neuropathy, unspecified; R56.9 Unspecified convulsions; I10 Essential (primary) hypertension; R53.81 Other malaise; R49.0 Dysphonia; Z79.899 Other long term (current) drug therapy; Z88.0 Allergy status to penicillin; Z85.819 Personal history of malignant neoplasm of unspecified site of lip, oral cavity, and pharynx; Z92.21 Personal history of antineoplastic chemotherapy; Z92.3 Personal history of irradiation; Z93.1 Gastrostomy status; Z86.73 Personal history of transient ischemic attack (TIA), and cerebral infarction without residual deficits; Z79.4 Long term (current) use of insulin

== ENCOUNTER → 2019-04-12 | Outpatient (POV) | payer OTHER, MEDICARE ==
[~2019-04-12] VITALS: Ht 175.3 cm; Wt 82.3 kg
[~2019-04-12] MED LIST changes: +ATOR1TAB21 PO; +BRIM2OPD OU; +CARB25TA9 PO; +CLAR10TA7 PO; +GLUC500T PO; +KEPP250T5 PO; +LISI-538 PO; +Latanoprost 0.005% Op Soln OU; +MAGICMW SSP; +OMEP-172 PO; -OMEP20CA4 PO; +POTA20PW PO
[2019-04-12 14:30] VITALS: BP 138/75
--- NOTE | 2019-04-13 09:59 | IRPN ---
[facility] IR Progress Note IR Progress Note DATE: Apr 12, 2019 FOLLOW-UP: Status post gastrostomy placement for aspiration pneumonia. Currently flushes the catheter every day but not using it for feeds. ON EXAMINATION: Percutaneous gastrostomy site looks good. No redness, tenderness, fluctuance or discharge. I spent 15 minutes with the patient and carer discussing how to flush the catheter and how to inject feeds through the gastrostomy catheter using a syringe. I advised them to call us if they have any questions or concerns. I encouraged majority of the feeds go through the gastrostomy as he is an aspiration risk and has presented previously with aspiration pneumonia. The dressing was changed. The buttons will fall off by themselves. Thank you for this referral Cc patient's primary care physician Allergies Coded Allergies: Penicillins (Verified Allergy, Severe, anaphyaxsis, 10/06/18) VS,Fishbone, I+O VS, Fishbone, I+O Vital Signs Date Time Temp Pulse Resp B/P (MAP) Pulse Ox O2 Delivery O2 Flow Rate FiO2 04/12/19 14:30 99.0 101 20 138/75 (96) 90 Nasal Cannula 4.0 UNIQUE ANDRADE MD Apr 13, 2019 09:59
== END ==
LOC: M IRPOV 14:23
PROVIDERS: ATTEND Radiology Diagnostic Radiology
DX: Z43.1 Encounter for attention to gastrostomy (principal)

== ENCOUNTER 2019-04-25 11:52 | Inpatient (IN) | payer OTHER, MEDICARE ==
[~2019-04-25] VITALS: Ht 175.3 cm; Wt 82.9 kg
[2019-04-25] MEDS ORDERED: ACETAMINOPHEN 325 MG TAB PO ONE (12:45)
[2019-04-25] MEDS ORDERED: NS 1,000 ML IV ONE (12:45)
[2019-04-25] MEDS ORDERED: IPRATROPIUM 0.5MG/ALBUTEROL 2.5MG INH SOL UD 3ML (DUONEB)(J7620) NEB ONE (12:45)
--- NOTE | 2019-04-25 13:05 | REP ---
Clinical: Cough and dyspnea. Comparison: 04/04/2019. Findings: Mediastinum and cardiac silhouette are stable. Lung zarate demonstrate chronic interstitial changes and suspected underlying elements of fibrosis. Superimposed lower lobe atelectasis/air space disease cannot be excluded. No effusion. No pneumothorax. Skeletal structures intact. Impression: Chronic changes. Subtle superimposed lower lobe atelectasis/air space disease cannot be excluded. Electronically Signed by Ronen Morales MD 04/25/2019 12:56 P
[2019-04-25] MEDS ORDERED: AZITHROMYCIN INJ 500 MG, VIAL MATE ADAPTER 1 EACH in D5W 250 ML IV ONE (13:30)
[2019-04-25] MEDS ORDERED: cefTRIAXone SOD 1 GM in D5W MINI-BAG PLUS 50 ML IV ONE (13:30)
[2019-04-25 13:32] LABS: BASO % 0.6 % (0.0-1.0); EOS # 0.2 10^3/uL (0.0-0.5); EOS % 2.7 % (0.0-3.0); HEMATOCRIT 43.2 % (42.0-52.0); HEMOGLOBIN 13.8 g/dl (13.5-17.5); LYMPH # 1.7 10^3/uL (1.5-5.0); LYMPH % 26.2 % (24.0-44.0); MEAN CORPUSCULAR HEMOGLOBIN 30.4 pg (27.0-33.0); MEAN CORPUSCULAR HGB CONC 31.9 g/dl (32.0-36.5); MEAN CORPUSCULAR VOLUME 95.2 fl (80.0-96.0); MONO # 0.8 10^3/uL (0.0-0.8); MONO % 12.8 % (0.0-5.0); NEUTROPHILS # 3.7 10^3/uL (1.5-8.5); NEUTROPHILS % 57.2 % (36.0-66.0); RED BLOOD COUNT 4.54 10^6/uL (4.30-6.10); WHITE BLOOD COUNT 6.4 10^3/uL (4.0-10.0)
[2019-04-25 14:01] LABS: INFLUENZA A AMPLIFICATION NEGATIVE (NEGATIVE); INFLUENZA B AMPLIFICATION NEGATIVE (NEGATIVE)
[2019-04-25 14:23] LABS: VENOUS O2 SATURATION 91.2 % (60.0-80.0); VENOUS PARTIAL PRESSURE CO2 28.3 mmHg (38.0-50.0); VENOUS PARTIAL PRESSURE O2 61.9 mmHg (30.0-50.0); VENOUS PH 7.422 UNITS (7.330-7.430); VENOUS STANDARD HCO3 20.2 MEQ/L; VENOUS TOTAL CO2 18.9 MEQ/L (24.0-28.0)
[2019-04-25 14:43] LABS: INR 1.49; PROTHROMBIN TIME 17.8 SECONDS (11.8-14.0)
[2019-04-25 15:10] LABS: ALBUMIN 2.4 GM/DL (3.2-5.2); ALT/SGPT 21 U/L (12-78); BILIRUBIN,DIRECT 0.5 MG/DL (0.0-0.2); BILIRUBIN,TOTAL 1.1 MG/DL (0.2-1.0); BLOOD UREA NITROGEN 15 MG/DL (7-18); CALCIUM LEVEL 8.3 MG/DL (8.8-10.2); CARBON DIOXIDE LEVEL 19 MEQ/L (21-32); CHLORIDE LEVEL 107 MEQ/L (98-107); CK-MB VALUE MASS < 1.0 NG/ML (<3.6); CPK CREATINE PHOSPHOKINASE 53 U/L (39-308); CREATININE FOR GFR 1.06 MG/DL (0.70-1.30); GLOMERULAR FILTRATION RATE > 60.0 (>49); GLUCOSE, FASTING 148 MG/DL (70-100); MB/CK RELATIVE INDEX 1.89 (< OR =4); SODIUM LEVEL 142 MEQ/L (136-145); TOTAL PROTEIN 6.9 GM/DL (6.4-8.2); TROPONIN I < 0.02 NG/ML (< 0.10)
[2019-04-25] MEDS ORDERED: METF-839 PO (16:03)
[2019-04-25] MEDS ORDERED: VITA100066 PO (16:03)
[2019-04-25] MEDS ORDERED: LEVE100SOL PO (16:03)
[2019-04-25] MEDS ORDERED: MULTLIQ7 PO (16:03)
[2019-04-25] MEDS ORDERED: CARB25TA9 PO (16:03)
[2019-04-25] MEDS ORDERED: GABA250S7 PO (16:03)
[2019-04-25] MEDS ORDERED: KLOR20TA42 PO (16:03)
[2019-04-25] MEDS ORDERED: PILL CUTTER 1 EACH XX PRN (17:00)
[2019-04-25] MEDS: HEPARIN SOD (PORCINE) 5000 UNITS/ML VIAL SC SCH (18:23)
--- NOTE | 2019-04-25 18:43 | HPEPDOC ---
[facility] Medical History & Physical Date of Admission Apr 25, 2019 Date of Service: Apr 25, 2019 Attending Physician: SHARAN HERMAN MD History and Physical CHIEF COMPLAINT: Sent for suspicion of pneumonia HISTORY OF PRESENT ILLNESS: 68-year-old male with past medical history of hemorrhagic CVA status post craniotomy in 2005, seizure disorder, throat cancer status post radiation and chemotherapy, dysphasia, status post PEG tube placement (removed 2 years ago, PEG tube reinserted during his previous admission last month due to suspicion of aspiration), presents to the emergency department with concern of recurrent pneumonia. Patient is a poor historian and unable to provide any useful history at this time, information obtained from emergency room staff and prior chart. Patient was recently admitted for aspiration pneumonia with subsequent admission to acute rehabilitation unit and placement of PEG tube due to aspiration. Patient was able to take his meds and tolerate a pured diet. Patient has no complaints at this time, reports that he was told by visiting staff that he needs to go back to the hospital for pneumonia. He denies any worsening cough, shortness of breath, chest pain, n ausea, vomiting, abdominal diarrhea at this time. 10 point review of system is negative except for above PAST MEDICAL HISTORY: 1. Hemorrhagic CVA. 2. Seizure disorder. 3. Throat cancer. 4. Hypertension PAST SURGICAL HISTORY: 1. PEG tube placement. 2. Craniotomy. SOCIAL HISTORY: Previous heavy smoker, quit many years ago. Denies the use Denies drug use FAMILY HISTORY: Unable to obtain ALLERGIES: Please see below. HOME MEDICATIONS: Please see below. PHYSICAL EXAMINATION: VITAL SIGNS: Please see below. GENERAL: No distress HEENT: Normocephalic, atraumatic, dry mucous membranes NECK: Supple CARDIOVASCULAR EXAMINATION: S1, S2, no murmurs RESPIRATORY EXAMINATION: Scattered rhonchi, no wheezing ABDOMINAL EXAMINATION: Soft, nontender, nondistended, PEG tube in place, positive bowel sounds EXTREMITIES: Range of motion intact SKIN: No rash NEUROLOGICAL EXAMINATION: Alert and oriented 2, no focal deficits PSYCHIATRIC EXAMINATION: Calm and cooperative LABORATORY DATA: See below. IMAGING: Chest x-ray without obvious acute pathology MICROBIOLOGY: Please see below. ASSESSMENT: 68-year-old male with past medical history of hemorrhagic CVA, seizure disorder, throat cancer and PEG tube placement is readmitted for possible pneumonia and dehydration. PLAN: 1. Questionable pneumonia. Recent admission for pneumonia secondary to aspiration, reports taking oral intake, denies aspiration at this time, chest x-ray without obvious infiltrate, denies symptoms concerning for recurrent infection, empiric Merrem, procal & blood cultures pending. 2. Dehydration - elevated lactate, water intake likely inadequate via PEG, IV hydration, will trend lactate. 3. Hemorrhagic CVA. Continue statin 4. Seizure disorder. Continue Keppra 5. Throat cancer status post chemoradiation with dysphasia. Status post PEG tube placement, continue tube feeds with free water flushes DVT prophylaxis: Heparin subcutaneous GI prophylaxis: Home PPI Vital Signs Vital Signs Date Time Temp Pulse Resp B/P (MAP) Pulse Ox O2 Delivery O2 Flow Rate FiO2 04/25/19 14:20 96.6 04/25/19 13:07 91 97 04/25/19 13:00 123/61 (81) 04/25/19 12:20 Nasal Cannula 4.0 04/25/19 11:53 28 Laboratory Data Labs 24H Laboratory Tests 2 04/25/19 12:40: Immature Granulocyte % (Auto) 0.5, Neutrophils (%) (Auto) 57.2, Lymphocytes (%) (Auto) 26.2, Monocytes (%) (Auto) 12.8H, Eosinophils (%) (Auto) 2.7, Basophils (%) (Auto) 0.6, Neutrophils # (Auto) 3.7, Lymphocytes # (Auto) 1.7, Monocytes # (Auto) 0.8, Eosinophils # (Auto) 0.2, Basophils # (Auto) 0.0, Nucleated Red Bl ood Cells % (auto) 0.0 04/25/19 13:11: Influenza Type A (RT-PCR) NEGATIVE, Influenza Type B (RT-PCR) NEGATIVE 04/25/19 14:06: Prothrombin Time 17.8H, Prothromb Time International Ratio 1.49, Blood Gas Bicarbonate Standard 20.2, Venous Blood pH 7.422, Venous Blood Partial Pressure CO2 28.3L, Venous Blood Partial Pressure O2 61.9H, Venous Blood Total Carbon Dioxide 18.9L, Venous Blood HCO3 18.0L, Venous Blood Oxygen Saturation 91.2H, Venous Blood Base Excess -5.0L, Anion Gap 16, Glomerular Filtration Rate > 60.0, Lactic Acid Level 6.0*H, Calcium Level 8.3L, Total Bilirubin 1.1H, Direct Bilirubin 0.5H, Aspartate Amino Transf (AST/SGOT) 31, Alanine Aminotransferase (ALT/SGPT) 21, Alkaline Phosphatase 103, Total Creatine Kinase 53, Creatine Kinase MB < 1.0, Creatine Kinase MB Relative Index 1.89, Troponin I < 0.02, Total Protein 6.9, Albumin 2.4L, Albumin/Globulin Ratio 0.53L CBC/BMP Laboratory Tests 04/25/19 12:40 04/25/19 14:06 Microbiology Microbiology 04/25/19 Blood Culture, Received Pending Home Medications Scheduled Atorvastatin Calcium (Atorvastatin Calcium) 80 Mg Tab, 40 MG PO DAILY CRUSH AND PUT IN APPLESAUCE Brimonidine Tartrate (Brimonidine Tartrate) 0.2 % Margarita, 1 DROP OU TID Carbidopa/Levodopa (Carbidopa-Levodopa 25-100 Tab) 1 Each Tablet, 0.5 TAB PO TID CRUSH AND PUT IN APPLESAUCE AT 0800, 1200, AND 1600 Cholecalciferol (Vitamin D3) (Vitamin D3) 1,000 Unit Tablet, 3,000 UNIT PO DAILY CRUSH AND PUT IN APPLESAUCE Dorzolamide HCl/Timolol Maleat (Dorzolamide-Timolol Eye Drops) 1 Margarita Margarita, 1 DROP OU BID USES MORNING AND NOON Folic Acid (Folic Acid) 1 Mg Tab, 1 MG PO DAILY CRUSH AND PUT IN APPLESAUCE Gabapentin (Gabapentin) 250 Mg/5 Ml Solution, 6 ML PO QHS Hydrochlorothiazide (Hydrochlorothiazide) 25 Mg Tab, 25 MG PO DAILY CRUSH AND PUT IN APPLESAUCE Latanoprost (Xalatan) 0.005 % Margarita, 1 DROP OU QHS Levetiracetam (Levetiracetam) 100 Mg/1 Ml Solution, 7.5 ML PO BID Lisinopril (Lisinopril) 40 Mg Tablet, 20 MG PO DAILY CRUSH AND PUT IN APPLESAUCE Loratadine (Loratadine) 10 Mg Tab, 10 MG PO DAILY CRUSH AND PUT IN APPLESAUCE Metformin HCl (Metformin HCl) 500 Mg Tablet, 500 MG PO BIDWM CRUSH AND PUT IN APPLESAUCE Multivit-Minerals/Ferrous Fum (Multivitamin Liquid) 9 Mg/15 Ml Liquid, 15 ML PO DAILY Nut.tx.gluc.intoler,Lac-Fr,Soy (Glucerna) 237 Ml Liquid, 237 ML PO BID Omeprazole (Omeprazole) 20 Mg Cap, 20 MG PO DAILY SPRINKLE IN APPLESAUCE Potassium Chloride (Klor-Con M20) 20 Meq Tab.er.prt, 20 MEQ PO BID CRUSH AND PUT IN APPLESAUCE Scheduled PRN Dextrose (Glucose) 4 Gm Tab.chew, 4 GM PO for LOW BLOOD SUGAR Allergies Coded Allergies: Penicillins (Verified Allergy, Severe, anaphyaxsis, 10/06/18) A-FIB/CHADSVASC A-FIB History Current/History of A-Fib/PAF?: No SHARAN HERMAN MD Apr 25, 2019 18:43
[2019-04-25] MEDS: NS 1,000 ML IV SCH (19:10)
--- NOTE | 2019-04-25 19:54 | ECGEPIP ---
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
[2019-04-25] MEDS: MEROPENEM INJ 1 GM in IV 1 EA IV SCH (20:25)
[2019-04-25 21:50] VITALS: BP 145/83
[2019-04-25] MEDS: LATANOPROST 0.005% OPHTH SOLN 2.5 ML OU SCH (22:20)
[2019-04-25] MEDS: GABAPENTIN 300 MG CAP PO SCH (22:20)
[2019-04-25] MEDS: BRIMONIDINE 0.1% OPHTH SOLN 5 ML OU SCH (22:20)
[2019-04-25] MEDS: levETIRAcetam ORAL SOLUTION 500 MG/5 ML UDC PO SCH (22:33)
[2019-04-26] MEDS ORDERED: GLUCAGON FOR INJ 1 MG VIAL (J1610) SC PRN
[2019-04-26] MEDS ORDERED: GLUCOSE 4 GM CHEW TABLET PO PRN
[2019-04-26] MEDS ORDERED: DEXTROSE 50% 50 ML SYRINGE IV PRN
[2019-04-26] MEDS: MEROPENEM INJ 1 GM in IV 1 EA IV SCH ×3 (03:54→20:48)
[2019-04-26] MEDS: NS 1,000 ML IV SCH ×2 (05:07→15:47)
[2019-04-26] MEDS: HEPARIN SOD (PORCINE) 5000 UNITS/ML VIAL SC SCH ×3 (05:07→17:48)
[2019-04-26 06:00] VITALS: BP 139/67
[2019-04-26] MEDS: HumaLOG INSULIN (NovoLOG) PER UNIT SC SCH ×4 (06:30→21:00)
[2019-04-26 07:02] LABS: HEMATOCRIT 37.7 % (42.0-52.0); MEAN CORPUSCULAR HEMOGLOBIN 29.5 pg (27.0-33.0); MEAN CORPUSCULAR HGB CONC 31.3 g/dl (32.0-36.5); MEAN CORPUSCULAR VOLUME 94.3 fl (80.0-96.0); WHITE BLOOD COUNT 4.9 10^3/uL (4.0-10.0)
[2019-04-26 07:36] LABS: ALBUMIN 2.1 GM/DL (3.2-5.2); ALT/SGPT 17 U/L (12-78); BLOOD UREA NITROGEN 8 MG/DL (7-18); CALCIUM LEVEL 7.9 MG/DL (8.8-10.2); CARBON DIOXIDE LEVEL 23 MEQ/L (21-32); CHLORIDE LEVEL 110 MEQ/L (98-107); CREATININE FOR GFR 0.67 MG/DL (0.70-1.30); GLOMERULAR FILTRATION RATE > 60.0 (>49); GLUCOSE, FASTING 91 MG/DL (70-100); MAGNESIUM LEVEL 1.4 MG/DL (1.8-2.4); POTASSIUM SERUM 3.2 MEQ/L (3.5-5.1); SODIUM LEVEL 141 MEQ/L (136-145); TOTAL PROTEIN 6.3 GM/DL (6.4-8.2)
[2019-04-26 07:37] LABS: PLATELET COUNT, AUTOMATED 67 10^3/uL (150-450)
[2019-04-26 07:38] LABS: HEMOGLOBIN 11.8 g/dl (13.5-17.5)
[2019-04-26] MEDS ORDERED: POTASSIUM CHLORIDE 10 MEQ SR TABLET PO ONE (08:00)
[2019-04-26] MEDS ORDERED: MAG SULF 1GM/100ML (MAG RUN) 1 GM in IV 1 EA IV ONE (08:00)
[2019-04-26] MEDS ORDERED: LevoFLOXacin 750 MG TABLET PO SCH (09:00)
[2019-04-26] MEDS ORDERED: hydroCHLOROthiazide 25 MG TAB PO SCH (09:00)
[2019-04-26] MEDS: VITAMIN D 1,000 INTERNATIONAL UNITS TABLET PO SCH (09:25)
[2019-04-26] MEDS: ATORVASTATIN 20 MG TAB PO SCH (09:26)
[2019-04-26] MEDS: FOLIC ACID 1 MG TAB PO SCH (09:26)
[2019-04-26] MEDS: SINEMET 25-100 MG TAB PO SCH ×3 (09:26→17:47)
[2019-04-26] MEDS: OMEPRAZOLE 20 MG CAP PO SCH (09:27)
[2019-04-26] MEDS: LORATADINE 10 MG TAB PO SCH (09:28)
[2019-04-26] MEDS: levETIRAcetam ORAL SOLUTION 500 MG/5 ML UDC PO SCH ×2 (09:30→20:48)
[2019-04-26] MEDS: COSOPT OCUMETER PLUS 10ML (DORZOLAMIDE/TIMOLOL) OU SCH ×2 (09:32→12:40)
[2019-04-26] MEDS: BRIMONIDINE 0.1% OPHTH SOLN 5 ML OU SCH ×3 (09:32→21:04)
[2019-04-26] MEDS: lisinopriL 40 MG TAB PO SCH (09:33)
--- NOTE | 2019-04-26 13:15 | IPNPDOC ---
Subjective Date Seen The patient was seen on 04/26/19. Subjective Chief Complaint/HPI Patient lying in bed. His is at bedside. Offers no new complaints General: Denies: ROS Unobtainable, Chills, Night Sweats, Fatigue, Malaise, Normal Appetite, Other Symptoms Constitutional: Denies: Chills, Fever, Malaise, Night Sweats, Weakness, Fatigue, Weight Loss, Lethargy, Other Eyes: Denies: Pain, Vision change, Conjunctivae inflammation, Eyelid inflammation, Redness, Other ENT: Denies: Head Aches, Ear Pain, Dysphagia, Sinus Congestion, Post Nasal Drip, Sore Throat, Epistaxis, Other Symptoms Skin: Denies: Rash, Lesions, Jaundice, Bruising, Itching, Dry, Breakdown, Nail Changes, Other Pulmonary: Denies: Dyspnea, Cough, Pleuritic Chest Pain, Other Symptoms Cardiovascular: Denies: Chest Pain, Palpitations, Orthopnea, Paroxysmal Noc. Dyspnea, Edema, Lt Headedness, Other Symptoms Gastrointestinal: Denies: Nausea, Vomiting, Abdominal Pain, Diarrhea, Con stipation, Melena, Hematochezia, Other Symptoms Musculoskeletal: Denies: Neck Pain, Back Pain, Shoulder Pain, Arm Pain, Hand Pain, Leg Pain, Foot Pain, Joint Pain, Muscle Pain, Spasms, Other Symptoms Neurological: Denies: Weakness, Numbness, Incoordination, Change in speech, Confusion, Seizures, Other Symptoms Psych: Denies: Mood Normal, Anxiety, Depression, Memory Issues, Thoughts of Self Harm, Anger, Thoughts of Harming Other, Other Psych Objective Physical Examination General Exam: Positive: Alert, Cooperative Eye Exam: Positive: PERRLA, Conjunctiva & lids normal ENT Exam: Positive: Atraumatic, Mucous membr. moist/pink Neck Exam: Positive: Supple Chest Exam: Positive: Clear to auscultation, Normal air movement Heart Exam: Positive: Rate Normal, Normal S1, Normal S2 Abdomen Exam: Positive: Normal bowel sounds, Soft Extremity Exam: Positive: Normal pulses Skin Exam: Positive: Nl turgor and temperature Neuro Exam: Positive: Strength at 5/5 X4 ext, Sensation Intact, Cranial Nerves 3-12 NL Assessment /Plan Problems (1) Pneumonia Status: Acute Problem Text: Questionable pneumonia. Recent admission for pneumonia secondary to aspiration, reports taking oral intake, denies aspiration at this time, chest x-ray without obvious infiltrate, denies symptoms concerning for recurrent infection, empiric Merrem, procal & blood cultures pending. CBC, CMP in a.m. Physical therapy eval Swallow was done, patient has been started on. Diet Dietary consult called for nutritional supplement requirement (2) CVA (cerebral vascular accident) Status: Chronic Problem Text: Hemorrhagic CVA. Continue statin (3) Throat cancer Status: Chronic Problem Text: Throat cancer status post chemoradiation with dysphasia. Status post PEG tube placement, continue tube feeds with free water flushes (4) Seizure Status: Chronic Problem Text: Continue Keppra (5) Dehydration Status: Acute Problem Text: Dehydration Elevated lactate on admission was corrected, water intake likely inadequate via PEG, IV hydration , started on admission Labs in a.m. Plan/VTE VTE Prophylaxis Ordered?: Yes VS, I&O, [facility] Vital Signs/I&O Vital Signs Date Time Temp Pulse Resp B/P (MAP) Pulse Ox O2 Delivery O2 Flow Rate FiO2 04/26/19 06:00 98.5 68 21 139/67 (91) 93 Room Air 04/25/19 21:50 3.0 I&O- Last 24 Hours up to 6 AM 04/26/19 06:00 Intake Total 1185 ml Output Total 375 ml Balance 810 ml Laboratory Data 24H LABS Laboratory Tests 2 04/25/19 13:11: Influenza Type A (RT-PCR) NEGATIVE, Influenza Type B (RT-PCR) NEGATIVE 04/25/19 14:05: 04/25/19 14:06: Prothrombin Time 17.8H, Prothromb Time International Ratio 1.49, Blood Gas Bicarbonate Standard 20.2, Venous Blood pH 7.422, Venous Blood Partial Pressure CO2 28.3L, Venous Blood Partial Pressure O2 61.9H, Venous Blood Total Carbon Dioxide 18.9L, Venous Blood HCO3 18.0L, Venous Blood Oxygen Saturation 91.2H, Venous Blood Base Excess -5.0L, Anion Gap 16, Glomerular Filtration Rate > 60.0, Lactic Acid Level 6.0*H, Calcium Level 8.3L, Total Bilirubin 1.1H, Direct Bilirubin 0.5H, Aspartate Amino Transf (AST/SGOT) 31, Alanine Aminotransferase (ALT/SGPT) 21, Alkaline Phosphatase 103, Total Creatine Kinase 53, Creatine Kinase MB < 1.0, Creatine Kinase MB Relative Index 1.89, Troponin I < 0.02, Total Protein 6.9, Albumin 2.4L, Albumin/Globulin Ratio 0.53L 04/25/19 18:53: Lactic Acid Followup at 4 Hours 5.8*H 04/25/19 21:08: Methicillin-Resist S.aureus DNA PCR DETECTEDH 04/25/19 22:50: Bedside Glucose (Misc Panel) 115 04/26/19 06:02: Bedside Glucose (Misc Panel) 97 04/26/19 06:21: Nucleated Red Blood Cells % (auto) 0.0, Immature Platelet Fraction 3.7, Anion Gap 8, Glomerular Filtration Rate > 60.0, Calcium Level 7.9L, Magnesium Level 1.4L, Total Bilirubin 1.0, Aspartate Amino Transf (AST/SGOT) 18, Alanine Aminotransferase (ALT/SGPT) 17, Alkaline Phosphatase 103, Total Protein 6.3L, Albumin 2.1L, Albumin/Globulin Ratio 0.50L 04/26/19 11:47: Bedside Glucose (Misc Panel) 127H CBC/BMP Laboratory Tests 04/25/19 14:06 04/26/19 06:21 Microbiology Microbiology 04/25/19 Blood Culture, Received Pending 04/25/19 Respiratory Virus Panel (PCR) ([facility]) - Final, Complete KRISTEN BUSCH MD Apr 26, 2019 13:15
[2019-04-26 14:00] VITALS: BP 141/71
[2019-04-26] MEDS: GABAPENTIN 300 MG CAP PO SCH (20:45)
[2019-04-26] MEDS: LATANOPROST 0.005% OPHTH SOLN 2.5 ML OU SCH (21:04)
[2019-04-26 22:00] VITALS: BP 141/69
[2019-04-27] MEDS: NS 1,000 ML IV SCH ×3 (01:59→22:34)
[2019-04-27] MEDS: MEROPENEM INJ 1 GM in IV 1 EA IV SCH ×3 (04:53→20:08)
[2019-04-27 06:00] VITALS: BP 128/68
[2019-04-27 06:09] LABS: BASO % 0.7 % (0.0-1.0); EOS # 0.4 10^3/uL (0.0-0.5); EOS % 6.4 % (0.0-3.0); HEMATOCRIT 36.4 % (42.0-52.0); HEMOGLOBIN 11.9 g/dl (13.5-17.5); LYMPH # 1.2 10^3/uL (1.5-5.0); LYMPH % 22.5 % (24.0-44.0); MEAN CORPUSCULAR HEMOGLOBIN 30.6 pg (27.0-33.0); MEAN CORPUSCULAR HGB CONC 32.7 g/dl (32.0-36.5); MEAN CORPUSCULAR VOLUME 93.6 fl (80.0-96.0); MONO # 0.8 10^3/uL (0.0-0.8); MONO % 14.9 % (0.0-5.0); NEUTROPHILS % 55.3 % (36.0-66.0); RED BLOOD COUNT 3.89 10^6/uL (4.30-6.10); WHITE BLOOD COUNT 5.4 10^3/uL (4.0-10.0)
[2019-04-27 06:25] LABS: ALBUMIN 1.9 GM/DL (3.2-5.2); ALT/SGPT 21 U/L (12-78); BILIRUBIN,TOTAL 0.9 MG/DL (0.2-1.0); BLOOD UREA NITROGEN 6 MG/DL (7-18); CALCIUM LEVEL 7.6 MG/DL (8.8-10.2); CARBON DIOXIDE LEVEL 22 MEQ/L (21-32); CHLORIDE LEVEL 115 MEQ/L (98-107); CREATININE FOR GFR 0.68 MG/DL (0.70-1.30); GLOMERULAR FILTRATION RATE > 60.0 (>49); GLUCOSE, FASTING 99 MG/DL (70-100); POTASSIUM SERUM 3.4 MEQ/L (3.5-5.1); SODIUM LEVEL 145 MEQ/L (136-145)
[2019-04-27 06:26] LABS: PLATELET COUNT, AUTOMATED 71 10^3/uL (150-450)
[2019-04-27] MEDS: HEPARIN SOD (PORCINE) 5000 UNITS/ML VIAL SC SCH ×2 (06:30→17:00)
[2019-04-27] MEDS: HumaLOG INSULIN (NovoLOG) PER UNIT SC SCH ×4 (07:30→20:16)
[2019-04-27 08:56] VITALS: BP 126/67
[2019-04-27] MEDS: levETIRAcetam ORAL SOLUTION 500 MG/5 ML UDC PO SCH ×2 (09:01→20:23)
[2019-04-27] MEDS: SINEMET 25-100 MG TAB PO SCH ×3 (09:02→17:25)
[2019-04-27] MEDS: VITAMIN D 1,000 INTERNATIONAL UNITS TABLET PO SCH (09:02)
[2019-04-27] MEDS: ATORVASTATIN 20 MG TAB PO SCH (09:02)
[2019-04-27] MEDS: LORATADINE 10 MG TAB PO SCH (09:02)
[2019-04-27] MEDS: COSOPT OCUMETER PLUS 10ML (DORZOLAMIDE/TIMOLOL) OU SCH ×2 (09:02→11:49)
[2019-04-27] MEDS: FOLIC ACID 1 MG TAB PO SCH (09:02)
[2019-04-27] MEDS: lisinopriL 40 MG TAB PO SCH (09:02)
[2019-04-27] MEDS: OMEPRAZOLE 20 MG CAP PO SCH (09:02)
[2019-04-27] MEDS: BRIMONIDINE 0.1% OPHTH SOLN 5 ML OU SCH ×3 (09:05→20:08)
--- NOTE | 2019-04-27 10:10 | IPNPDOC ---
Subjective Date Seen The patient was seen on 04/27/19. Subjective Chief Complaint/HPI Patient is comfortable in no distress. His PEG tube is clot is not functioning General: Denies: ROS Unobtainable, Chills, Night Sweats, Fatigue, Malaise, Normal Appetite, Other Symptoms Constitutional: Denies: Chills, Fever, Malaise, Night Sweats, Weakness, Fatigue, Weight Loss, Lethargy, Other Pulmonary: Denies: Dyspnea, Cough, Pleuritic Chest Pain, Other Symptoms Cardiovascular: Denies: Chest Pain, Palpitations, Orthopnea, Paroxysmal Noc. Dyspnea, Edema, Lt Headedness, Other Symptoms Gastrointestinal: Denies: Nausea, Vomiting, Abdominal Pain, Diarrhea, Constipation, Melena, Hematochezia, Other Symptoms Genitourinary: Denies: Dysuria, Frequency, Incontinence, Hematuria, Retention, Other Symptoms Musculoskeletal: Denies: Neck Pain, Back Pain, Shoulder Pain, Arm Pain, Hand Pain, Leg Pain, Foot Pain, Joint Pain, Muscle Pain, Spasms, Other Symptoms Neurological: Denies: Weakness, Numbness, Incoordination, Change in speech, Confusion, Seizures, Other Symptoms Objective Physical Examination General Exam: Positive: Alert, Cooperative Eye Exam: Positive: PERRLA, Conjunctiva & lids normal ENT Exam: Positive: Atraumatic, Mucous membr. moist/pink Neck Exam: Positive: Supple Chest Exam: Positive: Clear to auscultation, Normal air movement Heart Exam: Positive: Rate Normal, Normal S1, Normal S2 Abdomen Exam: Positive: Normal bowel sounds, Soft Extremity Exam: Positive: Normal pulses Skin Exam: Positive: Nl turgor and temperature Neuro Exam: Positive: Strength at 5/5 X4 ext, Sensation Intact, Cranial Nerves 3-12 NL Assessment /Plan Problems (1) Pneumonia Status: Acute Problem Text: Questionable pneumonia. Recent admission for pneumonia secondary to aspiration, reports taking oral intake, denies aspiration at this time, chest x-ray without obvious infiltrate, denies symptoms concerning for recurrent infection, empiric Merrem Physical therapy eval-Will await further recommendation with the patient can be discharged home Swallow was done, patient has been started on. Diet Dietary consult called for nutritional supplement requirement Will repeat chest x-ray today and CBC, CMP in a.m. to assess further need for antibiotics (2) CVA (cerebral vascular accident) Status: Chronic Problem Text: Hemorrhagic CVA. Continue statin (3) Throat cancer Status: Chronic Problem Text: Throat cancer status post chemoradiation with dysphasia. Status post PEG tube placement, continue tube feeds with free water flushes (4) Seizure Status: Chronic Problem Text: Continue Keppra (5) Dehydration Status: Acute Problem Text: Dehydration Elevated lactate on admission was corrected, water intake likely inadequate via PEG, IV hydration , started on admission PEG tube is clogged Will request IR to insert a new PEG tube Plan/VTE VTE Prophylaxis Ordered?: Yes VS, I&O, 24H, Fishbone Vital Signs/I&O Vital Signs Date Time Temp Pulse Resp B/P (MAP) Pulse Ox O2 Delivery O2 Flow Rate FiO2 04/27/19 08:56 92 126/67 (86) 04/27/19 06:00 98.6 20 97 Nasal Cannula 3.0 I&O- Last 24 Hours up to 6 AM 04/27/19 06:00 Intake Total 3520 ml Output Total 350 ml Balance 3170 ml Laboratory Data 24H LABS Laboratory Tests 2 04/26/19 11:47: Bedside Glucose (Misc Panel) 127H 04/26/19 16:09: Bedside Glucose (Misc Panel) 146H 04/26/19 19:54: Bedside Glucose (Misc Panel) 156H 04/27/19 05:47: Immature Granulocyte % (Auto) 0.2, Neutrophils (%) (Auto) 55.3, Lymphocytes (%) (Auto) 22.5L, Monocytes (%) (Auto) 14.9H, Eosinophils (%) (Auto) 6.4H, Basophils (%) (Auto) 0.7, Neutrophils # (Auto) 3.0, Lymphocytes # (Auto) 1.2L, Monocytes # (Auto) 0.8, Eosinophils # (Auto) 0.4, Basophils # (Auto) 0.0, Nucleated Red Blood Cells % (auto) 0.0, Anion Gap 8, Glomerular Filtration Rate > 60.0, Calcium Level 7.6L, Total Bilirubin 0.9, Aspartate Amino Transf (AST/SGOT) 31, Alanine Aminotransferase (ALT/SGPT) 21, Alkaline Phosphatase 96, Total Protein 6.0L, Albumin 1.9L, Albumin/Globulin Ratio 0.46L CBC/BMP Laboratory Tests 04/27/19 05:47 Microbiology Microbiology 04/25/19 Blood Culture - Preliminary, Resulted No growth after 24 hours . All specim... 04/25/19 Respiratory Virus Panel (PCR) ([facility]) - Final, Complete KRISTEN BUSCH MD Apr 27, 2019 10:09
--- NOTE | 2019-04-27 10:51 | REP ---
Clinical: Pneumonia. Comparison: 04/25/2019. Findings: Very subtle diffuse interstitial and alveolar prominence suggest bronchitis and possible forming left lower lobe infiltrate. No effusion. No pneumothorax. Mediastinum and cardiac silhouette normal. Skeletal structures intact. Impression: Findings suggesting bronchitis and possible forming left lower lobe infiltrate. Electronically Signed by Ronen Morales MD 04/27/2019 10:43 A
[2019-04-27] MEDS ORDERED: POTASSIUM CHLORIDE 10 MEQ SR TABLET PO ONE (11:00)
[2019-04-27 14:00] VITALS: BP 127/66
[2019-04-27] MEDS: LATANOPROST 0.005% OPHTH SOLN 2.5 ML OU SCH (20:08)
[2019-04-27] MEDS: GABAPENTIN 300 MG CAP PO SCH (20:22)
[2019-04-27 22:00] VITALS: BP 130/66
[2019-04-28] MEDS: MEROPENEM INJ 1 GM in IV 1 EA IV SCH ×2 (04:14→13:27)
[2019-04-28] MEDS: HEPARIN SOD (PORCINE) 5000 UNITS/ML VIAL SC SCH (04:19)
[2019-04-28 06:00] VITALS: BP 115/65
[2019-04-28] MEDS: HumaLOG INSULIN (NovoLOG) PER UNIT SC SCH ×4 (07:30→21:00)
[2019-04-28] MEDS ORDERED: POTASSIUM CHLORIDE 10 MEQ SR TABLET PO ONE (09:00)
[2019-04-28] MEDS: ATORVASTATIN 20 MG TAB PO SCH (09:53)
[2019-04-28] MEDS: LORATADINE 10 MG TAB PO SCH (09:53)
[2019-04-28] MEDS: VITAMIN D 1,000 INTERNATIONAL UNITS TABLET PO SCH (09:53)
[2019-04-28] MEDS: FOLIC ACID 1 MG TAB PO SCH (09:53)
[2019-04-28] MEDS: SINEMET 25-100 MG TAB PO SCH ×3 (09:53→17:48)
[2019-04-28] MEDS: OMEPRAZOLE 20 MG CAP PO SCH (09:53)
[2019-04-28] MEDS: lisinopriL 40 MG TAB PO SCH (09:54)
[2019-04-28] MEDS: levETIRAcetam ORAL SOLUTION 500 MG/5 ML UDC PO SCH ×2 (09:55→20:54)
[2019-04-28] MEDS: BRIMONIDINE 0.1% OPHTH SOLN 5 ML OU SCH ×3 (09:56→20:54)
[2019-04-28] MEDS: COSOPT OCUMETER PLUS 10ML (DORZOLAMIDE/TIMOLOL) OU SCH ×2 (09:57→13:26)
--- NOTE | 2019-04-28 11:04 | IPNPDOC ---
Subjective Date Seen The patient was seen on 04/28/19. Subjective Chief Complaint/HPI Patient was to go home today. He offers no new complaints, awaiting for surgical consult to change his GT tube General: Denies: ROS Unobtainable, Chills, Night Sweats, Fatigue, Malaise, Normal Appetite, Other Symptoms Constitutional: Denies: Chills, Fever, Malaise, Night Sweats, Weakness, Fatigue, Weight Loss, Lethargy, Other Pulmonary: Denies: Dyspnea, Cough, Pleuritic Chest Pain, Other Symptoms Cardiovascular: Denies: Chest Pain, Palpitations, Orthopnea, Paroxysmal Noc. Dyspnea, Edema, Lt Headedness, Other Symptoms Gastrointestinal: Denies: Nausea, Vomiting, Abdominal Pain, Diarrhea, Constipation, Melena, Hematochezia, Other Symptoms Musculoskeletal: Denies: Neck Pain, Back Pain, Shoulder Pain, Arm Pain, Hand Pain, Leg Pain, Foot Pain, Joint Pain, Muscle Pain, Spasms, Other Symptoms Neurological: Denies: Weakness, Numbness, Incoordination, Change in speech, Confusion, Seizures, Other Symptoms Objective Physical Examination ENT Exam: Positive: Atraumatic, Mucous membr. moist/pink Neck Exam: Positive: Supple Chest Exam: Positive: Clear to auscultation, Normal air movement Heart Exam: Positive: Rate Normal, Normal S1, Normal S2 Abdomen Exam: Positive: Normal bowel sounds, Soft Extremity Exam: Positive: Normal pulses Skin Exam: Positive: Nl turgor and temperature Neuro Exam: Positive: Strength at 5/5 X4 ext, Sensation Intact, Cranial Nerves 3-12 NL Assessment /Plan Problems (1) Pneumonia Status: Acute Problem Text: Questionable pneumonia- resolved. Patient is asymptomatic Recent admission for pneumonia secondary to aspiration, reports taking oral int valentín, denies aspiration at this time, chest x-ray without obvious infiltrate, denies symptoms concerning for recurrent infection, empiric Merrem Physical therapy eval-Will await further recommendation with the patient can be discharged home Swallow was done, patient has been started on. Diet Dietary consult called for nutritional supplement requirement And can be discharged home once the G-tube was replaced and cleared by physical therapy today (2) CVA (cerebral vascular accident) Status: Chronic Problem Text: Hemorrhagic CVA. Continue statin (3) Throat cancer Status: Chronic Problem Text: Throat cancer status post chemoradiation with dysphasia. Status post PEG tube placement, continue tube feeds with free water flushes (4) Seizure Status: Chronic Problem Text: Continue Keppra (5) Dehydration Status: Resolved Problem Text: Dehydration Elevated lactate on admission was corrected, water intake likely inadequate via PEG, IV hydration , started on admission Surgical consult with Dr. Ferrera requested and he will replace the G-tube today (6) Hypokalemia Status: Acute Problem Text: Potassium supplement ordered Plan/VTE VTE Prophylaxis Ordered?: Yes VS, I&O, 24H, Fishbone Vital Signs/I&O Vital Signs Date Time Temp Pulse Resp B/P (MAP) Pulse Ox O2 Delivery O2 Flow Rate FiO2 04/28/19 06:00 98.4 75 20 115/65 (82) 98 Nasal Cannula 3.0 I&O- Last 24 Hours up to 6 AM 04/28/19 06:00 Intake Total 2170 ml Output Total 675 ml Balance 1495 ml Laboratory Data 24H LABS Laboratory Tests 2 04/27/19 11:29: Bedside Glucose (Misc Panel) 175H 04/27/19 16:30: Bedside Glucose (Misc Panel) 142H 04/27/19 20:01: Bedside Glucose (Misc Panel) 123H 04/28/19 06:51: Bedside Glucose (Misc Panel) 86 Microbiology Microbiology 04/25/19 Blood Culture - Preliminary, Resulted No Growth after 48 hours. All Specime... 04/25/19 Respiratory Virus Panel (PCR) ([facility]) - Final, Complete KRISTEN BUSCH MD Apr 28, 2019 11:04
[2019-04-28 14:00] VITALS: BP 127/62
[2019-04-28] MEDS ORDERED: ACETAMINOPHEN TAB 650MG DOSE (2X325MG) PO PRN (17:30)
[2019-04-28] MEDS: GABAPENTIN 300 MG CAP PO SCH (20:54)
[2019-04-28] MEDS: LATANOPROST 0.005% OPHTH SOLN 2.5 ML OU SCH (20:54)
[2019-04-28 22:00] VITALS: BP 127/62
[2019-04-29 06:00] VITALS: BP 125/61
[2019-04-29 08:56] LABS: HEMATOCRIT 39.7 % (42.0-52.0); HEMOGLOBIN 12.3 g/dl (13.5-17.5); MEAN CORPUSCULAR HEMOGLOBIN 29.9 pg (27.0-33.0); MEAN CORPUSCULAR VOLUME 96.4 fl (80.0-96.0); RED BLOOD COUNT 4.12 10^6/uL (4.30-6.10)
[2019-04-29] MEDS: OMEPRAZOLE 20 MG CAP PO SCH (08:59)
[2019-04-29] MEDS: HumaLOG INSULIN (NovoLOG) PER UNIT SC SCH ×2 (08:59→13:03)
[2019-04-29] MEDS: SINEMET 25-100 MG TAB PO SCH ×2 (08:59→11:26)
[2019-04-29] MEDS: VITAMIN D 1,000 INTERNATIONAL UNITS TABLET PO SCH (08:59)
[2019-04-29] MEDS: LORATADINE 10 MG TAB PO SCH (09:00)
[2019-04-29] MEDS: ATORVASTATIN 20 MG TAB PO SCH (09:00)
[2019-04-29] MEDS: lisinopriL 40 MG TAB PO SCH (09:01)
[2019-04-29] MEDS: FOLIC ACID 1 MG TAB PO SCH (09:01)
[2019-04-29] MEDS: BRIMONIDINE 0.1% OPHTH SOLN 5 ML OU SCH (09:02)
[2019-04-29] MEDS: COSOPT OCUMETER PLUS 10ML (DORZOLAMIDE/TIMOLOL) OU SCH ×2 (09:02→11:27)
[2019-04-29 09:04] LABS: PLATELET COUNT, AUTOMATED 74 10^3/uL (150-450)
[2019-04-29 09:20] LABS: ALBUMIN 1.9 GM/DL (3.2-5.2); ALT/SGPT 25 U/L (12-78); BLOOD UREA NITROGEN 4 MG/DL (7-18); CALCIUM LEVEL 7.8 MG/DL (8.8-10.2); CARBON DIOXIDE LEVEL 22 MEQ/L (21-32); CHLORIDE LEVEL 113 MEQ/L (98-107); CREATININE FOR GFR 0.74 MG/DL (0.70-1.30); GLOMERULAR FILTRATION RATE > 60.0 (>49); GLUCOSE, FASTING 163 MG/DL (70-100); POTASSIUM SERUM 3.6 MEQ/L (3.5-5.1); SODIUM LEVEL 143 MEQ/L (136-145); TOTAL PROTEIN 6.2 GM/DL (6.4-8.2)
[2019-04-29] MEDS: levETIRAcetam ORAL SOLUTION 500 MG/5 ML UDC PO SCH (11:26)
--- NOTE | 2019-04-29 11:54 | CR.PDOC ---
General Surgery Consultation Date of Consultation 04/28/19 History and Physical CONSULT REPORT FOR: Dr. Potts (hospitalist service) REASON FOR CONSULTATION: malfunctioning gastrostomy tube HISTORY OF PRESENT ILLNESS: I was asked to see Mr. Bill is currently admitted for suspicion for aspiration pneumonia and on admission his found to have a clogged gastrostomy tube. This was placed by Dr. Sandoval from interventional radiology on March 2019 with suspicion of recurrent aspiration. PERTINENT PAST MEDICAL HISTORY: 1. Hemorrhagic CVA 2. Seizure disorder 3. Throat cancer 4. History of aspiration pneumonia. PERTINENT PAST SURGICAL HISTORY: INCLUDES: 1. Percutaneous gastrostomy tube placement done by Dr. Sandoval from IR 03/2019 2. previous PEG tube placement ALLERGIES: Please see below. HOME MEDICATIONS: Please see below. REVIEW OF SYSTEMS: Patient nurse reports he is able to tolerate some soft diet and is being allowed to take some soft diet. The speech pathologist recommend still for him to take medications through the PEG tube so with a clogged PEG tube he is taking his medications with small amount of applesauce. He is here for pneumonia though he is not having any fevers or chills or any noticeable shortness of breath. He has some slight slurred speech either from throat cancer from her previous CVA which makes him hard to understand. PHYSICAL EXAMINATION: VITALS SIGNS: Please see below. GENERAL APPEARANCE: Patient seen, looks comfortable. He does communicate though he is difficult to understand with some dysarthria. I see some soft foods tray in his room and according to the nurse he is allowed some soft diet. SKIN: Warm and dry. LUNGS: [Clear to auscultation bilaterally. No wheezing appreciated]. HEART: [No chest wall abnormalities. Regular rate and rhythm with no murmurs appreciated]. ABDOMEN: Patient is a round abdomen, mildly distended and slightly tympanitic to percussion. He has an 18 Icelandic gastrostomy tube coming out of the left upper quadrant area with no noticeable drainage around the PEG tube site. I tried to flush and aspirate at this but was not able to in the tube is collapsing on itself in trying to vigorously aspirate LABORATORY DATA: Please see below. IMAGING STUDIES: Noncontributory IMPRESSION AND PLAN Malfunctioning gastrostomy tube The previous gastrostomy tube was removed and a new 18 Icelandic replacement gastrostomy tube was placed without any difficulty. There is able to aspirate gastric contents and flushed is without any drainage. He could use the gastrostomy tube for both feeding and medications. Recommend flushing the gastrostomy tube after each use and at least once daily when not in use with 20 mL of normal saline to prevent clogging of the tube.. Vital Signs Vital Signs Date Time Temp Pulse Resp B/P (MAP) Pulse Ox O2 Delivery O2 Flow Rate FiO2 04/28/19 14:00 99.3 87 18 127/62 (83) 98 Nasal Cannula 3.0 I&Os I&O- Last 24 Hours up to 6 AM 04/28/19 06:00 Intake Total 2170 ml Output Total 675 ml Balance 1495 ml Laboratory Data Labs 24H Laboratory Tests 2 04/27/19 20:01: Bedside Glucose (Misc Panel) 123H 04/28/19 06:51: Bedside Glucose (Misc Panel) 86 04/28/19 11:27: Bedside Glucose (Misc Panel) 170H 04/28/19 16:33: Bedside Glucose (Misc Panel) 123H Microbiology Microbiology 04/25/19 Blood Culture - Preliminary, Resulted No Growth after 72 hours. All specime... 04/25/19 Respiratory Virus Panel (PCR) ([facility]) - Final, Complete Home Medications Scheduled Atorvastatin Calcium (Atorvastatin Calcium) 80 Mg Tab, 40 MG PO DAILY, (Reported) CRUSH AND PUT IN APPLESAUCE Brimonidine Tartrate (Brimonidine Tartrate) 0.2 % Margarita, 1 DROP OU TID, (Reported) Carbidopa/Levodopa (Carbidopa-Levodopa 25-100 Tab) 1 Each Tablet, 0.5 TAB PO TID, (Reported) CRUSH AND PUT IN APPLESAUCE AT 0800, 1200, AND 1600 Cholecalciferol (Vitamin D3) (Vitamin D3) 1,000 Unit Tablet, 3,000 UNIT PO DAILY, (Reported) CRUSH AND PUT IN APPLESAUCE Dorzolamide HCl/Timolol Maleat (Dorzolamide-Timolol Eye Drops) 1 Margarita Margarita, 1 DROP OU BID, (Reported) USES MORNING AND NOON Folic Acid (Folic Acid) 1 Mg Tab, 1 MG PO DAILY, (Reported) CRUSH AND PUT IN APPLESAUCE Gabapentin (Gabapentin) 250 Mg/5 Ml Solution, 6 ML PO QHS, (Reported) Hydrochlorothiazide (Hydrochlorothiazide) 25 Mg Tab, 25 MG PO DAILY, (Reported) CRUSH AND PUT IN APPLESAUCE Latanoprost (Xalatan) 0.005 % Margarita, 1 DROP OU QHS, (Reported) Levetiracetam (Levetiracetam) 100 Mg/1 Ml Solution, 7.5 ML PO BID, (Reported) Lisinopril (Lisinopril) 40 Mg Tablet, 20 MG PO DAILY, (Reported) CRUSH AND PUT IN APPLESAUCE Loratadine (Loratadine) 10 Mg Tab, 10 MG PO DAILY, (Reported) CRUSH AND PUT IN APPLESAUCE Metformin HCl (Metformin HCl) 500 Mg Tablet, 500 MG PO BIDWM, (Reported) CRUSH AND PUT IN APPLESAUCE Multivit-Minerals/Ferrous Fum (Multivitamin Liquid) 9 Mg/15 Ml Liquid, 15 ML PO DAILY, (Reported) Nut.tx.gluc.intoler,Lac-Fr,Soy (Glucerna) 237 Ml Liquid, 237 ML PO BID, (Reported) Omeprazole (Omeprazole) 20 Mg Cap, 20 MG PO DAILY, (Reported) SPRINKLE IN APPLESAUCE Potassium Chloride (Klor-Con M20) 20 Meq Tab.er.prt, 20 MEQ PO BID, (Reported) CRUSH AND PUT IN APPLESAUCE Scheduled PRN Dextrose (Glucose) 4 Gm Tab.chew, 4 GM PO for LOW BLOOD SUGAR, (Reported) Allergies Coded Allergies: Penicillins (Verified Allergy, Severe, anaphyaxsis, 10/06/18) ELIJAH GARCIA MD Apr 28, 2019 17:05
--- NOTE | 2019-04-29 14:27 | DS.PDOC ---
Discharge Summary General Date of Admission Apr 25, 2019 at 16:20 Date of Discharge 04/29/19 Discharge Summary PROCEDURES PERFORMED DURING STAY: PEG tube replacement ADMITTING DIAGNOSES: 1. CHF, CVA, questionable pneumonia. DISCHARGE DIAGNOSES: 1. Blocked gastric tube, CHF, CVA, questionable pneumonia. COMPLICATIONS/CHIEF COMPLAINT: Chf,Cva,H/O Craniotomy,Peg Status,Pneumonia. HISTORY OF PRESENT ILLNESS: : 68-year-old male with past medical history of hemorrhagic CVA status post craniotomy in 2005, seizure disorder, throat cancer status post radiation and chemotherapy, dysphasia, status post PEG tube placement (removed 2 years ago, PEG tube reinserted during his previous admission last month due to suspicion of aspiration), presents to the emergency department with concern of recurrent pneumonia. Patient is a poor historian and unable to provide any useful history at this time, information obtained from emergency room staff and prior chart. Patient was recently admitted for aspiration pneumonia with subsequent admission to acute rehabilitation unit and placement of PEG tube due to aspiration. Patient was able to take his meds and tolerate a pured diet. Patient has no complaints at this time, reports that he was told by visiting staff that he needs to go back to the hospital for pn eumonia. He denies any worsening cough, shortness of breath, chest pain, nausea, vomiting, abdominal diarrhea at this time.. HOSPITAL COURSE: . DISCHARGE MEDICATIONS: Please see below. ALLERGIES: Please see below. PHYSICAL EXAMINATION ON DISCHARGE: VITAL SIGNS: Please see below. GENERAL: Within normal limits HEENT: PERRLA. Extraocular muscles intact NECK: Supple. Negative JVD, negative lymphadenopathy CARDIOVASCULAR EXAMINATION: S1, S2, regular RESPIRATORY EXAMINATION: Clear To A&P ABDOMINAL EXAMINATION: , Soft, nontender, bowel sounds present EXTREMITIES: No clubbing, cyanosis, edema SKIN: Normal NEUROLOGICAL EXAMINATION: No new focal motor sensory deficit PSYCHIATRIC EXAMINATION: normal LABORATORY DATA: Please see below. IMAGING: Chest x-ray:Impression: Findings suggesting bronchitis and possible forming left lower lobe infiltrate. PROGNOSIS: Good ACTIVITY: As tolerated. DIET: As tolerated DISCHARGE PLAN: Follow-up with PCP in one week DISPOSITION: 01 Home, Self-Care. DISCHARGE INSTRUCTIONS: 1. As per discharge instructions. ITEMS TO FOLLOWUP ON ON OUTPATIENT: 1. Follow-up with PCP in one week. DISCHARGE CONDITION: Stable Vital Signs/I&Os Vital Signs Date Time Temp Pulse Resp B/P (MAP) Pulse Ox O2 Delivery O2 Flow Rate FiO2 04/29/19 06:00 99.0 80 17 125/61 (82) 97 Nasal Cannula 3.0 I&O- Last 24 Hours up to 6 AM 04/29/19 05:59 Intake Total 510 ml Output Total 400 ml Balance 110 ml Laboratory Data Labs 24H Laboratory Tests 2 04/28/19 16:33: Bedside Glucose (Misc Panel) 123H 04/28/19 20:46: Bedside Glucose (Misc Panel) 133H 04/29/19 05:54: Bedside Glucose (Misc Panel) 86 04/29/19 08:10: Bedside Glucose (Misc Panel) 137H 04/29/19 08:30: Nucleated Red Blood Cells % (auto) 0.0, Immature Platelet Fraction 2.8, Anion Gap 8, Glomerular Filtration Rate > 60.0, Calcium Level 7.8L, Total Bilirubin 1.0, Aspartate Amino Transf (AST/SGOT) 40H, Alanine Aminotransferase (ALT/SGPT) 25, Alkaline Phosphatase 103, Total Protein 6.2L, Albumin 1.9L, Albumin/Globulin Ratio 0.44L 04/29/19 11:25: Bedside Glucose (Misc Panel) 134H CBC/BMP Laboratory Tests 04/29/19 08:30 FSBS Laboratory Tests Test 04/28/19 16:33 04/28/19 20:46 04/29/19 05:54 04/29/19 08:10 Range/Units Bedside Glucose (Misc Panel) 123 133 86 137 80-115 MG/DL Test 04/29/19 11:25 Range/Units Bedside Glucose (Misc Panel) 134 80-115 MG/DL Microbiology Microbiology 04/25/19 Blood Culture - Preliminary, Resulted No Growth after 72 hours. All specime... 04/25/19 Respiratory Virus Panel (PCR) ([facility]) - Final, Complete Discharge Medications Scheduled Atorvastatin Calcium (Atorvastatin Calcium) 80 Mg Tab, 40 MG PO DAILY, (Reported) CRUSH AND PUT IN APPLESAUCE Brimonidine Tartrate (Brimonidine Tartrate) 0.2 % Margarita, 1 DROP OU TID, (Reported) Carbidopa/Levodopa (Carbidopa-Levodopa 25-100 Tab) 1 Each Tablet, 0.5 TAB PO TID, (Reported) CRUSH AND PUT IN APPLESAUCE AT 0800, 1200, AND 1600 Cholecalciferol (Vitamin D3) (Vitamin D3) 1,000 Unit Tablet, 3,000 UNIT PO DAILY, (Reported) CRUSH AND PUT IN APPLESAUCE Dorzolamide HCl/Timolol Maleat (Dorzolamide-Timolol Eye Drops) 1 Margarita Margarita, 1 DROP OU BID, (Reported) USES MORNING AND NOON Folic Acid (Folic Acid) 1 Mg Tab, 1 MG PO DAILY, (Reported) CRUSH AND PUT IN APPLESAUCE Gabapentin (Gabapentin) 250 Mg/5 Ml Solution, 6 ML PO QHS, (Reported) Hydrochlorothiazide (Hydrochlorothiazide) 25 Mg Tab, 25 MG PO DAILY, (Reported) CRUSH AND PUT IN APPLESAUCE Latanoprost (Xalatan) 0.005 % Margarita, 1 DROP OU QHS, (Reported) Levetiracetam (Levetiracetam) 100 Mg/1 Ml Solution, 7.5 ML PO BID, (Reported) Lisinopril (Lisinopril) 40 Mg Tablet, 20 MG PO DAILY, (Reported) CRUSH AND PUT IN APPLESAUCE Loratadine (Loratadine) 10 Mg Tab, 10 MG PO DAILY, (Reported) CRUSH AND PUT IN APPLESAUCE Metformin HCl (Metformin HCl) 500 Mg Tablet, 500 MG PO BIDWM, (Reported) CRUSH AND PUT IN APPLESAUCE Multivit-Minerals/Ferrous Fum (Multivitamin Liquid) 9 Mg/15 Ml Liquid, 15 ML PO DAILY, (Reported) Nut.tx.gluc.intoler,Lac-Fr,Soy (Glucerna) 237 Ml Liquid, 237 ML PO BID, (Reported) Omeprazole (Omeprazole) 20 Mg Cap, 20 MG PO DAILY, (Reported) SPRINKLE IN APPLESAUCE Potassium Chloride (Klor-Con M20) 20 Meq Tab.er.prt, 20 MEQ PO BID, (Reported) CRUSH AND PUT IN APPLESAUCE Scheduled PRN Dextrose (Glucose) 4 Gm Tab.chew, 4 GM PO for LOW BLOOD SUGAR, (Reported) Allergies Coded Allergies: Penicillins (Verified Allergy, Severe, anaphyaxsis, 10/06/18) KRISTEN BUSCH MD Apr 29, 2019 14:27
== END 2019-04-29 12:49 | disposition home or self-care (01) | DRG 393 ==
LOC: M ED 11:52 → M ED INP 16:20 → M MSPAV 20:47
PROVIDERS: ADMIT Internal Medicine; ATTEND Internal Medicine
PROC: 0D2DXUZ Change Feeding Device in Lower Intestinal Tract, External Approach (ICD-10-PCS; principal; 2019-04-29)
DX: K94.23 Gastrostomy malfunction (principal); J18.9 Pneumonia, unspecified organism; G40.909 Epilepsy, unspecified, not intractable, without status epilepticus; R47.02 Dysphasia; I11.0 Hypertensive heart disease with heart failure; Z86.73 Personal history of transient ischemic attack (TIA), and cerebral infarction without residual deficits; Z85.21 Personal history of malignant neoplasm of larynx; Z92.3 Personal history of irradiation; Z92.21 Personal history of antineoplastic chemotherapy; Z87.891 Personal history of nicotine dependence; E86.0 Dehydration; Z88.0 Allergy status to penicillin; E87.6 Hypokalemia; I50.9 Heart failure, unspecified

== ENCOUNTER 2019-05-11 14:30 | Emergency (ER) | payer MEDICARE, OTHER ==
[~2019-05-11] VITALS: Ht 175.3 cm; Wt 79.5 kg
[2019-05-11 17:52] VITALS: BP 132/75
== END 2019-05-11 17:53 | disposition home or self-care (01) ==
LOC: EDBD 14:30 → M ED 14:30
DX: J96.91 Respiratory failure, unspecified with hypoxia (principal); J44.9 Chronic obstructive pulmonary disease, unspecified; Z79.899 Other long term (current) drug therapy; Z79.84 Long term (current) use of oral hypoglycemic drugs; Z88.0 Allergy status to penicillin
CPT/HCPCS: 94640; 99284; G0463; J7613; J7644

== ENCOUNTER → 2019-05-11 | Outpatient (CLI) | payer OTHER, MEDICARE ==
[~2019-05-11] MED LIST changes: +GABA250S7 PO; +KLOR20TA42 PO; +LEVE100SOL PO; +METF-839 PO; +MULTLIQ7 PO; -OMEP-172 PO; +OMEP1CAP73 PO; +VITA100066 PO
== END ==
LOC: M LRY 13:30
PROVIDERS: ATTEND Physician Assistant
DX: R79.81 Abnormal blood-gas level (principal); Z53.9 Procedure and treatment not carried out, unspecified reason

== ENCOUNTER → 2019-06-07 | Outpatient (POV) | payer MEDICARE, OTHER ==
[~2019-06-07] VITALS: Ht 175.3 cm; Wt 77.3 kg
[2019-06-07 14:20] VITALS: BP 144/72
--- NOTE | 2019-06-08 11:35 | IRPN ---
[facility] IR Progress Note IR Progress Note DATE: Jun 07, 2019 FOLLOW-UP: Patient had G tube placed by us, for recurrent aspiration pneumonias. Patient now eating and drinking by mouth and not using the G-tube. Patient denies respiratory symptoms, fever, chills or recent pneumonia. Patient would like G-tube removed. ON EXAMINATION: G-tube in place, no redness, tenderness . The G-tube balloon was deflated and G-tube was removed in its entirety. Patient tolerated the procedure well. IMPRESSION: G-tube removed per request of patient. No further follow-up scheduled unless initiated by patient and or referring provider. Thank you for this referral Cc patient's PCP Allergies Coded Allergies: Penicillins (Verified Allergy, Severe, ANAPHYLAXIS, 05/25/19) VS,Fishbone, I+O VS, Fishbone, I+O Vital Signs Date Time Temp Pulse Resp B/P (MAP) Pulse Ox O2 Delivery O2 Flow Rate FiO2 06/07/19 14:20 98.9 100 20 144/72 (96) 88 Nasal Cannula 4.0 UNIQUE ANDRADE MD Jun 08, 2019 11:35
== END ==
LOC: M IRPOV 13:37
PROVIDERS: ATTEND Radiology Diagnostic Radiology
DX: Z43.1 Encounter for attention to gastrostomy (principal)

== ENCOUNTER 2020-07-04 10:12 | Emergency (ER) | payer OTHER ==
[~2020-07-04] VITALS: Ht 175.3 cm; Wt 78.2 kg
[~2020-07-04 10:12] MED LIST changes: +DEXT4TAB2 PO; +GABA-282 PO; -GABA-843 PO; -GLUC4CHW19 PO; +HYDR-3490 PO; -HYDR25TAB PO; -LISI-538 PO; +LISI20TA33 PO; -LISI40TA PO; +LISI40TA4 PO; -MAG400TA PO; +MAGN400T35 PO
[2020-07-04] MEDS ORDERED: MELO15TA28 PO (10:28)
[2020-07-04] MEDS ORDERED: INSU100I16 SQ (10:28)
[2020-07-04] MEDS ORDERED: CEPH500C PO (12:12)
[2020-07-04 12:18] VITALS: BP 121/60
== END 2020-07-04 12:21 | disposition home or self-care (01) ==
LOC: M ED 10:12
DX: R60.0 Localized edema (principal); E11.9 Type 2 diabetes mellitus without complications; J44.9 Chronic obstructive pulmonary disease, unspecified; F03.90 Unspecified dementia, unspecified severity, without behavioral disturbance, psychotic disturbance, mood disturbance, and anxiety; G62.9 Polyneuropathy, unspecified; Z86.718 Personal history of other venous thrombosis and embolism; Z85.818 Personal history of malignant neoplasm of other sites of lip, oral cavity, and pharynx; Z79.899 Other long term (current) drug therapy; Z79.4 Long term (current) use of insulin; Z88.0 Allergy status to penicillin

== ENCOUNTER 2021-01-27 15:40 | Inpatient (IN) | payer OTHER ==
[~2021-01-27] VITALS: Ht 172.7 cm; Wt 90.4 kg
[~2021-01-27 15:40] MED LIST changes: +CEPH500C PO; -DEXT4TAB2 PO; +INSU100I16 SQ; -KLOR10TA76 PO; -KLOR20TA42 PO; +POTA-136 PO; +POTA-141 PO; +SFHGLU4TA PO
[2021-01-27 16:49] LABS: BASO % 0.4 % (0.0-1.0); EOS # 0.2 10^3/uL (0.0-0.5); EOS % 1.8 % (0.0-3.0); HEMATOCRIT 37.3 % (42.0-52.0); HEMOGLOBIN 11.7 g/dl (13.5-17.5); LYMPH # 1.3 10^3/uL (1.5-5.0); LYMPH % 13.1 % (24.0-44.0); MEAN CORPUSCULAR HEMOGLOBIN 25.5 pg (27.0-33.0); MEAN CORPUSCULAR HGB CONC 31.4 g/dl (32.0-36.5); MEAN CORPUSCULAR VOLUME 81.3 fl (80.0-96.0); MONO # 1.1 10^3/uL (0.0-0.8); NEUTROPHILS # 7.1 10^3/uL (1.5-8.5); NEUTROPHILS % 72.8 % (36.0-66.0); PLATELET COUNT, AUTOMATED 157 10^3/uL (150-450); RED BLOOD COUNT 4.59 10^6/uL (4.30-6.10); WHITE BLOOD COUNT 9.8 10^3/uL (4.0-10.0)
[2021-01-27] MEDS ORDERED: HumuLIN R (REGULAR) INSULIN (NovoLIN R) **100U/ML** PER UNIT IV ONE (17:05)
[2021-01-27 17:10] LABS: HEMOGLOBIN A1c 7.7 %
[2021-01-27 17:22] LABS: ALBUMIN 2.5 GM/DL (3.2-5.2); ALT/SGPT 34 U/L (12-78); BILIRUBIN,DIRECT 0.3 MG/DL (0.0-0.2); BILIRUBIN,TOTAL 0.8 MG/DL (0.2-1.0); ETHYL ALCOHOL (ETHANOL) < 0.003 % (0.000-0.010); LIPASE 217 U/L (73-393); TOTAL PROTEIN 6.7 GM/DL (6.4-8.2)
[2021-01-27 17:23] LABS: OSMOLALITY SERUM 294 MOSM/KG (280-301)
[2021-01-27] MEDS ORDERED: HumaLOG INSULIN (NovoLOG) PER UNIT SC SCH (18:00)
[2021-01-27] MEDS ORDERED: GLUCOSE 4GM CHEW TABLET PO PRN (18:25)
[2021-01-27] MEDS ORDERED: DEXTROSE 50% 50 ML SYRINGE IV PRN (18:25)
[2021-01-27] MEDS ORDERED: GLUCAGON INJ 1MG VIAL SC PRN (18:25)
[2021-01-27] MEDS ORDERED: ONDANSETRON 4MG/2ML VIAL IV ONE (18:30)
[2021-01-27] MEDS ORDERED: MORPHINE 4 MG/ML 1ML VIAL/SYRINGE (J2270) IV ONE (18:30)
[2021-01-27] MEDS ORDERED: LEVE15SO2 PO (18:55)
[2021-01-27] MEDS ORDERED: VITALIQ26 PO (18:55)
[2021-01-27] MEDS ORDERED: HOME MED LIST COMPLETE! XX SCH (19:00)
[2021-01-27 19:43] LABS: RSV AMPLIFICATION NEGATIVE (NEGATIVE)
[2021-01-27] MEDS: NS 1,000 ML IV SCH (20:36)
[2021-01-27 20:54] LABS: INR 1.26; PROTHROMBIN TIME 16.3 SECONDS (12.7-14.5)
[2021-01-27 20:55] LABS: PARTIAL THROMBOPLASTIN TIME 31.6 SECONDS (25.9-37.0)
[2021-01-27 20:58] LABS: AMPHETAMINES LEVEL URINE NEGATIVE (NEGATIVE); BARBITURATES URINE NEGATIVE (NEGATIVE); BENZODIAZEPINES URINE NEGATIVE (NEGATIVE); CANNABINOIDS URINE NEGATIVE (NEGATIVE); COCAINE METABOLITE URINE NEGATIVE (NEGATIVE); METHADONE URINE NEGATIVE (NEGATIVE); OPIATES URINE NEGATIVE (NEGATIVE); PHENCYCLIDINE URINE NEGATIVE (NEGATIVE)
[2021-01-27] MEDS: HumaLOG INSULIN (NovoLOG) PER UNIT SC SCH (21:05)
--- NOTE | 2021-01-27 21:14 | HPEPDOC ---
General Date of Admission 01/27/21 Date of Service: Jan 27, 2021 Chief Complaint The patient is a 70-year-old male admitted with a reason for visit of Blood Sugar Problem. History of Present Illness Jarad Bill is a 70-year-old male with significant history of hypertension, cirrhosis, liver cancer, brain cancer, neck cancer, craniotomy, seizure, diabetes, dysphagia, GERD, diastolic heart failure, hyperlipidemia and dementia who presents with complaints of high blood sugar. Patient has a significant recent history of TACE procedure on Sunday 01/21 at [place] for his liver cancer. One of the complications from this procedure can be hyperglycemia he was told and patient and his for keeping track of his blood glucose that he typically only has to take p.o. medication for but as blood glucose greater than 500 they presented to the ER today. Patient is notably wheezing during exam. He is a chronic 4 L nasal cannula related to COPD however this is increased. He is also dry coughing multiple times during exam. Patient does endorse headache it is over the left side of his head. Patient is without neuro deficits and describes the headache as mild. Patient does endorse abdominal pain, generalized but also focused to the right lower quadrant. Patient reports that abdominal pain is not acute. Pt denies sinus congestion, sore throat,sob, palpitations, chest pain, n/v/d, we akness, sensory changes or syncope. Of note, patient afebrile, normotensive and mildly tachycardic. Blood glucose 418 upon arrival, without DKA. Lipase within normal limits. UA nonacute, chest x-ray nonacute. Patient will be admitted for further evaluation management of presenting concerns. Home Medications Scheduled Atorvastatin Calcium (Atorvastatin Calcium) 80 Mg Tab, 40 MG PO DAILY, (Reported) CRUSH AND PUT IN APPLESAUCE Brimonidine Tartrate (Brimonidine Tartrate) 0.2 % Margarita, 1 DROP OU TID, (Reported) Carbidopa/Levodopa (Carbidopa-Levodopa 25-100 Tab) 1 Each Tablet, 0.5 TAB PO TID, (Reported) CRUSH AND PUT IN APPLESAUCE AT 0800, 1200, AND 1600 Cholecalciferol (Vitamin D3) (Vitamin D3) 1 Ml Liquid, 3,000 UNIT PO DAILY, (Reported) Dorzolamide HCl/Timolol Maleat (Dorzolamide-Timolol Eye Drops) 1 Margarita Margarita, 1 DROP OU BID, (Reported) USES MORNING AND NOON Folic Acid (Folic Acid) 1 Mg Tab, 1 MG PO DAILY, (Reported) CRUSH AND PUT IN APPLESAUCE Gabapentin (Gabapentin) 250 Mg/5 Ml Solution, 6 ML PO QHS, (Reported) Hydrochlorothiazide (Hydrochlorothiazide) 25 Mg Tab, 25 MG PO DAILY, (Reported) CRUSH AND PUT IN APPLESAUCE Latanoprost (Xalatan) 0.005 % Margarita, 1 DROP OU QHS, (Reported) Levetiracetam (Levetiracetam) 500 Mg/5 Ml Solution, 750 MG PO BID, (Reported) Lisinopril (Lisinopril) 40 Mg Tablet, 20 MG PO DAILY, (Reported) CRUSH AND PUT IN APPLESAUCE Loratadine (Loratadine) 10 Mg Tab, 10 MG PO DAILY, (Reported) CRUSH AND PUT IN APPLESAUCE Metformin HCl (Metformin HCl) 500 Mg Tablet, 500 MG PO BIDWM, (Reported) CRUSH AND PUT IN APPLESAUCE Multivit-Minerals/Ferrous Fum (Multivitamin Liquid) 9 Mg/15 Ml Liquid, 15 ML PO DAILY, (Reported) Nut.tx.gluc.intoler,Lac-Fr,Soy (Glucerna) 237 Ml Liquid, 237 ML PO BID, (Reported) Omeprazole (Omeprazole) 20 Mg Cap, 20 MG PO DAILY, (Reported) SPRINKLE IN APPLESAUCE Potassium Chloride (Klor-Con M20) 20 Meq Tab.er.prt, 20 MEQ PO BID, (Reported) CRUSH AND PUT IN APPLESAUCE Scheduled PRN Dextrose (Glucose) 4 Gm Tab.chew, 4 GM PO for LOW BLOOD SUGAR, (Reported) Allergies Coded Allergies: Penicillins (Verified Allergy, Severe, ANAPHYLAXIS, 05/25/19) Past Medical History Medical History Cirrhosis, liver cancer, history of brain and neck cancer, hypertension, hyperlipidemia, diastolic heart failure, history of CVA with left-sided weakness residual, dementia, chronic respiratory failure on 4 L nasal cannula, COPD, h istory of intracranial bleed, GERD diabetes, history of seizures Surgical History Trace procedure January 2021, history of craniotomy Family History Significant Family History: Diabetes brother-DM Social History * Smoker: former Smoker Alcohol: Denies Drugs: denies Recent Travel/Sick Contacts: Denies: Recent travel, Recent sick contacts Psychosocial History: Dementia Patient lives with who is his healthcare proxy her name is Iwona and can be reached at [phone] A-FIB/[facility] A-FIB History Current/History of A-Fib/PAF?: No Current PO Anticoag Therapy: No Review of Systems Constitutional: Reports: Fatigue; Denies: Chills, Fever, Night Sweats Eyes: Denies: Pain, Vision change ENT: Denies: Head Aches, Ear Pain, Dysphagia Skin: Denies: Rash, Lesions, Breakdown Pulmonary: Reports: Cough; Denies: Dyspnea Cardiovascular: Denies: Chest Pain, Palpitations, Orthopnea, Paroxysmal Noc. Dyspnea, Lt Headedness Gastrointestinal: Reports: Abdominal Pain; Denies: Nausea, Vomiting, Diarrhea Genitourinary: Denies: Dysuria, Frequency, Incontinence, Retention Hematologic: Denies: Bruising, Bleeding Excessively Endocrine: Reports: Polydipsia Musculoskeletal: Denies: Neck Pain, Back Pain, Joint Pain, Muscle Pain, Spasms Neurological: Denies: Weakness, Numbness, Change in speech, Confusion Psych: Reports: Mood Normal; Denies: Depression, Memory Issues Physical Examination General Exam: Positive: Alert, Cooperative, No Acute Distress Eye Exam: Positive: PERRLA, Conjunctiva & lids normal, EOMI; Negative: Sclera icteric ENT Exam: Positive: Atraumatic, Mucous membr. moist/pink, Pharynx Normal Neck Exam: Positive: Supple; Negative: JVD, thyromegaly Chest Exam: Positive: Wheezing; Negative: Clear to auscultation, Normal air movement Heart Exam: Positive: Tachycardic, Regular Rhythm, Normal S1, Normal S2; Negative: Rate Normal, Murmurs, Rubs Telemetry: Positive: Sinus, PACs Abdomen Exam: Positive: Normal bowel sounds, Soft, Tenderness (Right lower quadrant); Negative: Hepatospenomegaly Extremity Exam: Positive: Normal pulses; Negative: Clubbing, Cyanosis, Edema Skin Exam: Positive: Nl turgor and temperature; Negative: Breakdown, Lesion Neuro Exam: Positive: Normal Gait, Normal Speech, Cranial Nerves 3-12 NL, Reflexes 2+ Psych Exam: Positive: Mental status NL, Mood NL; Negative: Oriented x 3 (ox2-3, at his baseline) Vital Signs Vital Signs Date Time Temp Pulse Resp B/P (MAP) Pulse Ox O2 Delivery O2 Flow Rate FiO2 01/27/21 15:42 98.2 107 20 154/72 (99) 94 Nasal Cannula 4.0 Laboratory Data Labs 24H Laboratory Tests 2 01/27/21 16:35: Immature Granulocyte % (Auto) 0.9, Neutrophils (%) (Auto) 72.8H, Lymphocytes (%) (Auto) 13.1L, Monocytes (%) (Auto) 11.0H, Eosinophils (%) (Auto) 1.8, Basophils (%) (Auto) 0.4, Neutrophils # (Auto) 7.1, Lymphocytes # (Auto) 1.3L, Monocytes # (Auto) 1.1H, Eosinophils # (Auto) 0.2, Basophils # (Auto) 0.0, Nucleated Red Blood Cells % (auto) 0.0, Estimated Mean Plasma Glucose 174H, Hemoglobin A1c 7.7, Osmolality 294, Total Bilirubin 0.8, Direct Bilirubin 0.3H, Aspartate Amino Transf (AST/SGOT) 15, Alanine Aminotransferase (ALT/SGPT) 34, Alkaline Phosphatase 174H, Total Protein 6.7, Albumin 2.5L, Albumin/Globulin Ratio 0.6, Lipase 217, Ethyl Alcohol Level < 0.003, B-Hydroxybutyrate 0.90 01/27/21 16:40: POC Glucose (Misc Panel) 418H, POC Sodium (Misc Panel) 133L, POC Potassium (Misc Panel) 4.3, POC Chloride (Misc Panel) 97L, POC Total CO2 (Misc Panel) 22.0L, POC Blood Urea Nitrogen (Misc Panel 18, POC Ionized Calcium (Misc Panel) 4.5, POC Creatinine (Misc Panel) 1.1, POC Hematocrit (Misc Panel) 40.0 01/27/21 16:44: POC Lactate (Misc Panel) 2.75*H 01/27/21 17:00: POC Total CO2 (Misc Panel) 23.0, POC pH (Misc Panel) 7.448, POC Base Excess (Misc Panel) -2.0, POC Saturated Percent O2 (Misc) 95, POC pO2 (Misc Panel) 70.0L, POC pCO2 (Misc Panel) 31.8L, POC HCO3 (Misc Panel) 22.0 01/27/21 18:12: Bedside Glucose (Misc Panel) 314H CBC/BMP Laboratory Tests 01/27/21 16:35 Microbiology Microbiology 01/27/21 Blood Culture, Received Pending Assessment/Plan 1. Hyperglycemia in diabetic: In setting of status post TACE procedure. Without anion gap acidosis. B-hydroxybutyrate not elevated. -Check A1c. - Monitor patient blood glucose ACHS. - Sliding scale insulin - Will trial long-acting for consideration of patient going home with insulin as he has remained in the 300s during admission process. - a.m. labs. 2. Mild COPD exacerbation: Inc cough, Notably wheezing throughout. ABG shows compensation. -Obtain chest x-ray -Given hyperglycemia, will hold on steroids IV and opt for schedule breathing tx at this time as patient tolerating chronic home O2 requirements of 3 to 4 L nasal cannula. --Consider empiric coverage. 3. Abdominal pain in patient with cirrhosis/liver cancer: Patient reports that abdominal pain had increased postprocedure however has progressively been getting back to baseline. - Monitor I's and O's - Symptom management/supportive care to include analgesics, continue home medications - Should patient have any increased complaints, consider imaging 4. Lactic acidosis: In setting of above. Patient without leukocytosis however he has had recent chemo/has active cancer. His abdominal exam is reassuring but given cirrhosis and ascites fluid, monitor for clinical symptoms of possible developing infection after procedure. UA nonacute and chest x-ray nonacute. ABG shows compensation. -Monitor for signs/symptoms of infection, consider differential. -Patient was hydrated and lactic did decrease to 2. 5. Hypomagnesemia: Mag 1.2, repletion per protocol. Check a.m. mag 6. Hypertension: HTN: Monitor BP in setting of above. Continue home medications once reconciled. 7. Hyperlipidemia: Patient's reports patient is not taking his statin given his liver involvement presently, will hold. 8. DHF: EF 65% in 2019. Patient is on thiazide diuretic. Patient did not appear hypervolemic and he was hydrated given mild tachycardia and lactic acidosis. -Monitor fluid balance, is and os -We will continue home medications at this time 9. History of CVA with left-sided residual weakness: Patient walks with cane/walker. He is not receiving aspirin or statin per due to risks with his cirrhosis. 10. Headache in patient with history of craniotomy and seizures: Patient had reported brain cancer and craniotomy. Patient's alludes to possible history of ICH. He had one episode of seizure during the time of the craniotomy and was started on Keppra. -Plan for seizure precautions, neuro monitoring every shift and Keppra continued. -Patient likely has headache given elevated blood glucose. -Should patient have any neurological deficits or profound descriptors of headache would opt for CT head. 11. Dementia: reports that at times in evening patient may become confused and irritable. She does describe patient may refuse things at times, especially if tired. -Monitor mood, encourage nonpharmacologic methods to manage any behavioral disturbances with de-escalation techniques accordingly. -Continue home medications DVT prophylaxis: SCDs CODE STATUS: Full code. Patient's is healthcare proxy her name is Iwona and can be reached at [phone] Disposition planning: Home once blood glucose controlled. Plan / VTE VTE Prophylaxis Ordered?: Yes NINFA LEVY NP Jan 27, 2021 18:20
[2021-01-27 21:16] LABS: C REACTIVE PROTEIN QUANTITATIV 5.95 MG/DL (0.00-0.30); MAGNESIUM LEVEL 1.2 MG/DL (1.8-2.4)
[2021-01-27 21:25] LABS: HEMOGLOBIN A1c 7.6 %
[2021-01-27] MEDS ORDERED: NS 1,000 ML IV ONE (21:25)
[2021-01-27] MEDS ORDERED: MAG SULF 1GM/100ML (MAG RUN) 1 GM in IV 1 EA IV ONE (21:25)
[2021-01-27] MEDS ORDERED: MORPHINE 2 MG/ML 1ML VIAL (J2270) IV PRN (22:00)
[2021-01-27] MEDS ORDERED: ONDANSETRON 4MG/2ML VIAL IV PRN (22:00)
[2021-01-27] MEDS: IPRATROPIUM 0.02% SOLN 0.5MG 2.5ML NEB INH SCH (22:13)
[2021-01-27] MEDS: LEVALBUTEROL 1.25 MG/0.5 ML CONCENTRATE NEB INH SCH (22:13)
[2021-01-27] MEDS: guaiFENesin ER 600 MG TAB PO SCH (22:47)
--- NOTE | 2021-01-27 23:12 | REPVR ---
PROCEDURE INFORMATION: Exam: XR Chest Exam date and time: 01/27/2021 9:28 PM Age: 70 years old Clinical indication: Cough; Additional info: Inc rr, cough TECHNIQUE: Imaging protocol: XR of the chest. Views: 1 view. COMPARISON: CR Chest, 1 view 04/27/2019 10:31 AM FINDINGS: Lungs: Unremarkable. No consolidation. Pleural spaces: Unremarkable. No pleural effusion. No pneumothorax. Heart/Mediastinum: Unremarkable. No cardiomegaly. Bones/joints: Unremarkable. IMPRESSION: No acute findings. Electronically signed by: Won Correa On 01/27/2021 23:12:34 PM
[2021-01-28] VITALS (14 sets, daily range): BP systolic 124–149; BP diastolic 62–68; O2SAT 92–96
[2021-01-28] MEDS: HumaLOG INSULIN (NovoLOG) PER UNIT SC SCH ×6 (00:15→21:00)
[2021-01-28] MEDS: levETIRAcetam ORAL SOLUTION 500 MG/5 ML UDC PO SCH ×3 (00:54→21:17)
[2021-01-28] MEDS: LATANOPROST 0.005% OPHTH SOLN 2.5 ML OU SCH ×2 (00:56→21:24)
[2021-01-28] MEDS: BRIMONIDINE 0.15% OPHTH SOLN 5 ML OU SCH ×4 (00:56→21:24)
[2021-01-28] MEDS: LEVALBUTEROL 1.25 MG/0.5 ML CONCENTRATE NEB INH SCH ×4 (01:17→20:00)
--- NOTE | 2021-01-28 05:58 | ECGEPIP ---
[facility] - ED Test Date: 2021-01-27 Pat Name: SUJATA CHAVEZ Department: Room: - Gender: Male [employer] K[employer] Runner: MICKEY : 1950 Requested By: RAH Figueredo Order Number: [id number] Reading MD: Louis Scott Measurements Intervals [place] Rate: 89 P: 26 VT: 194 QRS: -4 QRSD: 84 T: 7 QT: 346 QTc: 420 Interpretive Statements Sinus rhythm with occasional premature ventricular complexes NSTTW ABNORMALITY(S) SIMILAR TO 04/25/19 Electronically Signed on 01-28-2021 5:57:59 EDT by Louis Scott
[2021-01-28] MEDS: IPRATROPIUM 0.02% SOLN 0.5MG 2.5ML NEB INH SCH ×4 (08:00→20:00)
[2021-01-28] MEDS ORDERED: metFORMIN (GLUCOPHAGE) 500MG TAB PO SCH (08:00)
[2021-01-28] MEDS ORDERED: SODIUM CHLORIDE 0.9% 1000ML IV SCH (10:10)
[2021-01-28] MEDS ORDERED: PILL CUTTER 1 EACH XX PRN (10:20)
[2021-01-28] MEDS ORDERED: DEXTROSE 50% 50 ML SYRINGE IV PRN (10:25)
[2021-01-28] MEDS ORDERED: GLUCOSE 4GM CHEW TABLET PO PRN (10:25)
[2021-01-28] MEDS ORDERED: GLUCAGON INJ 1MG VIAL SC PRN (10:25)
[2021-01-28] MEDS: OMEPRAZOLE 20 MG CAP PO SCH (10:33)
[2021-01-28] MEDS: lisinopriL 40 MG TAB PO SCH (10:34)
[2021-01-28] MEDS: FOLIC ACID 1 MG TAB PO SCH (10:34)
[2021-01-28] MEDS: LORATADINE 10 MG TAB PO SCH (10:35)
[2021-01-28] MEDS: guaiFENesin ER 600 MG TAB PO SCH ×2 (10:36→21:17)
[2021-01-28] MEDS: LEVEMIR (INSULIN DETEMIR) 1 UNITS/0.01ML SC SCH (10:36)
[2021-01-28] MEDS: COSOPT OCUMETER PLUS 10ML (DORZOLAMIDE/TIMOLOL) OU SCH ×2 (10:38→12:42)
[2021-01-28] MEDS: SINEMET 25-100 MG TAB PO SCH ×3 (10:39→16:49)
[2021-01-28 10:59] LABS: BASO % 0.3 % (0.0-1.0); EOS # 0.3 10^3/uL (0.0-0.5); EOS % 2.6 % (0.0-3.0); HEMATOCRIT 34.6 % (42.0-52.0); HEMOGLOBIN 10.9 g/dl (13.5-17.5); LYMPH # 0.9 10^3/uL (1.5-5.0); LYMPH % 9.2 % (24.0-44.0); MEAN CORPUSCULAR HEMOGLOBIN 25.5 pg (27.0-33.0); MEAN CORPUSCULAR HGB CONC 31.5 g/dl (32.0-36.5); MEAN CORPUSCULAR VOLUME 80.8 fl (80.0-96.0); MONO # 0.9 10^3/uL (0.0-0.8); MONO % 8.8 % (2.0-8.0); NEUTROPHILS # 7.7 10^3/uL (1.5-8.5); NEUTROPHILS % 78.1 % (36.0-66.0); PLATELET COUNT, AUTOMATED 151 10^3/uL (150-450); RED BLOOD COUNT 4.28 10^6/uL (4.30-6.10); WHITE BLOOD COUNT 9.8 10^3/uL (4.0-10.0)
[2021-01-28] MEDS ORDERED: LevoFLOXacin IV 750 MG in IV 1 EA IV SCH (11:00)
--- NOTE | 2021-01-28 11:31 | REP ---
INDICATION: Pneumonia. COMPARISON: Comparison is made with yesterday's portable chest x-ray and prior chest CT study from 21 March 2019. TECHNIQUE: Helical scanning is acquired. 3 mm axial images are generated. Coronal and sagittal MPR and coronal MIP images are generated. FINDINGS: There is no evidence of pleural or pericardial effusion. There are stuck stable pretracheal and subcarinal lymph nodes in the mediastinum. No evidence of a at adenopathy. The heart appears enlarged. There is no evidence of pleural or pericardial effusion. Vascular calcification is seen involving the aorta and great vessels including the coronaries. Incidental note is made of abnormal parenchymal calcification in a segmental pattern within the right lobe of the liver of uncertain significance. Partial calcification in the mass high in the dome region and more infiltrative calcification pattern is seen more anteriorly and in the remainder of the right lobe. This pattern in the liver is a new finding compared with the March 2019 prior study. Differential possibilities include calcification in liver metastasis. In the lung zarate, there is increased density in a patchy pattern in the right lower lobe, and to a lesser extent in the upper lobes bilaterally. This is predominantly peripheral somewhat reticular pattern which is visible on March 21, 2019 prior study. This has progressed particularly in the right base. There is a 7 mm nodule in the superior segment of the left lower lobe visible on page 12/31/1989 in series 201 of today's study. This is a new finding. No other pulmonary nodule or mass lesion is observed. IMPRESSION: Extensive calcification in the right lobe liver parenchyma question calcified metastatic disease versus other liver disease. Predominantly peripheral pattern of patchy reticular infiltrate in the upper lobes and lower lobes bilaterally. This is most pronounced in the lower lobe on the right. It has progressed from March 21, 2019. There is a new pulmonary nodule in the superior segment of the left lower lobe measuring 7 mm. <Electronically signed by Alexandr Zhu > 01/28/21 1127
[2021-01-28] MEDS: ACETAMINOPHEN TAB 650MG DOSE (2X325MG) PO PRN (12:07)
[2021-01-28 12:17] LABS: ALT/SGPT 26 U/L (12-78); BILIRUBIN,TOTAL 0.9 MG/DL (0.2-1.0); BLOOD UREA NITROGEN 15 MG/DL (7-18); CARBON DIOXIDE LEVEL 24 MEQ/L (21-32); CHLORIDE LEVEL 103 MEQ/L (98-107); CREATININE FOR GFR 1.08 MG/DL (0.70-1.30); GLOMERULAR FILTRATION RATE > 60.0 (>42); GLUCOSE, FASTING 249 MG/DL (70-100); MAGNESIUM LEVEL 1.5 MG/DL (1.8-2.4); POTASSIUM SERUM 4.8 MEQ/L (3.5-5.1); SODIUM LEVEL 134 MEQ/L (136-145); TOTAL PROTEIN 5.8 GM/DL (6.4-8.2)
[2021-01-28] MEDS: NS 1,000 ML IV SCH (12:39)
[2021-01-28] MEDS ORDERED: ALBUTEROL 90 MCG/ACT 8GM HFA INHALER INH PRN (13:35)
--- NOTE | 2021-01-28 13:55 | IPNPDOC ---
Text Note Date of Service The patient was seen on 01/28/21. NOTE Subjective: In the morning patient developed fever of 101. Patient not orie nted in place and in time due to dementia. Patient stated that he has been having cough with yellowish sputum production Objective: GENERAL APPEARANCE: NAD HEENT: no scleral icterus, no JVD, EOMI CARDIOVASCULAR: S1S2 LUNGS: Diminished lung sounds bilaterally with mild wheezes ABDOMEN: soft & not tender w palpation MUSCULOSKELETAL: no cyanosis, no swelling INTEGUMENT: no generalized pallor NEUROLOGICAL: cranial nerve function from 2-12 intact, follows commands Assessment and plan Patient is 70 years old male with past medical history of of hypertension, cirrhosis, liver cancer, brain cancer, neck cancer, craniotomy, seizure, diabetes, dysphagia, GERD, diastolic heart failure, hyperlipidemia and dementia who presents with hyperglycemia. Patient has a significant recent history of TACE procedure on Sunday 01/21 at [place] for his liver cancer. One of the complications from this procedure can be hyperglycemia he was told and patient and his for keeping track of his blood glucose that he typically only has to take p.o. medication for but as blood glucose greater than 500 they presented to the ER. Fever Unknown etiology Could be secondary to liver cancer and pyrogenic effect of malignancy or possible infection Await blood culture, sputum culture I started levofloxacin IV due COPD exacerbation, patient has increased cough with yellowish sputum production Tylenol as needed Type 2 diabetes HbA1c 7.6 Insulin sliding scale Detemir Diabetes diet Liver cancer status post TACE with mets/history of brain and neck cancer Follow-up with oncologist in the outpatient settings COPD exacerbation Patient reported increased cough with yellowish sputum production Levofloxacin IV Inhalers CT chest showed parenchyma question calcified metastatic disease versus other liver disease. Predominantly peripheral pattern of patchy reticular infiltrate in the upper lobes and lower lobes bilaterally. This is most pronounced in the lower lobe on the right. It has progressed from March 21, 2019. There is a new pulmonary nodule in the superior segment of the left lower lobe measuring 7 mm. Palliative care encounter Overall prognosis is poor due to multiple comorbidities and progression of liver cancer. Patient was found to have new pulmonary nodule in the left lung Abdominal pain Resolved Lactic acidosis Most likely secondary to Metformin which was discontinued Lactic acidosis resolved Hypomagnesemia Replaced Hypertension Blood pressure under control Continue home meds Hyperlipidemia Not on statin due to liver cancer Due to limited life expectancy unlikely patient will benefit from lipid-lowering agents Diastolic CHF Not in acute exacerbation History of CVA with left-sided residual weakness: Patient walks with cane/walker. He is not receiving aspirin or statin per Headache in patient with history of craniotomy and seizures: Patient had reported brain cancer and craniotomy. Patient's alludes to possible history of ICH. He had one episode of seizure during the time of the craniotomy and was started on Keppra Continue home meds Dementia Follow-up with PCP in the outpatient settings Continue home meds DVT prophylaxis with heparin 5000 twice daily VS,Fishbone, I+O VS, Fishbone, I+O Laboratory Tests 01/27/21 16:35 01/28/21 10:29 Vital Signs Date Time Temp Pulse Resp B/P (MAP) Pulse Ox O2 Delivery O2 Flow Rate FiO2 01/28/21 11:46 98.1 95 18 149/62 (91) 95 Nasal Cannula 3.0 BRIONNA PITTS DO Jan 28, 2021 13:55
[2021-01-28] MEDS ORDERED: MAG SULF 1GM/100ML (MAG RUN) 1 GM in IV 1 EA IV ONE (14:00)
[2021-01-28] MEDS: IPRATROPIUM 0.5MG/ALBUTEROL 2.5MG INH SOL UD 3ML (DUONEB) NEB SCH ×2 (14:00→20:00)
[2021-01-28] MEDS: MAGNESIUM OXIDE 400MG TAB (MAG-OX) PO SCH (15:02)
[2021-01-28] MEDS: LevoFLOXacin IV 750 MG in IV 1 EA IV SCH (15:02)
[2021-01-28] MEDS: ADVAIR HFA 115/21MCG INHALER INH SCH (20:13)
[2021-01-28] MEDS: HEPARIN SOD (PORCINE) 5000UNITS/ML 1ML VIAL/SYRINGE SQ SCH (21:17)
[2021-01-29] VITALS (28 sets, daily range): BP systolic 122–137; BP diastolic 57–64; O2SAT 91–99
[2021-01-29] MEDS: IPRATROPIUM 0.5MG/ALBUTEROL 2.5MG INH SOL UD 3ML (DUONEB) NEB SCH ×4 (02:00→19:50)
[2021-01-29] MEDS: LEVALBUTEROL 1.25 MG/0.5 ML CONCENTRATE NEB INH SCH ×3 (02:00→13:14)
[2021-01-29] MEDS: NS 1,000 ML IV SCH (05:04)
[2021-01-29] MEDS: ACETAMINOPHEN TAB 650MG DOSE (2X325MG) PO PRN ×2 (05:06→21:53)
[2021-01-29 05:42] LABS: BASO % 0.4 % (0.0-1.0); EOS # 0.2 10^3/uL (0.0-0.5); EOS % 2.6 % (0.0-3.0); HEMATOCRIT 34.7 % (42.0-52.0); HEMOGLOBIN 10.9 g/dl (13.5-17.5); LYMPH % 12.7 % (24.0-44.0); MEAN CORPUSCULAR HEMOGLOBIN 25.4 pg (27.0-33.0); MEAN CORPUSCULAR HGB CONC 31.4 g/dl (32.0-36.5); MEAN CORPUSCULAR VOLUME 80.9 fl (80.0-96.0); MONO # 0.9 10^3/uL (0.0-0.8); MONO % 10.8 % (2.0-8.0); NEUTROPHILS # 5.8 10^3/uL (1.5-8.5); NEUTROPHILS % 72.5 % (36.0-66.0); PLATELET COUNT, AUTOMATED 141 10^3/uL (150-450); RED BLOOD COUNT 4.29 10^6/uL (4.30-6.10)
[2021-01-29 06:07] LABS: BLOOD UREA NITROGEN 14 MG/DL (7-18); CALCIUM LEVEL 7.8 MG/DL (8.8-10.2); CARBON DIOXIDE LEVEL 25 MEQ/L (21-32); CHLORIDE LEVEL 105 MEQ/L (98-107); CREATININE FOR GFR 1.02 MG/DL (0.70-1.30); GLOMERULAR FILTRATION RATE > 60.0 (>42); GLUCOSE, FASTING 196 MG/DL (70-100); MAGNESIUM LEVEL 1.3 MG/DL (1.8-2.4); POTASSIUM SERUM 4.5 MEQ/L (3.5-5.1); SODIUM LEVEL 137 MEQ/L (136-145)
[2021-01-29] MEDS: HumaLOG INSULIN (NovoLOG) PER UNIT SC SCH ×4 (07:30→21:00)
[2021-01-29] MEDS: IPRATROPIUM 0.02% SOLN 0.5MG 2.5ML NEB INH SCH ×2 (07:33→12:00)
[2021-01-29] MEDS: ADVAIR HFA 115/21MCG INHALER INH SCH ×2 (07:33→19:49)
[2021-01-29] MEDS ORDERED: E-Z-PAQUE 96% w/w SUSP 176GM BTL As Ordered ONE ×2 (07:50→10:49)
[2021-01-29] MEDS ORDERED: E-Z-GAS II EFFERVESCENT PACKET (SODIUM BICARB./CITRIC ACID/SIMETHICONE) As Ordered ONE (07:50)
[2021-01-29] MEDS ORDERED: E-Z-HD 98% w/w 340GM SUSP BTL As Ordered ONE (07:50)
[2021-01-29] MEDS ORDERED: MAG SULF 1GM/100ML (MAG RUN) 1 GM in IV 1 EA IV ONE (08:00)
[2021-01-29] MEDS: BRIMONIDINE 0.15% OPHTH SOLN 5 ML OU SCH ×3 (08:23→21:05)
[2021-01-29] MEDS: guaiFENesin ER 600 MG TAB PO SCH ×2 (09:31→21:04)
[2021-01-29] MEDS: HEPARIN SOD (PORCINE) 5000UNITS/ML 1ML VIAL/SYRINGE SQ SCH ×2 (09:32→21:05)
[2021-01-29] MEDS: OMEPRAZOLE 20 MG CAP PO SCH (09:32)
[2021-01-29] MEDS: FOLIC ACID 1 MG TAB PO SCH (09:33)
[2021-01-29] MEDS: SINEMET 25-100 MG TAB PO SCH ×3 (09:33→16:19)
[2021-01-29] MEDS: MAGNESIUM OXIDE 400MG TAB (MAG-OX) PO SCH (09:33)
[2021-01-29] MEDS: lisinopriL 40 MG TAB PO SCH (09:34)
[2021-01-29] MEDS: levETIRAcetam ORAL SOLUTION 500 MG/5 ML UDC PO SCH ×2 (09:35→21:04)
[2021-01-29] MEDS: LORATADINE 10 MG TAB PO SCH (09:38)
[2021-01-29] MEDS: COSOPT OCUMETER PLUS 10ML (DORZOLAMIDE/TIMOLOL) OU SCH ×2 (09:40→13:05)
[2021-01-29] MEDS ORDERED: VARIBAR PUDDING 40% w/v 230ML TUBE As Ordered ONE (10:49)
--- NOTE | 2021-01-29 12:12 | IPNPDOC ---
Text Note Date of Service The patient was seen on 01/29/21. NOTE Subjective: Patient is a 70-year-old male who initially presented to hospital hyperglycemia was found to have a fever yesterday. Patient did have a fever 100.5 taking temporally overnight. Patient states he is feeling otherwise well. Patient did have increased cough with yellow sputum production. Patient is otherwise feeling well. Review of systems: General: Patient denies fevers HEENT: Patient denies headaches Cardiovascular: Patient denies chest pain Respiratory: Patient denies shortness of breath, cough GI: Patient denies abdominal pain, nausea, vomiting, diarrhea : Patient denies increased frequency or pain with urination Extremities: Patient denies swelling or pain in extremities Neurological: Patient denies numbness or tingling in legs Physical exam: Vitals: See below General: Alert and oriented to person but not place or time male who was sitting up in bed. Patient not appear to be in any acute distress. HEENT: Normocephalic, atraumatic, moist mucous membranes. Neck: No lymphadenopathy or thyromegaly Cardiac: Regular rate and rhythm, no murmurs, normal S1, normal S2 Pulm: Diminished breath sounds bilaterally with wheezing. Abd: Nondistended, nontender to palpation, normal bowel sounds Ext: No edema bilateral lower extremities Labs: See below Imaging: No new imaging has been performed Assessment/plan: 70-year-old male with past history of hypertension, cirrhosis, liver cancer, brain cancer, neck cancer, craniotomy, seizures, diabetes, dysphagia, GERD, diastolic heart failure, hyperlipidemia and dementia presents with hyperglycemia. Patient has significant recent history of transarterial chemoembolization on 01/21 in [place] for his liver cancer. When the complication of the procedure can be hyperglycemia he was told the patient's to keep track of his blood sugars. Patient usually takes p.o. medication but his glucose has been greater than 500 so they presented to the emergency department. Patient was also found to have a fever yesterday. 1. Fever, unclear etiology. This could be secondary to the liver cancer in the pyrogenic effect of malignancy or possible infection. Procalcitonin was 0.49. CT scan did not show any evidence of pneumonia however, patient was complaining of increased cough with yellow sputum production. Levofloxacin has been started for possible COPD exacerbation patient and we will continue to monitor. I did place an order for oral temperatures to be taken especially if a temporal te mperature is elevated. 2. Type 2 diabetes. HbA1c 7.6. Continue insulin sliding scale and diabetic diet. 3. Liver cancer status post transarterial chemoembolization with mets/history of brain and neck cancer. Follow-up with oncology as outpatient. 4. COPD exacerbation. Patient reported increased cough with yellow sputum production. Continue levofloxacin IV with inhalers. There is a new pulmonary nodule in the superior segment of the left lower lobe measuring 7 mm. 5. Palliative care encounter. Palliative care has been consulted due to the patient's multiple comorbidities and the progression of his liver cancer and new pulmonary nodule in the left lung. 6. Lactic acidosis. Most likely secondary to Metformin has been discontinued and lactic acidosis resolved. 7. Hypomagnesemia. Is been repleted 8. Hypertension. Blood pressure is under control. Continue home medications. 9. Hyperlipidemia. Not on statin due to liver cancer. Due to limited life expectancy unlikely patient will benefit from lipid-lowering agents. 10. Heart failure with preserved ejection fraction, not in acute exacerbation. 11. History of CVA with left-sided residual weakness. Patient walks with a cane/walker. Not receiving aspirin or statin per . 12. Headache in patient with history of craniotomy and seizures. Patient had reported brain cancer and craniotomy. Patient's alludes to possible intracranial hemorrhage. Had 1 episode of seizure during that time when he had a craniotomy and was started on Keppra. Continue home Keppra. 13. Dementia. Continue home meds and follow-up with outpatient provider DVT Prophylaxis: Heparin Disposition: Pending afebrile for 24 hours, possible discharge tomorrow. VS,Fishbone, I+O VS, Fishbone, I+O Laboratory Tests 01/29/21 05:12 Vital Signs Date Time Temp Pulse Resp B/P (MAP) Pulse Ox O2 Delivery O2 Flow Rate FiO2 01/29/21 08:00 3.0 01/29/21 07:25 100.2 91 17 127/57 (80) 93 Nasal Cannula I&O- Last 24 Hours up to 6 AM 01/29/21 06:00 Intake Total 3480 ml Output Total 1875 ml Balance 1605 ml BOOKER MESSER DO Jan 29, 2021 12:12
[2021-01-29] MEDS: LevoFLOXacin IV 750 MG in IV 1 EA IV SCH (12:53)
[2021-01-29] MEDS: LEVEMIR (INSULIN DETEMIR) 1 UNITS/0.01ML SC SCH (12:55)
--- NOTE | 2021-01-29 15:41 | IPNPDOC ---
Text Note Date of Service The patient was seen on 01/29/21. I saw Mr. Bill at his bedside. He has liver cancer, seizure d/o, DM and multiple other medical problems admitted to [facility] with hypergycve NOTE In speaking with him, he was unable to relay much of his hostoriacal information. He was receiving palliative chemotherapy at the time of my visit. He is followed in [place] for this. The only symptom complaint he had was constipation; nursing staff was working on getting orders for laxatives. He denies pain, nausea, vomiting, dyspnea. He reported no dysuria. He gave me permission to speak with his [place]ona, who is HCP. I will call her later today regarding his goals of care. Since he is receiving palliative chemotherapy, he would be appropriate for [facility] if his is interested in having him enrolled there for palliative care/symptoms management. At this time he is a full code. VS,Fishbone, I+O VS, Fishbone, I+O aLaboratory Tests 01/29/21 05:12 Vital Signs Date Time Temp Pulse Resp B/P (MAP) Pulse Ox O2 Delivery O2 Flow Rate FiO2 01/29/21 08:00 3.0 01/29/21 07:25 100.2 91 17 127/57 (80) 93 Nasal Cannula I&O- Last 24 Hours up to 6 AM 01/29/21 06:00 Intake Total 3480 ml Output Total 1875 ml Balance 1605 ml Lucia [facility] Jan 29, 2021 15:41
[2021-01-29] MEDS ORDERED: SENNA 8.6 MG TAB (SENOKOT) PO PRN (16:35)
--- NOTE | 2021-01-29 17:43 | REP ---
INDICATION: Aspiration. COMPARISON: None TECHNIQUE: This procedure was performed by Stacie Harrell, [facility], under the direct supervision of Dr. Zhu. Images were reviewed with Dr. Zhu prior to dictation. Liquid barium was given in the anterior oblique position, due to the patient's inability to stand or roll. FINDINGS: A single view PA chest x-ray is submitted as a drill operator film. The superior mediastinal structures are midline. The heart size is within normal limits. The lungs are clear. The oral and pharyngeal stages of deglutition were unremarkable. Esophageal transport is prompt and efficient and there is no evidence of esophagitis, stricture, or mucosal ring. There is no evidence of a hiatal hernia. No gastroesophageal reflux was visualized. IMPRESSION: Unremarkable limited esophagram study. 0.3 minutes of fluoroscopy time was utilized for this procedure. Some fluoroscopic images are performed with last image hold technology. These images require no additional radiation. <Electronically signed by Stacie Harrell > 01/29/21 1633 <Electronically signed by Alexandr Zhu > 01/29/21 [id number]
--- NOTE | 2021-01-29 17:43 | REP ---
INDICATION: dysphagia. COMPARISON: None. TECHNIQUE: The procedure was performed by SKIP Varma, under the direct supervision of . The procedure was performed with Deanne Callejas, Olivia Browne, Mari Ling from speech pathology present. 5 ml aliquots of thin, pudding, mixed fruit, soft food, nectar thick and pill consistency barium was administered. FINDINGS: Penetration was visualized with nectar thick consistency, deep penetration was visualized with thin consistency barium, and flash penetration was visualized with a mix consistency and the thin base. The detailed report of this examination will be provided by speech pathology. IMPRESSION: Penetration is described above, a detailed report will be provided by speech pathology. 3.9 minutes of fluoroscopy time was utilized for this procedure. Some fluoroscopic images are performed with last image hold technology. These images require no additional radiation <Electronically signed by Stacie Harrell > 01/29/21 [id number] <Electronically signed by Alexandr Zhu > 01/29/21 0971
[2021-01-29] MEDS: DOCUSATE SODIUM 100MG CAPSULE PO SCH (21:04)
[2021-01-29] MEDS: LATANOPROST 0.005% OPHTH SOLN 2.5 ML OU SCH (21:05)
[2021-01-30] VITALS (8 sets, daily range): BP systolic 114–148; BP diastolic 57–74; O2SAT 93–96
[2021-01-30] MEDS: IPRATROPIUM 0.5MG/ALBUTEROL 2.5MG INH SOL UD 3ML (DUONEB) NEB SCH ×2 (02:00→07:19)
[2021-01-30 06:21] LABS: BASO % 0.5 % (0.0-1.0); EOS # 0.2 10^3/uL (0.0-0.5); HEMATOCRIT 35.3 % (42.0-52.0); HEMOGLOBIN 11.1 g/dl (13.5-17.5); LYMPH # 1.1 10^3/uL (1.5-5.0); MEAN CORPUSCULAR HEMOGLOBIN 25.6 pg (27.0-33.0); MEAN CORPUSCULAR HGB CONC 31.4 g/dl (32.0-36.5); MEAN CORPUSCULAR VOLUME 81.3 fl (80.0-96.0); MONO # 0.9 10^3/uL (0.0-0.8); NEUTROPHILS # 6.1 10^3/uL (1.5-8.5); NEUTROPHILS % 72.2 % (36.0-66.0); PLATELET COUNT, AUTOMATED 149 10^3/uL (150-450); RED BLOOD COUNT 4.34 10^6/uL (4.30-6.10); WHITE BLOOD COUNT 8.4 10^3/uL (4.0-10.0)
[2021-01-30 06:23] LABS: BLOOD UREA NITROGEN 14 MG/DL (7-18); CARBON DIOXIDE LEVEL 25 MEQ/L (21-32); CHLORIDE LEVEL 105 MEQ/L (98-107); CREATININE FOR GFR 1.02 MG/DL (0.70-1.30); GLOMERULAR FILTRATION RATE > 60.0 (>42); GLUCOSE, FASTING 181 MG/DL (70-100); MAGNESIUM LEVEL 1.4 MG/DL (1.8-2.4); POTASSIUM SERUM 4.2 MEQ/L (3.5-5.1); SODIUM LEVEL 139 MEQ/L (136-145)
[2021-01-30] MEDS: ADVAIR HFA 115/21MCG INHALER INH SCH (07:18)
[2021-01-30] MEDS: lisinopriL 40 MG TAB PO SCH (08:51)
[2021-01-30] MEDS: FOLIC ACID 1 MG TAB PO SCH (08:51)
[2021-01-30] MEDS: DOCUSATE SODIUM 100MG CAPSULE PO SCH (08:51)
[2021-01-30] MEDS: OMEPRAZOLE 20 MG CAP PO SCH (08:52)
[2021-01-30] MEDS: SINEMET 25-100 MG TAB PO SCH ×2 (08:52→12:14)
[2021-01-30] MEDS: LEVEMIR (INSULIN DETEMIR) 1 UNITS/0.01ML SC SCH (08:53)
[2021-01-30] MEDS: HEPARIN SOD (PORCINE) 5000UNITS/ML 1ML VIAL/SYRINGE SQ SCH (08:53)
[2021-01-30] MEDS: levETIRAcetam ORAL SOLUTION 500 MG/5 ML UDC PO SCH (08:53)
[2021-01-30] MEDS: HumaLOG INSULIN (NovoLOG) PER UNIT SC SCH ×2 (08:54→12:14)
[2021-01-30] MEDS: LORATADINE 10 MG TAB PO SCH (08:55)
[2021-01-30] MEDS: MAGNESIUM OXIDE 400MG TAB (MAG-OX) PO SCH (08:55)
[2021-01-30] MEDS: COSOPT OCUMETER PLUS 10ML (DORZOLAMIDE/TIMOLOL) OU SCH ×2 (08:55→12:16)
[2021-01-30] MEDS: BRIMONIDINE 0.15% OPHTH SOLN 5 ML OU SCH (08:56)
[2021-01-30] MEDS: ACETAMINOPHEN TAB 650MG DOSE (2X325MG) PO PRN (08:56)
[2021-01-30] MEDS ORDERED: LEVO750T13 PO (12:22)
[2021-01-30] MEDS ORDERED: LANTINJ4 SC ×2 (16:44→16:56)
[2021-01-30] MEDS ORDERED: FIFT31MI2 SC (16:44)
--- NOTE | 2021-01-30 16:52 | DS.PDOC ---
Discharge Summary General Date of Admission January 27, 2021 Date of Discharge January 30, 2021 Attending Physician: BOOKER MESSER DO Discharge Summary PROCEDURES PERFORMED DURING STAY: None. ADMITTING DIAGNOSES: 1. Hyperglycemia. 2. Mild COPD exacerbation 3. Abdominal pain with cirrhosis/liver cancer 4. Lactic acidosis in the setting of cirrhosis/liver cancer 5. Hypomagnesemia 6. Hypertension 7. Hyperlipidemia 8. Diastolic congestive heart failure 9. History of CVA with left-sided residual weakness 10. Headache 11. Dementia DISCHARGE DIAGNOSES: 1. Hyperglycemia, resolved 2. Mild COPD exacerbation, improved 3. Abdominal pain with cirrhosis/liver cancer 4. Lactic acidosis in the setting of cirrhosis/liver cancer 5. Hypomagnesemia 6. Hypertension 7. Hyperlipidemia 8. Diastolic congestive heart failure 9. History of CVA with left-sided residual weakness 10. Headache 11. Dementia 12. Fevers 13. Pneumonia COMPLICATIONS/CHIEF COMPLAINT: Hyperglycemia. HISTORY OF PRESENT ILLNESS: Patient is a 70-year-old male with significant history for hypertension, cirrhosis, liver cancer, brain cancer, neck cancer, craniotomy, seizure, diabetes, dysphagia, GERD diet diastolic heart failure, hyperlipidemia and dementia who presented with a complaint of high blood sugar. Patient had recent history of transarterial chemoembolization performed on Thursday, January 04, 20202020 in [place] for his liver cancer. When the complications of the procedure can be hypoglycemia he was told and the patient and his have been keeping track of his blood glucose that he typically only takes p.o. medications for. Patient's blood glucose was greater than 500 so they present to the emergency department. Patient was notably wheezing during exam today he is on 4 L of nasal cannula oxygen for COPD which is increased from his baseline. Patient also has a dry cough multiple times during exam according to the admitting provider. Patient does endorse a headache over the left side of his head. Patient is without neuro deficits and describes the headache is mild. Patient does not endorse abdominal pain, generalized but also focused to the right lower quadrant. Patient reports that at the abdominal pain is not acute. Patient denies sinus congestion, sore throat, shortness of breath, palpitation, chest pain, nausea vomiting diarrhea, weakness, sensory changes or syncope. Patient is afebrile normotensive and mildly tachycardic. Blood glucose was 418 upon arrival without DKA. HOSPITAL COURSE: Patient's blood sugar was treated and the patient. Patient was started on Levemir insulin to keep the patient's blood sugars down. This was able to keep the blood sugar within a tolerable range. Patient did have A1c of 7.6. Patient developed a mild fevers with a T-max of 101.2 on 6 January 28, 2021. Patient did have multiple very low-grade fevers with the highest after that being 100.8 orally. Patient did not show any symptoms of this. Pro calcitonin was ordered and was 0.49. Patient had a CT scan which showed predominantly peripheral pattern of patchy reticular infiltrates in the upper lobes and lower lobes bilaterally. Patient was started on levofloxacin. Patient's procalcitonin did improve on levofloxacin and the patient was cli nically stable. Patient had swallow evaluation due to possible aspiration. Patient was found to have aspiration requiring adjustments to the patient's diet. Patient had his diet switched to consistent carbohydrate diet with.. Patient also had a palliative care consult however, the patient's does not want any services at this time. Patient was deemed ready for discharge and was discharged home on January 30, 2021. After the patient was discharged, I realized that I did not send the patient's insulin. Patient has been switched to Lantus. I contacted the patient's who asked that the medication be sent to the pharmacy on . Medication has been sent there. All questions were answered. DISCHARGE MEDICATIONS: Please see below. ALLERGIES: Please see below. PHYSICAL EXAMINATION ON DISCHARGE: VITAL SIGNS: Please see below. General: Alert but not oriented male patient who was sitting up in bed when I walked in. Patient not appear to be in any acute distress. HEENT: Normocephalic, atraumatic, moist mucous membranes. Neck: No lymphadenopathy or thyromegaly Cardiac: Regular rate and rhythm, no murmurs, normal S1, normal S2 Pulm: Diminished breath sounds bilaterally without any wheezing, rhonchi, or rales Abd: Nondistended, nontender to palpation, normal bowel sounds Ext: No edema bilateral lower extremities LABORATORY DATA: Please see below. IMAGING: Chest x-ray performed on January 27, 2021 is reported to show no acute findings. CT of the chest performed without contrast on January 28, 2021 is reported to show an sense of calcification in the right lobe of the liver parenchyma question calcified metastatic disease versus of liver disease. Predominantly peripheral pattern of patchy reticular infiltrates in the upper lobes and lower lobes bilaterally. This is most pronounced in the lower lobe in the right. It has progressed from March 21, 2019. There is a new pulmonary nodule in the superior segment of the left lower lobe measuring 7 mm. Esophagram barium swallow was performed on January 29, 2021 is reported to show unremarkable limited esophagram study. Modified cookie swallow performed on January 21, 2021 was reported to show penetration was visualized with nectar thick consistency, deep penetration was visualized with thin consistency barium, and flash penetration was visualized with a mixed consistency and thin base. PROGNOSIS: Fair ACTIVITY: As tolerated. DIET: Level 2 solids with nectar thick liquids DISCHARGE PLAN: Discharge home DISPOSITION: Home, Self-Care. DISCHARGE INSTRUCTIONS: 1. Follow-up with your primary care provider in 3 to 5 days discharge 2. Continue levofloxacin as directed for 7 days. 3. Start Lantus insulin 10 units at night to help control blood sugars. Follow-up with your primary care about continuing this medication 4. Start level 2 solids and nectar thick liquids 5. Return the emergency department if symptoms return or worsen ITEMS TO FOLLOWUP ON ON OUTPATIENT: 1. Monitoring blood sugar. DISCHARGE CONDITION: Stable. TIME SPENT ON DISCHARGE: 35 minutes. Vital Signs/I&Os Vital Signs Date Time Temp Pulse Resp B/P (MAP) Pulse Ox O2 Delivery O2 Flow Rate FiO2 01/30/21 12:00 3.0 01/30/21 12:00 93 Nasal Cannula 01/30/21 08:00 100.5 100 18 148/74 (98) I&O- Last 24 Hours up to 6 AM 01/30/21 06:00 Intake Total 1005 ml Output Total 1575 ml Balance -570 ml Laboratory Data Labs 24H Laboratory Tests 2 01/29/21 17:01: Bedside Glucose (Misc Panel) 241H 01/29/21 20:58: Bedside Glucose (Misc Panel) 213H 01/30/21 05:35: Immature Granulocyte % (Auto) 1.3, Neutrophils (%) (Auto) 72.2H, Lymphocytes (%) (Auto) 13.0L, Monocytes (%) (Auto) 11.0H, Eosinophils (%) (Auto) 2.0, Basophils (%) (Auto) 0.5, Neutrophils # (Auto) 6.1, Lymphocytes # (Auto) 1.1L, Monocytes # (Auto) 0.9H, Eosinophils # (Auto) 0.2, Basophils # (Auto) 0.0, Nucleated Red Blood Cells % (auto) 0.0, Anion Gap 9, Glomerular Filtration Rate > 60.0, Calcium Level 8.0L, Magnesium Level 1.4L, Procalcitonin 0.34 01/30/21 06:43: Bedside Glucose (Misc Panel) 162H 01/30/21 11:54: Bedside Glucose (Misc Panel) 281H CBC/BMP Laboratory Tests 01/30/21 05:35 FSBS Laboratory Tests Test 01/29/21 17:01 01/29/21 20:58 01/30/21 06:43 01/30/21 11:54 Range/Units Bedside Glucose (Misc Panel) 241 213 162 281 83-110 MG/DL Microbiology Microbiology 01/28/21 Blood Culture - Preliminary, Resulted No Growth after 48 hours. All Specime... 01/28/21 Blood Culture - Preliminary, Resulted No Growth after 48 hours. All Specime... 01/27/21 Blood Culture - Preliminary, Resulted No Growth after 48 hours. All Specime... 01/27/21 Blood Culture - Preliminary, Resulted No Growth after 48 hours. All Specime... Discharge Medications Scheduled Atorvastatin Calcium (Atorvastatin Calcium) 80 Mg Tab, 40 MG PO DAILY, (Reporte d) CRUSH AND PUT IN APPLESAUCE Brimonidine Tartrate (Brimonidine Tartrate) 0.2 % Margarita, 1 DROP OU TID, (Reported) Carbidopa/Levodopa (Carbidopa-Levodopa 25-100 Tab) 1 Each Tablet, 0.5 TAB PO TID, (Reported) CRUSH AND PUT IN APPLESAUCE AT 0800, 1200, AND 1600 Cholecalciferol (Vitamin D3) (Vitamin D3) 1 Ml Liquid, 3,000 UNIT PO DAILY, (Reported) Dorzolamide HCl/Timolol Maleat (Dorzolamide-Timolol Eye Drops) 1 Margarita Margarita, 1 DROP OU BID, (Reported) USES MORNING AND NOON Folic Acid (Folic Acid) 1 Mg Tab, 1 MG PO DAILY, (Reported) CRUSH AND PUT IN APPLESAUCE Gabapentin (Gabapentin) 250 Mg/5 Ml Solution, 6 ML PO QHS, (Reported) Hydrochlorothiazide (Hydrochlorothiazide) 25 Mg Tab, 25 MG PO DAILY, (Reported) CRUSH AND PUT IN APPLESAUCE Insulin Glargine,Hum.rec.anlog (Lantus Solostar) 100 Unit/1 Ml Insuln.pen, 10 UNIT SC DAILY Latanoprost (Xalatan) 0.005 % Margarita, 1 DROP OU QHS, (Reported) Levetiracetam (Levetiracetam) 500 Mg/5 Ml Solution, 750 MG PO BID, (Reported) Levofloxacin (Levofloxacin) 750 Mg Tablet, 1 TAB PO DAILY Lisinopril (Lisinopril) 40 Mg Tablet, 20 MG PO DAILY, (Reported) CRUSH AND PUT IN APPLESAUCE Loratadine (Loratadine) 10 Mg Tab, 10 MG PO DAILY, (Reported) CRUSH AND PUT IN APPLESAUCE Metformin HCl (Metformin HCl) 500 Mg Tablet, 500 MG PO BIDWM, (Reported) CRUSH AND PUT IN APPLESAUCE Multivit-Minerals/Ferrous Fum (Multivitamin Liquid) 9 Mg/15 Ml Liquid, 15 ML PO DAILY, (Reported) Nut.tx.gluc.intoler,Lac-Fr,Soy (Glucerna) 237 Ml Liquid, 237 ML PO BID, (Re ported) Omeprazole (Omeprazole) 20 Mg Cap, 20 MG PO DAILY, (Reported) SPRINKLE IN APPLESAUCE Potassium Chloride (Klor-Con M20) 20 Meq Tab.er.prt, 20 MEQ PO BID, (Reported) CRUSH AND PUT IN APPLESAUCE Scheduled PRN Dextrose (Glucose) 4 Gm Tab.chew, 4 GM PO for LOW BLOOD SUGAR, (Reported) Allergies Coded Allergies: Penicillins (Verified Allergy, Severe, ANAPHYLAXIS, 05/25/19) BOOKER MESSER DO Jan 30, 2021 16:52
[2021-01-30] MEDS ORDERED: BD P31MI2 SC (16:56)
== END 2021-01-30 14:25 | disposition home or self-care (01) | DRG 638 ==
LOC: M ED 15:40 → M ED INP 15:41 → ENRESERV 01-28 08:00 → M PCU 01-28 08:58 → OBSVTOIN 01-29 11:58
PROVIDERS: ADMIT Family Medicine; ATTEND Family Medicine
DX: E11.65 Type 2 diabetes mellitus with hyperglycemia (principal); J96.11 Chronic respiratory failure with hypoxia; J44.1 Chronic obstructive pulmonary disease with (acute) exacerbation; C22.9 Malignant neoplasm of liver, not specified as primary or secondary; E87.2 Acidosis; I69.354 Hemiplegia and hemiparesis following cerebral infarction affecting left non-dominant side; I50.32 Chronic diastolic (congestive) heart failure; K74.60 Unspecified cirrhosis of liver; E83.42 Hypomagnesemia; I11.0 Hypertensive heart disease with heart failure; R51.9 Headache, unspecified; G40.909 Epilepsy, unspecified, not intractable, without status epilepticus; F03.90 Unspecified dementia, unspecified severity, without behavioral disturbance, psychotic disturbance, mood disturbance, and anxiety; Z99.81 Dependence on supplemental oxygen; Z20.822 Contact with and (suspected) exposure to COVID-19; Z79.84 Long term (current) use of oral hypoglycemic drugs; Z79.899 Other long term (current) drug therapy; Z88.0 Allergy status to penicillin; Z85.841 Personal history of malignant neoplasm of brain; E78.5 Hyperlipidemia, unspecified; K21.9 Gastro-esophageal reflux disease without esophagitis; Z87.891 Personal history of nicotine dependence; R50.9 Fever, unspecified; R91.8 Other nonspecific abnormal finding of lung field; K59.00 Constipation, unspecified